=== PATIENT | male | born 1945 | race Hispanic/Latino ===

== ENCOUNTER 2020-10-07 01:14 | Inpatient (IN) | payer MEDICARE, OTHER ==
[2020-10-07] MEDS ORDERED: ONDANSETRON 4 MG/2 ML INJ IV ONE (02:13)
[2020-10-07] MEDS ORDERED: SODIUM CHLORIDE 0.9% 1000 ML 1,000 ML IV ONE (02:34)
[2020-10-07] MEDS ORDERED: MORPHINE 4 MG/1 ML INJ IV ONE (03:05)
--- NOTE | 2020-10-07 03:07 | Emergency Department Report ---
ED Abdominal Pain HPI - General Chief Complaint: Abdominal Pain Stated Complaint: ABD PAIN Time Seen by Provider: 10/07/20 02:13 Source: patient, old records reviewed Mode of arrival: Ambulatory Limitations: No Limitations - History of Present Illness Initial Comments: 74-year-old male with a past medical history of CAD, hypertension, elevated cholesterol, diverticulitis, previous cholecystectomy, appendectomy, multiple hernia repairs surgeries, partial colon resection, splenectomy, and previous small bowel obstructions presents to the hospital complaining of sudden onset abdominal pain with nausea vomiting since 9 PM. Patient has chronic ventral wall hernias from his 7 previous abdominal surgeries. He reports that his abdomen is more distended with moderate epigastric pain. Last surgery was abdominal mesh removal with replacement in 2006. No reports of fever, hematochezia, or hematemesis. Last bowel movement was 4 PM. Patient has active feculent vomiting during initial evaluation. Is not currently on anticoagulants and reports use of enteric-coated aspirin 81 mg daily. In the past patient has been seen by general surgeon DR Adriane Duncan affiliated with [facility] but has not been evaluated by them since 2006 - Related Data Previous Rx's Medication Instructions Recorded Last Taken Type Aspirin 325 mg PO ONCE #30 tablet 08/01/13 09/10/13 10:24 Rx 325 mg Clopidogrel [Plavix] 75 mg PO QDAY #30 tablet 08/01/13 09/10/13 10:23 Rx 75 mg Rosuvastatin (Nf) [Crestor] 20 mg PO QHS #30 tablet 08/01/13 09/09/13 22:00 Rx 20 mg Warfarin [Coumadin] 5 mg PO QDAY #30 tablet 08/01/13 09/09/13 22:00 Rx 5 mg Hydrocodone Bit/Acetaminophen 1 each PO Q8H PRN #14 tablet 09/10/13 Unknown Rx [Lortab 7.5-500 mg] Allergies Allergy/AdvReac Type Severity Reaction Status Date / Time No Known Allergies Allergy Verified 07/25/13 22:46 ED Review of Systems ROS: Stated complaint: ABD PAIN Other details as noted in HPI Comment: All other systems reviewed and negative ED Past Medical Hx - Past Medical History Previous Medical History?: Yes Hx Hypertension: Yes Hx CVA: No Hx Heart Attack/AMI: Yes Hx Congestive Heart Failure: No Hx Deep Vein Thrombosis: No Hx Pulmonary Embolism: No Hx GERD: No Hx Headaches / Migraines: No Hx Seizures: No Hx Asthma: No Hx COPD: No Hx Tuberculosis: No Hx Dementia: No Hx HIV: No Additional medical history: High cholesterol. diverticulitis - Surgical History Past Surgical History?: Yes Hx Coronary Stent: No Hx Pacemaker: No Hx Internal Defibrillator: No Hx Cholecystectomy: Yes Hx Appendectomy: Yes Additional Surgical History: Mult hernia repairs and colon resection. spleenectomy - Social History Smoking Status: Never Smoker Substance Use Type: None - Medications Home Medications: Home Medications Medication Instructions Recorded Confirmed Last Taken Type Aspirin 325 mg PO ONCE #30 tablet 08/01/13 09/10/13 09/10/13 10:24 Rx 325 mg Clopidogrel [Plavix] 75 mg PO QDAY #30 tablet 08/01/13 09/10/13 09/10/13 10:23 Rx 75 mg Rosuvastatin (Nf) [Crestor] 20 mg PO QHS #30 tablet 08/01/13 09/10/13 09/09/13 22:00 Rx 20 mg Warfarin [Coumadin] 5 mg PO QDAY #30 tablet 08/01/13 09/10/13 09/09/13 22:00 Rx 5 mg Hydrocodone Bit/Acetaminophen 1 each PO Q8H PRN #14 tablet 09/10/13 Unknown Rx [Lortab 7.5-500 mg] ED Physical Exam - General Limitations: No Limitations - Other Other exam information: General: Moderate distress secondary to rub Head: Atraumatic Eyes: normal appearance ENT: Moist mucous membranes Neck: Normal appearance, no midline tenderness Chest: Clear to auscultation bilaterally CV: Regular rate and rhythm Abdomen: Soft, normal bowel sounds, multiple abdominal scars multiple ventral wall hernias epigastric ventral wall hernia the largest and appears to be reducible. Mild generalized tenderness without rebound or guarding. Active feculent vomiting Back: Normal inspection Extremity: Normal inspection, full range of motion Neuro: Alert O x 3, no facial asymmetry, speech clear, no gross motor sensory deficit Psych: Appropriate behavior Skin: No rash ED Course Vital Signs 10/07/20 10/07/20 10/07/20 01:28 03:19 07:43 Temperature 98.9 F 98.1 F Pulse Rate 90 93 H Respiratory 18 18 18 Rate Blood Pressure 103/71 131/91 O2 Sat by Pulse 94 100 90 Oximetry 10/07/20 10/07/2010/07/21 07:48 08:00 08:11 Temperature Pulse Rate 95 H 100 H Respiratory 16 19 Rate Blood Pressure 113/79 113/79 O2 Sat by Pulse 93 94 95 Oximetry 10/07/20 10/07/20 10/07/20 08:13 08:15 08:30 Temperature 98.0 F Pulse Rate 95 H 95 H Respiratory 21 20 Rate Blood Pressure 113/79 120/77 O2 Sat by Pulse 95 94 Oximetry 10/07/20 08:40 Temperature Pulse Rate 98 H Respiratory 20 Rate Blood Pressure 120/77 O2 Sat by Pulse 92 Oximetry - Reevaluation(s) Reevaluation #1: 10/07/20 03:21 Abdominal series x-ray reviewed and appears to be a small bowel obstruction with clinical signs of feculent vomiting. Nurse instructed to place NG tube in place to intermittent suction. Labs and CT pending. Patient treated with Zofran, normal saline, and morphine - Consultations Consultation #1: 10/07/20 05:54 case d/w DR Lechuga Gen surgeon who recommends advancement of ngt and admission ED Medical Decision Making - Lab Data Result diagrams: 10/09/20 05:36 10/09/20 05:36 Lab Results 10/07/20 10/07/20 Range/Units 02:36 02:36 WBC 10.9 (4.5-11.0) K/mm3 RBC 5.27 H (3.65-5.03) M/mm3 Hgb 16.9 H (11.8-15.2) gm/dl Hct 49.9 H (35.5-45.6) % MCV 95 H (84-94) fl MCH 32 (28-32) pg MCHC 34 (32-34) % RDW 14.9 (13.2-15.2) % Plt Count 269 (140-440) K/mm3 Lymph % (Auto) 7.0 L (13.4-35.0) % Mccormick % (Auto) 6.4 (0.0-7.3) % Eos % (Auto) 0.0 (0.0-4.3) % Baso % (Auto) 0.2 (0.0-1.8) % Lymph # (Auto) 0.8 L (1.2-5.4) K/mm3 Mccormick # (Auto) 0.7 (0.0-0.8) K/mm3 Eos # (Auto) 0.0 (0.0-0.4) K/mm3 Baso # (Auto) 0.0 (0.0-0.1) K/mm3 Seg Neutrophils % 86.4 H (40.0-70.0) % Seg Neutrophils # 9.5 H (1.8-7.7) K/mm3 Sodium 138 (137-145) mmol/L Potassium 3.9 (3.6-5.0) mmol/L Chloride 98.6 (98-107) mmol/L Carbon Dioxide 18 L (22-30) mmol/L Anion Gap 25 mmol/L BUN 22 H (9-20) mg/dL Creatinine 1.2 (0.8-1.3) mg/dL Estimated GFR 59 ml/min BUN/Creatinine Ratio 18 % Glucose 217 H (75-100) mg/dL Calcium 9.6 (8.4-10.2) mg/dL Total Bilirubin 0.70 (0.1-1.2) mg/dL AST 20 (5-40) units/L ALT 17 (7-56) units/L Alkaline Phosphatase 71 (35-129) units/L Total Protein 7.2 (6.3-8.2) g/dL Albumin 4.5 (3.9-5) g/dL Albumin/Globulin Ratio 1.7 % Lipase 20 (13-60) units/L - Radiology Data Radiology results: report reviewed Chest x-ray abdominal series x-ray: Left basilar atelectasis with possible pneumonitis with more density in this area than on previous examination. No pneumoperitoneum is noted. Bowel gas pattern shows prominent small bowel dilatation with multiple air-fluid levels consistent with small bowel obstruction. Surgical changes seen in the pelvis and right lateral abdomen Post NG tube abdominal X ray: NG tube extends to the lower chest level near the gastroesophageal junction. There is a huge hiatal hernia and nasogastric tube does not extend beyond the gastroesophageal junction into the stomach. Advancement by roughly 10 cm with be needed to fully place the tip in the stomach though this may be difficult due to the hiatal hernia CT ABDOMEN AND PELVIS WITH CONTRAST INDICATION: Pt complains of abdominal pain with nausea and vomiting. CONTRAST: 100 cc Omnipaque 300 IV COMPARISON: None available. All CT scans at this location are performed using CT dose reduction for ALARA by means of automated exposure control. FINDINGS: Lung bases show atelectatic changes. A huge hiatal hernia is seen. Nasogastric tube extends to the gastroesophageal junction above the level of the diaphragm but does not appear to enter the stomach. Gallbladder has been removed. No biliary dilatation of significance is seen. Small cyst is noted in the liver. Small bilateral renal cysts are noted. 2 of the probable cysts on the left in the midportion laterally are mildly hyperdense with density of 245 Hounsfield units. The larger of the 2 adjacent hyperdense lesions measure 16 mm. Moderate left nephrolithiasis is seen without obstructive change in minimal right nephrolithiasis is noted. Prostate is moderately enlarged. Seminal vesicles are not enlarged. Mild ectasia of the lower abdominal aorta is seen. Moderate atherosclerotic changes are noted. No lymphadenopathy is seen. No free fluid is noted. No inflammatory changes are seen. Spleen has been removed. History of pancreatectomy but pancreas appears intact. A large midline upper abdominal wall hernia is seen with a broad base. The neck of this hernia measures 18 cm. This contains portions of colon. Just inferior to that broad- based hernia is a large midline supraumbilical hernia containing small bowel. Prominent small bowel dilatation is noted in the upper to mid small bowel with distal loops not dilated consistent with a small bowel obstruction. There is surgical change in mid small bowel with part of that dilated loop extending into the lower hernia sac. Nondilated loops of small bowel are also seen within the hernia sac. The neck of this hernia is relatively broad measuring 6 cm. There is a transition within the sac from nondilated to mildly dilated small bowel. An area of possible narrowing is also seen in the central mid abdomen at the area of surgical change. IMPRESSION: Evidence of high-grade small bowel obstruction in the mid to distal small bowel level. Two large ventral hernias are seen, one of which contains small bowel including a transition between nondilated and mildly dilated bowel though this transition is not at the neck of hernia. There is also a question of stenosis in a bowel loop with surgical change. No inflammatory changes seen at either hernia. - Medical Decision Making 74-year-old male with history of multiple previous abdominal surgeries and small bowel obstruction presents to the hospital with abdominal pain, distention, and feculent vomiting. CT confirms small bowel obstruction. NG tube placed however, needs advancement. At time of disposition nurse informed to advance NG tube 10 cm and repeat x-ray for proper placement. Case discussed with on-call surgeon Dr. Lechuga since patient's previous surgeon Dr. Duncan is not affiliated here and has not evaluated patient in over 10 years. Case discussed with hospitalist for admission Critical Care Time: No Critical care attestation.: If time is entered above; I have spent that time in minutes in the direct care of this critically ill patient, excluding procedure time. ED Disposition Clinical Impression: SBO (small bowel obstruction), Hiatal hernia, Ventral hernia Disposition: 09 OP ADMIT IP TO THIS HOSP Is pt being admited?: Yes Condition: Stable Time of Disposition: 05:57 (Dr Davis/hospitalist)
[2020-10-07 03:13] LABS: Basophils % (Auto) 0.2 % (0.0-1.8); Hematocrit 49.9 % (35.5-45.6); Hemoglobin 16.9 gm/dl (11.8-15.2); Lymphocytes # (Auto) 0.8 K/mm3 (1.2-5.4); Mean Corpuscular HGB Conc 34 % (32-34); Mean Corpuscular Volume 95 fl (84-94); Monocytes # (Auto) 0.7 K/mm3 (0.0-0.8); Monocytes % (Auto) 6.4 % (0.0-7.3); Platelet Count 269 K/mm3 (140-440); Red Blood Count 5.27 M/mm3 (3.65-5.03); Red Cell Distribution Width 14.9 % (13.2-15.2)
[2020-10-07] MEDS ORDERED: LIDOCAINE VISCOUS 2% 15 ML ORAL LIQD PO ONE (03:20)
[2020-10-07 03:35] LABS: Albumin 4.5 g/dL (3.9-5); Calcium 9.6 mg/dL (8.4-10.2)
--- NOTE | 2020-10-07 03:42 | XRay Report ---
ACUTE ABDOMEN SERIES 3 VIEWS 0248 INDICATION: feculant vomiting, abd distention COMPARISON: Chest x-ray 07/27/2013, abdominal radiograph 07/29/2013 FINDINGS: Left basilar atelectasis and possible pneumonitis are seen with more density in this area t monroy on previous examination. No pneumoperitoneum is noted. Bowel gas pattern shows prominent small randy wel dilatation with multiple air-fluid levels consistent with small bowel obstruction. Surgical kaur es are seen in the pelvis and right lateral abdomen. Signer Name: Brandon Barkley MD Signed: 10/07/2020 3:37 AM Workstation Name: [id number]
--- NOTE | 2020-10-07 05:33 | Cat Scan Report ---
CT ABDOMEN AND PELVIS WITH CONTRAST INDICATION: Pt complains of abdominal pain with nausea and vomiting. CONTRAST: 100 cc Omnipaque 300 IV COMPARISON: None available. All CT scans at this location are performed using CT dose reduction for ALARA by means of automated e xposure control. FINDINGS: Lung bases show atelectatic changes. A huge hiatal hernia is seen. Nasogastric tube extends to the gastroesophageal junction above the level of the diaphragm but does not appear to enter the s tomach. Gallbladder has been removed. No biliary dilatation of significance is seen. Small cyst is noted in t he liver. Small bilateral renal cysts are noted. 2 of the probable cysts on the left in the midportio n laterally are mildly hyperdense with density of 245 Hounsfield units. The larger of the 2 adjacent hyperdense lesions measure 16 mm. Moderate left nephrolithiasis is seen without obstructive change in minimal right nephrolithiasis is noted. Prostate is moderately enlarged. Seminal vesicles are not en larged. Mild ectasia of the lower abdominal aorta is seen. Moderate atherosclerotic changes are noted. No lym phadenopathy is seen. No free fluid is noted. No inflammatory changes are seen. Spleen has been remov ed. History of pancreatectomy but pancreas appears intact. A large midline upper abdominal wall hernia is seen with a broad base. The neck of this hernia measur es 18 cm. This contains portions of colon. Just inferior to that broad-based hernia is a large midlin e supraumbilical hernia containing small bowel. Prominent small bowel dilatation is noted in the uppe r to mid small bowel with distal loops not dilated consistent with a small bowel obstruction. There i s surgical change in mid small bowel with part of that dilated loop extending into the lower hernia s ac. Nondilated loops of small bowel are also seen within the hernia sac. The neck of this hernia is relatively broad measuring 6 cm. There is a transition within the sac from nondilated to mildly dilat ed small bowel. An area of possible narrowing is also seen in the central mid abdomen at the area of surgical change. IMPRESSION: Evidence of high-grade small bowel obstruction in the mid to distal small bowel level. Tw o large ventral hernias are seen, one of which contains small bowel including a transition between no ndilated and mildly dilated bowel though this transition is not at the neck of hernia. There is also a question of stenosis in a bowel loop with surgical change. No inflammatory changes seen at either h ernia. Signer Name: Brandon Barkley MD Signed: 10/07/2020 5:29 AM Workstation Name: [id number]
--- NOTE | 2020-10-07 05:35 | XRay Report ---
ABDOMEN AP PORTABLE SUPINE 0446 INDICATION: NG TUBE PLACEMENT FOR SBO COMPARISON: CT abdomen and pelvis tonight FINDINGS: Nasogastric tube extends to the lower chest level near the gastroesophageal junction. As se en on CT, there is a huge hiatal hernia and the nasogastric tube does not extend beyond the gastroeso phageal junction into the stomach. Advancement by roughly 10 cm would be needed to fully place the ti p in the stomach though this may be difficult due to the hiatal hernia. Signer Name: Brandon Barkley MD Signed: 10/07/2020 5:31 AM Workstation Name: [id number]
[2020-10-07] MEDS ORDERED: MAGNESIUM HYDROXIDE (MOM) ORAL LIQD UDC PO PRN (06:18)
[2020-10-07] MEDS ORDERED: METOCLOPRAMIDE 10 MG/2 ML INJ IV PRN (06:18)
[2020-10-07] MEDS ORDERED: ACETAMINOPHEN 325 MG TAB PO PRN (06:18)
[2020-10-07] MEDS ORDERED: IPRATROPIUM/ALBUTEROL SULFATE 3 ML AMPUL.NEB IH PRN (06:18)
[2020-10-07] MEDS ORDERED: traZODone 50 MG TAB PO PRN (06:22)
[2020-10-07] MEDS ORDERED: ALUM-MAG HYDROXIDE-SIMETHICONE 200-200-20MG/5ML ORAL LIQD 30 ML PO PRN (06:22)
[2020-10-07] MEDS ORDERED: LACTULOSE 20 GM/30 ML ORAL LIQD PO PRN (06:22)
--- NOTE | 2020-10-07 06:31 | History and Physical Report ---
History of Present Illness Date of examination: 10/07/20 Date of admission: 10/07/20 Chief complaint: Ventral hernia Abdominal pain History of present illness: 74-year-old male with a past medical history of CAD, hypertension, elevated cholesterol, diverticulitis, previous cholecystectomy, appendectomy, multiple hernia repairs surgeries, partial colon resection, splenectomy, and previous small bowel obstructions presents to the hospital complaining of sudden onset abdominal pain with nausea vomiting since 9 PM. Patient has chronic ventral wall hernias from his 7 previous abdominal surgeries. He reports that his abdomen is more distended with moderate epigastric pain. Last surgery was abdominal mesh removal with replacement in 2006. No reports of fever, hematochezia, or hematemesis. Last bowel movement was 4 PM. Patient has active feculent vomiting during initial evaluation. Is not currently on anticoagulants and reports use of enteric-coated aspirin 81 mg daily. Patient seen at the bedside in ED. Patient is alert and oriented x3. Patient reports abdominal pain, denies chest pain and shortness of breath. He has distended abdomen due to abdominal hernia. He reports history of multiple surgeries. He said his abdominal pain has worsened and is not relieved by any [id number] remedies. He denies tobacco use, alcohol, and illicit drug use. ED work-up shows WBC 10.9, H&H 16.9, potassium 3.9, glucose 217, sodium 138, creatinine 1.2, and platelets 269. CT of the abdomen done-it showed Evidence of high-grade small bowel obstruction in the mid to distal small bowel level. Two large ventral hernias are seen, one of which contains small bowel including a transition between nondilated and mildly dilated bowel though this transition is not at the neck of hernia. There is also a question of stenosis in a bowel loop with surgical change. No inflammatory changes seen at either hernia. NG tube placed in the ED to intermittent suction. General surgeon consulted. Past History Past Medical History: CAD, hypertension, hyperlipidemia Past Surgical History: cholecystectomy, hernia repair, bowel surgery Social history: , lives with family Family history: hypertension Medications and Allergies Allergies Allergy/AdvReac Type Severity Reaction Status Date / Time No Known Allergies Allergy Verified 07/25/13 22:46 Home Medications Medication Instructions Recorded Confirmed Last Taken Type Aspirin 325 mg PO ONCE #30 tablet 08/01/13 09/10/13 09/10/13 10:24 Rx 325 mg Clopidogrel [Plavix] 75 mg PO QDAY #30 tablet 08/01/13 09/10/13 09/10/13 10:23 Rx 75 mg Rosuvastatin (Nf) [Crestor] 20 mg PO QHS #30 tablet 08/01/13 09/10/13 09/09/13 22:00 Rx 20 mg Warfarin [Coumadin] 5 mg PO QDAY #30 tablet 08/01/13 09/10/13 09/09/13 22:00 Rx 5 mg Hydrocodone Bit/Acetaminophen 1 each PO Q8H PRN #14 tablet 09/10/13 Unknown Rx [Lortab 7.5-500 mg] Active Meds: Active Medications Acetaminophen (Acetaminophen 325 Mg Tab) 650 mg PO Q4H PRN PRN Reason: Pain MILD(1-3)/Fever >100.5/BOSS Al Hydrox/Mg Hydrox/Simethicone (Alum-Mag Hydroxide-Simethicone [phone]/5ml Oral Liqd 30 Ml) 30 ml PO Q8HR PRN PRN Reason: Indigestion Albuterol/Ipratropium (Ipratropium/Albuterol Sulfate 3 Ml Ampul.Neb) 1 ampul IH Q6HRT PRN PRN Reason: Shortness Of Breath Famotidine (Famotidine 20 Mg/2 Ml Inj) 20 mg IV BID JOSH Dextrose/Sodium Chloride (D5ns) 1,000 mls @ 75 mls/hr IV DIRECT JOSH Lactulose (Lactulose 20 Gm/30 Ml Oral Liqd) 20 gm PO DAILY PRN PRN Reason: Constipation Magnesium Hydroxide (Magnesium Hydroxide (Mom) Oral Liqd Udc) 30 ml PO Q4H PRN PRN Reason: Constipation Metoclopramide HCl (Metoclopramide 10 Mg/2 Ml Inj) 10 mg IV Q6H PRN PRN Reason: Nausea And Vomiting Morphine Sulfate (Morphine 2 Mg/1 Ml Inj) 2 mg IV Q6H PRN PRN Reason: Pain, Moderate (4-6) Ondansetron HCl (Ondansetron 4 Mg/2 Ml Inj) 4 mg IV Q8H PRN PRN Reason: Nausea And Vomiting Sodium Chloride (Sodium Chloride 0.9% 10 Ml Flush Syringe) 10 ml IV BID JOSH Sodium Chloride (Sodium Chloride 0.9% 10 Ml Flush Syringe) 10 ml IV PRN PRN PRN Reason: LINE FLUSH Trazodone HCl (Trazodone 50 Mg Tab) 50 mg PO QHS PRN PRN Reason: Insomnia Review of Systems Ears, nose, mouth and throat: no epistaxis Cardiovascular: high blood pressure Respiratory: no congestion Gastrointestinal: abdominal pain, nausea, vomiting Genitourinary Male: no hematuria Rectal: no pain Musculoskeletal: no neck stiffness Integumentary: no rash, no pruritis Neurological: no head injury Exam - Constitutional Vitals: Temp Pulse Resp BP Pulse Ox 98.9 F 90 18 103/71 100 10/07/20 01:28 10/07/20 01:28 10/07/20 03:19 10/07/20 01:10/07/20 03:19 General appearance: Present: severe distress, well-nourished, other (abdominal pain due to sbo) - EENT Eyes: Present: PERRL ENT: hearing intact, clear oral mucosa - Neck Neck: Present: supple, normal ROM - Respiratory Respiratory effort: normal Respiratory: bilateral: CTA - Cardiovascular Heart rate: 90 Heart Sounds: Present: S1 & S2. Absent: rub, click - Extremities Extremities: pulses symmetrical, No edema Peripheral Pulses: within normal limits - Abdominal General gastrointestinal: Present: soft, non-tender, tender, distended, hypoactive bowel sounds Localized gastrointestinal: tender: RUQ, LUQ, RLQ, LLQ, epigastric periumbilical, guarding: RUQ, LUQ, RLQ, LLQ Male genitourinary: Present: normal - Integumentary Integumentary: Present: clear, warm, dry - Musculoskeletal Musculoskeletal: gait normal, strength equal bilaterally - Psychiatric Psychiatric: appropriate mood/affect, intact judgment & insight, cooperative - Neurologic Neurologic: CNII-XII intact, moves all extremities - Allied Health Allied health notes reviewed: nursing Results - Labs CBC & Chem 7: 10/07/20 02:36 10/07/20 02:36 Labs: Abnormal lab results 10/07/20 10/07/20 Range/Units 02:36 02:36 RBC 5.27 H (3.65-5.03) M/mm3 Hgb 16.9 H (11.8-15.2) gm/dl Hct 49.9 H (35.5-45.6) % MCV 95 H (84-94) fl Lymph % (Auto) 7.0 L (13.4-35.0) % Lymph # (Auto) 0.8 L (1.2-5.4) K/mm3 Seg Neutrophils % 86.4 H (40.0-70.0) % Seg Neutrophils # 9.5 H (1.8-7.7) K/mm3 Carbon Dioxide 18 L (22-30) mmol/L BUN 22 H (9-20) mg/dL Glucose 217 H (75-100) mg/dL Assessment and Plan - Patient Problems (1) SBO (small bowel obstruction) Current Visit: Yes Status: Acute Plan to address problem: Small bowel obstruction seen on CT of the abdomen Started on IV hydration. Patient is n.p.o. General surgeon consulted (2) Ventral hernia Current Visit: Yes Status: Acute Plan to address problem: Patient has history of multiple abdominal surgeries Pain management as needed (3) Abdominal pain Current Visit: Yes Status: Acute Plan to address problem: with Nausea and vomiting -secondary to small bowel obstruction CT of the abdomen showed a small bowel obstruction Continue pain management Continue IV hydration and keep patient n.p.o. General surgeon consulted (4) Essential (primary) hypertension Current Visit: Yes Status: Acute Plan to address problem: Monitor blood pressure Resume home antihypertensive Adjust blood pressure medicine if needed As needed hydralazine (5) High cholesterol Current Visit: Yes Status: Acute Plan to address problem: Resume home statin (6) DVT prophylaxis Current Visit: Yes Status: Acute Plan to address problem: SCD for now patient may possibly have surgery
[2020-10-07] MEDS ORDERED: ALBUTEROL 2.5 MG/3 ML NEBU IH PRN (06:33)
[2020-10-07] MEDS ORDERED: D5W/0.9% NACL 1,000 ML IV SCH (07:00)
--- NOTE | 2020-10-07 07:03 | XRay Report ---
ABDOMEN AP PORTABLE 0630 INDICATION: NGT advanced COMPARISON: 0446 FINDINGS: Position of the nasogastric tube is unchanged with tip in the area of the gastroesophageal junction adjacent to the large hiatal hernia. Signer Name: Brandon Barkley MD Signed: 10/07/2020 6:59 AM Workstation Name: [id number]
[2020-10-07] MEDS: MORPHINE 2 MG/1 ML INJ IV PRN (08:17)
--- NOTE | 2020-10-07 10:05 | Consultation ---
History of Present Illness Consult date: 10/07/20 Reason for consult: abdominal pain - History of present illness History of present illness: 74 year old male presented to ED with a one day hx of worsening abdominal pain, distension, with nausea and vomiting. He has a hx of 7 previous open abdominal surgeries for a variety of reasons, with the last consisting of removal of a mes h, and replacement of another one. He says his pain is moderate. Last bowel movement and flatus was yesterday. The ED passed an NGT, but was unsuccessful at passing past the GE jx due to a large non-obstructing hiatal hernia seen on imaging. He had a CT scan that showed a high grade small bowel obstruction in the mid abdomen. Upon exam pt says that he is tired of being in the hospital and needing procedures. He was hospitalized in march and july of last year for diverticular bleed that was treated conservatively. Past History Past Medical History: CAD, hypertension, hyperlipidemia Past Surgical History: cholecystectomy, hernia repair, bowel surgery, Other (partial colectomy, mesh removal and replacement with biologic, splenectomy) Social history: , lives with family Family history: hypertension Medications and Allergies Allergies Allergy/AdvReac Type Severity Reaction Status Date / Time No Known Allergies Allergy Verified 07/25/13 22:46 Home Medications Medication Instructions Recorded Confirmed Last Taken Type Aspirin 325 mg PO ONCE #30 tablet 08/01/13 09/10/13 09/10/13 10:24 Rx 325 mg Clopidogrel [Plavix] 75 mg PO QDAY #30 tablet 08/01/13 09/10/13 09/10/13 10:23 Rx 75 mg Rosuvastatin (Nf) [Crestor] 20 mg PO QHS #30 tablet 08/01/13 09/10/13 09/09/13 22:00 Rx 20 mg Warfarin [Coumadin] 5 mg PO QDAY #30 tablet 08/01/13 09/10/13 09/09/13 22:00 Rx 5 mg Hydrocodone Bit/Acetaminophen 1 each PO Q8H PRN #14 tablet 09/10/13 Unknown Rx [Lortab 7.5-500 mg] Active Meds: Active Medications Acetaminophen (Acetaminophen 325 Mg Tab) 650 mg PO Q4H PRN PRN Reason: Pain MILD(1-3)/Fever >100.5/BOSS Al Hydrox/Mg Hydrox/Simethicone (Alum-Mag Hydroxide-Simethicone [id number]/5ml Oral Liqd 30 Ml) 30 ml PO Q8HR PRN PRN Reason: Indigestion Albuterol (Albuterol 2.5 Mg/3 Ml Nebu) 2.5 mg IH Q4HRT PRN PRN Reason: Shortness Of Breath Atenolol (Atenolol 25 Mg Tab) 25 mg PO QDAY JOSH Atorvastatin Calcium (Atorvastatin 20 Mg Tab) 20 mg PO QHS JOSH Famotidine (Famotidine 20 Mg/2 Ml Inj) 20 mg IV BID JOSH Hydralazine HCl (Hydralazine 20 Mg/1 Ml Inj) 5 mg IV Q30MIN PRN PRN Reason: Hypertension Hydrochlorothiazide (Hydrochlorothiazide 12.5 Mg Cap) 12.5 mg PO QDAY JOSH Dextrose/Sodium Chloride (D5ns) 1,000 mls @ 75 mls/hr IV DIRECT JOSH Last Admin: 10/07/20 08:17 Dose: 75 mls/hr Documented by: Lactulose (Lactulose 20 Gm/30 Ml Oral Liqd) 20 gm PO DAILY PRN PRN Reason: Constipation Magnesium Hydroxide (Magnesium Hydroxide (Mom) Oral Liqd Udc) 30 ml PO Q4H PRN PRN Reason: Constipation Metoclopramide HCl (Metoclopramide 10 Mg/2 Ml Inj) 10 mg IV Q6H PRN PRN Reason: Nausea And Vomiting Last Admin: 10/07/20 07:54 Dose: 10 mg Documented by: Morphine Sulfate (Morphine 2 Mg/1 Ml Inj) 2 mg IV Q6H PRN PRN Reason: Pain, Moderate (4-6) Last Admin: 10/07/20 08:17 Dose: 2 mg Documented by: Ondansetron HCl (Ondansetron 4 Mg/2 Ml Inj) 4 mg IV Q8H PRN PRN Reason: Nausea And Vomiting Sodium Chloride (Sodium Chloride 0.9% 10 Ml Flush Syringe) 10 ml IV BID JOSH Sodium Chloride (Sodium Chloride 0.9% 10 Ml Flush Syringe) 10 ml IV PRN PRN PRN Reason: LINE FLUSH Trazodone HCl (Trazodone 50 Mg Tab) 50 mg PO QHS PRN PRN Reason: Insomnia Review of Systems - Constitutional anorexia - Cardiovascular no chest pain - Respiratory no cough, no shortness of breath - Gastrointestinal abdominal pain, nausea, vomiting - Genitourinary no dysuria Exam Vital Signs Temp Pulse Resp BP Pulse Ox 98.9 F 90 18 103/71 94 10/07/20 01:28 10/07/20 01:10/07/20 01:10/07/20 01:10/07/20 01:28 - General physical appearance Positive: well developed, no distress, no pain - Respiratory Positive: normal expansion, normal respiratory effort - Cardiovascular Heart Sounds: Present: S1 & S2 - Extremities Extremities: no ischemia - Abdomen Abdomen: Present: soft, tender, distended, surgical scars, other (loss of domain midline hernia. ). Absent: rebound, guarding - Neurologic Neurologic: alert and oriented to time, place and person Results - Labs 10/07/20 02:36 10/07/20 02:36 Abnormal lab results 10/07/20 10/07/20 Range/Units 02:36 02:36 RBC 5.27 H (3.65-5.03) M/mm3 Hgb 16.9 H (11.8-15.2) gm/dl Hct 49.9 H (35.5-45.6) % MCV 95 H (84-94) fl Lymph % (Auto) 7.0 L (13.4-35.0) % Lymph # (Auto) 0.8 L (1.2-5.4) K/mm3 Seg Neutrophils % 86.4 H (40.0-70.0) % Seg Neutrophils # 9.5 H (1.8-7.7) K/mm3 Carbon Dioxide 18 L (22-30) mmol/L BUN 22 H (9-20) mg/dL Glucose 217 H (75-100) mg/dL Diabetes panel 10/07/20 Range/Units 02:36 Sodium 138 (137-145) mmol/L Potassium 3.9 (3.6-5.0) mmol/L Chloride 98.6 (98-107) mmol/L Carbon Dioxide 18 L (22-30) mmol/L BUN 22 H (9-20) mg/dL Creatinine 1.2 (0.8-1.3) mg/dL Glucose 217 H (75-100) mg/dL Calcium 9.6 (8.4-10.2) mg/dL AST 20 (5-40) units/L ALT 17 (7-56) units/L Alkaline Phosphatase 71 (35-129) units/L Total Protein 7.2 (6.3-8.2) g/dL Albumin 4.5 (3.9-5) g/dL Calcium panel 10/07/20 Range/Units 02:36 Calcium 9.6 (8.4-10.2) mg/dL Albumin 4.5 (3.9-5) g/dL Pituitary panel 10/07/20 Range/Units 02:36 Sodium 138 (137-145) mmol/L Potassium 3.9 (3.6-5.0) mmol/L Chloride 98.6 (98-107) mmol/L Carbon Dioxide 18 L (22-30) mmol/L BUN 22 H (9-20) mg/dL Creatinine 1.2 (0.8-1.3) mg/dL Glucose 217 H (75-100) mg/dL Calcium 9.6 (8.4-10.2) mg/dL Adrenal panel 10/07/20 Range/Units 02:36 Sodium 138 (137-145) mmol/L Potassium 3.9 (3.6-5.0) mmol/L Chloride 98.6 (98-107) mmol/L Carbon Dioxide 18 L (22-30) mmol/L BUN 22 H (9-20) mg/dL Creatinine 1.2 (0.8-1.3) mg/dL Glucose 217 H (75-100) mg/dL Calcium 9.6 (8.4-10.2) mg/dL Total Bilirubin 0.70 (0.1-1.2) mg/dL AST 20 (5-40) units/L ALT 17 (7-56) units/L Alkaline Phosphatase 71 (35-129) units/L Total Protein 7.2 (6.3-8.2) g/dL Albumin 4.5 (3.9-5) g/dL - Imaging CT scan - abdomen: report reviewed, image reviewed CT scan - pelvis: report reviewed, image reviewed Assessment and Plan 74 year old male with small bowel obstruction likely due to adhesive disease. Afebrile and stable. Pt is high risk for complication after surgery as he has an extensive and complicated previous abdominal surgical hx. Also to be considered is he has loss of domain recurrent ventral hernia that may be problematic to close. Since NGT will not pass hiatal hernia, asked IR to try to manipulate tube beyond GE jx under fluoroscopy. I discussed at length with the patient that if we can advance the tube to allow for adequate decompression of his stomach and proximal small bowel it may give us the option to manage the SBO conservatively without surgery. Pt expressed hesitation to have any intervention done because he said 'he is tired of being sick and having to endure procedures, and maybe the best thing for him is to pass away if that is God's will". Will follow up with patient later. If IR cannot pass tube, will discuss surgery again with patient and plan for surgical intervention with his consent.
[2020-10-07] MEDS: ONDANSETRON 4 MG/2 ML INJ IV PRN (10:48)
[2020-10-07] MEDS ORDERED: SODIUM CHLORIDE IRRI 500 ML 500 ML IR ONE (12:01)
[2020-10-07] MEDS ORDERED: SODIUM CHLORIDE 0.9% 500 ML 500 ML ONE (12:16)
--- NOTE | 2020-10-07 12:46 | Operative Report ---
Operative Report Operative Report: Exam: Fluoroscopic guided placement of nasojejunostomy tube Clinical indication: Patient with a history of multiple abdominal surgeries and large hiatal hernia, unable to pass NG tube Date: 10/07/2020 Procedure: Following an explanation of the risks, benefits and alternatives; written informed consent was obtained. The patient was brought to the fluoroscopy suite and placed in supine position on the examination table. Initial evaluation of the patient's indwelling nasogastric tube demonstrated some coiling of the proximal tube in the patient's back of his throat. The distal end of the tube is in the likely proximal aspect of the hiatal hernia. Contrast would not pass secondary to tortuosity of the NG tube. The nasogastric tube was withdrawn proximally to reduce the coiling. A 0.035 guidewire was then advanced through the nasogastric tube and the indwelling nasogastric tube removed intact. A vertebral catheter was then advanced over the guidewire. Together the catheter and guidewire were manipulated into the proximal jejunum. The vertebral catheter was removed and a Dobbhoff tube was placed over the guidewire under fluoroscopy and advanced into the proximal jejunum. Overall length of 75 cm. Contrast was injected to document appropriate positioning. The Dobbhoff tube was securely fastened to the nose using adhesive tape. The patient tolerated the procedure well. There were no immediate postprocedure complications. Sedation was not utilized. Continuous cardiopulmonary monitoring was utilized. Impression: Fluoroscopic guided placement of Dobbhoff tube at 75 cm into proximal jejunum.
[2020-10-07 13:44] LABS: Bilirubin,Urine NEG (Negative); Blood,Urine NEG (Negative); Color,Urine Amber (Yellow); Mucus,Urine FEW /HPF; Urobilinogen,Urine < 2.0 mg/dL (<2.0)
[2020-10-07] MEDS: FAMOTIDINE 20 MG/2 ML INJ IV SCH ×2 (13:48→22:31)
[2020-10-07] MEDS: atenoloL 25 MG TAB PO SCH (14:44)
[2020-10-07] MEDS: hydroCHLOROthiazide 12.5 MG CAP PO SCH (14:44)
--- NOTE | 2020-10-07 18:47 | Event Note ---
Date: 10/07/20 She was admitted this morning with abdominal pain , small bowel obstruction , ventral hernia history of multiple abdominal surgeries and large hiatal hernia, surgery and IR evaluated, Unable to pass NG tube , patient underwent fluoroscopic guided placement of nasojejunostomy tube per IR Continue current management, will closely monitor the patient and adjust the management as needed Surgery and IR evaluation recommendations noted and appreciated Plan of care reviewed with the patient's nurse
[2020-10-07] MEDS ORDERED: PHENOL 1.4% 177 ML BOTTLE MM PRN (22:01)
[2020-10-08] MEDS: MORPHINE 2 MG/1 ML INJ IV PRN ×3 (02:51→18:42)
[2020-10-08 06:25] LABS: Basophils % (Auto) 0.1 % (0.0-1.8); Hematocrit 48.6 % (35.5-45.6); Hemoglobin 16.2 gm/dl (11.8-15.2); Lymphocytes # (Auto) 0.7 K/mm3 (1.2-5.4); Lymphocytes % (Auto) 7.8 % (13.4-35.0); Mean Corpuscular HGB Conc 33 % (32-34); Mean Corpuscular Volume 97 fl (84-94); Monocytes % (Auto) 10.3 % (0.0-7.3); Platelet Count 242 K/mm3 (140-440); Red Blood Count 5.01 M/mm3 (3.65-5.03); Red Cell Distribution Width 15.3 % (13.2-15.2)
[2020-10-08 07:03] LABS: Albumin 3.9 g/dL (3.9-5); Calcium 8.6 mg/dL (8.4-10.2)
[2020-10-08] MEDS ORDERED: SODIUM CHLORIDE 0.9% 500 ML 500 ML IV ONE (09:30)
--- NOTE | 2020-10-08 10:09 | Progress Note ---
Assessment and Plan Assessment and plan: Patient was admitted with abdominal pain , small bowel obstruction , ventral hernia history of multiple abdominal surgeries and large hiatal hernia, surgery and IR evaluated, Unable to pass NG tube , patient underwent fluoroscopic guided placement of nasojejunostomy tube per IR --Small bowel obstruction; Management per surgery Continue n.p.o. status, IV fluids Patient had Dobbhoff. Nasal jejunostomy tube On low intermittent suction Management per surgery --Acute kidney injury; secondary to dehydration Vasomotor nephropathy, gentle IV hydration Monitor renal function, avoid nephrotoxins Consider nephrology evaluation if no improvement --History of coronary artery disease; Continue home medications once patient is able to take oral Consider cardiology evaluation if needed --Dyslipidemia; Patient is on statin, currently n.p.o. Resume when patient is stable and able to take p.o. --DVT prophylaxis; SCDs We will closely monitor patient and adjust management as needed Follow surgery recommendations Plan of care reviewed with the patient and and his nurse 10/08/2020; patient has Dobbhoff/nasal jejunostomy tube placement, with intermittent suction Patient feels slightly better, n.p.o. status, management per surgery History Interval history: I have seen and examined the patient at the bedside Patient's chart and medications reviewed Patient feels slightly better Planes of mild abdominal discomfort Vital signs reviewed Hospitalist Physical - Constitutional Vitals: Temp Pulse Resp BP Pulse Ox 97.7 F 71 20 119/83 93 10/08/20 07:16 10/08/20 07:16 10/08/20 08:55 10/08/20 07:16 10/08/20 08:35 General appearance: Present: severe distress, well-nourished, other (abdominal pain due to sbo) - EENT Eyes: Present: PERRL, EOM intact - Neck Neck: Present: supple, normal ROM - Respiratory Respiratory effort: normal Respiratory: bilateral: diminished, negative: rales, rhonchi, wheezing - Cardiovascular Rhythm: regular Heart Sounds: Present: S1 & S2 - Extremities Extremities: no ischemia, No edema - Abdominal General gastrointestinal: soft, non-tender, non-distended - Integumentary Integumentary: Present: clear, warm - Psychiatric Psychiatric: appropriate mood/affect, cooperative - Neurologic Neurologic: CNII-XII intact, moves all extremities Results - Labs CBC & Chem 7: 10/08/20 05:38 10/08/20 05:38 Labs: Laboratory Last Values WBC 9.5 K/mm3 (4.5-11.0) 10/08/20 05:38 RBC 5.01 M/mm3 (3.65-5.03) 10/08/20 05:38 Hgb 16.2 gm/dl (11.8-15.2) H 10/08/20 05:38 Hct 48.6 % (35.5-45.6) H 10/08/20 05:38 MCV 97 fl (84-94) H 10/08/20 05:38 MCH 32 pg (28-32) 10/08/20 05:38 MCHC 33 % (32-34) 10/08/20 05:38 RDW 15.3 % (13.2-15.2) H 10/08/20 05:38 Plt Count 242 K/mm3 (140-440) 10/08/20 05:38 Lymph % (Auto) 7.8 % (13.4-35.0) L 10/08/20 05:38 Petroleum % (Auto) 10.3 % (0.0-7.3) H 10/08/20 05:38 Eos % (Auto) 0.0 % (0.0-4.3) 10/08/20 05:38 Baso % (Auto) 0.1 % (0.0-1.8) 10/08/20 05:38 Lymph # (Auto) 0.7 K/mm3 (1.2-5.4) L 10/08/20 05:38 Petroleum # (Auto) 1.0 K/mm3 (0.0-0.8) H 10/08/20 05:38 Eos # (Auto) 0.0 K/mm3 (0.0-0.4) 10/08/20 05:38 Baso # (Auto) 0.0 K/mm3 (0.0-0.1) 10/08/20 05:38 Seg Neutrophils % 81.8 % (40.0-70.0) H 10/08/20 05:38 Seg Neutrophils # 7.8 K/mm3 (1.8-7.7) H 10/08/20 05:38 Sodium 138 mmol/L (137-145) 10/08/20 05:38 Potassium 3.6 mmol/L (3.6-5.0) 10/08/20 05:38 Chloride 99.2 mmol/L (98-107) 10/08/20 05:38 Carbon Dioxide 21 mmol/L (22-30) L 10/08/20 05:38 Anion Gap 21 mmol/L 10/08/20 05:38 BUN 52 mg/dL (9-20) H 10/08/20 05:38 Creatinine 2.0 mg/dL (0.8-1.3) H D 10/08/20 05:38 Estimated GFR 33 ml/min 10/08/20 05:38 BUN/Creatinine Ratio 26 % 10/08/20 05:38 Glucose 209 mg/dL (75-100) H 10/08/20 05:38 Calcium 8.6 mg/dL (8.4-10.2) 10/08/20 05:38 Total Bilirubin 0.80 mg/dL (0.1-1.2) 10/08/20 05:38 AST 16 units/L (5-40) 10/08/20 05:38 ALT 14 units/L (7-56) 10/08/20 05:38 Alkaline Phosphatase 58 units/L (35-129) 10/08/20 05:38 Total Protein 7.3 g/dL (6.3-8.2) 10/08/20 05:38 Albumin 3.9 g/dL (3.9-5) 10/08/20 05:38 Albumin/Globulin Ratio 1.1 % 10/08/20 05:38 Lipase 20 units/L (13-60) 10/07/20 02:36 Urine Color Celine (Yellow) 10/07/20 Unknown Urine Turbidity Clear (Clear) 10/07/20 Unknown Urine pH 5.0 (5.0-7.0) 10/07/20 Unknown Ur Specific [place] 1.041 (1.003-1.030) H 10/07/20 Unknown Urine Protein 30 mg/dl mg/dL (Negative) 10/07/20 Unknown Urine Glucose (UA) Neg mg/dL (Negative) 10/07/20 Unknown Urine Ketones Neg mg/dL (Negative) 10/07/20 Unknown Urine Blood Neg (Negative) 10/07/20 Unknown Urine Nitrite Neg (Negative) 10/07/20 Unknown Urine Bilirubin Neg (Negative) 10/07/20 Unknown Urine Urobilinogen < 2.0 mg/dL (<2.0) 10/07/20 Unknown Ur Leukocyte Esterase Neg (Negative) 10/07/20 Unknown Urine WBC (Auto) 2.0 /HPF (0.0-6.0) 10/07/20 Unknown Urine RBC (Auto) 4.0 /HPF (0.0-6.0) 10/07/20 Unknown U Epithel Cells (Auto) < 1.0 /HPF (0-13.0) 10/07/20 Unknown Urine Mucus Few /HPF 10/07/20 Unknown Junior/IV: Voiding Method Urinal IV Catheter Type [Right] Peripheral IV Active Medications - Current Medications Current Medications: Generic Name Dose Route Start Last Admin Trade Name Freq PRN Reason Stop Dose Admin Acetaminophen 650 mg 10/07/20 06:18 Acetaminophen 325 Mg Tab PO Q4H PRN Pain MILD(1-3)/Fever >100.5/BOSS Al Hydrox/Mg Hydrox/Simethicone 30 ml 10/07/20 06:22 Alum-Mag Hydroxide-Simethicone [id number]/5ml Oral Liqd 30 Ml PO Q8HR PRN Indigestion Albuterol 2.5 mg 10/07/20 06:33 Albuterol 2.5 Mg/3 Ml Nebu IH Q4HRT PRN Shortness Of Breath Atenolol 25 mg 10/07/20 10:00 10/07/20 14:44 Atenolol 25 Mg Tab PO Not Given QDAY JOSH Atorvastatin Calcium 20 mg 10/07/20 22:00 10/07/20 22:31 Atorvastatin 20 Mg Tab PO 20 mg QHS JOSH Administration Famotidine 20 mg 10/07/20 10:00 10/07/20 22:31 Famotidine 20 Mg/2 Ml Inj IV 20 mg BID JOSH Administration Hydralazine HCl 5 mg 10/07/20 06:52 Hydralazine 20 Mg/1 Ml Inj IV Q30MIN PRN Hypertension Hydrochlorothiazide 12.5 mg 10/07/20 10:00 10/07/20 14:44 Hydrochlorothiazide 12.5 Mg Cap PO Not Given QDAY JOSH Dextrose/Sodium Chloride 1,000 mls @ 75 mls/hr 10/07/20 07:00 10/08/20 02:43 D5ns IV Infused DIRECT JOSH Infusion Lactulose 20 gm 10/07/20 06:22 Lactulose 20 Gm/30 Ml Oral Liqd PO DAILY PRN Constipation Magnesium Hydroxide 30 ml 10/07/20 06:18 Magnesium Hydroxide (Mom) Oral Liqd Udc PO Q4H PRN Constipation Morphine Sulfate 2 mg 10/07/20 06:18 10/08/20 08:55 Morphine 2 Mg/1 Ml Inj IV 2 mg Q6H PRN Administration Pain, Moderate (4-6) Ondansetron HCl 4 mg 10/07/20 06:18 10/07/20 10:48 Ondansetron 4 Mg/2 Ml Inj IV 4 mg Q8H PRN Administration Nausea And Vomiting Phenol 1 spray 10/07/20 22:01 10/07/20 22:44 Phenol 1.4% 177 Ml Bottle MM 1 spray PRN PRN Administration Sore Throat Sodium Chloride 10 ml 10/07/20 10:00 10/07/20 22:36 Sodium Chloride 0.9% 10 Ml Flush Syringe IV 10 ml BID JOSH Administration Sodium Chloride 10 ml 10/07/20 06:18 Sodium Chloride 0.9% 10 Ml Flush Syringe IV PRN PRN LINE FLUSH Trazodone HCl 50 mg 10/07/20 06:22 Trazodone 50 Mg Tab PO QHS PRN Insomnia
--- NOTE | 2020-10-08 13:19 | XRay Report ---
CHEST 1 VIEW INDICATION: picc line. COMPARISON: 07/27/2013 FINDINGS: Support devices: A right arm PICC terminates at the cavoatrial junction. A feeding tube has been inse rted which is coiled within a hiatal hernia posterior to the heart. Heart: Mild cardiomegaly. Lungs/Pleura: There is hazy opacity at the left lung base consistent with partial atelectasis in the left lower lobe. Otherwise the lungs are clear. Additional findings: None. IMPRESSION: Adequate positioning of the right arm PICC. A feeding tube appears to be coiled within a hiatal hernia posterior to the heart, correlate with the image. Mild cardiomegaly. Partial atelectasis in the left lower lobe. Signer Name: Eliazar Rosario Jr, MD Signed: 10/08/2020 1:15 PM Workstation Name: [id number]
[2020-10-08] MEDS: atenoloL 25 MG TAB PO SCH (13:48)
[2020-10-08] MEDS: hydroCHLOROthiazide 12.5 MG CAP PO SCH (13:48)
[2020-10-08] MEDS: FAMOTIDINE 20 MG/2 ML INJ IV SCH ×2 (13:49→21:27)
--- NOTE | 2020-10-08 14:22 | Progress Note ---
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 Afebrile and stable. No clinical signs of ischemia or perforation. Pt is high risk for complication after surgery as he has an extensive and complicated previous abdominal surgical hx. Also to be considered is he has loss of domain recurrent ventral hernia that may be problematic to close. IR was able to successfully place Dubbhoff past the hiatus yesterday, with immediate drainage of over 1200cc fluid. PICC line placed today. On cxr it appears that dubbhoff tube has retracted back in the hiatus. 200cc fluid drained since change of shift. IR was contacted again and agreed to try to placed tube back into stomach below the hiatus. This is the best chance to decompress his GI tract and attempt conservative management of his SBO to avoid a high risk surgical procedure. Subjective Date of service: 10/08/20 Patient Reports: Positive: feels better, pain is less (no acute events overnight . Pt says his abdomen feels less distended. denies flatus) Objective Vital Signs - 12hr 10/08/20 10/08/20 10/08/20 04:48 07:16 08:35 Temperature 97.4 F L 97.7 F Pulse Rate 85 71 Respiratory 18 22 Rate Blood Pressure 110/75 119/83 O2 Sat by Pulse 90 91 93 Oximetry 10/08/20 10/08/20 10/08/20 08:55 11:25 12:43 Temperature 98.1 F Pulse Rate 71 Respiratory 20 20 Rate Blood Pressure 139/90 O2 Sat by Pulse 98 91 Oximetry - General physical appearance well developed, no distress, no pain - Respiratory normal expansion, normal respiratory effort - Abdomen soft, not rebound, not guarding, not rigid, other (less distended. non tender, NGT with over 2L bilious drainage since yesterday. ) - Labs 10/08/20 05:38 10/08/20 05:38 Diabetes panel 10/08/20 Range/Units 05:38 Sodium 138 (137-145) mmol/L Potassium 3.6 (3.6-5.0) mmol/L Chloride 99.2 (98-107) mmol/L Carbon Dioxide 21 L (22-30) mmol/L BUN 52 H (9-20) mg/dL Creatinine 2.0 H D (0.8-1.3) mg/dL Glucose 209 H (75-100) mg/dL Calcium 8.6 (8.4-10.2) mg/dL AST 16 (5-40) units/L ALT 14 (7-56) units/L Alkaline Phosphatase 58 (35-129) units/L Total Protein 7.3 (6.3-8.2) g/dL Albumin 3.9 (3.9-5) g/dL Calcium panel 10/08/20 Range/Units 05:38 Calcium 8.6 (8.4-10.2) mg/dL Albumin 3.9 (3.9-5) g/dL Pituitary panel 10/08/20 Range/Units 05:38 Sodium 138 (137-145) mmol/L Potassium 3.6 (3.6-5.0) mmol/L Chloride 99.2 (98-107) mmol/L Carbon Dioxide 21 L (22-30) mmol/L BUN 52 H (9-20) mg/dL Creatinine 2.0 H D (0.8-1.3) mg/dL Glucose 209 H (75-100) mg/dL Calcium 8.6 (8.4-10.2) mg/dL Adrenal panel 10/08/20 Range/Units 05:38 Sodium 138 (137-145) mmol/L Potassium 3.6 (3.6-5.0) mmol/L Chloride 99.2 (98-107) mmol/L Carbon Dioxide 21 L (22-30) mmol/L BUN 52 H (9-20) mg/dL Creatinine 2.0 H D (0.8-1.3) mg/dL Glucose 209 H (75-100) mg/dL Calcium 8.6 (8.4-10.2) mg/dL Total Bilirubin 0.80 (0.1-1.2) mg/dL AST 16 (5-40) units/L ALT 14 (7-56) units/L Alkaline Phosphatase 58 (35-129) units/L Total Protein 7.3 (6.3-8.2) g/dL Albumin 3.9 (3.9-5) g/dL
[2020-10-08] MEDS ORDERED: D5W/0.9% NACL 1,000 ML IV SCH (15:00)
[2020-10-08] MEDS ORDERED: SODIUM CHLORIDE IRRI 500 ML 500 ML IR ONE (15:12)
[2020-10-08] MEDS ORDERED: SODIUM CHLORIDE 0.9% 250ML 250 ML ONE (15:13)
[2020-10-08] MEDS: MIDAZOLAM 2 MG/2 ML INJ ONE ×2 (15:57→16:24)
[2020-10-08] MEDS ORDERED: BENZOCAINE 20% TOP SPRAY 0.5 ML UNIT DOSE MM ONE ×2 (16:00→16:03)
[2020-10-08] MEDS: fentaNYL 100 MCG/2 ML INJ ONE ×2 (16:26→16:34)
--- NOTE | 2020-10-08 17:22 | Operative Report ---
Operative Report Operative Report: Exam: Fluoroscopic guided evaluation of stomach, insertion of nasogastric tube Clinical indication: Patient with a history of multiple abdominal surgeries and hiatal hernia. Patient previously had Dobbhoff tube placed yesterday which had become retracted. Date: 10/08/2020 Procedure: Following an explanation of the risks, benefits and alternatives; written informed consent was obtained. The patient was brought to the angiographic suite and placed in supine position on the examination table. Initial evaluation of his previously placed Dobbhoff tube demonstrated retraction into the hiatal hernia. The patient was prepped and draped in the usual sterile fashion. Lidocaine gel was used for anesthesia in the nose. Under fluoroscopic guidance, a 0.035 guidewire was advanced into the previously placed Dobbhoff tube in the Dobbhoff tube removed intact. A vertebral catheter was then advanced over the guidewire. Together the guidewire and catheter were manipulated into the stomach. There is volvulus of the stomach and a large loop. The guidewire and catheter were then advanced to the pylorus. The catheter was advanced over the guidewire into the proximal small bowel. Contrast was injected to document appropriate positioning. The guidewire was removed. A Dobbhoff tube was advanced over the guidewire into the proximal small bowel. Guidewire length was approximately 100 cm from nose to small bowel. A large loop is present in the abdomen consistent the patient's gastric volvulus. The patient tolerated the procedure well. There were no immediate postprocedure complications. Anxiolysis was performed using Versed and a small amount of fentanyl. The patient was awake during the entire procedure. Continuous cardiopulmonary monitoring was utilized under the guidance of radiologic nursing. Impression: Fluoroscopic guided placement of Dobbhoff tube and fluoroscopic guided evaluation of stomach and proximal small bowel demonstrating gastric volvulus and the tip of the tube being placed in the proximal small bowel. Discussed these findings with Dr. Lechuga at time of examination.
[2020-10-08] MEDS ORDERED: ALTEPLASE 2 MG INJ IV ONE (18:34)
[2020-10-08] MEDS ORDERED: WATER FOR INJ Sterile (PF) 10 ML IV ONE (20:45)
[2020-10-09] MEDS: MORPHINE 2 MG/1 ML INJ IV PRN ×3 (01:02→20:22)
[2020-10-09 05:59] LABS: Basophils % (Auto) 0.2 % (0.0-1.8); Eosinophils # (Auto) 0.1 K/mm3 (0.0-0.4); Eosinophils % (Auto) 0.8 % (0.0-4.3); Hematocrit 45.7 % (35.5-45.6); Hemoglobin 15.5 gm/dl (11.8-15.2); Lymphocytes # (Auto) 0.7 K/mm3 (1.2-5.4); Lymphocytes % (Auto) 8.3 % (13.4-35.0); Mean Corpuscular HGB Conc 34 % (32-34); Mean Corpuscular Volume 96 fl (84-94); Monocytes # (Auto) 1.1 K/mm3 (0.0-0.8); Monocytes % (Auto) 12.5 % (0.0-7.3); Platelet Count 226 K/mm3 (140-440); Red Blood Count 4.76 M/mm3 (3.65-5.03); Red Cell Distribution Width 15.1 % (13.2-15.2)
[2020-10-09 06:16] LABS: Alanine Aminotransferase 12 units/L (7-56); Albumin 3.7 g/dL (3.9-5); BUN/Creatinine Ratio 38; Blood Urea Nitrogen 42 mg/dL (9-20); Calcium 8.4 mg/dL (8.4-10.2); Hemolysis Index 4
[2020-10-09] MEDS: hydroCHLOROthiazide 12.5 MG CAP PO SCH (09:52)
[2020-10-09] MEDS: atenoloL 25 MG TAB PO SCH (09:52)
[2020-10-09] MEDS: FAMOTIDINE 20 MG/2 ML INJ IV SCH ×2 (09:53→21:01)
--- NOTE | 2020-10-09 11:53 | Progress Note ---
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 Afebrile and stable. No clinical signs of ischemia or perforation. Pt is high risk for complication after surgery as he has an extensive and complicated previous abdominal surgical hx. Also to be considered is he has loss of domain recurrent ventral hernia that may be problematic to close. IR was able to successfully replace Dubbhoff past the hiatus yesterday. Will start TPN today. Gastric tube is the best chance to decompress his GI tract and attempt conservative management of his SBO to avoid a high risk surgical procedure. Elevated BUN/creatinine likely due do dehydration, they are improved compared to yesterday. Stopped PO medications including HCTZ. Will give small bolus of fluid. Subjective Date of service: 10/09/20 Narrative: Pt had Dubbhoff tube replace last night without incident. Pt denies abdominal pain but says that the tube in his throat is very irritating. He denies flatus. Objective Vital Signs - 12hr 10/09/20 10/09/20 10/09/20 00:00 00:32 01:02 Temperature 98.6 F Pulse Rate 94 H Respiratory 17 18 17 Rate Blood Pressure 137/77 O2 Sat by Pulse 91 Oximetry 10/09/20 10/09/20 10/09/20 01:32 04:49 08:00 Temperature 98.0 F 98.1 F Pulse Rate 77 88 Respiratory 17 18 18 Rate Blood Pressure 112/82 118/75 O2 Sat by Pulse 92 92 Oximetry 10/09/20 10/09/20 10/09/20 09:52 11:17 11:34 Temperature 98.4 F Pulse Rate 88 83 Respiratory 18 Rate Blood Pressure 118/75 124/83 O2 Sat by Pulse 91 93 Oximetry - General physical appearance well developed, no distress, no pain - Respiratory normal expansion, normal respiratory effort - Abdomen soft, not tender, distended, surgical scars - Labs 10/09/20 05:36 10/09/20 05:36 Diabetes panel 10/09/20 Range/Units 05:36 Sodium 142 (137-145) mmol/L Potassium 3.6 (3.6-5.0) mmol/L Chloride 107.8 H (98-107) mmol/L Carbon Dioxide 21 L (22-30) mmol/L BUN 42 H (9-20) mg/dL Creatinine 1.1 (0.8-1.3) mg/dL Glucose 160 H (75-100) mg/dL Calcium 8.4 (8.4-10.2) mg/dL AST 13 (5-40) units/L ALT 12 (7-56) units/L Alkaline Phosphatase 57 (35-129) units/L Total Protein 6.3 (6.3-8.2) g/dL Albumin 3.7 L (3.9-5) g/dL Calcium panel 10/09/20 10/09/20 Range/Units 05:36 05:36 Calcium 8.4 (8.4-10.2) mg/dL Phosphorus 2.60 (2.5-4.5) mg/dL Albumin 3.7 L (3.9-5) g/dL Pituitary panel 10/09/20 Range/Units 05:36 Sodium 142 (137-145) mmol/L Potassium 3.6 (3.6-5.0) mmol/L Chloride 107.8 H (98-107) mmol/L Carbon Dioxide 21 L (22-30) mmol/L BUN 42 H (9-20) mg/dL Creatinine 1.1 (0.8-1.3) mg/dL Glucose 160 H (75-100) mg/dL Calcium 8.4 (8.4-10.2) mg/dL Adrenal panel 10/09/20 Range/Units 05:36 Sodium 142 (137-145) mmol/L Potassium 3.6 (3.6-5.0) mmol/L Chloride 107.8 H (98-107) mmol/L Carbon Dioxide 21 L (22-30) mmol/L BUN 42 H (9-20) mg/dL Creatinine 1.1 (0.8-1.3) mg/dL Glucose 160 H (75-100) mg/dL Calcium 8.4 (8.4-10.2) mg/dL Total Bilirubin 0.50 (0.1-1.2) mg/dL AST 13 (5-40) units/L ALT 12 (7-56) units/L Alkaline Phosphatase 57 (35-129) units/L Total Protein 6.3 (6.3-8.2) g/dL Albumin 3.7 L (3.9-5) g/dL
[2020-10-09] MEDS ORDERED: SODIUM CHLORIDE 0.9% 500 ML 500 ML IV ONE (13:00)
--- NOTE | 2020-10-09 15:52 | Progress Note ---
Assessment and Plan Assessment and Plan: Patient was admitted with abdominal pain , small bowel obstruction , ventral hernia history of multiple abdominal surgeries and large hiatal hernia, surgery and IR evaluated, Unable to pass NG tube , patient underwent fluoroscopic guided placement of nasojejunostomy tube per IR --Small bowel obstruction; Management per surgery Conservative No surgery at this point Dobbhoff tube feeding --Acute kidney injury; secondary to dehydration Vasomotor nephropathy, gentle IV hydration Monitor renal function, avoid nephrotoxins Consider nephrology evaluation if no improvement --History of coronary artery disease; Continue home medications once patient is able to take oral Consider cardiology evaluation if needed --Dyslipidemia; Patient is on statin, currently n.p.o. Resume when patient is stable and able to take p.o. --DVT prophylaxis; SCDs We will closely monitor patient and adjust management as needed Follow surgery recommendations Plan of care reviewed with the patient and and his nurse 10/08/2020; patient has Dobbhoff/nasal jejunostomy tube placement, with intermittent suction Patient feels slightly better, n.p.o. status, management per surgery Subjective Date of service: 10/09/20 Principal diagnosis: Small bowel obstruction Interval history: History Interval history: I have seen and examined the patient at the bedside Patient's chart and medications reviewed Patient feels slightly better Planes of mild abdominal discomfort Vital signs reviewed Objective - Constitutional Vitals: Vital Signs - 12hr 10/09/20 10/09/20 10/09/20 04:49 08:00 09:52 Temperature 98.0 F 98.1 F Pulse Rate 77 88 88 Respiratory 18 18 Rate Blood Pressure 112/82 118/75 118/75 O2 Sat by Pulse 92 92 Oximetry 10/09/20 10/09/20 11:17 11:34 Temperature 98.4 F Pulse Rate 83 Respiratory 18 Rate Blood Pressure 124/83 O2 Sat by Pulse 91 93 Oximetry General appearance: Present: no acute distress, well-nourished - EENT Eyes: PERRL, EOM intact ENT: hearing intact, clear oral mucosa Ears: bilateral: normal - Neck Neck: supple, normal ROM - Respiratory Respiratory effort: normal Respiratory: bilateral: CTA - Breasts Breasts: normal - Cardiovascular Heart rate: 78 Rhythm: regular Heart Sounds: Present: S1 & S2. Absent: gallop, rub Extremities: pulses intact, No edema, normal color, Full ROM - Gastrointestinal General gastrointestinal: Present: soft, non-tender, non-distended, normal bowel sounds, hypoactive bowel sounds - Genitourinary Male genitourinary: normal - Integumentary Integumentary: clear, warm, dry - Musculoskeletal Musculoskeletal: 1, strength equal bilaterally - Neurologic Neurologic: moves all extremities - Psychiatric Psychiatric: memory intact, appropriate mood/affect, intact judgment & insight - Labs CBC & Chem 7: 10/09/20 05:36 10/09/20 05:36 Labs: Abnormal lab results 10/09/20 10/09/20 10/09/20 Range/Units 00:31 05:36 05:36 Hgb 15.5 H (11.8-15.2) gm/dl Hct 45.7 H (35.5-45.6) % MCV 96 H (84-94) fl MCH 33 H (28-32) pg Lymph % (Auto) 8.3 L (13.4-35.0) % [place] % (Auto) 12.5 H (0.0-7.3) % Lymph # (Auto) 0.7 L (1.2-5.4) K/mm3 [place] # (Auto) 1.1 H (0.0-0.8) K/mm3 Seg Neutrophils % 78.2 H (40.0-70.0) % Chloride 107.8 H (98-107) mmol/L Carbon Dioxide 21 L (22-30) mmol/L BUN 42 H (9-20) mg/dL Glucose 160 H (75-100) mg/dL POC Glucose 142 H (70-105) mg/dL Magnesium (1.7-2.3) mg/dL Albumin 3.7 L (3.9-5) g/dL 10/09/20 10/09/20 Range/Units 05:36 11:17 Hgb (11.8-15.2) gm/dl Hct (35.5-45.6) % MCV (84-94) fl MCH (28-32) pg Lymph % (Auto) (13.4-35.0) % [place] % (Auto) (0.0-7.3) % Lymph # (Auto) (1.2-5.4) K/mm3 [place] # (Auto) (0.0-0.8) K/mm3 Seg Neutrophils % (40.0-70.0) % Chloride (98-107) mmol/L Carbon Dioxide (22-30) mmol/L BUN (9-20) mg/dL Glucose (75-100) mg/dL POC Glucose 137 H (70-105) mg/dL Magnesium 2.60 H (1.7-2.3) mg/dL Albumin (3.9-5) g/dL
[2020-10-09] MEDS ORDERED: TOTAL PARENTERAL NUTRITION 2,400 ML IV SCH (20:00)
[2020-10-10 05:31] LABS: Basophils % (Auto) 0.2 % (0.0-1.8); Eosinophils % (Auto) 0.4 % (0.0-4.3); Hematocrit 47.5 % (35.5-45.6); Hemoglobin 15.2 gm/dl (11.8-15.2); Lymphocytes # (Auto) 0.9 K/mm3 (1.2-5.4); Lymphocytes % (Auto) 7.9 % (13.4-35.0); Mean Corpuscular HGB Conc 32 % (32-34); Mean Corpuscular Volume 97 fl (84-94); Monocytes # (Auto) 1.2 K/mm3 (0.0-0.8); Monocytes % (Auto) 10.9 % (0.0-7.3); Platelet Count 247 K/mm3 (140-440); Red Blood Count 4.89 M/mm3 (3.65-5.03)
[2020-10-10 05:39] LABS: BUN/Creatinine Ratio 34; Blood Urea Nitrogen 27 mg/dL (9-20); Hemolysis Index 10
--- NOTE | 2020-10-10 08:29 | XRay Report ---
XR abdomen 1V ap INDICATION / CLINICAL INFORMATION: eval sbo. COMPARISON: 10/07/2020 FINDINGS/IMPRESSION: Nasogastric tube is not visualized. There is persistent diffuse gaseous distention of the small bowel , most pronounced within the left abdomen. No evidence of pneumatosis or free air. Signer Name: Rory Hamilton MD Signed: 10/10/2020 8:25 AM Workstation Name: [id number]
[2020-10-10] MEDS: FAMOTIDINE 20 MG/2 ML INJ IV SCH ×2 (10:08→22:00)
[2020-10-10] MEDS: atenoloL 25 MG TAB PO SCH (11:05)
--- NOTE | 2020-10-10 13:10 | Progress Note ---
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 Afebrile and stable. No clinical signs of ischemia or perforation. Pt is high risk for complication after surgery as he has an extensive and complicated previous abdominal surgical hx. Also to be considered is he has loss of domain recurrent ventral hernia that may be problematic to close. Pt has no gastric tube for decompression and he is refusing to have another one placed at this time. We have discussed at great length the benefit of having the tube as it allows a way to decompress his GI tract and possibly aid the SBO resolve in order to avoid surgery. He has had to arduous ngt tube placements by IR since blind placement was suboptimal due to a large hiatal hernia not allowing the tube to go past the GE junction. Discussed with patient about getting a CT with oral contrast as it may help open up a loose obstruction. He agreed, but mentioned that if it does not undo the blockage, as of right now he is not agreeable to surgery. He was instructed to stop drinking the contrast if he gets nauseous or vomits. He expressed understanding. Elevated BUN/creatinine likely due do dehydration, they are improved compared to yesterday. Will continue to follow closely. Overall prognosis is guarded. Subjective Date of service: 10/10/20 Narrative: Overnight pt pulled his Dubbhoff tube out by accident. I had spoke to him and the nurse about it, he said he did not want an NGT placed in the mean time. I told the nurse not to try since he is refusing. He denies any pain or nausea. He says he passes flatus rarely. He has not vomited since the tube came out. He says that he feels better and wants to go home. We had a lengthy discussion with his Manju on the phone about if he were to leave it would have to be against medical advice as I don't believe his small bowel obstruction is resolved. He repeated what he has said on admission that he is tired of suffering and being tortured', and that he does not want anything invasive done at this time. They had asked about if he was a candidate for hospice care. He had said that other surgeons in the past have warned him that additional abdominal surgeries may be disastrous due to his previous open procedures and the risk of having a complication post op are high. Objective Vital Signs - 12hr 10/10/20 10/10/20 10/10/20 03:00 05:06 08:19 Temperature 98.2 F 98.8 F Pulse Rate 81 75 Respiratory 20 20 18 Rate Blood Pressure 142/98 139/96 O2 Sat by Pulse 92 91 Oximetry - General physical appearance well developed, no distress, no pain - Respiratory normal expansion, normal respiratory effort - Abdomen soft, not tender, distended, surgical scars Hernia: incisional, reducible - Labs 10/10/20 04:25 10/10/20 04:25 Diabetes panel 10/10/20 Range/Units 04:25 Sodium 145 (137-145) mmol/L Potassium 3.5 L (3.6-5.0) mmol/L Chloride 108.4 H (98-107) mmol/L Carbon Dioxide 21 L (22-30) mmol/L BUN 27 H (9-20) mg/dL Creatinine 0.8 (0.8-1.3) mg/dL Glucose 148 H (75-100) mg/dL Calcium 9.0 (8.4-10.2) mg/dL Calcium panel 10/10/20 Range/Units 04:25 Calcium 9.0 (8.4-10.2) mg/dL Phosphorus 3.00 (2.5-4.5) mg/dL Pituitary panel 10/10/20 Range/Units 04:25 Sodium 145 (137-145) mmol/L Potassium 3.5 L (3.6-5.0) mmol/L Chloride 108.4 H (98-107) mmol/L Carbon Dioxide 21 L (22-30) mmol/L BUN 27 H (9-20) mg/dL Creatinine 0.8 (0.8-1.3) mg/dL Glucose 148 H (75-100) mg/dL Calcium 9.0 (8.4-10.2) mg/dL Adrenal panel 10/10/20 Range/Units 04:25 Sodium 145 (137-145) mmol/L Potassium 3.5 L (3.6-5.0) mmol/L Chloride 108.4 H (98-107) mmol/L Carbon Dioxide 21 L (22-30) mmol/L BUN 27 H (9-20) mg/dL Creatinine 0.8 (0.8-1.3) mg/dL Glucose 148 H (75-100) mg/dL Calcium 9.0 (8.4-10.2) mg/dL
--- NOTE | 2020-10-10 14:26 | Progress Note ---
Assessment and Plan Assessment and Plan: Patient was admitted with abdominal pain , small bowel obstruction , ventral hernia history of multiple abdominal surgeries and large hiatal hernia, surgery and IR evaluated, Unable to pass NG tube , patient underwent fluoroscopic guided placement of nasojejunostomy tube per IR --Small bowel obstruction; Management per surgery Conservative No surgery at this point Dobbhoff tube feeding --Acute kidney injury; secondary to dehydration Vasomotor nephropathy, gentle IV hydration Monitor renal function, avoid nephrotoxins Consider nephrology evaluation if no improvement --History of coronary artery disease; Continue home medications once patient is able to take oral Consider cardiology evaluation if needed --Dyslipidemia; Patient is on statin, currently n.p.o. Resume when patient is stable and able to take p.o. --DVT prophylaxis; SCDs We will closely monitor patient and adjust management as needed Follow surgery recommendations Plan of care reviewed with the patient and and his nurse 10/08/2020; patient has Dobbhoff/nasal jejunostomy tube placement, with intermittent suction Patient feels slightly better, n.p.o. status, management per surgery Subjective Date of service: 10/10/20 Principal diagnosis: Small bowel obstruction Interval history: Patient admitted for small bowel obstruction secondary to adhesions. Patient also has large ventral hernia. Patient refuses NG tube because of his past bad experience with insertion of NG tube. I have seen and examined the patient at the bedside Patient's chart and medications reviewed Patient feels slightly better Planes of mild abdominal discomfort Vital signs reviewed Objective - Constitutional Vitals: Vital Signs - 12hr 10/10/20 10/10/20 10/10/20 03:00 05:06 08:19 Temperature 98.2 F 98.8 F Pulse Rate 81 75 Respiratory 20 20 18 Rate Blood Pressure 142/98 139/96 Blood Pressure [Left] O2 Sat by Pulse 92 91 Oximetry 10/10/20 10/10/20 11:00 13:32 Temperature 98.5 F Pulse Rate 91 H Respiratory 18 20 Rate Blood Pressure Blood Pressure 141/86 [Left] O2 Sat by Pulse 93 Oximetry General appearance: Present: no acute distress, well-nourished - EENT Eyes: PERRL, EOM intact ENT: hearing intact, clear oral mucosa Ears: bilateral: normal - Neck Neck: supple, normal ROM - Respiratory Respiratory effort: normal Respiratory: bilateral: CTA - Breasts Breasts: normal - Cardiovascular Heart rate: 78 Rhythm: regular Heart Sounds: Present: S1 & S2. Absent: gallop, rub Extremities: pulses intact, No edema, normal color, Full ROM - Gastrointestinal General gastrointestinal: Present: soft, non-tender, non-distended, normal bowel sounds - Genitourinary Male genitourinary: normal - Integumentary Integumentary: clear, warm, dry - Musculoskeletal Musculoskeletal: 1, strength equal bilaterally - Neurologic Neurologic: moves all extremities - Psychiatric Psychiatric: memory intact, appropriate mood/affect, intact judgment & insight - Labs CBC & Chem 7: 10/10/20 04:25 10/11/20 05:38 Labs: Abnormal lab results 10/09/20 10/09/20 10/10/20 Range/Units 15:48 21:51 04:25 WBC (4.5-11.0) K/mm3 Hct (35.5-45.6) % MCV (84-94) fl Lymph % (Auto) (13.4-35.0) % [place] % (Auto) (0.0-7.3) % Lymph # (Auto) (1.2-5.4) K/mm3 [place] # (Auto) (0.0-0.8) K/mm3 Seg Neutrophils % (40.0-70.0) % Seg Neutrophils # (1.8-7.7) K/mm3 Potassium 3.5 L (3.6-5.0) mmol/L Chloride 108.4 H (98-107) mmol/L Carbon Dioxide 21 L (22-30) mmol/L BUN 27 H (9-20) mg/dL Glucose 148 H (75-100) mg/dL POC Glucose 122 H 145 H (70-105) mg/dL Magnesium 2.40 H (1.7-2.3) mg/dL 10/10/20 10/10/20 10/10/20 Range/Units 04:25 05:43 11:52 WBC 11.1 H (4.5-11.0) K/mm3 Hct 47.5 H (35.5-45.6) % MCV 97 H (84-94) fl Lymph % (Auto) 7.9 L (13.4-35.0) % [place] % (Auto) 10.9 H (0.0-7.3) % Lymph # (Auto) 0.9 L (1.2-5.4) K/mm3 [place] # (Auto) 1.2 H (0.0-0.8) K/mm3 Seg Neutrophils % 80.6 H (40.0-70.0) % Seg Neutrophils # 8.9 H (1.8-7.7) K/mm3 Potassium (3.6-5.0) mmol/L Chloride (98-107) mmol/L Carbon Dioxide (22-30) mmol/L BUN (9-20) mg/dL Glucose (75-100) mg/dL POC Glucose 153 H 149 H (70-105) mg/dL Magnesium (1.7-2.3) mg/dL
--- NOTE | 2020-10-10 16:25 | Cat Scan Report ---
CT abdomen pelvis wo con INDICATION: MAIN. TECHNIQUE: All CT scans at this location are performed using CT dose reduction for ALARA by means of automated e xposure control. COMPARISON: 10/07/2020 FINDINGS: Considerable basal atelectasis, especially on the left. Large hiatal hernia. Cholecystectomy. Spleen has apparently been resected. Pancreas is atrophic but otherwise negative. Kidneys contain small nono bstructing calculi. Abdominal aorta is normal in size. No significant adenopathy. There is again abnormal distention of the proximal and mid small bowel, with normal caliber distal sm all bowel. 2 ventral hernias are demonstrated, but neither appears to cause high-grade obstruction. E xact level of obstruction is difficult to determine. Pelvis Urinary bladder is negative. There appears to be a 7 mm calculus in the distal left ureter, although this ureter is not dilated. No free fluid or inflammation. Moderate prostate enlargement. No acute skeletal abnormalities. IMPRESSION: 1. Mid to distal small bowel obstruction, not significantly changed from the exam 3 days ago. 2 ventr al hernias contain bowel, but I cannot determine with certainty the level of obstruction. 2. There certainly appears to be a 7 mm calculus in the distal left ureter, although this ureter is n ot dilated, and the left kidney is not hydronephrotic. Signer Name: Tuan Connelly MD Signed: 10/10/2020 4:20 PM Workstation Name: [id number]
[2020-10-10] MEDS ORDERED: TOTAL PARENTERAL NUTRITION 3,000 ML IV SCH (20:00)
[2020-10-10] MEDS: ONDANSETRON 4 MG/2 ML INJ IV PRN (22:01)
[2020-10-11] MEDS: hydrALAZINE 20 MG/1 ML INJ IV PRN ×2 (00:16→05:17)
[2020-10-11] MEDS: MORPHINE 2 MG/1 ML INJ IV PRN ×3 (00:28→21:16)
[2020-10-11] MEDS: ONDANSETRON 4 MG/2 ML INJ IV PRN ×2 (05:18→13:50)
[2020-10-11 06:23] LABS: Blood Urea Nitrogen 23 mg/dL (9-20); Calcium 9.4 mg/dL (8.4-10.2); Hemolysis Index 30
[2020-10-11 06:32] LABS: BUN/Creatinine Ratio 33
[2020-10-11] MEDS: atenoloL 25 MG TAB PO SCH (11:11)
[2020-10-11] MEDS: FAMOTIDINE 20 MG/2 ML INJ IV SCH ×2 (11:50→21:18)
--- NOTE | 2020-10-11 12:27 | Anesthesia Day of Surgery ---
Anesthesia Day of Surgery - Day of Surgery Patient Examined: Yes Patient H&P Reviewed: Yes Patient is NPO: Yes Beta Blockers: No (10/10/20 1100)
--- NOTE | 2020-10-11 12:27 | Anesthesia Consultation ---
Anesthesia Consult and Med Hx Date of service: 10/11/20 - Airway Anesthetic Teeth Evaluation: Good ROM Head & Neck: Adequate Mental/Hyoid Distance: Adequate Mallampati Class: Class II Intubation Access Assessment: Probably Good - Pulmonary Exam CTA: Yes - Cardiac Exam Cardiac Exam: RRR - Pre-Operative Health Status ASA Pre-Surgery Classification: ASA3 Proposed Anesthetic Plan: General - Pulmonary Hx Smoking: No Hx Asthma: No SOB: No COPD: No Hx Pneumonia: No Hx Sleep Apnea: No - Cardiovascular System Hx Hypertension: Yes Hx Coronary Artery Disease: Yes Hx Heart Attack/AMI: No Hx Angina: No Hx Percutaneous Transluminal Coronary Angioplasty (PTCA): No Hx Pacemaker: No Hx Internal Defibrillator: No Hx Valvular Heart Disease: No Hx Heart Murmur: No Hx Peripheral Vascular Disease: No - Central Nervous System Hx Seizures: No CVA: No Hx Psychiatric Problems: No - Gastrointestinal Hx Ulcer: No - Endocrine Hx Cirrhosis: No - Other Systems Hx Alcohol Use: No Hx Substance Use: No Hx Obesity: No - Additional Comments Anesthesia Medical History Comments: Pt to surgery for SBO, H/O multiple Abd sx
--- NOTE | 2020-10-11 12:33 | Progress Note ---
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 Afebrile and stable. No clinical signs of ischemia or perforation. Pt is high risk for complication after surgery as he has an extensive and complicated previous abdominal surgical hx. Also to be considered is he has loss of domain recurrent ventral hernia that may be problematic to close. Pt has no gastric tube for decompression and he is refusing to have another one placed at this time. We have discussed at great length the benefit of having the tube as it allows a way to decompress his GI tract and possibly aid the SBO resolve in order to avoid surgery. He has had to arduous ngt tube placements by IR since blind placement was suboptimal due to a large hiatal hernia not allowing the tube to go past the GE junction. Discussed with patient, his and daughter the prognosis of having surgery, and doing nothing. He is unlikely to resolve on his own with out intervention. They are aware of the high risk situation and elevated chance of complication. They expressed understanding. Mr. Valenzuela signed informed consent for surgery today. Will continue to follow closely. Overall prognosis is guarded. Subjective Date of service: 10/11/20 Narrative: No acute events overnight. Pt began to have increase nausea and vomiting since yesterday. He says that he wants to proceed with surgery since he his not getting better, although he has his concerns. Objective Vital Signs - 12hr 10/11/20 10/11/20 10/11/20 04:11 05:17 07:38 Temperature 98.4 F Pulse Rate 83 83 Respiratory 18 Rate Blood Pressure 156/97 156/97 O2 Sat by Pulse 93 92 Oximetry 10/11/20 07:57 Temperature 98.1 F Pulse Rate 76 Respiratory 18 Rate Blood Pressure 146/98 O2 Sat by Pulse 92 Oximetry - General physical appearance well developed, no distress, moderate pain - Respiratory normal expansion, normal respiratory effort - Abdomen soft, not tender, not distended, rebound, surgical scars Hernia: incisional, reducible - Labs 10/10/20 04:25 10/11/20 05:38 Diabetes panel 10/11/20 Range/Units 05:38 Sodium 144 (137-145) mmol/L Potassium 3.7 (3.6-5.0) mmol/L Chloride 105.3 (98-107) mmol/L Carbon Dioxide 27 (22-30) mmol/L BUN 23 H (9-20) mg/dL Creatinine 0.7 L (0.8-1.3) mg/dL Glucose 158 H (75-100) mg/dL Calcium 9.4 (8.4-10.2) mg/dL Calcium panel 10/11/20 Range/Units 05:38 Calcium 9.4 (8.4-10.2) mg/dL Phosphorus 4.40 D (2.5-4.5) mg/dL Pituitary panel 10/11/20 Range/Units 05:38 Sodium 144 (137-145) mmol/L Potassium 3.7 (3.6-5.0) mmol/L Chloride 105.3 (98-107) mmol/L Carbon Dioxide 27 (22-30) mmol/L BUN 23 H (9-20) mg/dL Creatinine 0.7 L (0.8-1.3) mg/dL Glucose 158 H (75-100) mg/dL Calcium 9.4 (8.4-10.2) mg/dL Adrenal panel 10/11/20 Range/Units 05:38 Sodium 144 (137-145) mmol/L Potassium 3.7 (3.6-5.0) mmol/L Chloride 105.3 (98-107) mmol/L Carbon Dioxide 27 (22-30) mmol/L BUN 23 H (9-20) mg/dL Creatinine 0.7 L (0.8-1.3) mg/dL Glucose 158 H (75-100) mg/dL Calcium 9.4 (8.4-10.2) mg/dL - Imaging CT scan - abdomen: report reviewed, image reviewed CT scan - pelvis: report reviewed, image reviewed
[2020-10-11] MEDS ORDERED: LIDOCAINE MPF (2%) 20 MG/1 ML VIAL 5 ML ONE (13:11)
[2020-10-11] MEDS ORDERED: HYDROmorphone 1 MG/1 ML INJ ONE ×2 (13:11→19:14)
[2020-10-11] MEDS ORDERED: dexAMETHasone 20 MG/5 ML VIAL ONE (13:11)
[2020-10-11] MEDS ORDERED: ONDANSETRON 4 MG/2 ML INJ ONE (13:11)
[2020-10-11] MEDS ORDERED: ROCURONIUM 50 MG/5 ML INJ IV ONE ×2 (13:11→16:25)
[2020-10-11] MEDS ORDERED: propofoL 200 MG/20 ML VIAL IV ONE (13:11)
[2020-10-11] MEDS ORDERED: ceFAZolin 1 GM VIAL ONE ×2 (14:32)
[2020-10-11] MEDS ORDERED: metroNIDAZOLE/NS 500 MG/100 ML 500 MG/100 ML BAG IV ONE (14:33)
[2020-10-11] MEDS ORDERED: SODIUM CHLORIDE 0.9% IRR 1,500 ML BOTTLE IR ONE ×2 (15:02)
[2020-10-11] MEDS ORDERED: ePHEDrine SULFATE 50 MG/1 ML INJ ONE (15:08)
[2020-10-11] MEDS ORDERED: PHENYLEPHRINE/NS 1,000 MCG/10 ML SYRINGE (OR USE) IV ONE ×3 (15:26→19:38)
[2020-10-11] MEDS ORDERED: SUCCINYLCHOLINE CHLORIDE 200 MG/10 ML INJ MDV ONE (15:42)
--- NOTE | 2020-10-11 15:44 | Progress Note ---
Assessment and Plan Assessment and Plan: Patient was admitted with abdominal pain , small bowel obstruction , ventral hernia history of multiple abdominal surgeries and large hiatal hernia, surgery and IR evaluated, Unable to pass NG tube , patient underwent fluoroscopic guided placement of nasojejunostomy tube per IR --Small bowel obstruction; Management per surgery Patient agreed for surgery --Acute kidney injury; secondary to dehydration Vasomotor nephropathy, gentle IV hydration Monitor renal function, avoid nephrotoxins Consider nephrology evaluation if no improvement --History of coronary artery disease; Continue home medications once patient is able to take oral Consider cardiology evaluation if needed --Dyslipidemia; Patient is on statin, currently n.p.o. Resume when patient is stable and able to take p.o. --DVT prophylaxis; SCDs We will closely monitor patient and adjust management as needed Follow surgery recommendations Plan of care reviewed with the patient and and his nurse 10/08/2020; patient has Dobbhoff/nasal jejunostomy tube placement, with intermittent suction Patient feels slightly better, n.p.o. status, management per surgery 10/09/2020 Patient on tube feedings Small bowel obstruction still present Patient reluctant about getting surgery 10/10/2020 Patient counseled about getting surgery Patient had to decide 10/11/2020 Patient has agreed for surgery after long discussion with Dr. Lechuga Subjective Date of service: 10/11/20 Principal diagnosis: Small bowel obstruction Interval history: Patient admitted for small bowel obstruction secondary to adhesions. Patient also has large ventral hernia. Patient refuses NG tube because of his past bad experience with insertion of NG tube. Patient agreed for surgery today after discussing with Dr. Lechuga I have seen and examined the patient at the bedside Patient's chart and medications reviewed Patient feels slightly better Complaints of mild abdominal discomfort Vital signs reviewed Objective - Constitutional Vitals: Vital Signs - 12hr 10/11/20 10/11/20 10/11/20 04:11 05:17 07:38 Temperature 98.4 F Pulse Rate 83 83 Respiratory 18 Rate Blood Pressure 156/97 156/97 O2 Sat by Pulse 93 92 Oximetry 10/11/20 07:57 Temperature 98.1 F Pulse Rate 76 Respiratory 18 Rate Blood Pressure 146/98 O2 Sat by Pulse 92 Oximetry General appearance: Present: no acute distress, well-nourished - EENT Eyes: PERRL, EOM intact ENT: hearing intact, clear oral mucosa Ears: bilateral: normal - Neck Neck: supple, normal ROM - Respiratory Respiratory effort: normal Respiratory: bilateral: CTA - Breasts Breasts: normal - Cardiovascular Heart rate: 78 Rhythm: regular Heart Sounds: Present: S1 & S2. Absent: gallop, rub Extremities: pulses intact, No edema, normal color, Full ROM - Gastrointestinal General gastrointestinal: Present: soft, non-tender, non-distended, normal bowel sounds - Genitourinary Male genitourinary: normal - Integumentary Integumentary: clear, warm, dry - Musculoskeletal Musculoskeletal: 1, strength equal bilaterally - Neurologic Neurologic: moves all extremities - Psychiatric Psychiatric: memory intact, appropriate mood/affect, intact judgment & insight - Allied health notes Allied health notes reviewed: nursing, case management - Labs CBC & Chem 7: 10/10/20 04:25 10/11/20 05:38 Labs: Abnormal lab results 10/10/20 10/11/20 10/11/20 Range/Units 23:26 05:38 06:20 BUN 23 H (9-20) mg/dL Creatinine 0.7 L (0.8-1.3) mg/dL Glucose 158 H (75-100) mg/dL POC Glucose 140 H 169 H (70-105) mg/dL 10/11/20 Range/Units 12:19 BUN (9-20) mg/dL Creatinine (0.8-1.3) mg/dL Glucose (75-100) mg/dL POC Glucose 174 H (70-105) mg/dL
[2020-10-11] MEDS ORDERED: ALBUMIN HUMAN 5% (12.5 GM/250 ML) INJ IV ONE (17:44)
[2020-10-11] MEDS ORDERED: ceFAZolin/Water 2 GM/20 ML 2 GM/20 ML SYRINGE IV ONE (18:31)
[2020-10-11] MEDS ORDERED: ONDANSETRON 4 MG/2 ML INJ IV PRN (19:18)
[2020-10-11] MEDS ORDERED: HYDROmorphone 1 MG/1 ML INJ IV PRN ×2 (19:18)
[2020-10-11] MEDS ORDERED: LIP THERAPY VASELINE TP PRN (19:38)
[2020-10-11] MEDS ORDERED: MINERAL OIL/PETROLATUM, WHITE OPHTH OINT 3.5 GM OU PRN ×2 (19:38→19:50)
--- NOTE | 2020-10-11 19:39 | Post Anesthesia Evaluation ---
- Post Anesthesia Evaluation Patient Participated: No (Sedated) Airway Patent: Yes Stable Respiratory Function: Yes Nausea/Vomiting: No Temp > 96.8F: Yes Pain Manageable: Yes Adequeate Hydration: Yes Anesthesia Complications: No Block Receding Appropriately: Not Applicable Patient on Ventilator: Yes
--- NOTE | 2020-10-11 19:45 | Operative Report ---
Operative Report Operative Report: DATE: 10/11/2020 SURGEON: KEVEN KWOK MD CO-SURGEON: LC THAPA DO PROCEDURE: 1. EXPLORATORY LAPAROTOMY, 2. EXTENSIVE LYSIS OF ADHESIONS, 3. ABTHERA ABDOMINAL VACUUM DRESSING Preop diagnosis: Small bowel obstruction, hiatal hernia, loss of domain ventral hernia Postop diagnosis: Same as preop Anesthesia: General with endotracheal tube intubation Indication: Patient is a 75-year-old male who presented to the emergency room 5 days ago with small bowel obstruction. He was unable to be successfully decompressed with an NG tube due to a large hiatal hernia. Interventional radiology had placed two gastric tubes, however they both became dislodged. Patient began to have increased nausea and vomiting, and repeat imaging showed no improvement in bowel obstruction. Patient signed informed consent for exploratory laparotomy. Details of procedure: Patient was brought into the OR suite and laid in supine position. Bilateral lower extremity SCDs were placed. General anesthesia was induced via successful endotracheal tube intubation. A Junior catheter was inserted under sterile conditions. Patient abdomen was prepped and draped in sterile fashion. After a timeout, an incision was made in the infraumbilical area where he still had intact fascia. Access was gained into the peritoneum. The incision was then meticulously enlarged vertically making sure not to injure any underlying bowel in his large hernia sac. There was noted to be distended small bowel. There was extensive lysis of adhesions that took over 2 hours to lyse. However, the point of obstruction appeared to be released as there was a definitive transition point identified. Patient had extensive adhesions of s mall bowel in the left upper quadrant. These were not taken down for fear of creating a bowel injury, and we were able to run the small bowel from the ligament of Treitz to the terminal ileum in continuity verifying release of bowel obstruction. The stomach was through the diaphragmatic hiatal hernia. There was no signs of obstruction. However, due to chronic scarring and anatomic changes, the stomach orientation was twisted consistent with a volvulus seen by interventional radiology. Adhesions at the short gastrics were taken down, and the posterior stomach that was above the hiatus was reduced. The anatomy was verified with the stomach in the appropriate orientation, although it was patulous and redundant. A good area was identified to place a gastric tube. An EGD was performed Intra-Op to verify positioning and adequate anatomy of the stomach. Due to previous loss of domain patient exhibited a lot of tension when trying to close his abdomen, as there was still extensive amount of distended small bowel. Since we have been operating for over 3 hours, we decided to put an ABThera VAC on the patient to allow time for the small bowel to decompress. We are hoping this will allow easier closure of the abdominal wall and we will place the gastric tube at that time as well. The ABThera VAC was placed without issue. The OG tube was verified to be in place when the ED was performed and it was secured. Patient was transferred to recovery room and then to ICU. All counts were correct. Findings: Extensive intra-abdominal adhesions from small bowel colon and stomach to the anterior wall, as well as interloop adhesions. Proximal stomach herniated above the hiatus without signs of obstruction or ischemia. Loss of domain ventral incisional hernia with more than 12cm defect between the fascial edges. Complication: None immediate
[2020-10-11] MEDS ORDERED: FAT EMULSIONS 20% 250 ML IV SCH (20:00)
[2020-10-11] MEDS ORDERED: TOTAL PARENTERAL NUTRITION 3,000 ML IV SCH (20:00)
[2020-10-11] MEDS ORDERED: LACTATED RINGERS 1,000 ML ONE (20:24)
--- NOTE | 2020-10-11 20:36 | XRay Report ---
CHEST 1 VIEW 8:13 PM INDICATION / CLINICAL INFORMATION: ETT placement. COMPARISON: 10/08/20. FINDINGS: SUPPORT DEVICES: There is a new endotracheal tube with the tip 5.4 cm above the kyle. The feeding t ube has been removed. There is a nasogastric tube coursing into the stomach with the tip not seen. Th e position of the right PICC has not changed. HEART / MEDIASTINUM: Unchanged. LUNGS / PLEURA: Left basilar pleuroparenchymal opacity appears slightly improved. No pneumothorax. ADDITIONAL FINDINGS: No significant additional findings. IMPRESSION: Endotracheal tube in good position. Signer Name: Kingsley Meraz MD Signed: 10/11/2020 8:31 PM Workstation Name: [id number]
[2020-10-12] MEDS: MORPHINE 2 MG/1 ML INJ IV PRN (03:14)
--- NOTE | 2020-10-12 03:34 | XRay Report ---
CHEST 1 VIEW 10/12/2020 2:12 AM INDICATION / CLINICAL INFORMATION: follow up respiratory failure. COMPARISON: 10/11/2020 FINDINGS: SUPPORT DEVICES: Unchanged. HEART / MEDIASTINUM: Unchanged LUNGS / PLEURA: Bilateral pulmonary opacities persist No pneumothorax. ADDITIONAL FINDINGS: No significant additional findings. IMPRESSION: 1. No significant change. Signer Name: Gordon Garcia MD Signed: 10/12/2020 3:29 AM Workstation Name: [id number]
[2020-10-12] MEDS ORDERED: fentaNYL 100 MCG/2 ML INJ IV ONE (04:59)
[2020-10-12 05:03] LABS: Basophils # (Auto) 0.1 K/mm3 (0.0-0.1); Basophils % (Auto) 0.5 % (0.0-1.8); Eosinophils # (Auto) 0.1 K/mm3 (0.0-0.4); Eosinophils % (Auto) 0.9 % (0.0-4.3); Hematocrit 42.1 % (35.5-45.6); Hemoglobin 13.9 gm/dl (11.8-15.2); Lymphocytes # (Auto) 0.8 K/mm3 (1.2-5.4); Lymphocytes % (Auto) 7.2 % (13.4-35.0); Mean Corpuscular HGB Conc 33 % (32-34); Mean Corpuscular Volume 97 fl (84-94); Monocytes # (Auto) 0.6 K/mm3 (0.0-0.8); Monocytes % (Auto) 5.8 % (0.0-7.3); Platelet Count 185 K/mm3 (140-440); Red Blood Count 4.32 M/mm3 (3.65-5.03); Red Cell Distribution Width 14.9 % (13.2-15.2)
[2020-10-12 05:13] LABS: BUN/Creatinine Ratio 32; Blood Urea Nitrogen 29 mg/dL (9-20); Calcium 7.6 mg/dL (8.4-10.2); Hemolysis Index 12
--- NOTE | 2020-10-12 09:09 | Progress Note ---
Assessment and Plan Assessment and plan: Patient was admitted with abdominal pain , small bowel obstruction , ventral hernia history of multiple abdominal surgeries and large hiatal hernia, surgery and IR evaluated, Unable to pass NG tube , patient underwent fluoroscopic guided placement of nasojejunostomy tube per IR Patient underwent exploratory laparotomy, lysis of edition, ABThera abdominal vacuum dressing on 10/11/2020, patient is intubated on vent --Small bowel obstruction/ventral hernia/hiatal hernia Surgery evaluated the patient and patient had Surgical intervention on 10/11/2020 --s/p EXPLORATORY LAPAROTOMY, -EXTENSIVE LYSIS OF ADHESIONS, -ABTHERA ABDOMINAL VACUUM DRESSING Postop care per surgery --Acute hypoxic respiratory failure; on vent Continue ventilatory support wean as tolerated and extubate, Pulmonary critical following --Acute kidney injury; secondary to dehydration Vasomotor nephropathy, gentle IV hydration Monitor renal function, avoid nephrotoxins Patient's renal function is within normal limits Closely monitor --History of coronary artery disease; Continue home medications once patient is able to take oral Consider cardiology evaluation if needed --Dyslipidemia; Patient is on statin, currently n.p.o. Resume when patient is stable and able to take p.o. --DVT prophylaxis; SCDs We will closely monitor patient and adjust management as needed Follow clinical education consultant recommendations, Continue postop care Plan of care reviewed with the patient's nurse The high probability of a clinically significant, sudden or life threatening deterioration of the [CVS, pulmonary, metabolic, renal and GI] system(s) required my full and direct attention, intervention and personal management. The aggregate critical care time was [40] minutes. This time is in addition to time spent performing reported procedures but includes the following: [X] Data Review and interpretation [X] Patient assessment and monitoring of vital signs [X] Documentation [X] Medication orders and management Brief history: Patient was admitted with abdominal pain , small bowel obstruction , ventral hernia history of multiple abdominal surgeries and large hiatal hernia, surgery and IR evaluated, Unable to pass NG tube , patient underwent fluoroscopic guided placement of nasojejunostomy tube per IR Patient underwent exploratory laparotomy, lysis of edition, ABThera abdominal vacuum dressing on 10/11/2020, patient is intubated on vent 10/08/2020; patient has Dobbhoff/nasal jejunostomy tube placement, with intermittent suction Patient feels slightly better, n.p.o. status, management per surgery 10/09/2020 Patient on tube feedings Small bowel obstruction still present Patient reluctant about getting surgery 10/10/2020 Patient counseled about getting surgery Patient had to decide 10/11/2020 Patient has agreed for surgery after long discussion with Dr. Lechuga 10/12/2020; patient had exploratory laparotomy extensive lysis of adhesion and ABThera abdominal vacuum dressing postoperative day 1, patient intubated on ventilatory support History Interval history: I have seen and examined the patient at the bedside Patient's chart and medications reviewed Patient is intubated on ventilatory support Vital signs noted Hospitalist Physical - Constitutional Vitals: Temp Pulse Resp BP Pulse Ox 98.6 F 87 23 110/75 96 10/12/20 03:37 10/12/20 08:10 10/12/20 08:10 10/12/20 08:10 10/12/20 08:10 General appearance: Present: no acute distress, well-nourished - EENT Eyes: Present: PERRL, EOM intact ENT: other (Intubated on vent) - Neck Neck: Present: supple, normal ROM - Respiratory Respiratory effort: normal Respiratory: bilateral: diminished, negative: rales, rhonchi, wheezing - Cardiovascular Rhythm: regular Heart Sounds: Present: S1 & S2 - Extremities Extremities: no ischemia, No edema - Abdominal General gastrointestinal: soft, non-tender, non-distended, other (Wound VAC in place) - Integumentary Integumentary: Present: clear, warm - Psychiatric Psychiatric: other (Intubated on vent and sedated) - Neurologic Neurologic: other (Intubated and sedated) Results - Labs CBC & Chem 7: 10/12/20 04:00 10/12/20 04:00 Labs: Laboratory Last Values WBC 10.6 K/mm3 (4.5-11.0) 10/12/20 04:00 RBC 4.32 M/mm3 (3.65-5.03) 10/12/20 04:00 Hgb 13.9 gm/dl (11.8-15.2) 10/12/20 04:00 Hct 42.1 % (35.5-45.6) 10/12/20 04:00 MCV 97 fl (84-94) H 10/12/20 04:00 MCH 32 pg (28-32) 10/12/20 04:00 MCHC 33 % (32-34) 10/12/20 04:00 RDW 14.9 % (13.2-15.2) 10/12/20 04:00 Plt Count 185 K/mm3 (140-440) 10/12/20 04:00 Lymph % (Auto) 7.2 % (13.4-35.0) L 10/12/20 04:00 [place] % (Auto) 5.8 % (0.0-7.3) 10/12/20 04:00 Eos % (Auto) 0.9 % (0.0-4.3) 10/12/20 04:00 Baso % (Auto) 0.5 % (0.0-1.8) 10/12/20 04:00 Lymph # (Auto) 0.8 K/mm3 (1.2-5.4) L 10/12/20 04:00 [place] # (Auto) 0.6 K/mm3 (0.0-0.8) 10/12/20 04:00 Eos # (Auto) 0.1 K/mm3 (0.0-0.4) 10/12/20 04:00 Baso # (Auto) 0.1 K/mm3 (0.0-0.1) 10/12/20 04:00 Seg Neutrophils % 85.6 % (40.0-70.0) H 10/12/20 04:00 Seg Neutrophils # 9.1 K/mm3 (1.8-7.7) H 10/12/20 04:00 Sodium 142 mmol/L (137-145) 10/12/20 04:00 Potassium 3.6 mmol/L (3.6-5.0) 10/12/20 04:00 Chloride 106.4 mmol/L (98-107) 10/12/20 04:00 Carbon Dioxide 24 mmol/L (22-30) 10/12/20 04:00 Anion Gap 15 mmol/L 10/12/20 04:00 BUN 29 mg/dL (9-20) H 10/12/20 04:00 Creatinine 0.9 mg/dL (0.8-1.3) 10/12/20 04:00 Estimated GFR > 60 ml/min 10/12/20 04:00 BUN/Creatinine Ratio 32 % 10/12/20 04:00 Glucose 171 mg/dL (75-100) H 10/12/20 04:00 POC Glucose 154 mg/dL (70-105) H 10/12/20 05:55 Lactic Acid 1.70 mmol/L (0.7-2.0) 10/09/20 05:36 Calcium 7.6 mg/dL (8.4-10.2) L D 10/12/20 04:00 Phosphorus 3.90 mg/dL (2.5-4.5) 10/12/20 04:00 Magnesium 1.70 mg/dL (1.7-2.3) 10/12/20 04:00 Total Bilirubin 0.50 mg/dL (0.1-1.2) 10/09/20 05:36 AST 13 units/L (5-40) 10/09/20 05:36 ALT 12 units/L (7-56) 10/09/20 05:36 Alkaline Phosphatase 57 units/L (35-129) 10/09/20 05:36 Total Protein 6.3 g/dL (6.3-8.2) 10/09/20 05:36 Albumin 3.7 g/dL (3.9-5) L 10/09/20 05:36 Albumin/Globulin Ratio 1.4 % 10/09/20 05:36 Lipase 20 units/L (13-60) 10/07/20 02:36 Urine Color [place] (Yellow) 10/07/20 Unknown Urine Turbidity Clear (Clear) 10/07/20 Unknown Urine pH 5.0 (5.0-7.0) 10/07/20 Unknown Ur Specific [place] 1.041 (1.003-1.030) H 10/07/20 Unknown Urine Protein 30 mg/dl mg/dL (Negative) 10/07/20 Unknown Urine Glucose (UA) Neg mg/dL (Negative) 10/07/20 Unknown Urine Ketones Neg mg/dL (Negative) 10/07/20 Unknown Urine Blood Neg (Negative) 10/07/20 Unknown Urine Nitrite Neg (Negative) 10/07/20 Unknown Urine Bilirubin Neg (Negative) 10/07/20 Unknown Urine Urobilinogen < 2.0 mg/dL (<2.0) 10/07/20 Unknown Ur Leukocyte Esterase Neg (Negative) 10/07/20 Unknown Urine WBC (Auto) 2.0 /HPF (0.0-6.0) 10/07/20 Unknown Urine RBC (Auto) 4.0 /HPF (0.0-6.0) 10/07/20 Unknown U Epithel Cells (Auto) < 1.0 /HPF (0-13.0) 10/07/20 Unknown Urine Mucus Few /HPF 10/07/20 Unknown Blood Type A POSITIVE 10/11/20 21:30 Antibody Screen Negative 10/11/20 21:30 Junior/IV: Voiding Method Indwelling Catheter IV Catheter Type [Right Upper PICC Line arm] IV Catheter Type [Right] Peripheral IV Active Medications - Current Medications Current Medications: Generic Name Dose Route Start Last Admin Trade Name Freq PRN Reason Stop Dose Admin Bisacodyl 10 mg 10/12/20 10:00 Bisacodyl 10 Mg Rect Supp NV QDAY JOSH Famotidine 20 mg 10/09/20 10:00 10/11/20 21:18 Famotidine 20 Mg/2 Ml Inj IV 20 mg BID JOSH Administration Hydralazine HCl 5 mg 10/07/20 06:52 10/11/20 05:17 Hydralazine 20 Mg/1 Ml Inj IV 5 mg Q30MIN PRN Administration Hypertension Hydromorphone HCl 0.5 mg 10/11/20 19:18 10/11/20 20:15 Hydromorphone 1 Mg/1 Ml Inj IV 10/12/20 19:17 0.5 mg Q10MIN PRN Administration Pain , Severe (7-10) Hydrophilic Ointment 1 applic 10/11/20 19:50 Lip Therapy Vaseline TP Q2HR PRN Dry Lips Propofol 1,000 mg in 100 mls @ 2.858 mls/hr 10/11/20 20:00 Diprivan 10 Mg/Ml IV TITR JOSH Protocol 5 MCG/KG/MIN Propofol 1,000 mg in 100 mls @ 2.858 mls/hr 10/11/20 20:00 10/12/20 07:05 Diprivan 10 Mg/Ml IV 50 mcg/kg/min TITR JOSH 28.576 mls/hr Titration Protocol 5 MCG/KG/MIN Morphine Sulfate 2 mg 10/07/20 06:18 10/12/20 03:14 Morphine 2 Mg/1 Ml Inj IV 2 mg Q6H PRN Administration Pain, Moderate (4-6) Multi-Ingred Cream/Lotion/Oil/Oint 1 applic 10/11/20 19:50 Mineral Oil/Petrolatum, White Ophth Oint 3.5 Gm OU Q4HR PRN Dry Eye(s) Ondansetron HCl 4 mg 10/07/20 06:18 10/11/20 13:50 Ondansetron 4 Mg/2 Ml Inj IV 4 mg Q8H PRN Administration Nausea And Vomiting Ondansetron HCl 4 mg 10/11/20 19:18 Ondansetron 4 Mg/2 Ml Inj IV ONCE PRN Nausea And Vomiting Sodium Chloride 10 ml 10/07/20 10:00 10/11/20 21:40 Sodium Chloride 0.9% 10 Ml Flush Syringe IV 10 ml BID JOSH Administration Sodium Chloride 10 ml 10/07/20 06:18 10/08/20 18:42 Sodium Chloride 0.9% 10 Ml Flush Syringe IV 10 ml PRN PRN Administration LINE FLUSH Nutrition/Malnutrition Assess - Dietary Evaluation Nutrition/Malnutrition Findings: Nutrition Notes Start: 10/08/20 13:34 Freq: Status: Active Protocol: Document 10/11/20 10:26 LP (Rec: 10/12/20 07:38 LP [email or web address]) Nutrition Notes Initial or Follow up Reassessment Current Diagnosis Coronary Artery Disease, Hypertension,Hyperlipidemia Other Pertinent Diagnosis SBO, hernia, hx. multiple bowel surgeries Current Diet PPN at 125ml/hr Labs/Tests Reviewed Pertinent Medications Reviewed Height 6 ft 2 in Weight 95.254 kg [place] Body Weight (kg) 86.36 BMI 26.9 Weight Status Overweight Subjective/Other Information Pt continues on PPN. Percent of energy/protein needs met: 34%/100% Burn Absent Trauma Absent GI Symptoms Other Food Allergy No Current % PO Negligible Minimum of two criteria No physical signs of malnutrition #1 Nutrition Diagnosis Inadequate oral intake Diagnosis Progress(for reassessment Continues documentation) Is patient on ventilator? No Is Patient Ambulatory and/or Out of Bed No R[facility] 0169.263 Calculation Used for Recommendations [facility] Additional Notes Protein needs are 95-114g (1-1 .2g/kg) Fluid needs are 1ml/kcal Nutrition Intervention Change Diet Order: TPN Nutrition Support: PPN at 125ml/hr: 5.7% dextrose , 3.2% AA, 5mmol Phos, Thiamine, MVI Osmolality 786 Kcal 1,458 Protein (gm) 95 Carbohydrates (gm) 170 Fat (gm) 50 Fluid (mL) 3,250 Fiber (gm) 0 Goal #1 Meet kcal and protein needs as best as possible via PPN Anticipated Discharge Needs: Unable to determine at this time Follow-Up By: 10/12/20 Additional Comments Labs in AM: BMP, Mg, Phos
[2020-10-12] MEDS: fentaNYL DRIP Premix 2,000 MCG/100 ML BAG IV SCH (09:47)
[2020-10-12] MEDS: FAMOTIDINE 20 MG/2 ML INJ IV SCH ×2 (09:55→21:15)
[2020-10-12] MEDS ORDERED: MAGNESIUM SULFATE 4 GM/100 ML BAG IV ONE (11:00)
--- NOTE | 2020-10-12 11:23 | Consultation ---
History of Present Illness Consult date: 10/12/20 Requesting physician: KEVEN KWOK Reason for consult: other History of present illness: 75 y/o male, prior history of multiple abdominal surgeries admitted on 10/07 with abdominal pain secondary to SBO. Attempted decompression with NG tube and bowel rest but unfortunately had to be taken to the OR. Given the complexity of his abdomen, prolonged procedure and unable to close. Surgery requested ICU admission and consultation for vent management and pain control. Currently sedated on Diprovan with PRN pain meds. Past History Past Medical History: CAD, hypertension, hyperlipidemia Past Surgical History: cholecystectomy, hernia repair, bowel surgery, Other (partial colectomy, mesh removal and replacement with biologic, splenectomy) Social history: , lives with family Family history: hypertension Medications and Allergies Allergies Allergy/AdvReac Type Severity Reaction Status Date / Time No Known Allergies Allergy Verified 07/25/13 22:46 Home Medications Medication Instructions Recorded Confirmed Last Taken Type Aspirin 325 mg PO ONCE #30 tablet 08/01/13 09/10/13 09/10/13 10:24 Rx 325 mg Clopidogrel [Plavix] 75 mg PO QDAY #30 tablet 08/01/13 09/10/13 09/10/13 10:23 Rx 75 mg Rosuvastatin (Nf) [Crestor] 20 mg PO QHS #30 tablet 08/01/13 09/10/13 09/09/13 22:00 Rx 20 mg Warfarin [Coumadin] 5 mg PO QDAY #30 tablet 08/01/13 09/10/13 09/09/13 22:00 Rx 5 mg Hydrocodone Bit/Acetaminophen 1 each PO Q8H PRN #14 tablet 09/10/13 Unknown Rx [Lortab 7.5-500 mg] Active Meds: Active Medications Bisacodyl (Bisacodyl 10 Mg Rect Supp) 10 mg PA QDAY [facility] Last Admin: 10/12/20 09:56 Dose: 10 mg Documented by: Famotidine (Famotidine 20 Mg/2 Ml Inj) 20 mg IV BID [facility] Last Admin: 10/12/20 09:55 Dose: 20 mg Documented by: Fentanyl (Fentanyl 100 Mcg/2 Ml Inj) 50 mcg IV Q10MIN PRN PRN Reason: ANALGESIA Hydralazine HCl (Hydralazine 20 Mg/1 Ml Inj) 5 mg IV Q30MIN PRN PRN Reason: Hypertension Last Admin: 10/11/20 05:17 Dose: 5 mg Documented by: Hydrophilic Ointment (Lip Therapy Vaseline) 1 applic TP Q2HR PRN PRN Reason: Dry Lips Propofol (Diprivan 10 Mg/Ml) 1,000 mg in 100 mls @ 2.858 mls/hr IV TITR JOSH; Protocol Last Titration: 10/12/20 10:40 Dose: 40 mcg/kg/min, 22.861 mls/hr Documented by: Fentanyl Citrate (Fentanyl Drip Premix) 2,000 mcg in 100 mls @ 4.763 mls/hr IV TITR JOSH; Protocol Last Titration: 10/12/20 10:45 Dose: 3 mcg/kg/hr, 14.288 mls/hr Documented by: Magnesium Sulfate (Magnesium Sulfate 4gm/100ml) 4 gm in 100 mls @ 25 mls/hr IV ONCE ONE Stop: 10/12/20 14:59 Last Admin: 10/12/20 11:16 Dose: 25 mls/hr Documented by: Multi-Ingred Cream/Lotion/Oil/Oint (Mineral Oil/Petrolatum, White Ophth Oint 3.5 Gm) 1 applic OU Q4HR PRN PRN Reason: Dry Eye(s) Ondansetron HCl (Ondansetron 4 Mg/2 Ml Inj) 4 mg IV Q8H PRN PRN Reason: Nausea And Vomiting Last Admin: 10/11/20 13:50 Dose: 4 mg Documented by: Ondansetron HCl (Ondansetron 4 Mg/2 Ml Inj) 4 mg IV ONCE PRN PRN Reason: Nausea And Vomiting Sodium Chloride (Sodium Chloride 0.9% 10 Ml Flush Syringe) 10 ml IV BID JOSH Last Admin: 10/12/20 09:55 Dose: 10 ml Documented by: Sodium Chloride (Sodium Chloride 0.9% 10 Ml Flush Syringe) 10 ml IV PRN PRN PRN Reason: LINE FLUSH Last Admin: 10/08/20 18:42 Dose: 10 ml Documented by: Review of Systems ROS unobtainable: due to endotracheal tube, due to mental status Physical Examination Vital signs: Vital Signs Temp Pulse Resp BP Pulse Ox 98.9 F 90 18 103/71 94 10/07/20 01:28 10/07/20 01:28 10/07/20 01:28 10/07/20 01:28 10/07/20 01:28 General appearance: comatose Eyes: non-icteric ENT: other (orally intubated and sedated) Neck: supple Effort: normal Ascultation: Bilateral: clear Percussion: Bilateral: not dull Cardiovascular: regular rate and rhythm Gastrointestinal: other (open abdomen) Results - Laboratory Findings CBC and BMP: 10/12/20 04:00 10/12/20 04:00 Abnormal lab findings: Abnormal Labs 10/07/20 10/07/20 10/07/20 02:36 02:36 Unknown WBC RBC 5.27 H Hgb 16.9 H Hct 49.9 H MCV 95 H MCH RDW Lymph % (Auto) 7.[address] [place] % (Auto) Lymph # (Auto) 0.[address] [place] # (Auto) Seg Neutrophils % 86.4 H Seg Neutrophils # 9.5 H Potassium Chloride Carbon Dioxide 18 L BUN 22 H Creatinine Glucose 217 H POC Glucose Calcium Magnesium Albumin Ur Specific [place] 1.041 H 10/08/20 10/08/20 10/09/20 05:38 05:38 00:31 WBC RBC Hgb 16.2 H Hct 48.6 H MCV 97 H MCH RDW 15.3 H Lymph % (Auto) 7.[address] [place] % (Auto) 10.3 H Lymph # (Auto) 0.[address] [place] # (Auto) 1.0 H Seg Neutrophils % 81.8 H Seg Neutrophils # 7.8 H Potassium Chloride Carbon Dioxide 21 L BUN 52 H Creatinine 2.0 H D Glucose 209 H POC Glucose 142 H Calcium Magnesium Albumin Ur Specific [place] 10/09/20 10/09/20 10/09/20 05:36 05:36 05:36 WBC RBC Hgb 15.5 H Hct 45.7 H MCV 96 H MCH 33 H RDW Lymph % (Auto) 8.[address] [place] % (Auto) 12.5 H Lymph # (Auto) 0.[address] [place] # (Auto) 1.1 H Seg Neutrophils % 78.2 H Seg Neutrophils # Potassium Chloride 107.8 H Carbon Dioxide 21 L BUN 42 H Creatinine Glucose 160 H POC Glucose Calcium Magnesium 2.60 H Albumin 3.7 L Ur Specific [place] 10/09/20 10/09/20 10/09/20 11:17 15:48 21:51 WBC RBC Hgb Hct MCV MCH RDW Lymph % (Auto) [place] % (Auto) Lymph # (Auto) [place] # (Auto) Seg Neutrophils % Seg Neutrophils # Potassium Chloride Carbon Dioxide BUN Creatinine Glucose POC Glucose 137 H 122 H 145 H Calcium Magnesium Albumin Ur Specific [place] 10/10/20 10/10/20 10/10/20 04:25 04:25 05:43 WBC 11.1 H RBC Hgb Hct 47.5 H MCV 97 H MCH RDW Lymph % (Auto) 7.[address] % (Auto) 10.9 H Lymph # (Auto) 0.[address] [place] # (Auto) 1.2 H Seg Neutrophils % 80.6 H Seg Neutrophils # 8.9 H Potassium 3.5 L Chloride 108.4 H Carbon Dioxide 21 L BUN 27 H Creatinine Glucose 148 H POC Glucose 153 H Calcium Magnesium 2.40 H Albumin Ur Specific [place] 10/10/20 10/10/20 10/11/20 11:52 23:26 05:38 WBC RBC Hgb Hct MCV MCH RDW Lymph % (Auto) [place] % (Auto) Lymph # (Auto) [place] # (Auto) Seg Neutrophils % Seg Neutrophils # Potassium Chloride Carbon Dioxide BUN 23 H Creatinine 0.7 L Glucose 158 H POC Glucose 149 H 140 H Calcium Magnesium Albumin Ur Specific [place] 10/11/20 10/11/20 10/11/20 06:20 12:19 21:05 WBC RBC Hgb Hct MCV MCH RDW Lymph % (Auto) [place] % (Auto) Lymph # (Auto) [place] # (Auto) Seg Neutrophils % Seg Neutrophils # Potassium Chloride Carbon Dioxide BUN Creatinine Glucose POC Glucose 169 H 174 H 140 H Calcium Magnesium Albumin Ur Specific [place] 10/11/20 10/12/20 10/12/20 23:58 04:00 04:00 WBC RBC Hgb Hct MCV 97 H MCH RDW Lymph % (Auto) 7.[address] % (Auto) Lymph # (Auto) 0.[address] [place] # (Auto) Seg Neutrophils % 85.6 H Seg Neutrophils # 9.1 H Potassium Chloride Carbon Dioxide BUN 29 H Creatinine Glucose 171 H POC Glucose 139 H Calcium 7.6 L D Magnesium Albumin Ur Specific [place] 10/12/20 05:55 WBC RBC Hgb Hct MCV MCH RDW Lymph % (Auto) [place] % (Auto) Lymph # (Auto) [place] # (Auto) Seg Neutrophils % Seg Neutrophils # Potassium Chloride Carbon Dioxide BUN Creatinine Glucose POC Glucose 154 H Calcium Magnesium Albumin Ur Specific [place] - Diagnostic Findings Chest x-ray: image reviewed (cardiomegaly with what could pulmonary edema) Assessment and Plan 75 y/o male with complex abdomen from multiple prior abdominal surgeries, now admitted to ICU for vent management until abdomen can be closed. 1. Adequate sedation and pain control with continuos drips 2. Already on TPN 3. Gi prophylaxis 4. Junior catheter 5. Vent support. CCT 31 minutes.
--- NOTE | 2020-10-12 13:15 | Progress Note ---
Assessment and Plan POD#1 s/p exploratory laparotomy, and extensive lysis of adhesions for SBO. Abdominal wound vac placement for open abdomen. Afebrile and stable. Will take to OR tomorrow for gastric tube placement and closure of abdomen. Obtained telephone consent form his [facility]. Continue supportive care and TPN. Subjective Date of service: 10/12/20 Narrative: no acute events overnight. Pt has been sedated on the vent since surgery since his abdomen was not closed. Objective Vital Signs - 12hr 10/12/20 10/12/20 10/12/20 01:10 01:20 01:30 Temperature Pulse Rate 82 82 82 Pulse Rate [ From Monitor] Respiratory 26 H 16 18 Rate Respiratory Rate [Abdomen] Blood Pressure 108/69 115/73 111/71 O2 Sat by Pulse 98 98 Oximetry 10/12/20 10/12/20 10/12/20 01:40 01:50 02:00 Temperature Pulse Rate 83 85 82 Pulse Rate [ From Monitor] Respiratory 17 21 15 Rate Respiratory Rate [Abdomen] Blood Pressure 111/71 99/65 105/64 O2 Sat by Pulse 98 98 98 Oximetry 10/12/20 10/12/20 10/12/20 02:10 02:20 02:30 Temperature Pulse Rate 81 83 83 Pulse Rate [ From Monitor] Respiratory 14 20 15 Rate Respiratory Rate [Abdomen] Blood Pressure 105/64 102/69 102/68 O2 Sat by Pulse 98 97 96 Oximetry 10/12/20 10/12/20 10/12/20 02:40 02:50 03:00 Temperature Pulse Rate 84 83 84 Pulse Rate [ From Monitor] Respiratory 17 19 16 Rate Respiratory Rate [Abdomen] Blood Pressure 102/68 102/68 107/71 O2 Sat by Pulse 97 99 98 Oximetry 10/12/20 10/12/20 10/12/20 03:10 03:14 03:20 Temperature Pulse Rate 84 85 Pulse Rate [ From Monitor] Respiratory 16 18 17 Rate Respiratory Rate [Abdomen] Blood Pressure 107/71 109/71 O2 Sat by Pulse 98 98 Oximetry 10/12/20 10/12/20 10/12/20 03:30 03:37 03:40 Temperature 98.6 F Pulse Rate 85 85 Pulse Rate [ From Monitor] Respiratory 15 17 Rate Respiratory Rate [Abdomen] Blood Pressure 104/69 104/69 O2 Sat by Pulse 97 Oximetry 10/12/20 10/12/2021 03:50 04:00 04:10 Temperature Pulse Rate 86 86 91 H Pulse Rate [ 88 From Monitor] Respiratory 16 20 17 Rate Respiratory Rate [Abdomen] Blood Pressure 100/65 123/79 123/79 O2 Sat by Pulse 97 94 96 Oximetry 10/12/20 10/12/20 10/12/20 04:20 04:30 04:40 Temperature Pulse Rate 89 95 H 93 H Pulse Rate [ From Monitor] Respiratory 18 20 17 Rate Respiratory Rate [Abdomen] Blood Pressure 116/76 131/84 131/84 O2 Sat by Pulse 98 97 Oximetry 10/12/20 10/12/20 10/12/20 04:50 05:00 05:07 Temperature Pulse Rate 90 95 H 90 Pulse Rate [ From Monitor] Respiratory 16 23 Rate Respiratory Rate [Abdomen] Blood Pressure 100/67 120/83 120/83 O2 Sat by Pulse 95 Oximetry 10/12/20 10/12/20 10/12/20 05:10 05:20 05:30 Temperature Pulse Rate 90 90 89 Pulse Rate [ From Monitor] Respiratory 23 21 22 Rate Respiratory Rate [Abdomen] Blood Pressure 120/83 87/59 94/61 O2 Sat by Pulse 95 95 Oximetry 10/12/20 10/12/20 10/12/20 05:40 05:50 06:00 Temperature Pulse Rate 86 88 87 Pulse Rate [ From Monitor] Respiratory 14 14 21 Rate Respiratory Rate [Abdomen] Blood Pressure 94/61 102/65 108/70 O2 Sat by Pulse 94 97 96 Oximetry 10/12/20 10/12/20 10/12/20 06:10 06:20 06:30 Temperature Pulse Rate 88 88 88 Pulse Rate [ From Monitor] Respiratory 27 H 18 15 Rate Respiratory Rate [Abdomen] Blood Pressure 108/70 106/69 104/64 O2 Sat by Pulse 97 97 96 Oximetry 10/12/20 10/12/20 10/12/20 06:40 06:50 07:00 Temperature Pulse Rate 87 89 87 Pulse Rate [ From Monitor] Respiratory 29 H 21 18 Rate Respiratory 38 H Rate [Abdomen] Blood Pressure 104/64 112/74 120/76 O2 Sat by Pulse 97 97 97 Oximetry 10/12/20 10/12/20 10/12/20 07:10 07:20 07:30 Temperature Pulse Rate 86 88 87 Pulse Rate [ From Monitor] Respiratory 30 H 21 20 Rate Respiratory Rate [Abdomen] Blood Pressure 120/76 126/81 99/65 O2 Sat by Pulse 98 97 95 Oximetry 10/12/20 10/12/20 10/12/20 07:40 07:47 07:50 Temperature Pulse Rate 86 88 87 Pulse Rate [ From Monitor] Respiratory 18 17 Rate Respiratory Rate [Abdomen] Blood Pressure 99/65 108/70 106/71 O2 Sat by Pulse 96 97 97 Oximetry 10/12/20 10/12/20 10/12/20 08:00 08:10 11:30 Temperature Pulse Rate 88 87 87 Pulse Rate [ 86 From Monitor] Respiratory 23 23 Rate Respiratory Rate [Abdomen] Blood Pressure 106/71 110/75 110/75 O2 Sat by Pulse 96 96 96 Oximetry - General physical appearance well developed, no distress - Respiratory normal expansion, normal respiratory effort, other (on ventilator) - Abdomen soft, not distended, other (abdominal vac in place with sero-sang drainage, NGT with minimal out put) - Labs 10/12/20 04:00 10/12/20 04:00 Diabetes panel 10/12/20 Range/Units 04:00 Sodium 142 (137-145) mmol/L Potassium 3.6 (3.6-5.0) mmol/L Chloride 106.4 (98-107) mmol/L Carbon Dioxide 24 (22-30) mmol/L BUN 29 H (9-20) mg/dL Creatinine 0.9 (0.8-1.3) mg/dL Glucose 171 H (75-100) mg/dL Calcium 7.6 L D (8.4-10.2) mg/dL Calcium panel 10/12/20 Range/Units 04:00 Calcium 7.6 L D (8.4-10.2) mg/dL Phosphorus 3.90 (2.5-4.5) mg/dL Pituitary panel 10/12/20 Range/Units 04:00 Sodium 142 (137-145) mmol/L Potassium 3.6 (3.6-5.0) mmol/L Chloride 106.4 (98-107) mmol/L Carbon Dioxide 24 (22-30) mmol/L BUN 29 H (9-20) mg/dL Creatinine 0.9 (0.8-1.3) mg/dL Glucose 171 H (75-100) mg/dL Calcium 7.6 L D (8.4-10.2) mg/dL Adrenal panel 10/12/20 Range/Units 04:00 Sodium 142 (137-145) mmol/L Potassium 3.6 (3.6-5.0) mmol/L Chloride 106.4 (98-107) mmol/L Carbon Dioxide 24 (22-30) mmol/L BUN 29 H (9-20) mg/dL Creatinine 0.9 (0.8-1.3) mg/dL Glucose 171 H (75-100) mg/dL Calcium 7.6 L D (8.4-10.2) mg/dL
[2020-10-12] MEDS ORDERED: TOTAL PARENTERAL NUTRITION 3,000 ML IV SCH (20:00)
--- NOTE | 2020-10-13 02:53 | XRay Report ---
CHEST 1 VIEW 10/13/2020 2:12 AM INDICATION / CLINICAL INFORMATION: follow up respiratory failure. COMPARISON: 10/12/2020 FINDINGS: SUPPORT DEVICES: Unchanged. HEART / MEDIASTINUM: Unchanged LUNGS / PLEURA: Pulmonary opacities persist. No pneumothorax. ADDITIONAL FINDINGS: No significant additional findings. IMPRESSION: 1. No significant change. Signer Name: Gordon Garcia MD Signed: 10/13/2020 2:48 AM Workstation Name: [id number]
[2020-10-13] MEDS: fentaNYL DRIP Premix 2,000 MCG/100 ML BAG IV SCH ×2 (03:32→14:39)
[2020-10-13 06:54] LABS: BUN/Creatinine Ratio 31; Blood Urea Nitrogen 28 mg/dL (9-20); Calcium 8.3 mg/dL (8.4-10.2); Hemolysis Index 6
[2020-10-13] MEDS ORDERED: ACETAMINOPHEN 650 MG RECT SUPP PR PRN (08:40)
[2020-10-13] MEDS: FAMOTIDINE 20 MG/2 ML INJ IV SCH ×2 (09:02→21:06)
--- NOTE | 2020-10-13 12:32 | Progress Note ---
Assessment and Plan POD#2 s/p exploratory laparotomy, and extensive lysis of adhesions for SBO. Abdominal wound vac placement for open abdomen. Afebrile and stable. Will take to OR today for gastric tube placement and closure of abdomen. Updated his Man[facility]. Continue supportive care and TPN. Subjective Date of service: 10/13/20 Narrative: no acute events overnight Objective Vital Signs - 12hr 10/13/20 10/13/20 10/13/20 00:40 00:50 00:53 Temperature Pulse Rate 95 H 92 H 90 Respiratory 17 15 Rate Blood Pressure 109/67 121/76 121/76 O2 Sat by Pulse 93 94 92 Oximetry 10/13/20 10/13/20 10/13/20 01:00 01:15 01:30 Temperature Pulse Rate 95 H 96 H 93 H Respiratory 20 15 14 Rate Blood Pressure 150/83 168/104 O2 Sat by Pulse 90 94 91 Oximetry 10/13/20 10/13/20 10/13/20 01:45 02:00 02:15 Temperature Pulse Rate 92 H 90 94 H Respiratory 12 15 15 Rate Blood Pressure 123/76 111/69 126/81 O2 Sat by Pulse 93 91 92 Oximetry 10/13/20 10/13/20 10/13/20 02:30 02:45 03:00 Temperature Pulse Rate 93 H 92 H 90 Respiratory 18 20 13 Rate Blood Pressure 115/67 118/84 104/70 O2 Sat by Pulse 90 92 91 Oximetry 10/13/20 10/13/20 10/13/20 03:15 03:30 03:35 Temperature 99.7 F H Pulse Rate 92 H 94 H Respiratory 16 15 Rate Blood Pressure 107/73 116/74 O2 Sat by Pulse 93 94 Oximetry 10/13/20 10/13/20 10/13/20 03:45 04:00 04:15 Temperature Pulse Rate 94 H 95 H 93 H Respiratory 20 17 20 Rate Blood Pressure 116/73 126/71 112/73 O2 Sat by Pulse 92 92 91 Oximetry 10/13/20 10/13/20 10/13/20 04:30 04:45 05:00 Temperature Pulse Rate 93 H 96 H 91 H Respiratory 13 17 19 Rate Blood Pressure 98/71 104/69 111/73 O2 Sat by Pulse 91 93 Oximetry 10/13/20 10/13/20 10/13/20 05:15 05:30 05:45 Temperature Pulse Rate 98 H 95 H 96 H Respiratory 19 18 17 Rate Blood Pressure 116/73 116/75 111/75 O2 Sat by Pulse 92 91 92 Oximetry 10/13/20 10/13/20 10/13/20 06:00 06:15 06:30 Temperature Pulse Rate 93 H 93 H 92 H Respiratory 17 18 13 Rate Blood Pressure 118/73 103/71 113/77 O2 Sat by Pulse 90 89 Oximetry 10/13/20 10/13/20 10/13/20 06:45 07:00 07:15 Temperature Pulse Rate 93 H 90 90 Respiratory 17 14 16 Rate Blood Pressure 93/63 97/61 98/63 O2 Sat by Pulse 90 91 91 Oximetry 10/13/20 10/13/20 10/13/20 07:30 07:45 08:00 Temperature 101.0 F H Pulse Rate 89 90 90 Respiratory 15 17 18 Rate Blood Pressure 105/69 112/69 107/68 O2 Sat by Pulse 91 92 Oximetry 10/13/20 10/13/20 10/13/20 08:15 08:29 08:30 Temperature Pulse Rate 89 89 91 H Respiratory 19 19 Rate Blood Pressure 112/72 113/74 113/74 O2 Sat by Pulse 93 93 91 Oximetry 10/13/20 10/13/20 10/13/20 08:45 09:00 09:15 Temperature Pulse Rate 92 H 91 H 91 H Respiratory 17 18 18 Rate Blood Pressure 119/77 109/69 106/73 O2 Sat by Pulse 93 92 Oximetry 10/13/20 10/13/20 10/13/20 09:30 09:45 10:00 Temperature Pulse Rate 91 H 92 H 89 Respiratory 18 18 16 Rate Blood Pressure 113/71 112/73 106/67 O2 Sat by Pulse 93 93 93 Oximetry 10/13/20 10/13/20 10/13/20 10:15 10:30 10:45 Temperature Pulse Rate 87 92 H 89 Respiratory 14 18 18 Rate Blood Pressure 108/71 117/75 117/71 O2 Sat by Pulse 93 93 92 Oximetry 10/13/20 10/13/20 10/13/20 11:00 11:15 11:30 Temperature Pulse Rate 90 87 87 Respiratory 21 18 18 Rate Blood Pressure 101/67 110/72 100/67 O2 Sat by Pulse 92 92 Oximetry 10/13/20 10/13/20 10/13/20 11:45 12:00 12:15 Temperature 99.3 F Pulse Rate 86 89 Respiratory 16 Rate Blood Pressure 105/66 105/65 O2 Sat by Pulse 92 94 Oximetry - General physical appearance no distress - Respiratory normal expansion, normal respiratory effort, other (on vent) - Abdomen soft, other (abdominal vac with sero-sanguinous drainage) - Labs 10/12/20 04:00 10/13/20 04:00 Diabetes panel 10/13/20 Range/Units 04:00 Sodium 140 (137-145) mmol/L Potassium 4.2 (3.6-5.0) mmol/L Chloride 102.1 (98-107) mmol/L Carbon Dioxide 31 H D (22-30) mmol/L BUN 28 H (9-20) mg/dL Creatinine 0.9 (0.8-1.3) mg/dL Glucose 151 H (75-100) mg/dL Calcium 8.3 L (8.4-10.2) mg/dL Triglycerides 147 (2-149) mg/dL Calcium panel 10/13/20 Range/Units 04:00 Calcium 8.3 L (8.4-10.2) mg/dL Phosphorus 3.20 (2.5-4.5) mg/dL Pituitary panel 10/13/20 Range/Units 04:00 Sodium 140 (137-145) mmol/L Potassium 4.2 (3.6-5.0) mmol/L Chloride 102.1 (98-107) mmol/L Carbon Dioxide 31 H D (22-30) mmol/L BUN 28 H (9-20) mg/dL Creatinine 0.9 (0.8-1.3) mg/dL Glucose 151 H (75-100) mg/dL Calcium 8.3 L (8.4-10.2) mg/dL Adrenal panel 10/13/20 Range/Units 04:00 Sodium 140 (137-145) mmol/L Potassium 4.2 (3.6-5.0) mmol/L Chloride 102.1 (98-107) mmol/L Carbon Dioxide 31 H D (22-30) mmol/L BUN 28 H (9-20) mg/dL Creatinine 0.9 (0.8-1.3) mg/dL Glucose 151 H (75-100) mg/dL Calcium 8.3 L (8.4-10.2) mg/dL
--- NOTE | 2020-10-13 12:43 | Progress Note ---
Assessment and Plan 75 y/o male with complex abdomen from multiple prior abdominal surgeries, now admitted to ICU for vent management until abdomen can be closed. 10/13/20: To OR today. Will assess pulm status post surgery. Will discuss with surgery future plans prior to making plans on extubation. Supportive care. 1. Adequate sedation and pain control with continuos drips 2. Already on TPN 3. Gi prophylaxis 4. Junior catheter 5. Vent support. CCT 31 minutes. Subjective Date of service: 10/13/20 Principal diagnosis: Small bowel obstruction Interval history: No acute events overnight. Stable pulm status. Reviewed Surgery note this am. Objective Vital Signs - 12hr 10/13/20 10/13/20 10/13/20 00:50 00:53 01:00 Temperature Pulse Rate 92 H 90 95 H Respiratory 15 20 Rate Blood Pressure 121/76 121/76 150/83 O2 Sat by Pulse 94 92 90 Oximetry 10/13/20 10/13/20 10/13/20 01:15 01:30 01:45 Temperature Pulse Rate 96 H 93 H 92 H Respiratory 15 14 12 Rate Blood Pressure 168/104 123/76 O2 Sat by Pulse 94 91 93 Oximetry 10/13/20 10/13/20 10/13/20 02:00 02:15 02:30 Temperature Pulse Rate 90 94 H 93 H Respiratory 15 15 18 Rate Blood Pressure 111/69 126/81 115/67 O2 Sat by Pulse 91 92 90 Oximetry 10/13/20 10/13/20 10/13/20 02:45 03:00 03:15 Temperature Pulse Rate 92 H 90 92 H Respiratory 20 13 16 Rate Blood Pressure 118/84 104/70 107/73 O2 Sat by Pulse 92 91 93 Oximetry 10/13/20 10/13/20 10/13/20 03:30 03:35 03:45 Temperature 99.7 F H Pulse Rate 94 H 94 H Respiratory 15 20 Rate Blood Pressure 116/74 116/73 O2 Sat by Pulse 94 92 Oximetry 10/13/20 10/13/20 10/13/20 04:00 04:15 04:30 Temperature Pulse Rate 95 H 93 H 93 H Respiratory 17 20 13 Rate Blood Pressure 126/71 112/73 98/71 O2 Sat by Pulse 92 91 91 Oximetry 10/13/20 10/13/20 10/13/20 04:45 05:00 05:15 Temperature Pulse Rate 96 H 91 H 98 H Respiratory 17 19 19 Rate Blood Pressure 104/69 111/73 116/73 O2 Sat by Pulse 93 92 Oximetry 10/13/20 10/13/20 10/13/20 05:30 05:45 06:00 Temperature Pulse Rate 95 H 96 H 93 H Respiratory 18 17 17 Rate Blood Pressure 116/75 111/75 118/73 O2 Sat by Pulse 91 92 Oximetry 10/13/20 10/13/20 10/13/20 06:15 06:30 06:45 Temperature Pulse Rate 93 H 92 H 93 H Respiratory 18 13 17 Rate Blood Pressure 103/71 113/77 93/63 O2 Sat by Pulse 90 89 90 Oximetry 10/13/20 10/13/20 10/13/20 07:00 07:15 07:30 Temperature Pulse Rate 90 90 89 Respiratory 14 16 15 Rate Blood Pressure 97/61 98/63 105/69 O2 Sat by Pulse 91 91 Oximetry 10/13/20 10/13/20 10/13/20 07:45 08:00 08:15 Temperature 101.0 F H Pulse Rate 90 90 89 Respiratory 17 18 19 Rate Blood Pressure 112/69 107/68 112/72 O2 Sat by Pulse 91 92 93 Oximetry 10/13/20 10/13/20 10/13/20 08:29 08:30 08:45 Temperature Pulse Rate 89 91 H 92 H Respiratory 19 17 Rate Blood Pressure 113/74 113/74 119/77 O2 Sat by Pulse 93 91 Oximetry 10/13/20 10/13/20 10/13/20 09:00 09:15 09:30 Temperature Pulse Rate 91 H 91 H 91 H Respiratory 18 18 18 Rate Blood Pressure 109/69 106/73 113/71 O2 Sat by Pulse 93 92 93 Oximetry 10/13/20 10/13/20 10/13/20 09:45 10:00 10:15 Temperature Pulse Rate 92 H 89 87 Respiratory 18 16 14 Rate Blood Pressure 112/73 106/67 108/71 O2 Sat by Pulse 93 93 93 Oximetry 10/13/20 10/13/20 10/13/20 10:30 10:45 11:00 Temperature Pulse Rate 92 H 89 90 Respiratory 18 18 21 Rate Blood Pressure 117/75 117/71 101/67 O2 Sat by Pulse 93 92 92 Oximetry 10/13/20 10/13/20 10/13/20 11:15 11:30 11:45 Temperature Pulse Rate 87 87 86 Respiratory 18 18 16 Rate Blood Pressure 110/72 100/67 105/66 O2 Sat by Pulse 92 92 Oximetry 10/13/20 10/13/20 12:00 12:15 Temperature 99.3 F Pulse Rate 89 Respiratory Rate Blood Pressure 105/65 O2 Sat by Pulse 94 Oximetry Constitutional: comatose Eyes: non-icteric ENT: other (orally intubated and sedated) Neck: supple Effort: normal Ascultation: Bilateral: clear Percussion: Bilateral: not dull Cardiovascular: regular rate and rhythm Gastrointestinal: other (open abdomen) CBC and BMP: 10/12/20 04:00 10/13/20 04:00 ABG, PT/INR, D-dimer: ABG ABG pH 7.422 (7.320-7.450) 10/13/20 05:44 POC ABG pCO2 42.8 mmHg (32.0-48.0) 10/13/20 05:44 POC ABG pO2 64.3 mmHg (83-108) L 10/13/20 05:44 POC ABG HCO3 27.3 10/13/20 05:44 Abnormal lab findings: Abnormal Labs 10/07/20 10/07/20 10/07/20 02:36 02:36 Unknown WBC RBC 5.27 H Hgb 16.9 H Hct 49.9 H MCV 95 H MCH RDW Lymph % (Auto) 7.0 L [place] % (Auto) Lymph # (Auto) 0.8 L [place] # (Auto) Seg Neutrophils % 86.4 H Seg Neutrophils # 9.5 H POC ABG pO2 ABG Oxyhemoglobin ABG Sodium ABG Glucose Potassium Chloride Carbon Dioxide 18 L BUN 22 H Creatinine Glucose 217 H POC Glucose Calcium Magnesium Albumin Arterial Blood Glucose Arterial Blood Ionized Calcium Ur Specific [place] 1.041 H 10/08/20 10/08/20 10/09/20 05:38 05:38 00:31 WBC RBC Hgb 16.2 H Hct 48.6 H MCV 97 H MCH RDW 15.3 H Lymph % (Auto) 7.8 L [place] % (Auto) 10.3 H Lymph # (Auto) 0.7 L [place] # (Auto) 1.0 H Seg Neutrophils % 81.8 H Seg Neutrophils # 7.8 H POC ABG pO2 ABG Oxyhemoglobin ABG Sodium ABG Glucose Potassium Chloride Carbon Dioxide 21 L BUN 52 H Creatinine 2.0 H D Glucose 209 H POC Glucose 142 H Calcium Magnesium Albumin Arterial Blood Glucose Arterial Blood Ionized Calcium Ur Specific [place] 10/09/20 10/09/20 10/09/20 05:36 05:36 05:36 WBC RBC Hgb 15.5 H Hct 45.7 H MCV 96 H MCH 33 H RDW Lymph % (Auto) 8.3 L [place] % (Auto) 12.5 H Lymph # (Auto) 0.7 L [place] # (Auto) 1.1 H Seg Neutrophils % 78.2 H Seg Neutrophils # POC ABG pO2 ABG Oxyhemoglobin ABG Sodium ABG Glucose Potassium Chloride 107.8 H Carbon Dioxide 21 L BUN 42 H Creatinine Glucose 160 H POC Glucose Calcium Magnesium 2.60 H Albumin 3.7 L Arterial Blood Glucose Arterial Blood Ionized Calcium Ur Specific [place] 10/09/20 10/09/20 10/09/20 11:17 15:48 21:51 WBC RBC Hgb Hct MCV MCH RDW Lymph % (Auto) [place] % (Auto) Lymph # (Auto) [place] # (Auto) Seg Neutrophils % Seg Neutrophils # POC ABG pO2 ABG Oxyhemoglobin ABG Sodium ABG Glucose Potassium Chloride Carbon Dioxide BUN Creatinine Glucose POC Glucose 137 H 122 H 145 H Calcium Magnesium Albumin Arterial Blood Glucose Arterial Blood Ionized Calcium Ur Specific [place] 10/10/20 10/10/20 10/10/20 04:25 04:25 05:43 WBC 11.1 H RBC Hgb Hct 47.5 H MCV 97 H MCH RDW Lymph % (Auto) 7.9 L [place] % (Auto) 10.9 H Lymph # (Auto) 0.9 L [place] # (Auto) 1.2 H Seg Neutrophils % 80.6 H Seg Neutrophils # 8.9 H POC ABG pO2 ABG Oxyhemoglobin ABG Sodium ABG Glucose Potassium 3.5 L Chloride 108.4 H Carbon Dioxide 21 L BUN 27 H Creatinine Glucose 148 H POC Glucose 153 H Calcium Magnesium 2.40 H Albumin Arterial Blood Glucose Arterial Blood Ionized Calcium Ur Specific [place] 10/10/20 10/10/20 10/11/20 11:52 23:26 05:38 WBC RBC Hgb Hct MCV MCH RDW Lymph % (Auto) [place] % (Auto) Lymph # (Auto) [place] # (Auto) Seg Neutrophils % Seg Neutrophils # POC ABG pO2 ABG Oxyhemoglobin ABG Sodium ABG Glucose Potassium Chloride Carbon Dioxide BUN 23 H Creatinine 0.7 L Glucose 158 H POC Glucose 149 H 140 H Calcium Magnesium Albumin Arterial Blood Glucose Arterial Blood Ionized Calcium Ur Specific [place] 10/11/20 10/11/20 10/11/20 06:20 12:19 21:05 WBC RBC Hgb Hct MCV MCH RDW Lymph % (Auto) [place] % (Auto) Lymph # (Auto) [place] # (Auto) Seg Neutrophils % Seg Neutrophils # POC ABG pO2 ABG Oxyhemoglobin ABG Sodium ABG Glucose Potassium Chloride Carbon Dioxide BUN Creatinine Glucose POC Glucose 169 H 174 H 140 H Calcium Magnesium Albumin Arterial Blood Glucose Arterial Blood Ionized Calcium Ur Specific [place] 10/11/20 10/12/20 10/12/20 23:58 04:00 04:00 WBC RBC Hgb Hct MCV 97 H MCH RDW Lymph % (Auto) 7.2 L [place] % (Auto) Lymph # (Auto) 0.8 L [place] # (Auto) Seg Neutrophils % 85.6 H Seg Neutrophils # 9.1 H POC ABG pO2 ABG Oxyhemoglobin ABG Sodium ABG Glucose Potassium Chloride Carbon Dioxide BUN 29 H Creatinine Glucose 171 H POC Glucose 139 H Calcium 7.6 L D Magnesium Albumin Arterial Blood Glucose Arterial Blood Ionized Calcium Ur Specific [place] 10/12/20 10/12/20 10/12/20 05:55 12:27 18:04 WBC RBC Hgb Hct MCV MCH RDW Lymph % (Auto) [place] % (Auto) Lymph # (Auto) [place] # (Auto) Seg Neutrophils % Seg Neutrophils # POC ABG pO2 ABG Oxyhemoglobin ABG Sodium ABG Glucose Potassium Chloride Carbon Dioxide BUN Creatinine Glucose POC Glucose 154 H 151 H 141 H Calcium Magnesium Albumin Arterial Blood Glucose Arterial Blood Ionized Calcium Ur Specific [place] 10/12/20 10/13/20 10/13/20 23:25 04:00 05:17 WBC RBC Hgb Hct MCV MCH RDW Lymph % (Auto) [place] % (Auto) Lymph # (Auto) [place] # (Auto) Seg Neutrophils % Seg Neutrophils # POC ABG pO2 ABG Oxyhemoglobin ABG Sodium ABG Glucose Potassium Chloride Carbon Dioxide 31 H D BUN 28 H Creatinine Glucose 151 H POC Glucose 134 H 167 H Calcium 8.3 L Magnesium 2.40 H Albumin Arterial Blood Glucose Arterial Blood Ionized Calcium Ur Specific [place] 10/13/20 05:44 WBC RBC Hgb Hct MCV MCH RDW Lymph % (Auto) [place] % (Auto) Lymph # (Auto) [place] # (Auto) Seg Neutrophils % Seg Neutrophils # POC ABG pO2 64.3 L ABG Oxyhemoglobin 91.6 L ABG Sodium 129.4 L ABG Glucose 165 H Potassium Chloride Carbon Dioxide BUN Creatinine Glucose POC Glucose Calcium Magnesium Albumin Arterial Blood Glucose 165 H Arterial Blood Ionized Calcium 4.5 L Ur Specific [place]
[2020-10-13 13:35] LABS: Basophils % (Auto) 0.2 % (0.0-1.8); Eosinophils # (Auto) 0.2 K/mm3 (0.0-0.4); Eosinophils % (Auto) 1.5 % (0.0-4.3); Hematocrit 37.7 % (35.5-45.6); Hemoglobin 11.7 gm/dl (11.8-15.2); Lymphocytes # (Auto) 0.6 K/mm3 (1.2-5.4); Lymphocytes % (Auto) 5.2 % (13.4-35.0); Mean Corpuscular HGB Conc 31 % (32-34); Mean Corpuscular Volume 104 fl (84-94); Monocytes # (Auto) 0.7 K/mm3 (0.0-0.8); Monocytes % (Auto) 5.6 % (0.0-7.3); Platelet Count 174 K/mm3 (140-440); Red Blood Count 3.64 M/mm3 (3.65-5.03); Red Cell Distribution Width 16.9 % (13.2-15.2)
[2020-10-13 13:58] LABS: Alanine Aminotransferase 18 units/L (7-56); Albumin 2.5 g/dL (3.9-5); Blood Urea Nitrogen 25 mg/dL (9-20); Calcium 8.1 mg/dL (8.4-10.2); Hemolysis Index 2
[2020-10-13 14:07] LABS: BUN/Creatinine Ratio 36
--- NOTE | 2020-10-13 14:34 | Progress Note ---
Assessment and Plan Assessment and plan: Patient was admitted with abdominal pain , small bowel obstruction , ventral hernia history of multiple abdominal surgeries and large hiatal hernia, surgery and IR evaluated, Unable to pass NG tube , patient underwent fluoroscopic guided placement of nasojejunostomy tube per IR Patient underwent exploratory laparotomy, lysis of edition, ABThera abdominal vacuum dressing on 10/11/2020, patient is intubated on vent --Small bowel obstruction/ventral hernia/hiatal hernia Surgery evaluated the patient and patient had Surgical intervention on 10/11/2020 --s/p EXPLORATORY LAPAROTOMY, -EXTENSIVE LYSIS OF ADHESIONS, -ABTHERA ABDOMINAL VACUUM DRESSING Postop care per surgery --Acute hypoxic respiratory failure; on vent Continue ventilatory support wean as tolerated and extubate, Pulmonary critical following --Acute kidney injury; secondary to dehydration Vasomotor nephropathy, gentle IV hydration Monitor renal function, avoid nephrotoxins Patient's renal function is within normal limits Closely monitor --History of coronary artery disease; Continue home medications once patient is able to take oral Consider cardiology evaluation if needed --Dyslipidemia; Patient is on statin, currently n.p.o. Resume when patient is stable and able to take p.o. --Moderate malnutrition; Nutrition supplements, nutrition consult Patient is already on TPN --DVT prophylaxis; SCDs We will closely monitor patient and adjust management as needed Follow industrial methods consultant recommendations, Continue postop care Plan of care reviewed with the patient's nurse The high probability of a clinically significant, sudden or life threatening deterioration of the [CVS, pulmonary, metabolic, renal and GI] system(s) required my full and direct attention, intervention and personal management. The aggregate critical care time was [35] minutes. This time is in addition to time spent performing reported procedures but incl udes the following: [X] Data Review and interpretation [X] Patient assessment and monitoring of vital signs [X] Documentation [X] Medication orders and management Brief history: Patient was admitted with abdominal pain , small bowel obstruction , ventral hernia history of multiple abdominal surgeries and large hiatal hernia, surgery and IR evaluated, Unable to pass NG tube , patient underwent fluoroscopic guided placement of nasojejunostomy tube per IR Patient underwent exploratory laparotomy, lysis of edition, ABThera abdominal vacuum dressing on 10/11/2020, patient is intubated on vent 10/08/2020; patient has Dobbhoff/nasal jejunostomy tube placement, with intermittent suction Patient feels slightly better, n.p.o. status, management per surgery 10/09/2020 Patient on tube feedings Small bowel obstruction still present Patient reluctant about getting surgery 10/10/2020 Patient counseled about getting surgery Patient had to decide 10/11/2020 Patient has agreed for surgery after long discussion with Dr. Lechuga 10/12/2020; patient had exploratory laparotomy extensive lysis of adhesion and ABThera abdominal vacuum dressing postoperative day 1, patient intubated on ventilatory support 10/13/2020. Patient intubated on ventilatory support, continue current director strategic account management recommendations noted and appreciated History Interval history: I have seen and examined the patient at the bedside this morning Patient's chart and medications reviewed Patient remains intubated on ventilatory support Febrile T-max 101 F Patient is sedated noncommunicative Vital signs noted Hospitalist Physical - Constitutional Vitals: Temp Pulse Resp BP Pulse Ox 99.3 F 83 18 102/72 93 10/13/20 12:00 10/13/20 14:00 10/13/20 14:00 10/13/20 14:00 10/13/20 14:00 General appearance: Present: no acute distress, well-nourished - EENT Eyes: Present: PERRL, EOM intact - Neck Neck: Present: supple, normal ROM - Respiratory Respiratory effort: normal Respiratory: bilateral: diminished, rhonchi, negative: rales, wheezing - Cardiovascular Rhythm: regular Heart Sounds: Present: S1 & S2 - Extremities Extremities: no ischemia, No edema - Abdominal General gastrointestinal: soft, non-tender, non-distended - Integumentary Integumentary: Present: clear, warm - Psychiatric Psychiatric: other (Intubated on vent) - Neurologic Neurologic: other (Intubated on vent) Results - Labs CBC & Chem 7: 10/13/20 13:00 10/13/20 14:14 Labs: Laboratory Last Values WBC 11.8 K/mm3 (4.5-11.0) H 10/13/20 13:00 RBC 3.64 M/mm3 (3.65-5.03) L 10/13/20 13:00 Hgb 11.7 gm/dl (11.8-15.2) L 10/13/20 13:00 Hct 37.7 % (35.5-45.6) 10/13/20 13:00 MCV 104 fl (84-94) H 10/13/20 13:00 MCH 32 pg (28-32) 10/13/20 13:00 MCHC 31 % (32-34) L 10/13/20 13:00 RDW 16.9 % (13.2-15.2) H 10/13/20 13:00 Plt Count 174 K/mm3 (140-440) 10/13/20 13:00 Lymph % (Auto) 5.2 % (13.4-35.0) L 10/13/20 13:00 [place] % (Auto) 5.6 % (0.0-7.3) 10/13/20 13:00 Eos % (Auto) 1.5 % (0.0-4.3) 10/13/20 13:00 Baso % (Auto) 0.2 % (0.0-1.8) 10/13/20 13:00 Lymph # (Auto) 0.6 K/mm3 (1.2-5.4) L 10/13/20 13:00 [place] # (Auto) 0.7 K/mm3 (0.0-0.8) 10/13/20 13:00 Eos # (Auto) 0.2 K/mm3 (0.0-0.4) 10/13/20 13:00 Baso # (Auto) 0.0 K/mm3 (0.0-0.1) 10/13/20 13:00 Seg Neutrophils % 87.5 % (40.0-70.0) H 10/13/20 13:00 Seg Neutrophils # 10.4 K/mm3 (1.8-7.7) H 10/13/20 13:00 ABG pH 7.422 (7.320-7.450) 10/13/20 05:44 POC ABG pCO2 42.8 mmHg (32.0-48.0) 10/13/20 05:44 POC ABG pO2 64.3 mmHg (83-108) L 10/13/20 05:44 POC ABG HCO3 27.3 10/13/20 05:44 POC ABG Base Excess 2.5 10/13/20 05:44 ABG Hemoglobin 14 (12.0-17.5) 10/13/20 05:44 ABG Oxyhemoglobin 91.6 (94-98) L 10/13/20 05:44 ABG Methemoglobin 0.3 (0.0-1.5) 10/13/20 05:44 ABG Sodium 129.4 mmol/L (136.0-145.0) L 10/13/20 05:44 ABG Potassium 4.0 mmol/L (3.40-4.50) 10/13/20 05:44 ABG Chloride 104.0 mmol/L (98-107) 10/13/20 05:44 ABG Glucose 165 mg/dL (65-95) H 10/13/20 05:44 Carboxyhemoglobin 1.1 (0.5-1.5) 10/13/20 05:44 FiO2 30 10/13/20 05:44 Sodium TNR 10/13/20 13:00 Potassium TNR 10/13/20 13:00 Chloride 86.5 mmol/L (98-107) L 10/13/20 13:00 Carbon Dioxide 27 mmol/L (22-30) 10/13/20 13:00 Anion Gap TNR 10/13/20 13:00 BUN 25 mg/dL (9-20) H 10/13/20 13:00 Creatinine 0.7 mg/dL (0.8-1.3) L 10/13/20 13:00 Estimated GFR > 60 ml/min 10/13/20 13:00 BUN/Creatinine Ratio 36 % 10/13/20 13:00 Glucose 823 mg/dL (75-100) H* 10/13/20 13:00 POC Glucose 167 mg/dL (70-105) H 10/13/20 05:17 Lactic Acid 1.70 mmol/L (0.7-2.0) 10/09/20 05:36 Calcium 8.1 mg/dL (8.4-10.2) L 10/13/20 13:00 Phosphorus 3.20 mg/dL (2.5-4.5) 10/13/20 04:00 Magnesium 2.40 mg/dL (1.7-2.3) H 10/13/20 04:00 Total Bilirubin 0.40 mg/dL (0.1-1.2) 10/13/20 13:00 AST 10 units/L (5-40) 10/13/20 13:00 ALT 18 units/L (7-56) 10/13/20 13:00 Alkaline Phosphatase 51 units/L (35-129) 10/13/20 13:00 Total Protein 4.2 g/dL (6.3-8.2) L D 10/13/20 13:00 Albumin 2.5 g/dL (3.9-5) L 10/13/20 13:00 Albumin/Globulin Ratio 1.5 % 10/13/20 13:00 Triglycerides 147 mg/dL (2-149) 10/13/20 04:00 Lipase 20 units/L (13-60) 10/07/20 02:36 Arterial Blood Glucose 165 mg/dL (65-95) H 10/13/20 05:44 Arterial Blood Ionized Calcium 4.5 mg/dL (4.6-5.3) L 10/13/20 05:44 Urine Color [place] (Yellow) 10/07/20 Unknown Urine Turbidity Clear (Clear) 10/07/20 Unknown Urine pH 5.0 (5.0-7.0) 10/07/20 Unknown Ur Specific [place] 1.041 (1.003-1.030) H 10/07/20 Unknown Urine Protein 30 mg/dl mg/dL (Negative) 10/07/20 Unknown Urine Glucose (UA) Neg mg/dL (Negative) 10/07/20 Unknown Urine Ketones Neg mg/dL (Negative) 10/07/20 Unknown Urine Blood Neg (Negative) 10/07/20 Unknown Urine Nitrite Neg (Negative) 10/07/20 Unknown Urine Bilirubin Neg (Negative) 10/07/20 Unknown Urine Urobilinogen < 2.0 mg/dL (<2.0) 10/07/20 Unknown Ur Leukocyte Esterase Neg (Negative) 10/07/20 Unknown Urine WBC (Auto) 2.0 /HPF (0.0-6.0) 10/07/20 Unknown Urine RBC (Auto) 4.0 /HPF (0.0-6.0) 10/07/20 Unknown U Epithel Cells (Auto) < 1.0 /HPF (0-13.0) 10/07/20 Unknown Urine Mucus Few /HPF 10/07/20 Unknown Blood Type A POSITIVE 10/11/20 21:30 Antibody Screen Negative 10/11/20 21:30 Junior/IV: Voiding Method Indwelling Catheter IV Catheter Type [Right Upper PICC Line arm] IV Catheter Type [Right] Peripheral IV Active Medications - Current Medications Current Medications: Generic Name Dose Route Start Last Admin Trade Name Freq PRN Reason Stop Dose Admin Acetaminophen 650 mg 10/13/20 08:40 10/13/20 09:02 Acetaminophen 650 Mg Rect Supp [place] 650 mg Q4H PRN Administration Non Cardiac Pain or Temp>100.5 Bisacodyl 10 mg 10/12/20 10:00 10/13/20 09:02 Bisacodyl 10 Mg Rect Supp [place] 10 mg QDAY JOSH Administration Famotidine 20 mg 10/09/20 10:00 10/13/20 09:02 Famotidine 20 Mg/2 Ml Inj IV 20 mg BID JOSH Administration Fentanyl 50 mcg 10/12/20 09:29 Fentanyl 100 Mcg/2 Ml Inj IV Q10MIN PRN ANALGESIA Hydralazine HCl 5 mg 10/07/20 06:52 10/11/20 05:17 Hydralazine 20 Mg/1 Ml Inj IV 5 mg Q30MIN PRN Administration Hypertension Hydrophilic Ointment 1 applic 10/11/20 19:50 Lip Therapy Vaseline TP Q2HR PRN Dry Lips Propofol 1,000 mg in 100 mls @ 2.858 mls/hr 10/11/20 20:00 10/13/20 07:59 Diprivan 10 Mg/Ml IV 10 mcg/kg/min TITR JOSH 5.715 mls/hr Administration Protocol 5 MCG/KG/MIN Fentanyl Citrate 2,000 mcg in 100 mls @ 4.763 mls/hr 10/12/20 10:00 10/13/20 03:32 Fentanyl Drip Premix IV 2 mcg/kg/hr TITR JOSH 9.525 mls/hr Administration Protocol 1 MCG/KG/HR Amino Acids/Electrolytes/Dextrose 3,000 mls @ 125 mls/hr 10/12/20 20:00 10/12/20 20:11 Tpn Adult IV 10/13/20 19:59 125 mls/hr DAILY@1999 [facility] Administration Protocol Amino Acids/Electrolytes/Dextrose 3,000 mls @ 125 mls/hr 10/13/20 20:00 Tpn Adult IV 10/14/20 19:59 DAILY@1999 [facility] Protocol Multi-Ingred Cream/Lotion/Oil/Oint 1 applic 10/11/20 19:50 Mineral Oil/Petrolatum, White Ophth Oint 3.5 Gm OU Q4HR PRN Dry Eye(s) Ondansetron HCl 4 mg 10/07/20 06:18 10/11/20 13:50 Ondansetron 4 Mg/2 Ml Inj IV 4 mg Q8H PRN Administration Nausea And Vomiting Ondansetron HCl 4 mg 10/11/20 19:18 Ondansetron 4 Mg/2 Ml Inj IV ONCE PRN Nausea And Vomiting Sodium Chloride 10 ml 10/07/20 10:00 10/13/20 09:03 Sodium Chloride 0.9% 10 Ml Flush Syringe IV 10 ml BID JOSH Administration Sodium Chloride 10 ml 10/07/20 06:18 10/08/20 18:42 Sodium Chloride 0.9% 10 Ml Flush Syringe IV 10 ml PRN PRN Administration LINE FLUSH Nutrition/Malnutrition Assess - Dietary Evaluation Nutrition/Malnutrition Findings: Nutrition Notes Start: 10/08/20 13:34 Freq: Status: Active Protocol: Document 10/13/20 11:59 AT (Rec: 10/13/20 12:24 AT [email or web address]) Co-Sign 10/13/20 11:59 LP Nutrition Notes Initial or Follow up Reassessment Current Diagnosis Coronary Artery Disease, Hypertension,Hyperlipidemia Other Pertinent Diagnosis s/p exp lap wounds, SBO, hernia, hx. multiple bowel surgeries Current Diet CPN at 125ml/hr Labs/Tests BUN 28 BG 151 Mg 2.40 Pertinent Medications Propofol at 5.715 mL/hr ( provides 151 kcal) Height 6 ft 2 in Weight 95.254 kg [place] Body Weight (kg) 86.36 BMI 26.9 Weight Status Overweight Subjective/Other Information Pt continues on CPN. Pt is s/p exploratory laparotomy with adhesions to SBO. Pt is awaiting surgery today to close abdomen and for gastric tube placement. Per MD, there are plans to extubate, if surgery goes as planned. Percent of energy/protein needs met: 64%/100% Burn Absent Trauma Absent GI Symptoms Other Food Allergy No Current % PO Negligible Minimum of two criteria No physical signs of malnutrition #2 Nutrition Diagnosis Increased nutrient needs ( specify in comment below) Diagnosis Progress(for reassessment Continues documentation) #1 Nutrition Diagnosis Inadequate energy intake Diagnosis Progress(for reassessment Continues documentation) Is patient on ventilator? Yes Is Patient Ambulatory and/or Out of Bed No REE-([place]-confined to bed) 9943.627 Calculation Used for Recommendations [facility] Additional Notes PRO needs: 119-190g (1.2-2g/kg ) Fluid needs: 1 mL/kcal Nutrition Intervention Change Diet Order: TPN Nutrition Support: CPN at 125 mL/hr: 8.5% dextrose, 4.2% AA, 150 mEq Na, 80 mEq K, 0 Mg, 25 mEq Phos. MVI. Osmolarity: 1004 Osm/L Kcal 1,367 Protein (gm) 125 Carbohydrates (gm) 255 Fat (gm) 0 Fluid (mL) 3,000 Fiber (gm) 0 Goal #1 Meet kcal and protein needs as best as possible via CPN Goal #2 Wound healing Anticipated Discharge Needs: Unable to determine at this time Follow-Up By: 10/14/20 Additional Comments F/U for vent status and labs
[2020-10-13 14:50] LABS: Alanine Aminotransferase 22 units/L (7-56); BUN/Creatinine Ratio 34; Blood Urea Nitrogen 27 mg/dL (9-20); Calcium 8.3 mg/dL (8.4-10.2); Hemolysis Index 5
[2020-10-13] MEDS ORDERED: ePHEDrine SULFATE 50 MG/1 ML INJ ONE (15:20)
[2020-10-13] MEDS ORDERED: ROCURONIUM 50 MG/5 ML INJ IV ONE (15:24)
[2020-10-13] MEDS ORDERED: PHENYLEPHRINE/NS 1,000 MCG/10 ML SYRINGE (OR USE) IV ONE (15:24)
[2020-10-13] MEDS ORDERED: ONDANSETRON 4 MG/2 ML INJ ONE (15:24)
[2020-10-13] MEDS ORDERED: propofoL 200 MG/20 ML VIAL IV ONE (15:24)
[2020-10-13] MEDS ORDERED: NEOSTIGMINE 10MG/10 ML INJ MDV ONE (15:24)
[2020-10-13] MEDS ORDERED: dexAMETHasone 20 MG/5 ML VIAL ONE (15:24)
[2020-10-13] MEDS ORDERED: LIDOCAINE MPF (2%) 20 MG/1 ML VIAL 5 ML ONE (15:24)
[2020-10-13] MEDS ORDERED: SUCCINYLCHOLINE CHLORIDE 200 MG/10 ML INJ MDV ONE (15:24)
[2020-10-13] MEDS ORDERED: fentaNYL 100 MCG/2 ML INJ ONE ×2 (15:24→19:48)
[2020-10-13] MEDS ORDERED: GLYCOPYRROLATE 0.4 MG/2 ML INJ ONE (15:24)
--- NOTE | 2020-10-13 16:21 | Anesthesia Day of Surgery ---
Anesthesia Day of Surgery - Day of Surgery Patient Examined: Yes Patient H&P Reviewed: Yes Patient is NPO: Yes
--- NOTE | 2020-10-13 16:21 | Anesthesia Consultation ---
Anesthesia Consult and Med Hx Date of service: 10/13/20 - Airway Anesthetic Teeth Evaluation: Good ROM Head & Neck: Adequate Mental/Hyoid Distance: Adequate Intubation Access Assessment: Probably Good - Pre-Operative Health Status ASA Pre-Surgery Classification: ASA4 Proposed Anesthetic Plan: General - Pulmonary Hx Smoking: No Hx Asthma: No SOB: No COPD: No Hx Pneumonia: No Hx Sleep Apnea: No - Cardiovascular System Hx Hypertension: Yes Hx Coronary Artery Disease: Yes Hx Heart Attack/AMI: No Hx Angina: No Hx Percutaneous Transluminal Coronary Angioplasty (PTCA): No Hx Pacemaker: No Hx Internal Defibrillator: No Hx Valvular Heart Disease: No Hx Heart Murmur: No Hx Peripheral Vascular Disease: No - Central Nervous System Hx Seizures: No CVA: No Hx Psychiatric Problems: No - Gastrointestinal Hx Ulcer: No - Endocrine Hx Cirrhosis: No - Other Systems Hx Alcohol Use: No Hx Substance Use: No Hx Obesity: No - Additional Comments Anesthesia Medical History Comments: Pt to surgery for SBO, H/O multiple Abd sx
[2020-10-13] MEDS ORDERED: metroNIDAZOLE/NS 500 MG/100 ML 500 MG/100 ML BAG IV ONE (16:27)
[2020-10-13] MEDS ORDERED: WATER FOR IRRIG STERILE 1,000 ML BOTTLE IR ONE (17:27)
[2020-10-13] MEDS ORDERED: SODIUM CHLORIDE 0.9% IRR 1,000 ML BOTTLE IR ONE (17:27)
[2020-10-13] MEDS ORDERED: TOTAL PARENTERAL NUTRITION 3,000 ML IV SCH (20:00)
--- NOTE | 2020-10-13 20:46 | Operative Report ---
Operative Report Operative Report: Date: October 13, 2020 Surgeon: Raquel Lechuga MD Co-surgeon: India Wadsworth DO Procedure performed:1. Abdominal exploration, 2. Gastric tube placement, 3. Abdominal wall closure with phasix mesh Pre-op diagnosis:1. Open abdomen, 2. Hiatal hernia, 3. Ventral hernia with loss of domain, 4. Ileus Postop diagnosis: Same as preop Anesthesia: General with endotracheal tube intubation Indication: Mr. Valenzuela is a 75-year-old male who returned to the OR today after 48 hours status post exploratory laparotomy, with extensive lysis of adhesions for small bowel obstruction. His abdomen was left open with an ABThera wound VAC, and we had planned to place gastrotomy tube and close his abdomen. His signed informed consent via telephone. Details of procedure: Patient brought into the OR suite and laid in supine position. Since patient was already intubated from previous procedure general anesthesia was successfully induced by anesthesia team. The ABThera VAC was removed and his abdomen was prepped and draped in sterile fashion. Once the ABThera VAC was removed there was noted to to be continued dilation of the proximal small bowel and stomach, mostly air no succus. The small bowel was run from the terminal ileum to the ligament of Treitz, and there were no points of obstruction. There was small bowel contents identifiable in the mid to small bowel. We will also look for any small bowel or stomach injury from the previous procedure which there were none. At this time it was decided to place the gastrotomy tube for 2 reasons. First,to pexy the stomach to the anterior abdominal wall to decrease the chance of an incarcerated hiatal hernia. At the original surgery patient was noted to have a volvulized stomach with the proximal third above the level of diaphragm. 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 No hiatal hernia repair was attempted at this time and focus was directed towards closing the abdomen. Second, to allow GI decompression as the patient previously was unable to tolerate NG tube due to discomfort and the large hiatal hernia. The stomach was observed to be reduced into the abdominal cavity without tension, and a portion of the lateral stomach was elevated to the anterior abdominal wall in the left side without tension. 2 pursestring sutures using 2-0 silk were placed. A gastrotomy was performed, and a 20 [place]ian gastric tube with the balloon was placed into the gastrotomy exited out of the left side. The balloon was insufflated and the stomach wall was pexied to the anterior abdominal wall and 4 quadrants. The stomach was situated against the anterior abdominal wall without tension. Once this was complete, attention was placed towards closing the abdominal wall. Patient has a previous history of excision of mesh, placement of biologic mesh, some sort of component separation which resulted in a loss of domain large ventral hernia. His fascia and rectus muscles were extremely lateralized. A 30cm x 35cm piece of phasic's observable mesh was obtained and placed into the abdominal cavity and sutured with 0 PDS 360 degrees with a 4 to 5 cm overlap with the fascia. The hernia defect measured approximately 9 cm horizontally and 15 cm vertically. After the mesh was s ecured after tying the parachuted PDS sutures great care was taken to make sure that the mesh was not rolling up on the edges. The overlying tissue was then approximated at the superior and inferior portions with minimal tension. There was an approximate 6 x 6 cm defect that could not be approximated due to tension or fear of causing the underlying mesh to buckle. The subcutaneous tissue was then closed with 0 Vicryl to cover the mesh so that it would not be exposed to the skin. The skin edges were then approximated with rex. This was followed by sterile dressing. Patient was stable during anesthesia however he was not extubated due to inability to be adequately alert and follow commands. The plan is to wean him to extubation tomorrow and he was returned to critical care unit in stable condition. All counts were correct. Specimen: None EBL: <20ml Complication: None immediate
[2020-10-13] MEDS ORDERED: SODIUM CHLORIDE 0.9% 500 ML 500 ML IV ONE (20:48)
[2020-10-13] MEDS: KETOROLAC 30 MG/1 ML INJ IV SCH (21:06)
[2020-10-14] MEDS: KETOROLAC 30 MG/1 ML INJ IV SCH ×3 (05:07→21:35)
[2020-10-14] MEDS: fentaNYL 100 MCG/2 ML INJ IV PRN ×3 (05:41→09:09)
[2020-10-14 05:49] LABS: Hemoglobin 13.7 gm/dl (11.8-15.2); Mean Corpuscular HGB Conc 33 % (32-34); Mean Corpuscular Volume 97 fl (84-94); Platelet Count 219 K/mm3 (140-440); Red Blood Count 4.33 M/mm3 (3.65-5.03); Red Cell Distribution Width 14.7 % (13.2-15.2)
[2020-10-14 06:02] LABS: Alanine Aminotransferase 19 units/L (7-56); Albumin 2.8 g/dL (3.9-5); BUN/Creatinine Ratio 40; Blood Urea Nitrogen 36 mg/dL (9-20); Calcium 8.1 mg/dL (8.4-10.2); Hemolysis Index 1
[2020-10-14 06:51] LABS: Total Cells Counted 100
[2020-10-14 06:52] LABS: Platelet Estimate Consistent w Auto
[2020-10-14] MEDS: HYDROmorphone 1 MG/1 ML INJ IV PRN ×3 (07:32→19:42)
--- NOTE | 2020-10-14 08:55 | Progress Note ---
Assessment and Plan Assessment and plan: Patient was admitted with abdominal pain , small bowel obstruction , ventral hernia history of multiple abdominal surgeries and large hiatal hernia, surgery and IR evaluated, Unable to pass NG tube , patient underwent fluoroscopic guided placement of nasojejunostomy tube per IR Patient underwent exploratory laparotomy, lysis of edition, ABThera abdominal vacuum dressing on 10/11/2020, patient is intubated on vent --Patient underwent second surgical procedure yesterday; 10/13/2020 -abdominal exploration, -Gastric tube placement and -abdominal wall closure with phasix mesh Patient tolerated the procedure well Postop care per surgery --Small bowel obstruction/ventral hernia/hiatal hernia Surgical intervention on 10/11/2020 --s/p EXPLORATORY LAPAROTOMY, -EXTENSIVE LYSIS OF ADHESIONS, -ABTHERA ABDOMINAL VACUUM DRESSING Postop care per surgery --Acute hypoxic respiratory failure; on vent Continue ventilatory support wean as tolerated and extubate, Pulmonary critical following --Acute kidney injury; secondary to dehydration Vasomotor nephropathy, gentle IV hydration Monitor renal function, avoid nephrotoxins Patient's renal function is within normal limits Closely monitor --History of coronary artery disease; Continue home medications once patient is able to take oral Consider cardiology evaluation if needed --Dyslipidemia; Patient is on statin, currently n.p.o. Resume when patient is stable and able to take p.o. --Severe malnutrition; Nutrition supplements, nutrition consult Patient is already on TPN --DVT prophylaxis; SCDs We will closely monitor patient and adjust management as needed Follow cisco consultant recommendations, Continue postop care Plan of care reviewed with the patient's nurse The high probability of a clinically significant, sudden or life threatening det erioration of the [CVS, pulmonary, metabolic, renal and GI] system(s) required my full and direct attention, intervention and personal management. The aggregate critical care time was [33] minutes. This time is in addition to time spent performing reported procedures but includes the following: [X] Data Review and interpretation [X] Patient assessment and monitoring of vital signs [X] Documentation [X] Medication orders and management Brief history: Patient was admitted with abdominal pain , small bowel obstruction , ventral hernia history of multiple abdominal surgeries and large hiatal hernia, surgery and IR evaluated, Unable to pass NG tube , patient underwent fluoroscopic guided placement of nasojejunostomy tube per IR Patient underwent exploratory laparotomy, lysis of edition, ABThera abdominal vacuum dressing on 10/11/2020, patient is intubated on vent 10/08/2020; patient has Dobbhoff/nasal jejunostomy tube placement, with intermittent suction Patient feels slightly better, n.p.o. status, management per surgery 10/09/2020 Patient on tube feedings Small bowel obstruction still present Patient reluctant about getting surgery 10/10/2020 Patient counseled about getting surgery Patient had to decide 10/11/2020 Patient has agreed for surgery after long discussion with Dr. Lechuga 10/12/2020; patient had exploratory laparotomy extensive lysis of adhesion and ABThera abdominal vacuum dressing postoperative day 1, patient intubated on ventilatory support 10/13/2020. Patient intubated on ventilatory support, continue current referral management liaison recommendations noted and appreciated 10/14/2020; patient underwent-abdominal exploration,Gastric tube placement and abdominal wall closure with phasix mesh on 10/13/2020 Patient tolerated the procedure well, continue postop care per surgery History Interval history: Patient remains intubated on ventilatory support Underwent surgical procedures yesterday, tolerated well Postop care per surgery Vital signs reviewed, low-grade fever 100 F Vital signs noted Hospitalist Physical - Constitutional Vitals: Temp Pulse Resp BP Pulse Ox 100.0 F H 108 H 33 H 149/92 93 10/14/20 07:51 10/14/20 08:30 10/14/20 08:30 10/14/20 08:30 10/14/20 08:30 General appearance: Present: no acute distress, well-nourished - EENT Eyes: Present: PERRL, EOM intact - Neck Neck: Present: supple, normal ROM - Respiratory Respiratory effort: normal Respiratory: bilateral: diminished, rhonchi, negative: rales, wheezing - Cardiovascular Rhythm: regular Heart Sounds: Present: S1 & S2 - Extremities Extremities: no ischemia, No edema - Abdominal General gastrointestinal: soft, tender, non-distended, other (Surgical dressing in place) - Integumentary Integumentary: Present: clear, warm - Psychiatric Psychiatric: appropriate mood/affect, cooperative - Neurologic Neurologic: CNII-XII intact, moves all extremities Results - Labs CBC & Chem 7: 10/14/20 04:00 10/14/20 04:00 Labs: Laboratory Last Values WBC 14.6 K/mm3 (4.5-11.0) H 10/14/20 04:00 RBC 4.33 M/mm3 (3.65-5.03) 10/14/20 04:00 Hgb 13.7 gm/dl (11.8-15.2) 10/14/20 04:00 Hct 42.0 % (35.5-45.6) 10/14/20 04:00 MCV 97 fl (84-94) H 10/14/20 04:00 MCH 32 pg (28-32) 10/14/20 04:00 MCHC 33 % (32-34) 10/14/20 04:00 RDW 14.7 % (13.2-15.2) 10/14/20 04:00 Plt Count 219 K/mm3 (140-440) 10/14/20 04:00 Lymph % (Auto) 5.2 % (13.4-35.0) L 10/13/20 13:00 [place] % (Auto) 5.6 % (0.0-7.3) 10/13/20 13:00 Eos % (Auto) 1.5 % (0.0-4.3) 10/13/20 13:00 Baso % (Auto) 0.2 % (0.0-1.8) 10/13/20 13:00 Lymph # (Auto) 0.6 K/mm3 (1.2-5.4) L 10/13/20 13:00 [place] # (Auto) 0.7 K/mm3 (0.0-0.8) 10/13/20 13:00 Eos # (Auto) 0.2 K/mm3 (0.0-0.4) 10/13/20 13:00 Baso # (Auto) 0.0 K/mm3 (0.0-0.1) 10/13/20 13:00 Add Manual Diff Complete 10/14/20 04:00 Total Counted 100 10/14/20 04:00 Seg Neutrophils % Fiberglass Laminator 10/14/20 04:00 Seg Neuts % (Manual) 95.0 % (40.0-70.0) H 10/14/20 04:00 Lymphocytes % (Manual) 3.0 % (13.4-35.0) L 10/14/20 04:00 Monocytes % (Manual) 2.0 % (0.0-7.3) 10/14/20 04:00 Nucleated RBC % Not Reportable 10/14/20 04:00 Seg Neutrophils # 10.4 K/mm3 (1.8-7.7) H 10/13/20 13:00 Seg Neutrophils # Man 13.9 K/mm3 (1.8-7.7) H 10/14/20 04:00 Band Neutrophils # 0.0 K/mm3 10/14/20 04:00 Lymphocytes # (Manual) 0.4 K/mm3 (1.2-5.4) L 10/14/20 04:00 Abs React Lymphs (Man) 0.0 K/mm3 10/14/20 04:00 Monocytes # (Manual) 0.3 K/mm3 (0.0-0.8) 10/14/20 04:00 Eosinophils # (Manual) 0.0 K/mm3 (0.0-0.4) 10/14/20 04:00 Basophils # (Manual) 0.0 K/mm3 (0.0-0.1) 10/14/20 04:00 Metamyelocytes # 0.0 K/mm3 10/14/20 04:00 Myelocytes # 0.0 K/mm3 10/14/20 04:00 Promyelocytes # 0.0 K/mm3 10/14/20 04:00 Blast Cells # 0.0 K/mm3 10/14/20 04:00 WBC Morphology Not Reportable 10/14/20 04:00 Hypersegmented Neuts Not Reportable 10/14/20 04:00 Hyposegmented Neuts Not Reportable 10/14/20 04:00 Hypogranular Neuts Not Reportable 10/14/20 04:00 Smudge Cells Not Reportable 10/14/20 04:00 Toxic Granulation Not Reportable 10/14/20 04:00 Toxic Vacuolation Not Reportable 10/14/20 04:00 Dohle Bodies Not Reportable 10/14/20 04:00 Pelger-Huet Anomaly Not Reportable 10/14/20 04:00 Blake Rods Not Reportable 10/14/20 04:00 Platelet Estimate Consistent w auto 10/14/20 04:00 Clumped Platelets Not Reportable 10/14/20 04:00 Plt Clumps, EDTA Not Reportable 10/14/20 04:00 Large Platelets Not Reportable 10/14/20 04:00 Giant Platelets Not Reportable 10/14/20 04:00 Platelet Satelliting Not Reportable 10/14/20 04:00 Plt Morphology Comment Not Reportable 10/14/20 04:00 RBC Morphology Not Reportable 10/14/20 04:00 Dimorphic RBCs Not Reportable 10/14/20 04:00 Polychromasia Not Reportable 10/14/20 04:00 Hypochromasia Not Reportable 10/14/20 04:00 Poikilocytosis Not Reportable 10/14/20 04:00 Anisocytosis Not Reportable 10/14/20 04:00 Microcytosis Not Reportable 10/14/20 04:00 Macrocytosis Not Reportable 10/14/20 04:00 Spherocytes Not Reportable 10/14/20 04:00 Pappenheimer Bodies Not Reportable 10/14/20 04:00 Sickle Cells Not Reportable 10/14/20 04:00 Target Cells Not Reportable 10/14/20 04:00 Tear Drop Cells Not Reportable 10/14/20 04:00 Ovalocytes Not Reportable 10/14/20 04:00 Helmet Cells Not Reportable 10/14/20 04:00 [place] Bodies Not Reportable 10/14/20 04:00 [place] Rings Not Reportable 10/14/20 04:00 [place]ne[place] Cells Not Reportable 10/14/20 04:00 Bite Cells Not Reportable 10/14/20 04:00 Crenated Cell Not Reportable 10/14/20 04:00 Elliptocytes Not Reportable 10/14/20 04:00 Acanthocytes (Spur) Not Reportable 10/14/20 04:00 Rouleaux Not Reportable 10/14/20 04:00 Hemoglobin C Crystals Not Reportable 10/14/20 04:00 Schistocytes Not Reportable 10/14/20 04:00 Malaria parasites Not Reportable 10/14/20 04:00 Chris Bodies Not Reportable 10/14/20 04:00 Hem Pathologist Commnt No 10/14/20 04:00 ABG pH 7.431 (7.320-7.450) 10/13/20 06:46 POC ABG pCO2 38.3 mmHg (32.0-48.0) 10/13/20 06:46 POC ABG pO2 110.7 mmHg (83-108) H 10/13/20 06:46 POC ABG HCO3 24.9 10/13/20 06:46 POC ABG Base Excess 0.8 10/13/20 06:46 ABG Hemoglobin 14.2 (12.0-17.5) 10/13/20 06:46 ABG Oxyhemoglobin 91.6 (94-98) L 10/13/20 05:44 ABG Methemoglobin 0.3 (0.0-1.5) 10/13/20 05:44 ABG Sodium 132.9 mmol/L (136.0-145.0) L 10/13/20 06:46 ABG Potassium 4.5 mmol/L (3.40-4.50) 10/13/20 06:46 ABG Chloride 101.0 mmol/L (98-107) 10/13/20 06:46 ABG Glucose 184 mg/dL (65-95) H 10/13/20 06:46 Carboxyhemoglobin 1.1 (0.5-1.5) 10/13/20 05:44 FiO2 100 10/13/20 06:46 Sodium 136 mmol/L (137-145) L 10/14/20 04:00 Potassium 4.6 mmol/L (3.6-5.0) 10/14/20 04:00 Chloride 98.0 mmol/L (98-107) 10/14/20 04:00 Carbon Dioxide 27 mmol/L (22-30) 10/14/20 04:00 Anion Gap 16 mmol/L 10/14/20 04:00 BUN 36 mg/dL (9-20) H 10/14/20 04:00 Creatinine 0.9 mg/dL (0.8-1.3) 10/14/20 04:00 Estimated GFR > 60 ml/min 10/14/20 04:00 BUN/Creatinine Ratio 40 % 10/14/20 04:00 Glucose 157 mg/dL (75-100) H 10/14/20 04:00 POC Glucose 245 mg/dL (70-105) H 10/13/20 23:26 Lactic Acid 1.70 mmol/L (0.7-2.0) 10/09/20 05:36 Calcium 8.1 mg/dL (8.4-10.2) L 10/14/20 04:00 Phosphorus 3.80 mg/dL (2.5-4.5) 10/14/20 04:00 Magnesium 2.30 mg/dL (1.7-2.3) 10/14/20 04:00 Total Bilirubin 0.60 mg/dL (0.1-1.2) 10/14/20 04:00 AST 16 units/L (5-40) 10/14/20 04:00 ALT 19 units/L (7-56) 10/14/20 04:00 Alkaline Phosphatase 74 units/L (35-129) 10/14/20 04:00 Total Protein 5.0 g/dL (6.3-8.2) L 10/14/20 04:00 Albumin 2.8 g/dL (3.9-5) L 10/14/20 04:00 Albumin/Globulin Ratio 1.3 % 10/14/20 04:00 Triglycerides 147 mg/dL (2-149) 10/13/20 04:00 Lipase 20 units/L (13-60) 10/07/20 02:36 Arterial Blood Glucose 184 mg/dL (65-95) H 10/13/20 06:46 Arterial Blood Ionized Calcium 4.6 mg/dL (4.6-5.3) 10/13/20 06:46 Urine Color [place] (Yellow) 10/07/20 Unknown Urine Turbidity Clear (Clear) 10/07/20 Unknown Urine pH 5.0 (5.0-7.0) 10/07/20 Unknown Ur Specific [place] 1.041 (1.003-1.030) H 10/07/20 Unknown Urine Protein 30 mg/dl mg/dL (Negative) 10/07/20 Unknown Urine Glucose (UA) Neg mg/dL (Negative) 10/07/20 Unknown Urine Ketones Neg mg/dL (Negative) 10/07/20 Unknown Urine Blood Neg (Negative) 10/07/20 Unknown Urine Nitrite Neg (Negative) 10/07/20 Unknown Urine Bilirubin Neg (Negative) 10/07/20 Unknown Urine Urobilinogen < 2.0 mg/dL (<2.0) 10/07/20 Unknown Ur Leukocyte Esterase Neg (Negative) 10/07/20 Unknown Urine WBC (Auto) 2.0 /HPF (0.0-6.0) 10/07/20 Unknown Urine RBC (Auto) 4.0 /HPF (0.0-6.0) 10/07/20 Unknown U Epithel Cells (Auto) < 1.0 /HPF (0-13.0) 10/07/20 Unknown Urine Mucus Few /HPF 10/07/20 Unknown Blood Type A POSITIVE 10/11/20 21:30 Antibody Screen Negative 10/11/20 21:30 Microbiology: Microbiology 10/13/20 08:38 Urine,[place] Urine Culture - Preliminary NO GROWTH AFTER 24 HOURS 10/13/20 13:35 Peripheral/Venous Blood Culture - Preliminary Culture in Progress 10/13/20 13:35 Peripheral/Venous Blood Culture - Preliminary Culture in Progress Junior/IV: Voiding Method Indwelling Catheter IV Catheter Type [Right Upper PICC Line arm] IV Catheter Type [Right] Peripheral IV Active Medications - Current Medications Current Medications: Generic Name Dose Route Start Last Admin Trade Name Freq PRN Reason Stop Dose Admin Acetaminophen 650 mg 10/13/20 08:40 10/13/20 09:02 Acetaminophen 650 Mg Rect Supp SD 650 mg Q4H PRN Administration Non Cardiac Pain or Temp>100.5 Bisacodyl 10 mg 10/12/20 10:00 10/13/20 09:02 Bisacodyl 10 Mg Rect Supp SD 10 mg QDAY JOSH Administration Famotidine 20 mg 10/09/20 10:00 10/13/20 21:06 Famotidine 20 Mg/2 Ml Inj IV 20 mg BID JOSH Administration Fentanyl 50 mcg 10/12/20 09:29 10/14/20 06:23 Fentanyl 100 Mcg/2 Ml Inj IV 50 mcg Q10MIN PRN Administration ANALGESIA Hydralazine HCl 5 mg 10/07/20 06:52 10/11/20 05:17 Hydralazine 20 Mg/1 Ml Inj IV 5 mg Q30MIN PRN Administration Hypertension Hydromorphone HCl 1 mg 10/14/20 06:51 10/14/20 07:32 Hydromorphone 1 Mg/1 Ml Inj IV 1 mg Q3H PRN Administration Pain , Severe (7-10) Hydrophilic Ointment 1 applic 10/11/20 19:50 Lip Therapy Vaseline TP Q2HR PRN Dry Lips Propofol 1,000 mg in 100 mls @ 2.858 mls/hr 10/11/20 20:00 10/14/20 05:34 Diprivan 10 Mg/Ml IV 4 mcg/kg/min TITR JOSH 2.286 mls/hr Titration Protocol 5 MCG/KG/MIN Fentanyl Citrate 2,000 mcg in 100 mls @ 4.763 mls/hr 10/12/20 10:00 10/14/20 04:47 Fentanyl Drip Premix IV Infused TITR JOSH Titration Protocol 1 MCG/KG/HR Amino Acids/Electrolytes/Dextrose 3,000 mls @ 125 mls/hr 10/13/20 20:00 10/13/20 20:49 Tpn Adult IV 10/14/20 19:59 125 mls/hr DAILY@2000 JOSH Administration Protocol Ketorolac Tromethamine 15 mg 10/13/20 22:00 10/14/20 05:07 Ketorolac 30 Mg/1 Ml Inj IV 10/18/20 21:59 15 mg Q8HR JOSH Administration Multi-Ingred Cream/Lotion/Oil/Oint 1 applic 10/11/20 19:50 Mineral Oil/Petrolatum, White Ophth Oint 3.5 Gm OU Q4HR PRN Dry Eye(s) Ondansetron HCl 4 mg 10/07/20 06:18 10/11/20 13:50 Ondansetron 4 Mg/2 Ml Inj IV 4 mg Q8H PRN Administration Nausea And Vomiting Sodium Chloride 10 ml 10/07/20 10:00 10/13/20 21:07 Sodium Chloride 0.9% 10 Ml Flush Syringe IV 10 ml BID JOSH Administration Sodium Chloride 10 ml 10/07/20 06:18 10/08/20 18:42 Sodium Chloride 0.9% 10 Ml Flush Syringe IV 10 ml PRN PRN Administration LINE FLUSH Nutrition/Malnutrition Assess - Dietary Evaluation Nutrition/Malnutrition Findings: Nutrition Notes Start: 10/08/20 13:34 Freq: Status: Active Protocol: Document 10/13/20 11:59 AT (Rec: 10/13/20 12:24 AT [email or web address]) Co-Sign 10/13/20 11:59 LP Nutrition Notes Initial or Follow up Reassessment Current Diagnosis Coronary Artery Disease, Hypertension,Hyperlipidemia Other Pertinent Diagnosis s/p exp lap wounds, SBO, hernia, hx. multiple bowel surgeries Current Diet CPN at 125ml/hr Labs/Tests BUN 28 BG 151 Mg 2.40 Pertinent Medications Propofol at 5.715 mL/hr ( provides 151 kcal) Height 6 ft 2 in Weight 95.254 kg [place] Body Weight (kg) 86.36 BMI 26.9 Weight Status Overweight Subjective/Other Information Pt continues on CPN. Pt is s/p exploratory laparotomy with adhesions to SBO. Pt is awaiting surgery today to close abdomen and for gastric tube placement. Per MD, there are plans to extubate, if surgery goes as planned. Percent of energy/protein needs met: 64%/100% Burn Absent Trauma Absent GI Symptoms Other Food Allergy No Current % PO Negligible Minimum of two criteria No physical signs of malnutrition #2 Nutrition Diagnosis Increased nutrient needs ( specify in comment below) Diagnosis Progress(for reassessment Continues documentation) #1 Nutrition Diagnosis Inadequate energy intake Diagnosis Progress(for reassessment Continues documentation) Is patient on ventilator? Yes Is Patient Ambulatory and/or Out of Bed No REE-([facility]-confined to bed) [phone] Calculation Used for Recommendations [facility] Additional Notes PRO needs: 119-190g (1.2-2g/kg ) Fluid needs: 1 mL/kcal Nutrition Intervention Change Diet Order: TPN Nutrition Support: CPN at 125 mL/hr: 8.5% dextrose, 4.2% AA, 150 mEq Na, 80 mEq K, 0 Mg, 25 mEq Phos. MVI. Osmolarity: 1004 Osm/L Kcal 1,367 Protein (gm) 125 Carbohydrates (gm) 255 Fat (gm) 0 Fluid (mL) 3,000 Fiber (gm) 0 Goal #1 Meet kcal and protein needs as best as possible via CPN Goal #2 Wound healing Anticipated Discharge Needs: Unable to determine at this time Follow-Up By: 10/14/20 Additional Comments F/U for vent status and labs
[2020-10-14] MEDS ORDERED: SODIUM CHLORIDE 0.9% 500 ML 500 ML IV ONE (09:09)
[2020-10-14] MEDS: FAMOTIDINE 20 MG/2 ML INJ IV SCH ×2 (09:12→21:35)
--- NOTE | 2020-10-14 09:47 | Post Anesthesia Evaluation ---
- Post Anesthesia Evaluation Patient Participated: Yes Airway Patent: Yes (still intubated) Stable Respiratory Function: Yes Nausea/Vomiting: No Temp > 96.8F: Yes Pain Manageable: Yes Adequeate Hydration: Yes Anesthesia Complications: No Patient on Ventilator: Yes (spontaneously breathing) Other Comments: considering extubation later in the day by ICU staff
[2020-10-14] MEDS ORDERED: PHENOL 1.4% 177 ML BOTTLE MM PRN (10:40)
--- NOTE | 2020-10-14 11:52 | Progress Note ---
Assessment and Plan 75 y/o male with complex abdomen from multiple prior abdominal surgeries, now admitted to ICU for vent management until abdomen can be closed. 10/14/20: Extubate today. Transfer to surgical floor as long as surgery ok with this. 10/13/20: To OR today. Will assess pulm status post surgery. Will discuss with surgery future plans prior to making plans on extubation. Supportive care. 1. Adequate sedation and pain control with continuos drips 2. Already on TPN 3. Gi prophylaxis 4. Junior catheter 5. Vent support. CCT 31 minutes. Subjective Date of service: 10/14/20 Principal diagnosis: Small bowel obstruction Interval history: Successful surgery with abdominal closure. No acute events overnight. Off sedation and is awake and alert. Wants tube out. Objective Vital Signs - 12hr 10/14/20 10/14/20 10/14/20 00:00 00:15 00:30 Temperature Pulse Rate 97 H 96 H 95 H Respiratory 14 21 17 Rate Blood Pressure 97/57 106/66 107/63 O2 Sat by Pulse 96 Oximetry 10/14/20 10/14/20 10/14/20 00:45 01:00 01:15 Temperature Pulse Rate 96 H 97 H 93 H Respiratory 19 14 15 Rate Blood Pressure 93/64 103/69 99/61 O2 Sat by Pulse 97 Oximetry 10/14/20 10/14/20 10/14/20 01:30 01:45 02:00 Temperature Pulse Rate 94 H 94 H 92 H Respiratory 14 18 15 Rate Blood Pressure 89/65 103/67 104/66 O2 Sat by Pulse Oximetry 10/14/20 10/14/20 10/14/20 02:15 02:30 02:45 Temperature Pulse Rate 94 H 92 H 91 H Respiratory 12 11 L 16 Rate Blood Pressure 106/67 113/65 106/64 O2 Sat by Pulse 97 Oximetry 10/14/20 10/14/20 10/14/20 03:00 03:15 03:30 Temperature Pulse Rate 92 H 91 H 92 H Respiratory 16 14 14 Rate Blood Pressure 98/71 95/64 94/64 O2 Sat by Pulse Oximetry 10/14/20 10/14/20 10/14/20 03:44 03:45 04:00 Temperature 98.7 F Pulse Rate 93 H 93 H Respiratory 13 14 Rate Blood Pressure 100/67 102/67 O2 Sat by Pulse Oximetry 10/14/20 10/14/20 10/14/20 04:15 04:30 04:45 Temperature Pulse Rate 93 H 93 H 95 H Respiratory 13 18 24 Rate Blood Pressure 110/68 111/70 119/70 O2 Sat by Pulse 98 98 91 Oximetry 10/14/20 10/14/20 10/14/20 05:00 05:03 05:15 Temperature Pulse Rate 97 H 97 H 100 H Respiratory 24 23 Rate Blood Pressure 116/72 116/72 127/73 O2 Sat by Pulse 92 94 92 Oximetry 10/14/20 10/14/20 10/14/20 05:30 05:45 06:00 Temperature Pulse Rate 102 H 104 H 101 H Respiratory 26 H 22 22 Rate Blood Pressure 130/77 118/75 121/71 O2 Sat by Pulse 93 92 92 Oximetry 10/14/20 10/14/20 10/14/20 06:15 06:31 06:45 Temperature Pulse Rate 107 H 105 H 102 H Respiratory 30 H 15 27 H Rate Blood Pressure 121/71 114/65 132/86 O2 Sat by Pulse 94 91 93 Oximetry 10/14/20 10/14/20 10/14/20 07:00 07:15 07:30 Temperature Pulse Rate 105 H 106 H 109 H Respiratory 29 H 33 H 31 H Rate Blood Pressure 146/85 142/90 147/93 O2 Sat by Pulse 95 94 94 Oximetry 10/14/20 10/14/20 10/14/20 07:45 07:51 08:00 Temperature 100.0 F H Pulse Rate 106 H 107 H Respiratory 31 H 29 H Rate Blood Pressure 144/91 145/87 O2 Sat by Pulse 92 93 Oximetry 10/14/20 10/14/20 10/14/20 08:12 08:15 08:30 Temperature Pulse Rate 105 H 104 H 108 H Respiratory 33 H 33 H Rate Blood Pressure 114/65 148/95 149/92 O2 Sat by Pulse 98 94 93 Oximetry 10/14/20 10/14/20 10/14/20 08:45 09:00 09:11 Temperature Pulse Rate 108 H 107 H 108 H Respiratory 30 H 34 H 33 H Rate Blood Pressure 152/88 160/94 149/92 O2 Sat by Pulse 93 93 93 Oximetry 10/14/20 10/14/20 10/14/20 09:15 09:30 09:45 Temperature Pulse Rate 114 H 110 H 112 H Respiratory 30 H 27 H 30 H Rate Blood Pressure 151/90 137/94 153/99 O2 Sat by Pulse 91 92 92 Oximetry 10/14/20 10/14/20 10/14/20 10:00 10:15 10:31 Temperature Pulse Rate 109 H 121 H 116 H Respiratory 32 H 28 H 20 Rate Blood Pressure 149/94 146/86 126/72 O2 Sat by Pulse 92 90 89 Oximetry 10/14/20 10/14/20 10/14/20 10:45 11:00 11:15 Temperature Pulse Rate 115 H 113 H 111 H Respiratory 22 28 H 17 Rate Blood Pressure 121/77 125/80 119/76 O2 Sat by Pulse 90 89 90 Oximetry 10/14/20 11:29 Temperature Pulse Rate Respiratory Rate Blood Pressure O2 Sat by Pulse 94 Oximetry Constitutional: comatose Eyes: non-icteric ENT: other (orally intubated and sedated) Neck: supple Effort: normal Ascultation: Bilateral: clear Percussion: Bilateral: not dull Cardiovascular: regular rate and rhythm Gastrointestinal: other (open abdomen) CBC and BMP: 10/14/20 04:00 10/14/20 04:00 ABG, PT/INR, D-dimer: ABG ABG pH 7.431 (7.320-7.450) 10/13/20 06:46 POC ABG pCO2 38.3 mmHg (32.0-48.0) 10/13/20 06:46 POC ABG pO2 110.7 mmHg (83-108) H 10/13/20 06:46 POC ABG HCO3 24.9 10/13/20 06:46 Abnormal lab findings: Abnormal Labs 10/07/20 10/07/20 10/07/20 02:36 02:36 Unknown WBC RBC 5.27 H Hgb 16.9 H Hct 49.9 H MCV 95 H MCH MCHC RDW Lymph % (Auto) 7.0 L [place] % (Auto) Lymph # (Auto) 0.8 L [place] # (Auto) Seg Neutrophils % 86.4 H Seg Neuts % (Manual) Lymphocytes % (Manual) Seg Neutrophils # 9.5 H Seg Neutrophils # Man Lymphocytes # (Manual) POC ABG pO2 ABG Oxyhemoglobin ABG Sodium ABG Glucose Sodium Potassium Chloride Carbon Dioxide 18 L BUN 22 H Creatinine Glucose 217 H POC Glucose Calcium Magnesium Total Protein Albumin Arterial Blood Glucose Arterial Blood Ionized Calcium Ur Specific [place] 1.041 H 10/08/20 10/08/20 10/09/20 05:38 05:38 00:31 WBC RBC Hgb 16.2 H Hct 48.6 H MCV 97 H MCH MCHC RDW 15.3 H Lymph % (Auto) 7.8 L [place] % (Auto) 10.3 H Lymph # (Auto) 0.7 L [place] # (Auto) 1.0 H Seg Neutrophils % 81.8 H Seg Neuts % (Manual) Lymphocytes % (Manual) Seg Neutrophils # 7.8 H Seg Neutrophils # Man Lymphocytes # (Manual) POC ABG pO2 ABG Oxyhemoglobin ABG Sodium ABG Glucose Sodium Potassium Chloride Carbon Dioxide 21 L BUN 52 H Creatinine 2.0 H D Glucose 209 H POC Glucose 142 H Calcium Magnesium Total Protein Albumin Arterial Blood Glucose Arterial Blood Ionized Calcium Ur Specific [place] 10/09/20 10/09/20 10/09/20 05:36 05:36 05:36 WBC RBC Hgb 15.5 H Hct 45.7 H MCV 96 H MCH 33 H MCHC RDW Lymph % (Auto) 8.3 L [place] % (Auto) 12.5 H Lymph # (Auto) 0.7 L [place] # (Auto) 1.1 H Seg Neutrophils % 78.2 H Seg Neuts % (Manual) Lymphocytes % (Manual) Seg Neutrophils # Seg Neutrophils # Man Lymphocytes # (Manual) POC ABG pO2 ABG Oxyhemoglobin ABG Sodium ABG Glucose Sodium Potassium Chloride 107.8 H Carbon Dioxide 21 L BUN 42 H Creatinine Glucose 160 H POC Glucose Calcium Magnesium 2.60 H Total Protein Albumin 3.7 L Arterial Blood Glucose Arterial Blood Ionized Calcium Ur Specific [place] 10/09/20 10/09/20 10/09/20 11:17 15:48 21:51 WBC RBC Hgb Hct MCV MCH MCHC RDW Lymph % (Auto) [place] % (Auto) Lymph # (Auto) [place] # (Auto) Seg Neutrophils % Seg Neuts % (Manual) Lymphocytes % (Manual) Seg Neutrophils # Seg Neutrophils # Man Lymphocytes # (Manual) POC ABG pO2 ABG Oxyhemoglobin ABG Sodium ABG Glucose Sodium Potassium Chloride Carbon Dioxide BUN Creatinine Glucose POC Glucose 137 H 122 H 145 H Calcium Magnesium Total Protein Albumin Arterial Blood Glucose Arterial Blood Ionized Calcium Ur Specific [place] 10/10/20 10/10/20 10/10/20 04:25 04:25 05:43 WBC 11.1 H RBC Hgb Hct 47.5 H MCV 97 H MCH MCHC RDW Lymph % (Auto) 7.9 L [place] % (Auto) 10.9 H Lymph # (Auto) 0.9 L [place] # (Auto) 1.2 H Seg Neutrophils % 80.6 H Seg Neuts % (Manual) Lymphocytes % (Manual) Seg Neutrophils # 8.9 H Seg Neutrophils # Man Lymphocytes # (Manual) POC ABG pO2 ABG Oxyhemoglobin ABG Sodium ABG Glucose Sodium Potassium 3.5 L Chloride 108.4 H Carbon Dioxide 21 L BUN 27 H Creatinine Glucose 148 H POC Glucose 153 H Calcium Magnesium 2.40 H Total Protein Albumin Arterial Blood Glucose Arterial Blood Ionized Calcium Ur Specific [place] 10/10/20 10/10/20 10/11/20 11:52 23:26 05:38 WBC RBC Hgb Hct MCV MCH MCHC RDW Lymph % (Auto) [place] % (Auto) Lymph # (Auto) [place] # (Auto) Seg Neutrophils % Seg Neuts % (Manual) Lymphocytes % (Manual) Seg Neutrophils # Seg Neutrophils # Man Lymphocytes # (Manual) POC ABG pO2 ABG Oxyhemoglobin ABG Sodium ABG Glucose Sodium Potassium Chloride Carbon Dioxide BUN 23 H Creatinine 0.7 L Glucose 158 H POC Glucose 149 H 140 H Calcium Magnesium Total Protein Albumin Arterial Blood Glucose Arterial Blood Ionized Calcium Ur Specific [place] 10/11/20 10/11/20 10/11/20 06:20 12:19 21:05 WBC RBC Hgb Hct MCV MCH MCHC RDW Lymph % (Auto) [place] % (Auto) Lymph # (Auto) [place] # (Auto) Seg Neutrophils % Seg Neuts % (Manual) Lymphocytes % (Manual) Seg Neutrophils # Seg Neutrophils # Man Lymphocytes # (Manual) POC ABG pO2 ABG Oxyhemoglobin ABG Sodium ABG Glucose Sodium Potassium Chloride Carbon Dioxide BUN Creatinine Glucose POC Glucose 169 H 174 H 140 H Calcium Magnesium Total Protein Albumin Arterial Blood Glucose Arterial Blood Ionized Calcium Ur Specific [place] 10/11/20 10/12/20 10/12/20 23:58 04:00 04:00 WBC RBC Hgb Hct MCV 97 H MCH MCHC RDW Lymph % (Auto) 7.2 L [place] % (Auto) Lymph # (Auto) 0.8 L [place] # (Auto) Seg Neutrophils % 85.6 H Seg Neuts % (Manual) Lymphocytes % (Manual) Seg Neutrophils # 9.1 H Seg Neutrophils # Man Lymphocytes # (Manual) POC ABG pO2 ABG Oxyhemoglobin ABG Sodium ABG Glucose Sodium Potassium Chloride Carbon Dioxide BUN 29 H Creatinine Glucose 171 H POC Glucose 139 H Calcium 7.6 L D Magnesium Total Protein Albumin Arterial Blood Glucose Arterial Blood Ionized Calcium Ur Specific [place] 10/12/20 10/12/20 10/12/20 05:55 12:27 18:04 WBC RBC Hgb Hct MCV MCH MCHC RDW Lymph % (Auto) [place] % (Auto) Lymph # (Auto) [place] # (Auto) Seg Neutrophils % Seg Neuts % (Manual) Lymphocytes % (Manual) Seg Neutrophils # Seg Neutrophils # Man Lymphocytes # (Manual) POC ABG pO2 ABG Oxyhemoglobin ABG Sodium ABG Glucose Sodium Potassium Chloride Carbon Dioxide BUN Creatinine Glucose POC Glucose 154 H 151 H 141 H Calcium Magnesium Total Protein Albumin Arterial Blood Glucose Arterial Blood Ionized Calcium Ur Specific [place] 10/12/20 10/13/20 10/13/20 23:25 04:00 05:17 WBC RBC Hgb Hct MCV MCH MCHC RDW Lymph % (Auto) [place] % (Auto) Lymph # (Auto) [place] # (Auto) Seg Neutrophils % Seg Neuts % (Manual) Lymphocytes % (Manual) Seg Neutrophils # Seg Neutrophils # Man Lymphocytes # (Manual) POC ABG pO2 ABG Oxyhemoglobin ABG Sodium ABG Glucose Sodium Potassium Chloride Carbon Dioxide 31 H D BUN 28 H Creatinine Glucose 151 H POC Glucose 134 H 167 H Calcium 8.3 L Magnesium 2.40 H Total Protein Albumin Arterial Blood Glucose Arterial Blood Ionized Calcium Ur Specific [place] 10/13/20 10/13/20 10/13/20 05:44 06:46 11:35 WBC RBC Hgb Hct MCV MCH MCHC RDW Lymph % (Auto) [place] % (Auto) Lymph # (Auto) [place] # (Auto) Seg Neutrophils % Seg Neuts % (Manual) Lymphocytes % (Manual) Seg Neutrophils # Seg Neutrophils # Man Lymphocytes # (Manual) POC ABG pO2 64.3 L 110.7 H ABG Oxyhemoglobin 91.6 L ABG Sodium 129.4 L 132.9 L ABG Glucose 165 H 184 H Sodium Potassium Chloride Carbon Dioxide BUN Creatinine Glucose POC Glucose 154 H Calcium Magnesium Total Protein Albumin Arterial Blood Glucose 165 H 184 H Arterial Blood Ionized Calcium 4.5 L Ur Specific [place] 10/13/20 10/13/20 10/13/20 13:00 13:00 14:14 WBC 11.8 H RBC 3.64 L Hgb 11.7 L Hct MCV 104 H MCH MCHC 31 L RDW 16.9 H Lymph % (Auto) 5.2 L [place] % (Auto) Lymph # (Auto) 0.6 L [place] # (Auto) Seg Neutrophils % 87.5 H Seg Neuts % (Manual) Lymphocytes % (Manual) Seg Neutrophils # 10.4 H Seg Neutrophils # Man Lymphocytes # (Manual) POC ABG pO2 ABG Oxyhemoglobin ABG Sodium ABG Glucose Sodium Potassium Chloride 86.5 L Carbon Dioxide 31 H BUN 25 H 27 H Creatinine 0.7 L Glucose 823 H* 155 H POC Glucose Calcium 8.1 L 8.3 L Magnesium Total Protein 4.2 L D 5.1 L D Albumin 2.5 L 3.0 L Arterial Blood Glucose Arterial Blood Ionized Calcium Ur Specific [place] 10/13/20 10/14/20 10/14/20 23:26 04:00 04:00 WBC 14.6 H RBC Hgb Hct MCV 97 H MCH MCHC RDW Lymph % (Auto) [place] % (Auto) Lymph # (Auto) [place] # (Auto) Seg Neutrophils % Seg Neuts % (Manual) 95.0 H Lymphocytes % (Manual) 3.0 L Seg Neutrophils # Seg Neutrophils # Man 13.9 H Lymphocytes # (Manual) 0.4 L POC ABG pO2 ABG Oxyhemoglobin ABG Sodium ABG Glucose Sodium 136 L Potassium Chloride Carbon Dioxide BUN 36 H Creatinine Glucose 157 H POC Glucose 245 H Calcium 8.1 L Magnesium Total Protein 5.0 L Albumin 2.8 L Arterial Blood Glucose Arterial Blood Ionized Calcium Ur Specific [place] 10/14/20 10/14/20 05:21 11:28 WBC RBC Hgb Hct MCV MCH MCHC RDW Lymph % (Auto) [place] % (Auto) Lymph # (Auto) [place] # (Auto) Seg Neutrophils % Seg Neuts % (Manual) Lymphocytes % (Manual) Seg Neutrophils # Seg Neutrophils # Man Lymphocytes # (Manual) POC ABG pO2 ABG Oxyhemoglobin ABG Sodium ABG Glucose Sodium Potassium Chloride Carbon Dioxide BUN Creatinine Glucose POC Glucose 162 H 215 H Calcium Magnesium Total Protein Albumin Arterial Blood Glucose Arterial Blood Ionized Calcium Ur Specific [place]
[2020-10-14] MEDS ORDERED: SODIUM CHLORIDE 0.9% 1000 ML 2,000 ML IV ONE (12:22)
--- NOTE | 2020-10-14 13:11 | Progress Note ---
Assessment and Plan POD#1 s/p abdominal exploration, g-tube placement, and abdominal wall closure with mesh. Afebrile and stable. intermittent tachycardia with elevated BUN c/w dehydration. continue IV fluids and TPN Expected post op ileus, will await return of bowel function. pt had a depressed angry defect with is much different than prior to surgery. I spoke with his who said that he gets like that after surgery and it usually gets better. will consult pastoral care and encouraged to talk to him. do not think he is ready to be transferred to the floor today. Subjective Date of service: 10/14/20 Narrative: Pt was extubated this morning without incident. Pt says he 'is being tortured'. Objective Vital Signs - 12hr 10/14/20 10/14/20 10/14/20 01:00 01:15 01:30 Temperature Pulse Rate 97 H 93 H 94 H Respiratory 14 15 14 Rate Blood Pressure 103/69 99/61 89/65 O2 Sat by Pulse 97 Oximetry 10/14/20 10/14/20 10/14/20 01:45 02:00 02:15 Temperature Pulse Rate 94 H 92 H 94 H Respiratory 18 15 12 Rate Blood Pressure 103/67 104/66 106/67 O2 Sat by Pulse Oximetry 10/14/20 10/14/20 10/14/20 02:30 02:45 03:00 Temperature Pulse Rate 92 H 91 H 92 H Respiratory 11 L 16 16 Rate Blood Pressure 113/65 106/64 98/71 O2 Sat by Pulse 97 Oximetry 10/14/20 10/14/20 10/14/20 03:15 03:30 03:44 Temperature 98.7 F Pulse Rate 91 H 92 H Respiratory 14 14 Rate Blood Pressure 95/64 94/64 O2 Sat by Pulse Oximetry 10/14/20 10/14/20 10/14/20 03:45 04:00 04:15 Temperature Pulse Rate 93 H 93 H 93 H Respiratory 13 14 13 Rate Blood Pressure 100/67 102/67 110/68 O2 Sat by Pulse 98 Oximetry 10/14/20 10/14/20 10/14/20 04:30 04:45 05:00 Temperature Pulse Rate 93 H 95 H 97 H Respiratory 18 24 24 Rate Blood Pressure 111/70 119/70 116/72 O2 Sat by Pulse 98 91 92 Oximetry 01/10/14/20 10/14/20 05:03 05:15 05:30 Temperature Pulse Rate 97 H 100 H 102 H Respiratory 23 26 H Rate Blood Pressure 116/72 127/73 130/77 O2 Sat by Pulse 94 92 93 Oximetry 10/14/20 10/14/20 10/14/20 05:45 06:00 06:15 Temperature Pulse Rate 104 H 101 H 107 H Respiratory 22 22 30 H Rate Blood Pressure 118/75 121/71 121/71 O2 Sat by Pulse 92 92 94 Oximetry 10/14/20 10/14/20 10/14/20 06:31 06:45 07:00 Temperature Pulse Rate 105 H 102 H 105 H Respiratory 15 27 H 29 H Rate Blood Pressure 114/65 132/86 146/85 O2 Sat by Pulse 91 93 95 Oximetry 10/14/20 10/14/20 10/14/20 07:15 07:30 07:45 Temperature Pulse Rate 106 H 109 H 106 H Respiratory 33 H 31 H 31 H Rate Blood Pressure 142/90 147/93 144/91 O2 Sat by Pulse 94 94 92 Oximetry 10/14/20 10/14/20 10/14/20 07:51 08:00 08:12 Temperature 100.0 F H Pulse Rate 107 H 105 H Respiratory 29 H Rate Blood Pressure 145/87 114/65 O2 Sat by Pulse 93 98 Oximetry 10/14/20 10/14/20 10/14/20 08:15 08:30 08:45 Temperature Pulse Rate 104 H 108 H 108 H Respiratory 33 H 33 H 30 H Rate Blood Pressure 148/95 149/92 152/88 O2 Sat by Pulse 94 93 93 Oximetry 10/14/20 10/14/20 10/14/20 09:00 09:11 09:15 Temperature Pulse Rate 107 H 108 H 114 H Respiratory 34 H 33 H 30 H Rate Blood Pressure 160/94 149/92 151/90 O2 Sat by Pulse 93 93 91 Oximetry 10/14/20 10/14/20 10/14/20 09:30 09:45 10:00 Temperature Pulse Rate 110 H 112 H 109 H Respiratory 27 H 30 H 32 H Rate Blood Pressure 137/94 153/99 149/94 O2 Sat by Pulse 92 92 92 Oximetry 10/14/20 10/14/20 10/14/20 10:15 10:31 10:45 Temperature Pulse Rate 121 H 116 H 115 H Respiratory 28 H 20 22 Rate Blood Pressure 146/86 126/72 121/77 O2 Sat by Pulse 90 89 90 Oximetry 10/14/20 10/14/20 10/14/20 11:00 11:15 11:29 Temperature Pulse Rate 113 H 111 H Respiratory 28 H 17 Rate Blood Pressure 125/80 119/76 O2 Sat by Pulse 89 90 94 Oximetry 10/14/20 12:00 Temperature 99.2 F Pulse Rate Respiratory Rate Blood Pressure O2 Sat by Pulse Oximetry - General physical appearance well developed, no distress, moderate pain - Respiratory normal expansion, normal respiratory effort - Abdomen soft, other (abdominal binder in place, g-tube in place connected to IWS.) - Psychiatric other (depressed affect) - Labs 10/14/20 04:00 10/14/20 04:00 Diabetes panel 10/13/20 10/13/20 10/14/20 Range/Units 13:00 14:14 04:00 Sodium TNR 138 136 L Potassium TNR 4.5 4.6 Chloride 86.5 L 101.0 98.0 (98-107) mmol/L Carbon Dioxide 27 31 H 27 (22-30) mmol/L BUN 25 H 27 H 36 H (9-20) mg/dL Creatinine 0.7 L 0.8 0.9 (0.8-1.3) mg/dL Glucose 823 H* 155 H 157 H (75-100) mg/dL Calcium 8.1 L 8.3 L 8.1 L (8.4-10.2) mg/dL AST 10 13 16 (5-40) units/L ALT 18 22 19 (7-56) units/L Alkaline Phosphatase 51 65 74 (35-129) units/L Total Protein 4.2 L D 5.1 L D 5.0 L (6.3-8.2) g/dL Albumin 2.5 L 3.0 L 2.8 L (3.9-5) g/dL Calcium panel 10/13/20 10/13/20 10/14/20 Range/Units 13:00 14:14 04:00 Calcium 8.1 L 8.3 L 8.1 L (8.4-10.2) mg/dL Phosphorus 3.80 (2.5-4.5) mg/dL Albumin 2.5 L 3.0 L 2.8 L (3.9-5) g/dL Pituitary panel 10/13/20 10/13/20 10/14/20 Range/Units 13:00 14:14 04:00 Sodium TNR 138 136 L Potassium TNR 4.5 4.6 Chloride 86.5 L 101.0 98.0 (98-107) mmol/L Carbon Dioxide 27 31 H 27 (22-30) mmol/L BUN 25 H 27 H 36 H (9-20) mg/dL Creatinine 0.7 L 0.8 0.9 (0.8-1.3) mg/dL Glucose 823 H* 155 H 157 H (75-100) mg/dL Calcium 8.1 L 8.3 L 8.1 L (8.4-10.2) mg/dL Adrenal panel 10/13/20 10/13/20 10/14/20 Range/Units 13:00 14:14 04:00 Sodium TNR 138 136 L Potassium TNR 4.5 4.6 Chloride 86.5 L 101.0 98.0 (98-107) mmol/L Carbon Dioxide 27 31 H 27 (22-30) mmol/L BUN 25 H 27 H 36 H (9-20) mg/dL Creatinine 0.7 L 0.8 0.9 (0.8-1.3) mg/dL Glucose 823 H* 155 H 157 H (75-100) mg/dL Calcium 8.1 L 8.3 L 8.1 L (8.4-10.2) mg/dL Total Bilirubin 0.40 0.50 0.60 (0.1-1.2) mg/dL AST 10 13 16 (5-40) units/L ALT 18 22 19 (7-56) units/L Alkaline Phosphatase 51 65 74 (35-129) units/L Total Protein 4.2 L D 5.1 L D 5.0 L (6.3-8.2) g/dL Albumin 2.5 L 3.0 L 2.8 L (3.9-5) g/dL
[2020-10-14] MEDS ORDERED: TOTAL PARENTERAL NUTRITION 3,000 ML IV SCH (20:00)
[2020-10-14] MEDS ORDERED: LORazepam 2 MG/ML VIAL IV ONE (21:19)
[2020-10-14] MEDS: LIP THERAPY VASELINE TP PRN (21:38)
[2020-10-15] MEDS: HYDROmorphone 1 MG/1 ML INJ IV PRN ×3 (02:07→16:49)
[2020-10-15] MEDS: LIP THERAPY VASELINE TP PRN (02:10)
[2020-10-15] MEDS: KETOROLAC 30 MG/1 ML INJ IV SCH ×3 (07:18→22:23)
[2020-10-15] MEDS: FAMOTIDINE 20 MG/2 ML INJ IV SCH ×2 (09:17→22:23)
[2020-10-15 09:45] LABS: Hematocrit 35.9 % (35.5-45.6); Hemoglobin 11.2 gm/dl (11.8-15.2); Mean Corpuscular HGB Conc 31 % (32-34); Mean Corpuscular Volume 108 fl (84-94); Platelet Count 204 K/mm3 (140-440); Red Blood Count 3.33 M/mm3 (3.65-5.03); Red Cell Distribution Width 16.7 % (13.2-15.2)
[2020-10-15 10:06] LABS: BUN/Creatinine Ratio 39; Blood Urea Nitrogen 31 mg/dL (9-20); Calcium 8.3 mg/dL (8.4-10.2); Hemolysis Index 1
--- NOTE | 2020-10-15 10:23 | Consultation ---
History of Present Illness - Reason for Consult Consult date: 10/15/20 Reason for consult: delirium - History of Present Psychiatric Illness Per ER note "74-year-old male with a past medical history of CAD, hypertension, elevated cholesterol, diverticulitis, previous cholecystectomy, appendectomy, multiple hernia repairs surgeries, partial colon resection, splenectomy, and previous small bowel obstructions presents to the hospital complaining of sudden onset abdominal pain with nausea vomiting since 9 PM." During my interview with Mr. Valenzuela he is resting quietly with his eyes closed. Psych was consulted for delirium. He arouses easily. He is a/o x 2. He is calm and cooperative. He is polite. His voice is weak so he can hardly speak. He says he was admitted for problems with his stomach. The patient denies any past psychiatric history. He also denies being on psychiatric meds. The patient says he feels "okay" but in pain. He says he "doesn't sleep well." The patient denies SI/HI or any past attempt in the past. He denies hallucinations of any kind. The patient denies any illicit drug use, alcohol or nicotine. PAST PSYCHIATRIC HISTORY: Diagnoses: Denies Suicide attempts or Self-harm behavior: Denies Prior psychiatric hospitalizations: Denies Substance Abuse history: Denies Previous psychiatric medications tried: Denies Outpatient treatment: Denies PAST MEDICAL HISTORY: HTN, CAD, Elevated cholesterol, hernia repair Family Psychiatric History: None reported or documented SOCIAL HISTORY Marital Status: Living Arrangements: With spouse Employment Status: Retired Access to guns/weapons: Denies Education: High school History of Abuse: None reported Legal History: None reported REVIEW OF SYSTEMS Constitutional: Negative for weight loss ENT: Negative for stridor Respiratory: Negative for cough or hemoptysis All other systems reviewed and are negative MENTAL STATUS EXAMINATION General Appearance and Behavior: Age appropriate, good hygiene, not wearing appropriate clothes, good eye contact, calm and cooperative with questioning. Cooperation: Participating Mood: okay Affect and affective range: congruent with stated mood Thought Process: goal directed Speech: pressured, loud volume at times Intellectual Functioning: Average Thought content: Suicidal Ideation: Denies SI Homicidal Ideation: Denies HI Hallucinations: Denies Delusions: None elicited Impulse Control: Normal Insight and Judgment: Limited insight and judgment Memory: Normal Attention: Normal Orientation: Alert, oriented Assessment and Plan (1) Deliruim Current Visit: Yes Status: Acute Treatment Plan Start Remeron 7.5 qhs to help improve sleep disturbance Sitter: Defer to primary Medical: Per primary Disposition: Do not recommend acute inpatient psychiatric treatment. Will continue to follow for med management Will follow. Case staffed with Dr. Goff. Medications and Allergies Allergies Allergy/AdvReac Type Severity Reaction Status Date / Time No Known Allergies Allergy Verified 07/25/13 22:46 Home Medications Medication Instructions Recorded Confirmed Last Taken Type Aspirin 325 mg PO ONCE #30 tablet 08/01/13 09/10/13 09/10/13 10:24 Rx 325 mg Clopidogrel [Plavix] 75 mg PO QDAY #30 tablet 08/01/13 09/10/13 09/10/13 10:23 Rx 75 mg Rosuvastatin (Nf) [Crestor] 20 mg PO QHS #30 tablet 08/01/13 09/10/13 09/09/13 22:00 Rx 20 mg Warfarin [Coumadin] 5 mg PO QDAY #30 tablet 08/01/13 09/10/13 09/09/13 22:00 Rx 5 mg Hydrocodone Bit/Acetaminophen 1 each PO Q8H PRN #14 tablet 09/10/13 Unknown Rx [Lortab 7.5-500 mg] Active Meds: Active Medications Acetaminophen (Acetaminophen 650 Mg Rect Supp) 650 mg MD Q4H PRN PRN Reason: Non Cardiac Pain or Temp>100.5 Last Admin: 10/13/20 09:02 Dose: 650 mg Documented by: Bisacodyl (Bisacodyl 10 Mg Rect Supp) 10 mg MD QDAY [facility] Last Admin: 10/15/20 09:17 Dose: 10 mg Documented by: Famotidine (Famotidine 20 Mg/2 Ml Inj) 20 mg IV BID [facility] Last Admin: 10/15/20 09:17 Dose: 20 mg Documented by: Hydralazine HCl (Hydralazine 20 Mg/1 Ml Inj) 5 mg IV Q30MIN PRN PRN Reason: Hypertension Last Admin: 10/11/20 05:17 Dose: 5 mg Documented by: Hydromorphone HCl (Hydromorphone 1 Mg/1 Ml Inj) 1 mg IV Q3H PRN PRN Reason: Pain , Severe (7-10) Last Admin: 10/15/20 02:07 Dose: 1 mg Documented by: Hydrophilic Ointment (Lip Therapy Vaseline) 1 applic TP Q2HR PRN PRN Reason: Dry Lips Last Admin: 10/15/20 02:10 Dose: 1 applic Documented by: Amino Acids/Electrolytes/Dextrose (Tpn Adult) 3,000 mls @ 125 mls/hr IV DAILY@2000 [facility]; Protocol Stop: 10/15/20 19:59 Last Admin: 10/14/20 20:23 Dose: 125 mls/hr Documented by: Levofloxacin/Dextrose (Levaquin 750mg/150ml) 750 mg in 150 mls @ 100 mls/hr IV Q24H [facility]; Protocol Last Admin: 10/14/20 14:16 Dose: 100 mls/hr Documented by: Ketorolac Tromethamine (Ketorolac 30 Mg/1 Ml Inj) 15 mg IV Q8HR [facility] Stop: 10/18/20 21:59 Last Admin: 10/15/20 07:18 Dose: 15 mg Documented by: Multi-Ingred Cream/Lotion/Oil/Oint (Mineral Oil/Petrolatum, White Ophth Oint 3.5 Gm) 1 applic OU Q4HR PRN PRN Reason: Dry Eye(s) Ondansetron HCl (Ondansetron 4 Mg/2 Ml Inj) 4 mg IV Q8H PRN PRN Reason: Nausea And Vomiting Last Admin: 10/11/20 13:50 Dose: 4 mg Documented by: Phenol (Phenol 1.4% 177 Ml Bottle) 1 spray MM PRN PRN PRN Reason: Sore Throat Last Admin: 10/14/20 14:31 Dose: 1 spray Documented by: Sodium Chloride (Sodium Chloride 0.9% 10 Ml Flush Syringe) 10 ml IV BID [facility] Last Admin: 10/15/20 09:18 Dose: 10 ml Documented by: Sodium Chloride (Sodium Chloride 0.9% 10 Ml Flush Syringe) 10 ml IV PRN PRN PRN Reason: LINE FLUSH Last Admin: 10/08/20 18:42 Dose: 10 ml Documented by: Mental Status Exam - Vital signs Last Vital Signs Temp 99.2 F 10/15/20 08:00 Pulse 91 H 10/15/20 09:00 Resp 20 10/15/20 09:00 BP 121/81 10/15/20 09:00 Pulse Ox 95 10/15/20 08:36 Results Result Diagrams: 10/15/20 09:15 10/15/20 09:15 Abnormal lab results 10/14/20 10/14/20 10/14/20 Range/Units 05:21 11:28 17:25 WBC (4.5-11.0) K/mm3 RBC (3.65-5.03) M/mm3 Hgb (11.8-15.2) gm/dl MCV (84-94) fl MCH (28-32) pg MCHC (32-34) % RDW (13.2-15.2) % Sodium (137-145) mmol/L Potassium (3.6-5.0) mmol/L Chloride (98-107) mmol/L BUN (9-20) mg/dL POC Glucose 162 H 215 H 157 H (70-105) mg/dL Calcium (8.4-10.2) mg/dL Phosphorus (2.5-4.5) mg/dL 10/14/20 10/15/20 10/15/20 Range/Units 23:43 09:15 09:15 WBC 14.1 H (4.5-11.0) K/mm3 RBC 3.33 L (3.65-5.03) M/mm3 Hgb 11.2 L (11.8-15.2) gm/dl MCV 108 H (84-94) fl MCH 34 H (28-32) pg MCHC 31 L (32-34) % RDW 16.7 H (13.2-15.2) % Sodium 119 L* D (137-145) mmol/L Potassium 7.5 H* D (3.6-5.0) mmol/L Chloride 86.7 L (98-107) mmol/L BUN 31 H (9-20) mg/dL POC Glucose 139 H (70-105) mg/dL Calcium 8.3 L (8.4-10.2) mg/dL Phosphorus 7.70 H D (2.5-4.5) mg/dL All other labs normal.
--- NOTE | 2020-10-15 10:27 | Progress Note ---
Assessment and Plan Assessment and plan: Patient was admitted with abdominal pain , small bowel obstruction , ventral hernia history of multiple abdominal surgeries and large hiatal hernia, surgery and IR evaluated, Unable to pass NG tube , patient underwent fluoroscopic guided placement of nasojejunostomy tube per IR Patient underwent exploratory laparotomy, lysis of edition, ABThera abdominal vacuum dressing on 10/11/2020, patient is intubated on vent Extubated yesterday 10/14/2020, on 4 L nasal cannula oxygen and TPN, patient is in depressed mood this morning, minimally communicative , psych was consulted ,evaluated the patient this morning --Acute hypoxic respiratory failure; on vent Continue ventilatory support weaned and extubated 10/14/2020 Patient is on 4 L nasal cannula oxygen saturating well Pulmonary critical following --Patient underwent second surgical procedure yesterday; 10/13/2020 -abdominal exploration, -Gastric tube placement and -abdominal wall closure with phasix mesh Patient tolerated the procedure well Postop care per surgery --Small bowel obstruction/ventral hernia/hiatal hernia Surgical intervention on 10/11/2020 --s/p EXPLORATORY LAPAROTOMY, -EXTENSIVE LYSIS OF ADHESIONS, -ABTHERA ABDOMINAL VACUUM DRESSING Postop care per surgery --Acute kidney injury; secondary to dehydration Vasomotor nephropathy, gentle IV hydration Monitor renal function, avoid nephrotoxins Patient's renal function is within normal limits Closely monitor --History of coronary artery disease; Continue home medications once patient is able to take oral Consider cardiology evaluation if needed --Dyslipidemia; Patient is on statin, currently n.p.o. Resume when patient is stable and able to take p.o. --Severe malnutrition; Nutrition supplements, nutrition consult Patient is already on TPN --DVT prophylaxis; SCDs We will closely monitor patient and adjust management as needed Follow lending consultant recommendations, Continue postop care Plan of care reviewed with the patient's nurse The high probability of a clinically significant, sudden or life threatening deterioration of the [CVS, pulmonary, metabolic, renal and GI] system(s) required my full and direct attention, intervention and personal management. The aggregate critical care time was [33] minutes. This time is in addition to time spent performing reported procedures but includes the following: [X] Data Review and interpretation [X] Patient assessment and monitoring of vital signs [X] Documentation [X] Medication orders and management Brief history: Patient was admitted with abdominal pain , small bowel obstruction , ventral hernia history of multiple abdominal surgeries and large hiatal hernia, surgery and IR evaluated, Unable to pass NG tube , patient underwent fluoroscopic guided placement of nasojejunostomy tube per IR Patient underwent exploratory laparotomy, lysis of edition, ABThera abdominal vacuum dressing on 10/11/2020, patient is intubated on vent 10/08/2020; patient has Dobbhoff/nasal jejunostomy tube placement, with intermittent suction Patient feels slightly better, n.p.o. status, management per surgery 10/09/2020 Patient on tube feedings Small bowel obstruction still present Patient reluctant about getting surgery 10/10/2020 Patient counseled about getting surgery Patient had to decide 10/11/2020 Patient has agreed for surgery after long discussion with Dr. Lechuga 10/12/2020; patient had exploratory laparotomy extensive lysis of adhesion and ABThera abdominal vacuum dressing postoperative day 1, patient intubated on ventilatory support 10/13/2020. Patient intubated on ventilatory support, continue current care management associate recommendations noted and appreciated 10/14/2020; patient underwent-abdominal exploration,Gastric tube placement and abdominal wall closure with phasix mesh on 10/13/2020 Patient tolerated the procedure well, continue postop care per surgery 10/15/2020; patient is alert and awake, was extubated 10/14/2020, looks depressed, psych evaluated the patient History Interval history: I have seen and examined the patient at the bedside in ICU morning Patient was extubated yesterday on nasal cannula oxygen Alert and awake, depressed, psych has evaluated the patient No new complaints Vital signs reviewed Hospitalist Physical - Constitutional Vitals: Temp Pulse Resp BP Pulse Ox 99.2 F 91 H 20 121/81 95 10/15/20 08:00 10/15/20 09:00 10/15/20 09:00 10/15/20 09:00 10/15/20 08:36 General appearance: Present: no acute distress, well-nourished, other (Looks depressed) - EENT Eyes: Present: PERRL, EOM intact - Neck Neck: Present: supple, normal ROM - Respiratory Respiratory effort: normal Respiratory: bilateral: diminished, negative: rales, rhonchi, wheezing - Cardiovascular Rhythm: regular Heart Sounds: Present: S1 & S2 - Extremities Extremities: no ischemia, No edema - Abdominal General gastrointestinal: soft, tender (Vague tenderness no guarding no rigidity), non-distended, other (Surgical dressing in place) - Integumentary Integumentary: Present: clear, warm - Psychiatric Psychiatric: depressed, other (Minimally communicative) - Neurologic Neurologic: moves all extremities Results - Labs CBC & Chem 7: 10/15/20 09:15 10/15/20 10:14 Labs: Laboratory Last Values WBC 14.1 K/mm3 (4.5-11.0) H 10/15/20 09:15 RBC 3.33 M/mm3 (3.65-5.03) L 10/15/20 09:15 Hgb 11.2 gm/dl (11.8-15.2) L 10/15/20 09:15 Hct 35.9 % (35.5-45.6) D 10/15/20 09:15 MCV 108 fl (84-94) H 10/15/20 09:15 MCH 34 pg (28-32) H 10/15/20 09:15 MCHC 31 % (32-34) L 10/15/20 09:15 RDW 16.7 % (13.2-15.2) H 10/15/20 09:15 Plt Count 204 K/mm3 (140-440) 10/15/20 09:15 Lymph % (Auto) 5.2 % (13.4-35.0) L 10/13/20 13:00 [place] % (Auto) 5.6 % (0.0-7.3) 10/13/20 13:00 Eos % (Auto) 1.5 % (0.0-4.3) 10/13/20 13:00 Baso % (Auto) 0.2 % (0.0-1.8) 10/13/20 13:00 Lymph # (Auto) 0.6 K/mm3 (1.2-5.4) L 10/13/20 13:00 [place] # (Auto) 0.7 K/mm3 (0.0-0.8) 10/13/20 13:00 Eos # (Auto) 0.2 K/mm3 (0.0-0.4) 10/13/20 13:00 Baso # (Auto) 0.0 K/mm3 (0.0-0.1) 10/13/20 13:00 Add Manual Diff Complete 10/14/20 04:00 Total Counted 100 10/14/20 04:00 Seg Neutrophils % [place] 10/15/20 09:15 Seg Neuts % (Manual) 95.0 % (40.0-70.0) H 10/14/20 04:00 Lymphocytes % (Manual) 3.0 % (13.4-35.0) L 10/14/20 04:00 Monocytes % (Manual) 2.0 % (0.0-7.3) 10/14/20 04:00 Nucleated RBC % Not Reportable 10/14/20 04:00 Seg Neutrophils # 10.4 K/mm3 (1.8-7.7) H 10/13/20 13:00 Seg Neutrophils # Man 13.9 K/mm3 (1.8-7.7) H 10/14/20 04:00 Band Neutrophils # 0.0 K/mm3 10/14/20 04:00 Lymphocytes # (Manual) 0.4 K/mm3 (1.2-5.4) L 10/14/20 04:00 Abs React Lymphs (Man) 0.0 K/mm3 10/14/20 04:00 Monocytes # (Manual) 0.3 K/mm3 (0.0-0.8) 10/14/20 04:00 Eosinophils # (Manual) 0.0 K/mm3 (0.0-0.4) 10/14/20 04:00 Basophils # (Manual) 0.0 K/mm3 (0.0-0.1) 10/14/20 04:00 Metamyelocytes # 0.0 K/mm3 10/14/20 04:00 Myelocytes # 0.0 K/mm3 10/14/20 04:00 Promyelocytes # 0.0 K/mm3 10/14/20 04:00 Blast Cells # 0.0 K/mm3 10/14/20 04:00 WBC Morphology Not Reportable 10/14/20 04:00 Hypersegmented Neuts Not Reportable 10/14/20 04:00 Hyposegmented Neuts Not Reportable 10/14/20 04:00 Hypogranular Neuts Not Reportable 10/14/20 04:00 Smudge Cells Not Reportable 10/14/20 04:00 Toxic Granulation Not Reportable 10/14/20 04:00 Toxic Vacuolation Not Reportable 10/14/20 04:00 Dohle Bodies Not Reportable 10/14/20 04:00 Pelger-Huet Anomaly Not Reportable 10/14/20 04:00 Blake Rods Not Reportable 10/14/20 04:00 Platelet Estimate Consistent w auto 10/14/20 04:00 Clumped Platelets Not Reportable 10/14/20 04:00 Plt Clumps, EDTA Not Reportable 10/14/20 04:00 Large Platelets Not Reportable 10/14/20 04:00 Giant Platelets Not Reportable 10/14/20 04:00 Platelet Satelliting Not Reportable 10/14/20 04:00 Plt Morphology Comment Not Reportable 10/14/20 04:00 RBC Morphology Not Reportable 10/14/20 04:00 Dimorphic RBCs Not Reportable 10/14/20 04:00 Polychromasia Not Reportable 10/14/20 04:00 Hypochromasia Not Reportable 10/14/20 04:00 Poikilocytosis Not Reportable 10/14/20 04:00 Anisocytosis Not Reportable 10/14/20 04:00 Microcytosis Not Reportable 10/14/20 04:00 Macrocytosis Not Reportable 10/14/20 04:00 Spherocytes Not Reportable 10/14/20 04:00 Pappenheimer Bodies Not Reportable 10/14/20 04:00 Sickle Cells Not Reportable 10/14/20 04:00 Target Cells Not Reportable 10/14/20 04:00 Tear Drop Cells Not Reportable 10/14/20 04:00 Ovalocytes Not Reportable 10/14/20 04:00 Helmet Cells Not Reportable 10/14/20 04:00 [place] Bodies Not Reportable 10/14/20 04:00 [place] Rings Not Reportable 10/14/20 04:00 [place] Cells Not Reportable 10/14/20 04:00 Bite Cells Not Reportable 10/14/20 04:00 Crenated Cell Not Reportable 10/14/20 04:00 Elliptocytes Not Reportable 10/14/20 04:00 Acanthocytes (Spur) Not Reportable 10/14/20 04:00 Rouleaux Not Reportable 10/14/20 04:00 Hemoglobin C Crystals Not Reportable 10/14/20 04:00 Schistocytes Not Reportable 10/14/20 04:00 Malaria parasites Not Reportable 10/14/20 04:00 Chris Bodies Not Reportable 10/14/20 04:00 Hem Pathologist Commnt No 10/14/20 04:00 ABG pH 7.431 (7.320-7.450) 10/13/20 06:46 POC ABG pCO2 38.3 mmHg (32.0-48.0) 10/13/20 06:46 POC ABG pO2 110.7 mmHg (83-108) H 10/13/20 06:46 POC ABG HCO3 24.9 10/13/20 06:46 POC ABG Base Excess 0.8 10/13/20 06:46 ABG Hemoglobin 14.2 (12.0-17.5) 10/13/20 06:46 ABG Oxyhemoglobin 91.6 (94-98) L 10/13/20 05:44 ABG Methemoglobin 0.3 (0.0-1.5) 10/13/20 05:44 ABG Sodium 132.9 mmol/L (136.0-145.0) L 10/13/20 06:46 ABG Potassium 4.5 mmol/L (3.40-4.50) 10/13/20 06:46 ABG Chloride 101.0 mmol/L (98-107) 10/13/20 06:46 ABG Glucose 184 mg/dL (65-95) H 10/13/20 06:46 Carboxyhemoglobin 1.1 (0.5-1.5) 10/13/20 05:44 FiO2 100 10/13/20 06:46 Sodium 119 mmol/L (137-145) L* D 10/15/20 09:15 Potassium 7.5 mmol/L (3.6-5.0) H* D 10/15/20 09:15 Chloride 86.7 mmol/L (98-107) L 10/15/20 09:15 Carbon Dioxide 24 mmol/L (22-30) 10/15/20 09:15 Anion Gap 16 mmol/L 10/15/20 09:15 BUN 31 mg/dL (9-20) H 10/15/20 09:15 Creatinine 0.8 mg/dL (0.8-1.3) 10/15/20 09:15 Estimated GFR > 60 ml/min 10/15/20 09:15 BUN/Creatinine Ratio 39 % 10/15/20 09:15 Glucose 157 mg/dL (75-100) H 10/14/20 04:00 POC Glucose 139 mg/dL (70-105) H 10/14/20 23:43 Lactic Acid 1.70 mmol/L (0.7-2.0) 10/09/20 05:36 Calcium 8.3 mg/dL (8.4-10.2) L 10/15/20 09:15 Phosphorus 7.70 mg/dL (2.5-4.5) H D 10/15/20 09:15 Magnesium 1.70 mg/dL (1.7-2.3) 10/15/20 09:15 Total Bilirubin 0.60 mg/dL (0.1-1.2) 10/14/20 04:00 AST 16 units/L (5-40) 10/14/20 04:00 ALT 19 units/L (7-56) 10/14/20 04:00 Alkaline Phosphatase 74 units/L (35-129) 10/14/20 04:00 Total Protein 5.0 g/dL (6.3-8.2) L 10/14/20 04:00 Albumin 2.8 g/dL (3.9-5) L 10/14/20 04:00 Albumin/Globulin Ratio 1.3 % 10/14/20 04:00 Triglycerides 147 mg/dL (2-149) 10/13/20 04:00 Lipase 20 units/L (13-60) 10/07/20 02:36 Arterial Blood Glucose 184 mg/dL (65-95) H 10/13/20 06:46 Arterial Blood Ionized Calcium 4.6 mg/dL (4.6-5.3) 10/13/20 06:46 Urine Color Celine (Yellow) 10/07/20 Unknown Urine Turbidity Clear (Clear) 10/07/20 Unknown Urine pH 5.0 (5.0-7.0) 10/07/20 Unknown Ur Specific [place] 1.041 (1.003-1.030) H 10/07/20 Unknown Urine Protein 30 mg/dl mg/dL (Negative) 10/07/20 Unknown Urine Glucose (UA) Neg mg/dL (Negative) 10/07/20 Unknown Urine Ketones Neg mg/dL (Negative) 10/07/20 Unknown Urine Blood Neg (Negative) 10/07/20 Unknown Urine Nitrite Neg (Negative) 10/07/20 Unknown Urine Bilirubin Neg (Negative) 10/07/20 Unknown Urine Urobilinogen < 2.0 mg/dL (<2.0) 10/07/20 Unknown Ur Leukocyte Esterase Neg (Negative) 10/07/20 Unknown Urine WBC (Auto) 2.0 /HPF (0.0-6.0) 10/07/20 Unknown Urine RBC (Auto) 4.0 /HPF (0.0-6.0) 10/07/20 Unknown U Epithel Cells (Auto) < 1.0 /HPF (0-13.0) 10/07/20 Unknown Urine Mucus Few /HPF 10/07/20 Unknown Blood Type A POSITIVE 10/11/20 21:30 Antibody Screen Negative 10/11/20 21:30 Microbiology: Microbiology 10/13/20 08:38 Urine,[place] Urine Culture - Final NO GROWTH AFTER 48 HOURS 10/13/20 13:35 Peripheral/Venous Blood Culture - Preliminary NO GROWTH AFTER 24 HOURS 10/13/20 13:35 Peripheral/Venous Blood Culture - Preliminary NO GROWTH AFTER 24 HOURS Junior/IV: Voiding Method Indwelling Catheter IV Catheter Type [Right Upper PICC Line arm] IV Catheter Type [Right] Peripheral IV Active Medications - Current Medications Current Medications: Generic Name Dose Route Start Last Admin Trade Name Freq PRN Reason Stop Dose Admin Acetaminophen 650 mg 10/13/20 08:40 10/13/20 09:02 Acetaminophen 650 Mg Rect Supp MS 650 mg Q4H PRN Administration Non Cardiac Pain or Temp>100.5 Bisacodyl 10 mg 10/12/20 10:00 10/15/20 09:17 Bisacodyl 10 Mg Rect Supp MS 10 mg QDAY JOSH Administration Famotidine 20 mg 10/09/20 10:00 10/15/20 09:17 Famotidine 20 Mg/2 Ml Inj IV 20 mg BID JOSH Administration Hydralazine HCl 5 mg 10/07/20 06:52 10/11/20 05:17 Hydralazine 20 Mg/1 Ml Inj IV 5 mg Q30MIN PRN Administration Hypertension Hydromorphone HCl 1 mg 10/14/20 06:51 10/15/20 02:07 Hydromorphone 1 Mg/1 Ml Inj IV 1 mg Q3H PRN Administration Pain , Severe (7-10) Hydrophilic Ointment 1 applic 10/11/20 19:50 10/15/20 02:10 Lip Therapy Vaseline TP 1 applic Q2HR PRN Administration Dry Lips Amino Acids/Electrolytes/Dextrose 3,000 mls @ 125 mls/hr 10/14/20 20:00 10/14/20 20:23 Tpn Adult IV 10/15/20 19:59 125 mls/hr DAILY@2000 JOSH Administration Protocol Levofloxacin/Dextrose 750 mg in 150 mls @ 100 mls/hr 10/14/20 13:00 10/14/20 14:16 Levaquin 750mg/150ml IV 100 mls/hr Q24H JOSH Administration Protocol Ketorolac Tromethamine 15 mg 10/13/20 22:00 10/15/20 07:18 Ketorolac 30 Mg/1 Ml Inj IV 10/18/20 21:59 15 mg Q8HR JOSH Administration Multi-Ingred Cream/Lotion/Oil/Oint 1 applic 10/11/20 19:50 Mineral Oil/Petrolatum, White Ophth Oint 3.5 Gm OU Q4HR PRN Dry Eye(s) Ondansetron HCl 4 mg 10/07/20 06:18 10/11/20 13:50 Ondansetron 4 Mg/2 Ml Inj IV 4 mg Q8H PRN Administration Nausea And Vomiting Phenol 1 spray 10/14/20 10:40 10/14/20 14:31 Phenol 1.4% 177 Ml Bottle MM 1 spray PRN PRN Administration Sore Throat Sodium Chloride 10 ml 10/07/20 10:00 10/15/20 09:18 Sodium Chloride 0.9% 10 Ml Flush Syringe IV 10 ml BID JOSH Administration Sodium Chloride 10 ml 10/07/20 06:18 10/08/20 18:42 Sodium Chloride 0.9% 10 Ml Flush Syringe IV 10 ml PRN PRN Administration LINE FLUSH Nutrition/Malnutrition Assess - Dietary Evaluation Nutrition/Malnutrition Findings: Nutrition Notes Start: 10/08/20 13:34 Freq: Status: Active Protocol: Document 10/14/20 11:37 CW (Rec: 10/14/20 12:40 CW [id number]) Co-Sign 10/14/20 11:37 NHALL Nutrition Notes Initial or Follow up Reassessment Current Diagnosis Coronary Artery Disease, Hypertension,Hyperlipidemia Other Pertinent Diagnosis s/p exp lap wounds, SBO, hernia, hx. multiple bowel surgeries Current Diet CPN at 125ml/hr Labs/Tests Na 136 BUN 36 BG 157 Adj Ca 9.06 Pertinent Medications Propofol at 2.286 ml/hr ( provides 60.35kcal) Height 6 ft 2 in Weight 95.254 kg [place] Body Weight (kg) 86.36 BMI 26.9 Weight Status Appropriate Subjective/Other Information FU for TPN, labs. Pt extubated post op SBO surgery in CCU with TPN infusing. Per MD pt to be transfered to the floor soon. Percent of energy/protein needs met: 67%/100% Burn Absent Trauma Absent GI Symptoms Other Food Allergy No Current % PO Negligible Minimum of two criteria No physical signs of malnutrition #2 Nutrition Diagnosis Increased nutrient needs ( specify in comment below) Diagnosis Progress(for reassessment Continues documentation) #1 Nutrition Diagnosis Inadequate energy intake Diagnosis Progress(for reassessment Continues documentation) Is patient on ventilator? No Is Patient Ambulatory and/or Out of Bed No REE-([facility]-confined to bed) [phone] Calculation Used for Recommendations [facility] Additional Notes Protein needs are 119-190g (1. 2-2g/kg) Fluid needs: 1 mL/kcal Nutrition Intervention Change Diet Order: TPN Nutrition Support: CPN at 125 mL/hr: 8.5% dextrose, 4.2% AA, 150 mEq Na, 80 mEq K, 0 Mg, 20 mEq Phos. MTE. Osmolarity: 1004 Osm/L Kcal 1,367 Protein (gm) 125 Carbohydrates (gm) 255 Fat (gm) 0 Fluid (mL) 3,000 Fiber (gm) 0 Goal #1 Meet kcal and protein needs as best as possible via CPN Goal #2 Wound healing Anticipated Discharge Needs: Unable to determine at this time Follow-Up By: 10/15/20 Additional Comments FU for labs in AM: BMP/Mg/Phos
[2020-10-15 11:01] LABS: Total Cells Counted 100
[2020-10-15 11:03] LABS: Platelet Estimate Consistent w Auto; RBC Morphology Normal
--- NOTE | 2020-10-15 11:03 | Progress Note ---
Assessment and Plan 75 y/o male with complex abdomen from multiple prior abdominal surgeries, now admitted to ICU for vent management until abdomen can be closed. 10/15/20: Await repeat labs. If normal, will speak with surgery about transfer. 10/14/20: Extubate today. Transfer to surgical floor as long as surgery ok with this. 10/13/20: To OR today. Will assess pulm status post surgery. Will discuss with surgery future plans prior to making plans on extubation. Supportive care. 1. Adequate sedation and pain control with continuos drips 2. Already on TPN 3. Gi prophylaxis 4. Junior catheter 5. Vent support. CCT 31 minutes. Subjective Date of service: 10/15/20 Principal diagnosis: Small bowel obstruction Interval history: No acute events. Labs are very abnormal this am. Likely not correct. Objective Vital Signs - 12hr 10/14/20 10/15/20 10/15/20 23:00 00:00 01:00 Temperature 98.4 F Pulse Rate 89 83 92 H Respiratory 20 20 24 Rate Blood Pressure 105/70 109/61 106/71 O2 Sat by Pulse 95 94 94 Oximetry 10/15/20 10/15/20 10/15/20 02:00 02:07 03:00 Temperature Pulse Rate 91 H 85 Respiratory 24 17 19 Rate Blood Pressure 112/78 112/78 O2 Sat by Pulse 93 93 Oximetry 10/15/20 10/15/20 10/15/20 04:00 05:00 06:01 Temperature 98.2 F Pulse Rate 88 88 83 Respiratory 24 22 26 H Rate Blood Pressure 125/83 116/77 125/78 O2 Sat by Pulse 94 92 Oximetry 10/15/20 10/15/20 10/15/20 07:00 08:00 08:36 Temperature 99.2 F Pulse Rate 93 H 91 H Respiratory 23 26 H Rate Blood Pressure 130/84 114/78 O2 Sat by Pulse 96 93 95 Oximetry 10/15/20 09:00 Temperature Pulse Rate 91 H Respiratory 20 Rate Blood Pressure 121/81 O2 Sat by Pulse Oximetry Constitutional: comatose Eyes: non-icteric ENT: other (orally intubated and sedated) Neck: supple Effort: normal Ascultation: Bilateral: clear Percussion: Bilateral: not dull Cardiovascular: regular rate and rhythm Gastrointestinal: other (open abdomen) CBC and BMP: 10/15/20 09:15 10/15/20 09:15 ABG, PT/INR, D-dimer: ABG ABG pH 7.431 (7.320-7.450) 10/13/20 06:46 POC ABG pCO2 38.3 mmHg (32.0-48.0) 10/13/20 06:46 POC ABG pO2 110.7 mmHg (83-108) H 10/13/20 06:46 POC ABG HCO3 24.9 10/13/20 06:46 Abnormal lab findings: Abnormal Labs 10/07/20 10/07/20 10/07/20 02:36 02:36 Unknown WBC RBC 5.27 H Hgb 16.9 H Hct 49.9 H MCV 95 H MCH MCHC RDW Lymph % (Auto) 7.[address] % (Auto) Lymph # (Auto) 0.[address] # (Auto) Seg Neutrophils % 86.4 H Seg Neuts % (Manual) Lymphocytes % (Manual) Seg Neutrophils # 9.5 H Seg Neutrophils # Man Lymphocytes # (Manual) POC ABG pO2 ABG Oxyhemoglobin ABG Sodium ABG Glucose Sodium Potassium Chloride Carbon Dioxide 18 L BUN 22 H Creatinine Glucose 217 H POC Glucose Calcium Phosphorus Magnesium Total Protein Albumin Arterial Blood Glucose Arterial Blood Ionized Calcium Ur Specific [place] 1.041 H 10/08/20 10/08/20 10/09/20 05:38 05:38 00:31 WBC RBC Hgb 16.2 H Hct 48.6 H MCV 97 H MCH MCHC RDW 15.3 H Lymph % (Auto) 7.[address] % (Auto) 10.3 H Lymph # (Auto) 0.[address] # (Auto) 1.0 H Seg Neutrophils % 81.8 H Seg Neuts % (Manual) Lymphocytes % (Manual) Seg Neutrophils # 7.8 H Seg Neutrophils # Man Lymphocytes # (Manual) POC ABG pO2 ABG Oxyhemoglobin ABG Sodium ABG Glucose Sodium Potassium Chloride Carbon Dioxide 21 L BUN 52 H Creatinine 2.0 H D Glucose 209 H POC Glucose 142 H Calcium Phosphorus Magnesium Total Protein Albumin Arterial Blood Glucose Arterial Blood Ionized Calcium Ur Specific [place] 10/09/20 10/09/20 10/09/20 05:36 05:36 05:36 WBC RBC Hgb 15.5 H Hct 45.7 H MCV 96 H MCH 33 H MCHC RDW Lymph % (Auto) 8.[address] % (Auto) 12.5 H Lymph # (Auto) 0.[address] # (Auto) 1.1 H Seg Neutrophils % 78.2 H Seg Neuts % (Manual) Lymphocytes % (Manual) Seg Neutrophils # Seg Neutrophils # Man Lymphocytes # (Manual) POC ABG pO2 ABG Oxyhemoglobin ABG Sodium ABG Glucose Sodium Potassium Chloride 107.8 H Carbon Dioxide 21 L BUN 42 H Creatinine Glucose 160 H POC Glucose Calcium Phosphorus Magnesium 2.60 H Total Protein Albumin 3.7 L Arterial Blood Glucose Arterial Blood Ionized Calcium Ur Specific [place] 10/09/20 10/09/20 10/09/20 11:17 15:48 21:51 WBC RBC Hgb Hct MCV MCH MCHC RDW Lymph % (Auto) [place] % (Auto) Lymph # (Auto) [place] # (Auto) Seg Neutrophils % Seg Neuts % (Manual) Lymphocytes % (Manual) Seg Neutrophils # Seg Neutrophils # Man Lymphocytes # (Manual) POC ABG pO2 ABG Oxyhemoglobin ABG Sodium ABG Glucose Sodium Potassium Chloride Carbon Dioxide BUN Creatinine Glucose POC Glucose 137 H 122 H 145 H Calcium Phosphorus Magnesium Total Protein Albumin Arterial Blood Glucose Arterial Blood Ionized Calcium Ur Specific [place] 10/10/20 10/10/20 10/10/20 04:25 04:25 05:43 WBC 11.1 H RBC Hgb Hct 47.5 H MCV 97 H MCH MCHC RDW Lymph % (Auto) 7.[address] % (Auto) 10.9 H Lymph # (Auto) 0.[address] # (Auto) 1.2 H Seg Neutrophils % 80.6 H Seg Neuts % (Manual) Lymphocytes % (Manual) Seg Neutrophils # 8.9 H Seg Neutrophils # Man Lymphocytes # (Manual) POC ABG pO2 ABG Oxyhemoglobin ABG Sodium ABG Glucose Sodium Potassium 3.5 L Chloride 108.4 H Carbon Dioxide 21 L BUN 27 H Creatinine Glucose 148 H POC Glucose 153 H Calcium Phosphorus Magnesium 2.40 H Total Protein Albumin Arterial Blood Glucose Arterial Blood Ionized Calcium Ur Specific [place] 10/10/20 10/10/20 10/11/20 11:52 23:26 05:38 WBC RBC Hgb Hct MCV MCH MCHC RDW Lymph % (Auto) [place] % (Auto) Lymph # (Auto) [place] # (Auto) Seg Neutrophils % Seg Neuts % (Manual) Lymphocytes % (Manual) Seg Neutrophils # Seg Neutrophils # Man Lymphocytes # (Manual) POC ABG pO2 ABG Oxyhemoglobin ABG Sodium ABG Glucose Sodium Potassium Chloride Carbon Dioxide BUN 23 H Creatinine 0.7 L Glucose 158 H POC Glucose 149 H 140 H Calcium Phosphorus Magnesium Total Protein Albumin Arterial Blood Glucose Arterial Blood Ionized Calcium Ur Specific [place] 10/11/20 10/11/20 10/11/20 06:20 12:19 21:05 WBC RBC Hgb Hct MCV MCH MCHC RDW Lymph % (Auto) [place] % (Auto) Lymph # (Auto) [place] # (Auto) Seg Neutrophils % Seg Neuts % (Manual) Lymphocytes % (Manual) Seg Neutrophils # Seg Neutrophils # Man Lymphocytes # (Manual) POC ABG pO2 ABG Oxyhemoglobin ABG Sodium ABG Glucose Sodium Potassium Chloride Carbon Dioxide BUN Creatinine Glucose POC Glucose 169 H 174 H 140 H Calcium Phosphorus Magnesium Total Protein Albumin Arterial Blood Glucose Arterial Blood Ionized Calcium Ur Specific [place] 10/11/20 10/12/20 10/12/20 23:58 04:00 04:00 WBC RBC Hgb Hct MCV 97 H MCH MCHC RDW Lymph % (Auto) 7.[address] % (Auto) Lymph # (Auto) 0.[address] # (Auto) Seg Neutrophils % 85.6 H Seg Neuts % (Manual) Lymphocytes % (Manual) Seg Neutrophils # 9.1 H Seg Neutrophils # Man Lymphocytes # (Manual) POC ABG pO2 ABG Oxyhemoglobin ABG Sodium ABG Glucose Sodium Potassium Chloride Carbon Dioxide BUN 29 H Creatinine Glucose 171 H POC Glucose 139 H Calcium 7.6 L D Phosphorus Magnesium Total Protein Albumin Arterial Blood Glucose Arterial Blood Ionized Calcium Ur Specific [place] 10/12/20 10/12/20 10/12/20 05:55 12:27 18:04 WBC RBC Hgb Hct MCV MCH MCHC RDW Lymph % (Auto) [place] % (Auto) Lymph # (Auto) [place] # (Auto) Seg Neutrophils % Seg Neuts % (Manual) Lymphocytes % (Manual) Seg Neutrophils # Seg Neutrophils # Man Lymphocytes # (Manual) POC ABG pO2 ABG Oxyhemoglobin ABG Sodium ABG Glucose Sodium Potassium Chloride Carbon Dioxide BUN Creatinine Glucose POC Glucose 154 H 151 H 141 H Calcium Phosphorus Magnesium Total Protein Albumin Arterial Blood Glucose Arterial Blood Ionized Calcium Ur Specific [place] 10/12/20 10/13/20 10/13/20 23:25 04:00 05:17 WBC RBC Hgb Hct MCV MCH MCHC RDW Lymph % (Auto) [place] % (Auto) Lymph # (Auto) [place] # (Auto) Seg Neutrophils % Seg Neuts % (Manual) Lymphocytes % (Manual) Seg Neutrophils # Seg Neutrophils # Man Lymphocytes # (Manual) POC ABG pO2 ABG Oxyhemoglobin ABG Sodium ABG Glucose Sodium Potassium Chloride Carbon Dioxide 31 H D BUN 28 H Creatinine Glucose 151 H POC Glucose 134 H 167 H Calcium 8.3 L Phosphorus Magnesium 2.40 H Total Protein Albumin Arterial Blood Glucose Arterial Blood Ionized Calcium Ur Specific [place] 10/13/20 10/13/20 10/13/20 05:44 06:46 11:35 WBC RBC Hgb Hct MCV MCH MCHC RDW Lymph % (Auto) [place] % (Auto) Lymph # (Auto) [place] # (Auto) Seg Neutrophils % Seg Neuts % (Manual) Lymphocytes % (Manual) Seg Neutrophils # Seg Neutrophils # Man Lymphocytes # (Manual) POC ABG pO2 64.3 L 110.7 H ABG Oxyhemoglobin 91.6 L ABG Sodium 129.4 L 132.9 L ABG Glucose 165 H 184 H Sodium Potassium Chloride Carbon Dioxide BUN Creatinine Glucose POC Glucose 154 H Calcium Phosphorus Magnesium Total Protein Albumin Arterial Blood Glucose 165 H 184 H Arterial Blood Ionized Calcium 4.5 L Ur Specific [place] 10/13/20 10/13/20 10/13/20 13:00 13:00 14:14 WBC 11.8 H RBC 3.64 L Hgb 11.7 L Hct MCV 104 H MCH MCHC 31 L RDW 16.9 H Lymph % (Auto) 5.[address] % (Auto) Lymph # (Auto) 0.[address] # (Auto) Seg Neutrophils % 87.5 H Seg Neuts % (Manual) Lymphocytes % (Manual) Seg Neutrophils # 10.4 H Seg Neutrophils # Man Lymphocytes # (Manual) POC ABG pO2 ABG Oxyhemoglobin ABG Sodium ABG Glucose Sodium Potassium Chloride 86.5 L Carbon Dioxide 31 H BUN 25 H 27 H Creatinine 0.7 L Glucose 823 H* 155 H POC Glucose Calcium 8.1 L 8.3 L Phosphorus Magnesium Total Protein 4.2 L D 5.1 L D Albumin 2.5 L 3.0 L Arterial Blood Glucose Arterial Blood Ionized Calcium Ur Specific [place] 10/13/20 10/14/20 10/14/20 23:26 04:00 04:00 WBC 14.6 H RBC Hgb Hct MCV 97 H MCH MCHC RDW Lymph % (Auto) [place] % (Auto) Lymph # (Auto) [place] # (Auto) Seg Neutrophils % Seg Neuts % (Manual) 95.0 H Lymphocytes % (Manual) 3.0 L Seg Neutrophils # Seg Neutrophils # Man 13.9 H Lymphocytes # (Manual) 0.4 L POC ABG pO2 ABG Oxyhemoglobin ABG Sodium ABG Glucose Sodium 136 L Potassium Chloride Carbon Dioxide BUN 36 H Creatinine Glucose 157 H POC Glucose 245 H Calcium 8.1 L Phosphorus Magnesium Total Protein 5.0 L Albumin 2.8 L Arterial Blood Glucose Arterial Blood Ionized Calcium Ur Specific [place] 10/14/20 10/14/20 10/14/20 05:21 11:28 17:25 WBC RBC Hgb Hct MCV MCH MCHC RDW Lymph % (Auto) [place] % (Auto) Lymph # (Auto) [place] # (Auto) Seg Neutrophils % Seg Neuts % (Manual) Lymphocytes % (Manual) Seg Neutrophils # Seg Neutrophils # Man Lymphocytes # (Manual) POC ABG pO2 ABG Oxyhemoglobin ABG Sodium ABG Glucose Sodium Potassium Chloride Carbon Dioxide BUN Creatinine Glucose POC Glucose 162 H 215 H 157 H Calcium Phosphorus Magnesium Total Protein Albumin Arterial Blood Glucose Arterial Blood Ionized Calcium Ur Specific [place] 10/14/20 10/15/20 10/15/20 23:43 09:15 09:15 WBC 14.1 H RBC 3.33 L Hgb 11.2 L Hct MCV 108 H MCH 34 H MCHC 31 L RDW 16.7 H Lymph % (Auto) [place] % (Auto) Lymph # (Auto) [place] # (Auto) Seg Neutrophils % Seg Neuts % (Manual) Lymphocytes % (Manual) Seg Neutrophils # Seg Neutrophils # Man Lymphocytes # (Manual) POC ABG pO2 ABG Oxyhemoglobin ABG Sodium ABG Glucose Sodium 119 L* D Potassium 7.5 H* D Chloride 86.7 L Carbon Dioxide BUN 31 H Creatinine Glucose 1165 H* POC Glucose 139 H Calcium 8.3 L Phosphorus 7.70 H D Magnesium Total Protein Albumin Arterial Blood Glucose Arterial Blood Ionized Calcium Ur Specific [place]
[2020-10-15 11:22] LABS: Blood Urea Nitrogen 36 mg/dL (9-20); Calcium 8.6 mg/dL (8.4-10.2); Hemolysis Index 2
[2020-10-15 11:24] LABS: BUN/Creatinine Ratio 51
--- NOTE | 2020-10-15 14:50 | Progress Note ---
Subjective Date of service: 10/15/20 Patient Reports: Positive: still having pain (no acute events overnight. Pt says that he is still in pain but is in a better mood today. He says he has passed very little gas but denies n/v.) Objective Vital Signs - 12hr 10/15/20 10/15/20 10/15/20 03:00 04:00 05:00 Temperature 98.2 F Pulse Rate 85 88 88 Respiratory 19 24 22 Rate Blood Pressure 112/78 125/83 116/77 O2 Sat by Pulse 93 94 Oximetry 10/15/20 10/15/20 10/15/20 06:01 07:00 08:00 Temperature 99.2 F Pulse Rate 83 93 H 91 H Respiratory 26 H 23 26 H Rate Blood Pressure 125/78 130/84 114/78 O2 Sat by Pulse 92 96 93 Oximetry 10/15/20 10/15/20 10/15/20 08:36 09:00 10:00 Temperature Pulse Rate 91 H 82 Respiratory 20 22 Rate Blood Pressure 121/81 119/79 O2 Sat by Pulse 95 92 Oximetry 10/15/20 10/15/20 10/15/20 11:01 12:00 13:00 Temperature 99.1 F Pulse Rate 85 75 87 Respiratory 25 H 22 22 Rate Blood Pressure 146/92 116/84 119/80 O2 Sat by Pulse 95 97 96 Oximetry - General physical appearance well developed, no distress, moderate pain - Labs 10/15/20 09:15 10/15/20 10:14 Diabetes panel 10/15/20 10/15/20 Range/Units 09:15 10:14 Sodium 119 L* D 139 D (137-145) mmol/L Potassium 7.5 H* D 4.1 D (3.6-5.0) mmol/L Chloride 86.7 L 102.9 (98-107) mmol/L Carbon Dioxide 24 25 (22-30) mmol/L BUN 31 H 36 H (9-20) mg/dL Creatinine 0.8 0.7 L (0.8-1.3) mg/dL Glucose 1165 H* 162 H (75-100) mg/dL Calcium 8.3 L 8.6 (8.4-10.2) mg/dL Calcium panel 10/15/20 10/15/20 Range/Units 09:15 10:14 Calcium 8.3 L 8.6 (8.4-10.2) mg/dL Phosphorus 7.70 H D 2.60 D (2.5-4.5) mg/dL Pituitary panel 10/15/20 10/15/20 Range/Units 09:15 10:14 Sodium 119 L* D 139 D (137-145) mmol/L Potassium 7.5 H* D 4.1 D (3.6-5.0) mmol/L Chloride 86.7 L 102.9 (98-107) mmol/L Carbon Dioxide 24 25 (22-30) mmol/L BUN 31 H 36 H (9-20) mg/dL Creatinine 0.8 0.7 L (0.8-1.3) mg/dL Glucose 1165 H* 162 H (75-100) mg/dL Calcium 8.3 L 8.6 (8.4-10.2) mg/dL Adrenal panel 10/15/20 10/15/20 Range/Units 09:15 10:14 Sodium 119 L* D 139 D (137-145) mmol/L Potassium 7.5 H* D 4.1 D (3.6-5.0) mmol/L Chloride 86.7 L 102.9 (98-107) mmol/L Carbon Dioxide 24 25 (22-30) mmol/L BUN 31 H 36 H (9-20) mg/dL Creatinine 0.8 0.7 L (0.8-1.3) mg/dL Glucose 1165 H* 162 H (75-100) mg/dL Calcium 8.3 L 8.6 (8.4-10.2) mg/dL
--- NOTE | 2020-10-15 15:39 | Progress Note ---
Assessment and Plan POD#2 s/p abdominal exploration, g-tube placement, and abdominal wall closure with mesh. Afebrile and stable. tachycardia improved. continue IV fluids and TPN Expected post op ileus, will await return of bowel function. OK to transfer to floor today on telemetry. d/c alessandra will get PT evaluation Subjective Date of service: 10/15/20 Narrative: see previous note from today Objective Vital Signs - 12hr 10/15/20 10/15/20 10/15/20 04:00 05:00 06:01 Temperature 98.2 F Pulse Rate 88 88 83 Respiratory 24 22 26 H Rate Blood Pressure 125/83 116/77 125/78 O2 Sat by Pulse 94 92 Oximetry 10/15/20 10/15/20 10/15/20 07:00 08:00 08:36 Temperature 99.2 F Pulse Rate 93 H 91 H Respiratory 23 26 H Rate Blood Pressure 130/84 114/78 O2 Sat by Pulse 96 93 95 Oximetry 10/15/20 10/15/20 10/15/20 09:00 10:00 11:01 Temperature Pulse Rate 91 H 82 85 Respiratory 20 22 25 H Rate Blood Pressure 121/81 119/79 146/92 O2 Sat by Pulse 92 95 Oximetry 10/15/20 10/15/20 12:00 13:00 Temperature 99.1 F Pulse Rate 75 87 Respiratory 22 22 Rate Blood Pressure 116/84 119/80 O2 Sat by Pulse 97 96 Oximetry - General physical appearance well developed, no distress, moderate pain - Respiratory normal expansion, normal respiratory effort - Abdomen soft, not distended, other (staple line c/d/i, sero-sanguinous drainage on bandage mild, G-tube in place with minimal out put) - Labs 10/15/20 09:15 10/15/20 10:14 Diabetes panel 10/15/20 10/15/20 Range/Units 09:15 10:14 Sodium 119 L* D 139 D (137-145) mmol/L Potassium 7.5 H* D 4.1 D (3.6-5.0) mmol/L Chloride 86.7 L 102.9 (98-107) mmol/L Carbon Dioxide 24 25 (22-30) mmol/L BUN 31 H 36 H (9-20) mg/dL Creatinine 0.8 0.7 L (0.8-1.3) mg/dL Glucose 1165 H* 162 H (75-100) mg/dL Calcium 8.3 L 8.6 (8.4-10.2) mg/dL Calcium panel 10/15/20 10/15/20 Range/Units 09:15 10:14 Calcium 8.3 L 8.6 (8.4-10.2) mg/dL Phosphorus 7.70 H D 2.60 D (2.5-4.5) mg/dL Pituitary panel 10/15/20 10/15/20 Range/Units 09:15 10:14 Sodium 119 L* D 139 D (137-145) mmol/L Potassium 7.5 H* D 4.1 D (3.6-5.0) mmol/L Chloride 86.7 L 102.9 (98-107) mmol/L Carbon Dioxide 24 25 (22-30) mmol/L BUN 31 H 36 H (9-20) mg/dL Creatinine 0.8 0.7 L (0.8-1.3) mg/dL Glucose 1165 H* 162 H (75-100) mg/dL Calcium 8.3 L 8.6 (8.4-10.2) mg/dL Adrenal panel 10/15/20 10/15/20 Range/Units 09:15 10:14 Sodium 119 L* D 139 D (137-145) mmol/L Potassium 7.5 H* D 4.1 D (3.6-5.0) mmol/L Chloride 86.7 L 102.9 (98-107) mmol/L Carbon Dioxide 24 25 (22-30) mmol/L BUN 31 H 36 H (9-20) mg/dL Creatinine 0.8 0.7 L (0.8-1.3) mg/dL Glucose 1165 H* 162 H (75-100) mg/dL Calcium 8.3 L 8.6 (8.4-10.2) mg/dL
[2020-10-15] MEDS ORDERED: TOTAL PARENTERAL NUTRITION 3,000 ML IV SCH (20:00)
[2020-10-16] MEDS: HYDROmorphone 1 MG/1 ML INJ IV PRN ×2 (00:51→21:09)
[2020-10-16] MEDS: MIRTAZAPINE 15 MG TAB PO SCH ×2 (04:51→22:33)
[2020-10-16] MEDS: KETOROLAC 30 MG/1 ML INJ IV SCH ×3 (05:23→22:34)
[2020-10-16 06:40] LABS: Basophils % (Auto) 0.3 % (0.0-1.8); Eosinophils # (Auto) 0.3 K/mm3 (0.0-0.4); Eosinophils % (Auto) 2.5 % (0.0-4.3); Hematocrit 38.4 % (35.5-45.6); Hemoglobin 12.8 gm/dl (11.8-15.2); Lymphocytes # (Auto) 0.7 K/mm3 (1.2-5.4); Lymphocytes % (Auto) 5.9 % (13.4-35.0); Mean Corpuscular HGB Conc 33 % (32-34); Mean Corpuscular Volume 97 fl (84-94); Monocytes # (Auto) 0.7 K/mm3 (0.0-0.8); Monocytes % (Auto) 6.2 % (0.0-7.3); Platelet Count 254 K/mm3 (140-440); Red Blood Count 3.95 M/mm3 (3.65-5.03); Red Cell Distribution Width 14.6 % (13.2-15.2)
[2020-10-16 07:03] LABS: Alanine Aminotransferase 86 units/L (7-56); Albumin 2.3 g/dL (3.9-5); BUN/Creatinine Ratio 47; Blood Urea Nitrogen 33 mg/dL (9-20); Calcium 8.6 mg/dL (8.4-10.2); Hemolysis Index 10
--- NOTE | 2020-10-16 07:57 | Progress Note ---
Subjective - Reason for Consult Consult date: 10/16/20 Reason for consult: delirium - Chief Complaint Chief complaint: Nurse caring for the patient today states he's been fine with no issues. Says the patient just likes someone to talk to him. During my interview with the patient today, he is lying down awake. He is a/o x 3. He says he "feels better than yesterday." He says he slept okay but would sleep better if he was at home. He denies SI/HI. He also denies hallucinations of any kind. The patient says he'd like to go home today. REVIEW OF SYSTEMS Constitutional: Negative for weight loss ENT: Negative for stridor Respiratory: Negative for cough or hemoptysis All other systems reviewed and are negative MENTAL STATUS EXAMINATION General Appearance and Behavior: Age appropriate, good hygiene, not wearing appropriate clothes, good eye contact, calm and cooperative with questioning. Cooperation: Participating Mood: better Affect and affective range: congruent with stated mood Thought Process: goal directed Speech: pressured, loud volume at times Intellectual Functioning: Average Thought content: Suicidal Ideation: Denies SI Homicidal Ideation: Denies HI Hallucinations: Denies Delusions: None elicited Impulse Control: Normal Insight and Judgment: Limited insight and judgment Memory: Normal Attention: Normal Orientation: Alert, oriented Assessment and Plan (1) Deliruim Current Visit: Yes Status: Acute Treatment Plan Continue Remeron 7.5 qhs to help improve sleep disturbance Start Melatonin 5mg po qhs prn insomnia Sitter: Defer to primary Medical: Per primary Disposition: Do not recommend acute inpatient psychiatric treatment. Will continue to follow for med management Will follow. Case staffed with Dr. Goff. Mental Status Exam - Vital signs Last Vital Signs Temp 98.3 F 10/16/20 05:21 Pulse 78 10/16/20 05:21 Resp 17 10/16/20 05:53 BP 138/81 10/16/20 05:21 Pulse Ox 94 10/16/20 05:21
[2020-10-16] MEDS: FAMOTIDINE 20 MG/2 ML INJ IV SCH ×2 (09:16→22:33)
--- NOTE | 2020-10-16 11:41 | Progress Note ---
Assessment and Plan Assessment and plan: Patient was admitted with abdominal pain , small bowel obstruction , ventral hernia history of multiple abdominal surgeries and large hiatal hernia, surgery and IR evaluated, Unable to pass NG tube , patient underwent fluoroscopic guided placement of nasojejunostomy tube per IR Patient underwent exploratory laparotomy, lysis of edition, ABThera abdominal vacuum dressing on 10/11/2020, patient is intubated on vent Extubated yesterday 10/14/2020, on 4 L nasal cannula oxygen and TPN, patient is in depressed mood this morning, minimally communicative , psych following Patient feels better today 10/16/2020 --Small bowel obstruction/ventral hernia/hiatal hernia 10/11/2020 ;surgical intervention --s/p EXPLORATORY LAPAROTOMY, -EXTENSIVE LYSIS OF ADHESIONS, -ABTHERA ABDOMINAL VACUUM DRESSING 10/13/2020;Patient underwent second surgical procedure yesterday; 10/13/2020 -abdominal exploration, -Gastric tube placement and -abdominal wall closure with phasix mesh Patient tolerated the procedure well Postop care per surgery --Acute hypoxic respiratory failure; Intubated, on vent 10/11/2020 Status post extubation 10/14/2020, saturating well room air --Acute transaminitis: Closely monitor, trend LFTs Consider GI evaluation if no improvement --Acute kidney injury; secondary to dehydration Vasomotor nephropathy, gentle IV hydration Monitor renal function, avoid nephrotoxins Patient's renal function is within normal limits Closely monitor --History of coronary artery disease; Continue home medications once patient is able to take oral Consider cardiology evaluation if needed --Dyslipidemia; Patient is on statin, currently n.p.o. Resume when patient is stable and able to take p.o. --Severe malnutrition; Nutrition supplements, nutrition consult Patient is already on TPN --DVT prophylaxis; SCDs We will closely monitor patient and adjust management as needed Follow tanning consultant recommendations, Continue postop care Plan of care reviewed with the patient's nurse The high probability of a clinically significant, sudden or life threatening deterioration of the [CVS, pulmonary, metabolic, renal and GI] system(s) required my full and direct attention, intervention and personal management. The aggregate critical care time was [33] minutes. This time is in addition to time spent performing reported procedures but includes the following: [X] Data Review and interpretation [X] Patient assessment and monitoring of vital signs [X] Documentation [X] Medication orders and management Brief history: Patient was admitted with abdominal pain , small bowel obstruction , ventral hernia history of multiple abdominal surgeries and large hiatal hernia, surgery and IR evaluated, Unable to pass NG tube , patient underwent fluoroscopic guided placement of nasojejunostomy tube per IR Patient underwent exploratory laparotomy, lysis of edition, ABThera abdominal vacuum dressing on 10/11/2020, patient is intubated on vent 10/08/2020; patient has Dobbhoff/nasal jejunostomy tube placement, with intermittent suction Patient feels slightly better, n.p.o. status, management per surgery 10/09/2020 Patient on tube feedings Small bowel obstruction still present Patient reluctant about getting surgery 10/10/2020 Patient counseled about getting surgery Patient had to decide 10/11/2020 Patient has agreed for surgery after long discussion with Dr. Lechuga 10/12/2020; patient had exploratory laparotomy extensive lysis of adhesion and ABThera abdominal vacuum dressing postoperative day 1, patient intubated on ventilatory support 10/13/2020. Patient intubated on ventilatory support, continue current change management administrator recommendations noted and appreciated 10/14/2020; patient underwent-abdominal exploration,Gastric tube placement and abdominal wall closure with phasix mesh on 10/13/2020 Patient tolerated the procedure well, continue postop care per surgery 10/15/2020; patient is alert and awake, was extubated 10/14/2020, looks depressed, psych evaluated the patient 10/16/2020; patient feels slightly better today, had flatus and small bowel movement, tolerating clear liquids More alert and awake responding appropriately, patient looks very tired History Interval history: I have seen and examined the patient at the bedside this morning Patient's chart and medications reviewed Patient feels slightly better today than yesterday Reports to me that he had flatus and a small bowel movement Patient is tolerating clear liquids Patient complains of mild abdominal pain Vital signs reviewed Hospitalist Physical - Constitutional Vitals: Temp Pulse Resp BP Pulse Ox 97.7 F 78 18 135/82 93 10/16/20 07:56 10/16/20 05:21 10/16/20 07:56 10/16/20 07:56 10/16/20 07:56 General appearance: Present: no acute distress, well-nourished, other (Looks tired) - EENT Eyes: Present: PERRL, EOM intact - Neck Neck: Present: supple, normal ROM - Respiratory Respiratory effort: normal Respiratory: bilateral: diminished, negative: rales, rhonchi, wheezing - Cardiovascular Rhythm: regular Heart Sounds: Present: S1 & S2 - Extremities Extremities: no ischemia, No edema - Abdominal General gastrointestinal: soft, non-tender, non-distended, other (Surgical dressing in place) - Integumentary Integumentary: Present: clear, warm - Psychiatric Psychiatric: appropriate mood/affect, cooperative - Neurologic Neurologic: moves all extremities Results - Labs CBC & Chem 7: 10/16/20 06:22 10/16/20 06:22 Labs: Laboratory Last Values WBC 11.5 K/mm3 (4.5-11.0) H 10/16/20 06:22 RBC 3.95 M/mm3 (3.65-5.03) 10/16/20 06:22 Hgb 12.8 gm/dl (11.8-15.2) 10/16/20 06:22 Hct 38.4 % (35.5-45.6) 10/16/20 06:22 MCV 97 fl (84-94) H 10/16/20 06:22 MCH 32 pg (28-32) 10/16/20 06:22 MCHC 33 % (32-34) 10/16/20 06:22 RDW 14.6 % (13.2-15.2) 10/16/20 06:22 Plt Count 254 K/mm3 (140-440) 10/16/20 06:22 Lymph % (Auto) 5.9 % (13.4-35.0) L 10/16/20 06:22 [place] % (Auto) 6.2 % (0.0-7.3) 10/16/20 06:22 Eos % (Auto) 2.5 % (0.0-4.3) 10/16/20 06:22 Baso % (Auto) 0.3 % (0.0-1.8) 10/16/20 06:22 Lymph # (Auto) 0.7 K/mm3 (1.2-5.4) L 10/16/20 06:22 [place] # (Auto) 0.7 K/mm3 (0.0-0.8) 10/16/20 06:22 Eos # (Auto) 0.3 K/mm3 (0.0-0.4) 10/16/20 06:22 Baso # (Auto) 0.0 K/mm3 (0.0-0.1) 10/16/20 06:22 Add Manual Diff Complete 10/15/20 09:15 Total Counted 100 10/15/20 09:15 Seg Neutrophils % 85.1 % (40.0-70.0) H 10/16/20 06:22 Seg Neuts % (Manual) 97.0 % (40.0-70.0) H 10/15/20 09:15 Lymphocytes % (Manual) 3.0 % (13.4-35.0) L 10/14/20 04:00 Reactive Lymphs % (Man) 1.0 % 10/15/20 09:15 Monocytes % (Manual) 2.0 % (0.0-7.3) 10/15/20 09:15 Nucleated RBC % Not Reportable 10/15/20 09:15 Seg Neutrophils # 9.8 K/mm3 (1.8-7.7) H 10/16/20 06:22 Seg Neutrophils # Man 13.7 K/mm3 (1.8-7.7) H 10/15/20 09:15 Band Neutrophils # 0.0 K/mm3 10/15/20 09:15 Lymphocytes # (Manual) 0.0 K/mm3 (1.2-5.4) L 10/15/20 09:15 Abs React Lymphs (Man) 0.1 K/mm3 10/15/20 09:15 Monocytes # (Manual) 0.3 K/mm3 (0.0-0.8) 10/15/20 09:15 Eosinophils # (Manual) 0.0 K/mm3 (0.0-0.4) 10/15/20 09:15 Basophils # (Manual) 0.0 K/mm3 (0.0-0.1) 10/15/20 09:15 Metamyelocytes # 0.0 K/mm3 10/15/20 09:15 Myelocytes # 0.0 K/mm3 10/15/20 09:15 Promyelocytes # 0.0 K/mm3 10/15/20 09:15 Blast Cells # 0.0 K/mm3 10/15/20 09:15 WBC Morphology Not Reportable 10/15/20 09:15 Hypersegmented Neuts Not Reportable 10/15/20 09:15 Hyposegmented Neuts Not Reportable 10/15/20 09:15 Hypogranular Neuts Not Reportable 10/15/20 09:15 Smudge Cells Not Reportable 10/15/20 09:15 Toxic Granulation Not Reportable 10/15/20 09:15 Toxic Vacuolation Not Reportable 10/15/20 09:15 Dohle Bodies Not Reportable 10/15/20 09:15 Pelger-Huet Anomaly Not Reportable 10/15/20 09:15 Blake Rods Not Reportable 10/15/20 09:15 Platelet Estimate Consistent w auto 10/15/20 09:15 Clumped Platelets Not Reportable 10/15/20 09:15 Plt Clumps, EDTA Not Reportable 10/15/20 09:15 Large Platelets Not Reportable 10/15/20 09:15 Giant Platelets Not Reportable 10/15/20 09:15 Platelet Satelliting Not Reportable 10/15/20 09:15 Plt Morphology Comment Not Reportable 10/15/20 09:15 RBC Morphology Normal 10/15/20 09:15 Dimorphic RBCs Not Reportable 10/15/20 09:15 Polychromasia Not Reportable 10/15/20 09:15 Hypochromasia Not Reportable 10/15/20 09:15 Poikilocytosis Not Reportable 10/15/20 09:15 Anisocytosis Not Reportable 10/15/20 09:15 Microcytosis Not Reportable 10/15/20 09:15 Macrocytosis Not Reportable 10/15/20 09:15 Spherocytes Not Reportable 10/15/20 09:15 Pappenheimer Bodies Not Reportable 10/15/20 09:15 Sickle Cells Not Reportable 10/15/20 09:15 Target Cells Not Reportable 10/15/20 09:15 Tear Drop Cells Not Reportable 10/15/20 09:15 Ovalocytes Not Reportable 10/15/20 09:15 Helmet Cells Not Reportable 10/15/20 09:15 [place] Bodies Not Reportable 10/15/20 09:15 [place] Rings Not Reportable 10/15/20 09:15 [place] Cells Not Reportable 10/15/20 09:15 Bite Cells Not Reportable 10/15/20 09:15 Crenated Cell Not Reportable 10/15/20 09:15 Elliptocytes Not Reportable 10/15/20 09:15 Acanthocytes (Spur) Not Reportable 10/15/20 09:15 Rouleaux Not Reportable 10/15/20 09:15 Hemoglobin C Crystals Not Reportable 10/15/20 09:15 Schistocytes Not Reportable 10/15/20 09:15 Malaria parasites Not Reportable 10/15/20 09:15 Chris Bodies Not Reportable 10/15/20 09:15 Hem Pathologist Commnt No 10/15/20 09:15 ABG pH 7.431 (7.320-7.450) 10/13/20 06:46 POC ABG pCO2 38.3 mmHg (32.0-48.0) 10/13/20 06:46 POC ABG pO2 110.7 mmHg (83-108) H 10/13/20 06:46 POC ABG HCO3 24.9 10/13/20 06:46 POC ABG Base Excess 0.8 10/13/20 06:46 ABG Hemoglobin 14.2 (12.0-17.5) 10/13/20 06:46 ABG Oxyhemoglobin 91.6 (94-98) L 10/13/20 05:44 ABG Methemoglobin 0.3 (0.0-1.5) 10/13/20 05:44 ABG Sodium 132.9 mmol/L (136.0-145.0) L 10/13/20 06:46 ABG Potassium 4.5 mmol/L (3.40-4.50) 10/13/20 06:46 ABG Chloride 101.0 mmol/L (98-107) 10/13/20 06:46 ABG Glucose 184 mg/dL (65-95) H 10/13/20 06:46 Carboxyhemoglobin 1.1 (0.5-1.5) 10/13/20 05:44 FiO2 100 10/13/20 06:46 Sodium 137 mmol/L (137-145) 10/16/20 06:22 Potassium 3.6 mmol/L (3.6-5.0) 10/16/20 06:22 Chloride 101.3 mmol/L (98-107) 10/16/20 06:22 Carbon Dioxide 29 mmol/L (22-30) 10/16/20 06:22 Anion Gap 10 mmol/L 10/16/20 06:22 BUN 33 mg/dL (9-20) H 10/16/20 06:22 Creatinine 0.7 mg/dL (0.8-1.3) L 10/16/20 06:22 Estimated GFR > 60 ml/min 10/16/20 06:22 BUN/Creatinine Ratio 47 % 10/16/20 06:22 Glucose 152 mg/dL (75-100) H 10/16/20 06:22 POC Glucose 134 mg/dL (70-105) H 10/16/20 06:12 Lactic Acid 1.70 mmol/L (0.7-2.0) 10/09/20 05:36 Calcium 8.6 mg/dL (8.4-10.2) 10/16/20 06:22 Phosphorus 2.90 mg/dL (2.5-4.5) 10/16/20 06:22 Magnesium 2.00 mg/dL (1.7-2.3) 10/16/20 06:22 Total Bilirubin 1.00 mg/dL (0.1-1.2) 10/16/20 06:22 AST 105 units/L (5-40) H 10/16/20 06:22 ALT 86 units/L (7-56) H 10/16/20 06:22 Alkaline Phosphatase 137 units/L (35-129) H 10/16/20 06:22 Total Protein 5.4 g/dL (6.3-8.2) L 10/16/20 06:22 Albumin 2.3 g/dL (3.9-5) L 10/16/20 06:22 Albumin/Globulin Ratio 0.7 % 10/16/20 06:22 Triglycerides 147 mg/dL (2-149) 10/13/20 04:00 Lipase 20 units/L (13-60) 10/07/20 02:36 Arterial Blood Glucose 184 mg/dL (65-95) H 10/13/20 06:46 Arterial Blood Ionized Calcium 4.6 mg/dL (4.6-5.3) 10/13/20 06:46 Urine Color Celine (Yellow) 10/07/20 Unknown Urine Turbidity Clear (Clear) 10/07/20 Unknown Urine pH 5.0 (5.0-7.0) 10/07/20 Unknown Ur Specific Nelson 1.041 (1.003-1.030) H 10/07/20 Unknown Urine Protein 30 mg/dl mg/dL (Negative) 10/07/20 Unknown Urine Glucose (UA) Neg mg/dL (Negative) 10/07/20 Unknown Urine Ketones Neg mg/dL (Negative) 10/07/20 Unknown Urine Blood Neg (Negative) 10/07/20 Unknown Urine Nitrite Neg (Negative) 10/07/20 Unknown Urine Bilirubin Neg (Negative) 10/07/20 Unknown Urine Urobilinogen < 2.0 mg/dL (<2.0) 10/07/20 Unknown Ur Leukocyte Esterase Neg (Negative) 10/07/20 Unknown Urine WBC (Auto) 2.0 /HPF (0.0-6.0) 10/07/20 Unknown Urine RBC (Auto) 4.0 /HPF (0.0-6.0) 10/07/20 Unknown U Epithel Cells (Auto) < 1.0 /HPF (0-13.0) 10/07/20 Unknown Urine Mucus Few /HPF 10/07/20 Unknown Blood Type A POSITIVE 10/11/20 21:30 Antibody Screen Negative 10/11/20 21:30 Microbiology: Microbiology 10/13/20 13:35 Peripheral/Venous Blood Culture - Preliminary NO GROWTH AFTER 48 HOURS 10/13/20 13:35 Peripheral/Venous Blood Culture - Preliminary NO GROWTH AFTER 48 HOURS 10/13/20 08:38 Urine,Junior Port Urine Culture - Final NO GROWTH AFTER 48 HOURS Junior/IV: Voiding Method Condom Catheter IV Catheter Type [Right Upper PICC Line arm] IV Catheter Type [Right] Peripheral IV Active Medications - Current Medications Current Medications: Generic Name Dose Route Start Last Admin Trade Name Freq PRN Reason Stop Dose Admin Acetaminophen 650 mg 10/13/20 08:40 10/13/20 09:02 Acetaminophen 650 Mg Rect Supp AL 650 mg Q4H PRN Administration Non Cardiac Pain or Temp>100.5 Bisacodyl 10 mg 10/12/20 10:00 10/16/20 09:20 Bisacodyl 10 Mg Rect Supp AL 10 mg QDAY JOSH Administration Famotidine 20 mg 10/09/20 10:00 10/16/20 09:16 Famotidine 20 Mg/2 Ml Inj IV 20 mg BID JOSH Administration Hydralazine HCl 5 mg 10/07/20 06:52 10/11/20 05:17 Hydralazine 20 Mg/1 Ml Inj IV 5 mg Q30MIN PRN Administration Hypertension Hydromorphone HCl 1 mg 10/14/20 06:51 10/16/20 00:51 Hydromorphone 1 Mg/1 Ml Inj IV 1 mg Q3H PRN Administration Pain , Severe (7-10) Hydrophilic Ointment 1 applic 10/11/20 19:50 10/15/20 02:10 Lip Therapy Vaseline TP 1 applic Q2HR PRN Administration Dry Lips Levofloxacin/Dextrose 750 mg in 150 mls @ 100 mls/hr 10/14/20 13:00 10/15/20 12:49 Levaquin 750mg/150ml IV 100 mls/hr Q24H FOR[facility]1983 Administration Protocol Amino Acids/Electrolytes/Dextrose 3,000 mls @ 125 mls/hr 10/15/20 20:00 10/15/20 22:24 Tpn Adult IV 10/16/20 19:59 125 mls/hr DAILY@2000 FOR[facility], [facility]1983 Administration Protocol Ketorolac Tromethamine 15 mg 10/13/20 22:00 10/16/20 05:23 Ketorolac 30 Mg/1 Ml Inj IV 10/18/20 21:59 15 mg Q8HR [facility]1983 Administration Melatonin 5 mg 10/16/20 22:00 Melatonin 5 Mg Tab PO QHS PRN Sleep Mirtazapine 7.5 mg 10/15/20 22:00 10/16/20 04:51 Mirtazapine 15 Mg Tab PO Not Given QHS FOR[facility]LY [facility], [facility]–1983 Multi-Ingred Cream/Lotion/Oil/Oint 1 applic 10/11/20 19:50 Mineral Oil/Petrolatum, White Ophth Oint 3.5 Gm OU Q4HR PRN Dry Eye(s) Ondansetron HCl 4 mg 10/07/20 06:18 10/11/20 13:50 Ondansetron 4 Mg/2 Ml Inj IV 4 mg Q8H PRN Administration Nausea And Vomiting Phenol 1 spray 10/14/20 10:40 10/14/20 14:31 Phenol 1.4% 177 Ml Bottle MM 1 spray PRN PRN Administration Sore Throat Sodium Chloride 10 ml 10/07/20 10:00 10/16/20 00:51 Sodium Chloride 0.9% 10 Ml Flush Syringe IV 10 ml BID JOSH Administration Sodium Chloride 10 ml 10/07/20 06:18 10/08/20 18:42 Sodium Chloride 0.9% 10 Ml Flush Syringe IV 10 ml PRN PRN Administration LINE FLUSH Nutrition/Malnutrition Assess - Dietary Evaluation Nutrition/Malnutrition Findings: Nutrition Notes Start: 10/08/20 13:34 Freq: Status: Active Protocol: Document 10/16/20 11:15 LM (Rec: 10/16/20 11:19 LM [id number]) Nutrition Notes Initial or Follow up Reassessment Current Diagnosis Coronary Artery Disease, Hypertension,Hyperlipidemia Other Pertinent Diagnosis s/p exp lap wounds, SBO, hernia, hx. multiple bowel surgeries Current Diet CPN at 125ml/hr Labs/Tests BUN 33 Cr 0.7 Pertinent Medications Reviewed Height 6 ft 2 in Weight 95.254 kg [place] Body Weight (kg) 86.36 BMI 26.9 Weight Status Appropriate Subjective/Other Information CPN day 8. CPN running at 125ml/hr. NGT to LIS. Percent of energy/protein needs met: 64%/100% Burn Absent Trauma Absent GI Symptoms Other Current % PO Negligible Minimum of two criteria No physical signs of malnutrition #2 Nutrition Diagnosis Increased nutrient needs ( specify in comment below) Diagnosis Progress(for reassessment Continues documentation) #1 Nutrition Diagnosis Inadequate energy intake Diagnosis Progress(for reassessment Continues documentation) Is patient on ventilator? No Is Patient Ambulatory and/or Out of Bed No REE-([facility]-confined to bed) [phone] Calculation Used for Recommendations [facility] Additional Notes Protein needs are 114-143g (1. 2-1.5g/kg) Fluid needs: 1 mL/kcal Nutrition Intervention Change Diet Order: TPN Nutrition Support: CPN at 125 mL/hr: 100 mEq K, MTV. Osmolarity: 1016 Osm/L Kcal 1,367 Protein (gm) 125 Carbohydrates (gm) 255 Fat (gm) 0 Fluid (mL) 3,000 Fiber (gm) 0 Goal #1 Meet kcal and protein needs as best as possible via CPN Goal #2 Wound healing Anticipated Discharge Needs: Unable to determine at this time Follow-Up By: 10/17/20 Additional Comments FU for labs in AM: Mg ZOE, Nancie
--- NOTE | 2020-10-16 11:46 | Progress Note ---
Assessment and Plan POD#3 s/p abdominal exploration, g-tube placement, and abdominal wall closure with mesh. Afebrile and stable. tachycardia resolved. continue IV fluids and TPN. showing signs of resolving post op ileus slowly. will start trial of sips of c lears. will get PT evaluation Subjective Date of service: 10/16/20 Patient Reports: Positive: still having pain, pain is less Narrative: no acute events overnight. Pt was transferred out of ICU and to the regular floor. Pt says he has passed a small amount of gas, and a smear of stool. denies n/v. He was sitting at the bed side commode upon arrival. Objective Vital Signs - 12hr 10/16/20 10/16/20 10/16/20 00:00 00:45 00:51 Temperature 98.6 F Pulse Rate 85 Respiratory 17 17 17 Rate Blood Pressure Blood Pressure 130/91 [Left] O2 Sat by Pulse 94 96 Oximetry 10/16/20 10/16/20 10/16/20 01:21 05:21 05:23 Temperature 98.3 F Pulse Rate 78 Respiratory 17 17 17 Rate Blood Pressure Blood Pressure 138/81 [Left] O2 Sat by Pulse 94 Oximetry 10/16/20 10/16/20 05:53 07:56 Temperature 97.7 F Pulse Rate Respiratory 17 18 Rate Blood Pressure 135/82 Blood Pressure [Left] O2 Sat by Pulse 93 Oximetry - General physical appearance well developed, no distress, moderate pain - Respiratory normal expansion, normal respiratory effort - Abdomen soft, not distended, other (appropriately tender, g-tube in place with minimal drainage) - Labs 10/16/20 06:22 10/16/20 06:22 Diabetes panel 10/16/20 Range/Units 06:22 Sodium 137 (137-145) mmol/L Potassium 3.6 (3.6-5.0) mmol/L Chloride 101.3 (98-107) mmol/L Carbon Dioxide 29 (22-30) mmol/L BUN 33 H (9-20) mg/dL Creatinine 0.7 L (0.8-1.3) mg/dL Glucose 152 H (75-100) mg/dL Calcium 8.6 (8.4-10.2) mg/dL AST 105 H (5-40) units/L ALT 86 H (7-56) units/L Alkaline Phosphatase 137 H (35-129) units/L Total Protein 5.4 L (6.3-8.2) g/dL Albumin 2.3 L (3.9-5) g/dL Calcium panel 10/16/20 Range/Units 06:22 Calcium 8.6 (8.4-10.2) mg/dL Phosphorus 2.90 (2.5-4.5) mg/dL Albumin 2.3 L (3.9-5) g/dL Pituitary panel 10/16/20 Range/Units 06:22 Sodium 137 (137-145) mmol/L Potassium 3.6 (3.6-5.0) mmol/L Chloride 101.3 (98-107) mmol/L Carbon Dioxide 29 (22-30) mmol/L BUN 33 H (9-20) mg/dL Creatinine 0.7 L (0.8-1.3) mg/dL Glucose 152 H (75-100) mg/dL Calcium 8.6 (8.4-10.2) mg/dL Adrenal panel 10/16/20 Range/Units 06:22 Sodium 137 (137-145) mmol/L Potassium 3.6 (3.6-5.0) mmol/L Chloride 101.3 (98-107) mmol/L Carbon Dioxide 29 (22-30) mmol/L BUN 33 H (9-20) mg/dL Creatinine 0.7 L (0.8-1.3) mg/dL Glucose 152 H (75-100) mg/dL Calcium 8.6 (8.4-10.2) mg/dL Total Bilirubin 1.00 (0.1-1.2) mg/dL AST 105 H (5-40) units/L ALT 86 H (7-56) units/L Alkaline Phosphatase 137 H (35-129) units/L Total Protein 5.4 L (6.3-8.2) g/dL Albumin 2.3 L (3.9-5) g/dL
[2020-10-16] MEDS ORDERED: SODIUM CHLORIDE 0.9% 500 ML 500 ML IV ONE (11:48)
--- NOTE | 2020-10-16 11:48 | Progress Note ---
Assessment and Plan 75 y/o male with complex abdomen from multiple prior abdominal surgeries, now admitted to ICU for vent management until abdomen can be closed. 10/16/20: Patient got a lot of fluid post op. consider maybe a one time dose of lasix if not able to wean FiO2. Continue IS. OOB to chair and ambulate when surgery is ready for this. Will continue to follow. 10/15/20: Await repeat labs. If normal, will speak with surgery about transfer. 10/14/20: Extubate today. Transfer to surgical floor as long as surgery ok with this. 10/13/20: To OR today. Will assess pulm status post surgery. Will discuss with surgery future plans prior to making plans on extubation. Supportive care. 1. Adequate sedation and pain control with continuos drips 2. Already on TPN 3. Gi prophylaxis 4. Junior catheter 5. Vent support. CCT 31 minutes. Subjective Date of service: 10/16/20 Principal diagnosis: Small bowel obstruction Interval history: Successful transfer to floor on yesterday. Documented as being 5 liters NC. Sats in the mid 90's. Objective Vital Signs - 12hr 10/16/20 10/16/20 10/16/20 00:00 00:45 00:51 Temperature 98.6 F Pulse Rate 85 Respiratory 17 17 17 Rate Blood Pressure Blood Pressure 130/91 [Left] O2 Sat by Pulse 94 96 Oximetry 10/16/20 10/16/20 10/16/20 01:21 05:21 05:23 Temperature 98.3 F Pulse Rate 78 Respiratory 17 17 17 Rate Blood Pressure Blood Pressure 138/81 [Left] O2 Sat by Pulse 94 Oximetry 10/16/20 10/16/20 05:53 07:56 Temperature 97.7 F Pulse Rate Respiratory 17 18 Rate Blood Pressure 135/82 Blood Pressure [Left] O2 Sat by Pulse 93 Oximetry Constitutional: comatose Eyes: non-icteric ENT: other (orally intubated and sedated) Neck: supple Effort: normal Ascultation: Bilateral: clear Percussion: Bilateral: not dull Cardiovascular: regular rate and rhythm Gastrointestinal: other (open abdomen) CBC and BMP: 10/16/20 06:22 10/16/20 06:22 ABG, PT/INR, D-dimer: ABG ABG pH 7.431 (7.320-7.450) 10/13/20 06:46 POC ABG pCO2 38.3 mmHg (32.0-48.0) 10/13/20 06:46 POC ABG pO2 110.7 mmHg (83-108) H 10/13/20 06:46 POC ABG HCO3 24.9 10/13/20 06:46 Abnormal lab findings: Abnormal Labs 10/07/20 10/07/20 10/07/20 02:36 02:36 Unknown WBC RBC 5.27 H Hgb 16.9 H Hct 49.9 H MCV 95 H MCH MCHC RDW Lymph % (Auto) 7.0 L [place] % (Auto) Lymph # (Auto) 0.8 L [place] # (Auto) Seg Neutrophils % 86.4 H Seg Neuts % (Manual) Lymphocytes % (Manual) Seg Neutrophils # 9.5 H Seg Neutrophils # Man Lymphocytes # (Manual) POC ABG pO2 ABG Oxyhemoglobin ABG Sodium ABG Glucose Sodium Potassium Chloride Carbon Dioxide 18 L BUN 22 H Creatinine Glucose 217 H POC Glucose Calcium Phosphorus Magnesium AST ALT Alkaline Phosphatase Total Protein Albumin Arterial Blood Glucose Arterial Blood Ionized Calcium Ur Specific [place] 1.041 H 10/08/20 10/08/20 10/09/20 05:38 05:38 00:31 WBC RBC Hgb 16.2 H Hct 48.6 H MCV 97 H MCH MCHC RDW 15.3 H Lymph % (Auto) 7.8 L [place] % (Auto) 10.3 H Lymph # (Auto) 0.7 L [place] # (Auto) 1.0 H Seg Neutrophils % 81.8 H Seg Neuts % (Manual) Lymphocytes % (Manual) Seg Neutrophils # 7.8 H Seg Neutrophils # Man Lymphocytes # (Manual) POC ABG pO2 ABG Oxyhemoglobin ABG Sodium ABG Glucose Sodium Potassium Chloride Carbon Dioxide 21 L BUN 52 H Creatinine 2.0 H D Glucose 209 H POC Glucose 142 H Calcium Phosphorus Magnesium AST ALT Alkaline Phosphatase Total Protein Albumin Arterial Blood Glucose Arterial Blood Ionized Calcium Ur Specific [place] 10/09/20 10/09/20 10/09/20 05:36 05:36 05:36 WBC RBC Hgb 15.5 H Hct 45.7 H MCV 96 H MCH 33 H MCHC RDW Lymph % (Auto) 8.3 L [place] % (Auto) 12.5 H Lymph # (Auto) 0.7 L [place] # (Auto) 1.1 H Seg Neutrophils % 78.2 H Seg Neuts % (Manual) Lymphocytes % (Manual) Seg Neutrophils # Seg Neutrophils # Man Lymphocytes # (Manual) POC ABG pO2 ABG Oxyhemoglobin ABG Sodium ABG Glucose Sodium Potassium Chloride 107.8 H Carbon Dioxide 21 L BUN 42 H Creatinine Glucose 160 H POC Glucose Calcium Phosphorus Magnesium 2.60 H AST ALT Alkaline Phosphatase Total Protein Albumin 3.7 L Arterial Blood Glucose Arterial Blood Ionized Calcium Ur Specific [place] 10/09/20 10/09/20 10/09/20 11:17 15:48 21:51 WBC RBC Hgb Hct MCV MCH MCHC RDW Lymph % (Auto) [place] % (Auto) Lymph # (Auto) [place] # (Auto) Seg Neutrophils % Seg Neuts % (Manual) Lymphocytes % (Manual) Seg Neutrophils # Seg Neutrophils # Man Lymphocytes # (Manual) POC ABG pO2 ABG Oxyhemoglobin ABG Sodium ABG Glucose Sodium Potassium Chloride Carbon Dioxide BUN Creatinine Glucose POC Glucose 137 H 122 H 145 H Calcium Phosphorus Magnesium AST ALT Alkaline Phosphatase Total Protein Albumin Arterial Blood Glucose Arterial Blood Ionized Calcium Ur Specific [place] 10/10/20 10/10/20 10/10/20 04:25 04:25 05:43 WBC 11.1 H RBC Hgb Hct 47.5 H MCV 97 H MCH MCHC RDW Lymph % (Auto) 7.9 L [place] % (Auto) 10.9 H Lymph # (Auto) 0.9 L [place] # (Auto) 1.2 H Seg Neutrophils % 80.6 H Seg Neuts % (Manual) Lymphocytes % (Manual) Seg Neutrophils # 8.9 H Seg Neutrophils # Man Lymphocytes # (Manual) POC ABG pO2 ABG Oxyhemoglobin ABG Sodium ABG Glucose Sodium Potassium 3.5 L Chloride 108.4 H Carbon Dioxide 21 L BUN 27 H Creatinine Glucose 148 H POC Glucose 153 H Calcium Phosphorus Magnesium 2.40 H AST ALT Alkaline Phosphatase Total Protein Albumin Arterial Blood Glucose Arterial Blood Ionized Calcium Ur Specific [place] 10/10/20 10/10/20 10/11/20 11:52 23:26 05:38 WBC RBC Hgb Hct MCV MCH MCHC RDW Lymph % (Auto) [place] % (Auto) Lymph # (Auto) [place] # (Auto) Seg Neutrophils % Seg Neuts % (Manual) Lymphocytes % (Manual) Seg Neutrophils # Seg Neutrophils # Man Lymphocytes # (Manual) POC ABG pO2 ABG Oxyhemoglobin ABG Sodium ABG Glucose Sodium Potassium Chloride Carbon Dioxide BUN 23 H Creatinine 0.7 L Glucose 158 H POC Glucose 149 H 140 H Calcium Phosphorus Magnesium AST ALT Alkaline Phosphatase Total Protein Albumin Arterial Blood Glucose Arterial Blood Ionized Calcium Ur Specific [place] 10/11/20 10/11/20 10/11/20 06:20 12:19 21:05 WBC RBC Hgb Hct MCV MCH MCHC RDW Lymph % (Auto) [place] % (Auto) Lymph # (Auto) [place] # (Auto) Seg Neutrophils % Seg Neuts % (Manual) Lymphocytes % (Manual) Seg Neutrophils # Seg Neutrophils # Man Lymphocytes # (Manual) POC ABG pO2 ABG Oxyhemoglobin ABG Sodium ABG Glucose Sodium Potassium Chloride Carbon Dioxide BUN Creatinine Glucose POC Glucose 169 H 174 H 140 H Calcium Phosphorus Magnesium AST ALT Alkaline Phosphatase Total Protein Albumin Arterial Blood Glucose Arterial Blood Ionized Calcium Ur Specific [place] 10/11/20 10/12/20 10/12/20 23:58 04:00 04:00 WBC RBC Hgb Hct MCV 97 H MCH MCHC RDW Lymph % (Auto) 7.2 L [place] % (Auto) Lymph # (Auto) 0.8 L [place] # (Auto) Seg Neutrophils % 85.6 H Seg Neuts % (Manual) Lymphocytes % (Manual) Seg Neutrophils # 9.1 H Seg Neutrophils # Man Lymphocytes # (Manual) POC ABG pO2 ABG Oxyhemoglobin ABG Sodium ABG Glucose Sodium Potassium Chloride Carbon Dioxide BUN 29 H Creatinine Glucose 171 H POC Glucose 139 H Calcium 7.6 L D Phosphorus Magnesium AST ALT Alkaline Phosphatase Total Protein Albumin Arterial Blood Glucose Arterial Blood Ionized Calcium Ur Specific [place] 10/12/20 10/12/20 10/12/20 05:55 12:27 18:04 WBC RBC Hgb Hct MCV MCH MCHC RDW Lymph % (Auto) [place] % (Auto) Lymph # (Auto) [place] # (Auto) Seg Neutrophils % Seg Neuts % (Manual) Lymphocytes % (Manual) Seg Neutrophils # Seg Neutrophils # Man Lymphocytes # (Manual) POC ABG pO2 ABG Oxyhemoglobin ABG Sodium ABG Glucose Sodium Potassium Chloride Carbon Dioxide BUN Creatinine Glucose POC Glucose 154 H 151 H 141 H Calcium Phosphorus Magnesium AST ALT Alkaline Phosphatase Total Protein Albumin Arterial Blood Glucose Arterial Blood Ionized Calcium Ur Specific [place] 10/12/20 10/13/20 10/13/20 23:25 04:00 05:17 WBC RBC Hgb Hct MCV MCH MCHC RDW Lymph % (Auto) [place] % (Auto) Lymph # (Auto) [place] # (Auto) Seg Neutrophils % Seg Neuts % (Manual) Lymphocytes % (Manual) Seg Neutrophils # Seg Neutrophils # Man Lymphocytes # (Manual) POC ABG pO2 ABG Oxyhemoglobin ABG Sodium ABG Glucose Sodium Potassium Chloride Carbon Dioxide 31 H D BUN 28 H Creatinine Glucose 151 H POC Glucose 134 H 167 H Calcium 8.3 L Phosphorus Magnesium 2.40 H AST ALT Alkaline Phosphatase Total Protein Albumin Arterial Blood Glucose Arterial Blood Ionized Calcium Ur Specific [place] 10/13/20 10/13/20 10/13/20 05:44 06:46 11:35 WBC RBC Hgb Hct MCV MCH MCHC RDW Lymph % (Auto) [place] % (Auto) Lymph # (Auto) [place] # (Auto) Seg Neutrophils % Seg Neuts % (Manual) Lymphocytes % (Manual) Seg Neutrophils # Seg Neutrophils # Man Lymphocytes # (Manual) POC ABG pO2 64.3 L 110.7 H ABG Oxyhemoglobin 91.6 L ABG Sodium 129.4 L 132.9 L ABG Glucose 165 H 184 H Sodium Potassium Chloride Carbon Dioxide BUN Creatinine Glucose POC Glucose 154 H Calcium Phosphorus Magnesium AST ALT Alkaline Phosphatase Total Protein Albumin Arterial Blood Glucose 165 H 184 H Arterial Blood Ionized Calcium 4.5 L Ur Specific [place] 10/13/20 10/13/20 10/13/20 13:00 13:00 14:14 WBC 11.8 H RBC 3.64 L Hgb 11.7 L Hct MCV 104 H MCH MCHC 31 L RDW 16.9 H Lymph % (Auto) 5.2 L [place] % (Auto) Lymph # (Auto) 0.6 L [place] # (Auto) Seg Neutrophils % 87.5 H Seg Neuts % (Manual) Lymphocytes % (Manual) Seg Neutrophils # 10.4 H Seg Neutrophils # Man Lymphocytes # (Manual) POC ABG pO2 ABG Oxyhemoglobin ABG Sodium ABG Glucose Sodium Potassium Chloride 86.5 L Carbon Dioxide 31 H BUN 25 H 27 H Creatinine 0.7 L Glucose 823 H* 155 H POC Glucose Calcium 8.1 L 8.3 L Phosphorus Magnesium AST ALT Alkaline Phosphatase Total Protein 4.2 L D 5.1 L D Albumin 2.5 L 3.0 L Arterial Blood Glucose Arterial Blood Ionized Calcium Ur Specific [place] 10/13/20 10/14/20 10/14/20 23:26 04:00 04:00 WBC 14.6 H RBC Hgb Hct MCV 97 H MCH MCHC RDW Lymph % (Auto) [place] % (Auto) Lymph # (Auto) [place] # (Auto) Seg Neutrophils % Seg Neuts % (Manual) 95.0 H Lymphocytes % (Manual) 3.0 L Seg Neutrophils # Seg Neutrophils # Man 13.9 H Lymphocytes # (Manual) 0.4 L POC ABG pO2 ABG Oxyhemoglobin ABG Sodium ABG Glucose Sodium 136 L Potassium Chloride Carbon Dioxide BUN 36 H Creatinine Glucose 157 H POC Glucose 245 H Calcium 8.1 L Phosphorus Magnesium AST ALT Alkaline Phosphatase Total Protein 5.0 L Albumin 2.8 L Arterial Blood Glucose Arterial Blood Ionized Calcium Ur Specific [place] 10/14/20 10/14/20 10/14/20 05:21 11:28 17:25 WBC RBC Hgb Hct MCV MCH MCHC RDW Lymph % (Auto) [place] % (Auto) Lymph # (Auto) [place] # (Auto) Seg Neutrophils % Seg Neuts % (Manual) Lymphocytes % (Manual) Seg Neutrophils # Seg Neutrophils # Man Lymphocytes # (Manual) POC ABG pO2 ABG Oxyhemoglobin ABG Sodium ABG Glucose Sodium Potassium Chloride Carbon Dioxide BUN Creatinine Glucose POC Glucose 162 H 215 H 157 H Calcium Phosphorus Magnesium AST ALT Alkaline Phosphatase Total Protein Albumin Arterial Blood Glucose Arterial Blood Ionized Calcium Ur Specific [place] 10/14/20 10/15/20 10/15/20 23:43 05:35 09:15 WBC 14.1 H RBC 3.33 L Hgb 11.2 L Hct MCV 108 H MCH 34 H MCHC 31 L RDW 16.7 H Lymph % (Auto) [place] % (Auto) Lymph # (Auto) [place] # (Auto) Seg Neutrophils % Seg Neuts % (Manual) 97.0 H Lymphocytes % (Manual) Seg Neutrophils # Seg Neutrophils # Man 13.7 H Lymphocytes # (Manual) 0.0 L POC ABG pO2 ABG Oxyhemoglobin ABG Sodium ABG Glucose Sodium Potassium Chloride Carbon Dioxide BUN Creatinine Glucose POC Glucose 139 H 135 H Calcium Phosphorus Magnesium AST ALT Alkaline Phosphatase Total Protein Albumin Arterial Blood Glucose Arterial Blood Ionized Calcium Ur Specific [place] 10/15/20 10/15/20 10/15/20 09:15 10:14 11:40 WBC RBC Hgb Hct MCV MCH MCHC RDW Lymph % (Auto) [place] % (Auto) Lymph # (Auto) [place] # (Auto) Seg Neutrophils % Seg Neuts % (Manual) Lymphocytes % (Manual) Seg Neutrophils # Seg Neutrophils # Man Lymphocytes # (Manual) POC ABG pO2 ABG Oxyhemoglobin ABG Sodium ABG Glucose Sodium 119 L* D Potassium 7.5 H* D Chloride 86.7 L Carbon Dioxide BUN 31 H 36 H Creatinine 0.7 L Glucose 1165 H* 162 H POC Glucose 146 H Calcium 8.3 L Phosphorus 7.70 H D Magnesium AST ALT Alkaline Phosphatase Total Protein Albumin Arterial Blood Glucose Arterial Blood Ionized Calcium Ur Specific [place] 10/15/20 10/16/20 10/16/20 17:27 06:12 06:22 WBC RBC Hgb Hct MCV MCH MCHC RDW Lymph % (Auto) [place] % (Auto) Lymph # (Auto) [place] # (Auto) Seg Neutrophils % Seg Neuts % (Manual) Lymphocytes % (Manual) Seg Neutrophils # Seg Neutrophils # Man Lymphocytes # (Manual) POC ABG pO2 ABG Oxyhemoglobin ABG Sodium ABG Glucose Sodium Potassium Chloride Carbon Dioxide BUN 33 H Creatinine 0.7 L Glucose 152 H POC Glucose 116 H 134 H Calcium Phosphorus Magnesium AST 105 H ALT 86 H Alkaline Phosphatase 137 H Total Protein 5.4 L Albumin 2.3 L Arterial Blood Glucose Arterial Blood Ionized Calcium Ur Specific [place] 10/16/20 06:22 WBC 11.5 H RBC Hgb Hct MCV 97 H MCH MCHC RDW Lymph % (Auto) 5.9 L [place] % (Auto) Lymph # (Auto) 0.7 L [place] # (Auto) Seg Neutrophils % 85.1 H Seg Neuts % (Manual) Lymphocytes % (Manual) Seg Neutrophils # 9.8 H Seg Neutrophils # Man Lymphocytes # (Manual) POC ABG pO2 ABG Oxyhemoglobin ABG Sodium ABG Glucose Sodium Potassium Chloride Carbon Dioxide BUN Creatinine Glucose POC Glucose Calcium Phosphorus Magnesium AST ALT Alkaline Phosphatase Total Protein Albumin Arterial Blood Glucose Arterial Blood Ionized Calcium Ur Specific [place]
[2020-10-16] MEDS: HEPARIN 5,000 UNIT/1 ML VIAL SUB-Q SCH ×2 (12:16→23:00)
[2020-10-16] MEDS ORDERED: TOTAL PARENTERAL NUTRITION 3,000 ML IV SCH (20:00)
[2020-10-16] MEDS ORDERED: MELATONIN 5 MG TAB PO PRN (22:00)
[2020-10-17] MEDS: HEPARIN 5,000 UNIT/1 ML VIAL SUB-Q SCH ×3 (03:42→21:56)
[2020-10-17] MEDS: KETOROLAC 30 MG/1 ML INJ IV SCH ×3 (05:29→21:55)
[2020-10-17 06:12] LABS: Basophils # (Auto) 0.1 K/mm3 (0.0-0.1); Eosinophils # (Auto) 0.4 K/mm3 (0.0-0.4); Eosinophils % (Auto) 3.7 % (0.0-4.3); Hematocrit 37.2 % (35.5-45.6); Hemoglobin 12.7 gm/dl (11.8-15.2); Lymphocytes % (Auto) 10.2 % (13.4-35.0); Mean Corpuscular HGB Conc 34 % (32-34); Mean Corpuscular Volume 95 fl (84-94); Monocytes # (Auto) 0.9 K/mm3 (0.0-0.8); Monocytes % (Auto) 8.9 % (0.0-7.3); Platelet Count 272 K/mm3 (140-440); Red Blood Count 3.93 M/mm3 (3.65-5.03)
[2020-10-17 06:31] LABS: Blood Urea Nitrogen 25 mg/dL (9-20); Calcium 8.7 mg/dL (8.4-10.2); Hemolysis Index 0
[2020-10-17 06:35] LABS: BUN/Creatinine Ratio 42
--- NOTE | 2020-10-17 08:02 | Progress Note ---
Assessment and Plan Assessment and plan: Patient was admitted with abdominal pain , small bowel obstruction , ventral hernia history of multiple abdominal surgeries and large hiatal hernia, surgery and IR evaluated, Unable to pass NG tube , patient underwent fluoroscopic guided placement of nasojejunostomy tube per IR Patient underwent exploratory laparotomy, lysis of edition, ABThera abdominal vacuum dressing on 10/11/2020, patient is intubated on vent Extubated yesterday 10/14/2020, on 4 L nasal cannula oxygen and TPN, patient is in depressed mood this morning, minimally communicative , psych following Patient feels better today tolerating clear liquids, delirious psych following --Delirium/depression; Patient reports that he is seeing some spiders on the wall Psych following --Hypokalemia; Potassium 3.4, replenished with 40 mEq KCl p.o. Closely monitor electrolytes --Small bowel obstruction/ventral hernia/hiatal hernia 10/11/2020 ;surgical intervention --s/p EXPLORATORY LAPAROTOMY, -EXTENSIVE LYSIS OF ADHESIONS, -ABTHERA ABDOMINAL VACUUM DRESSING Patient is tolerating clear liquids 10/13/2020;second surgical procedure; 10/13/2020 -abdominal exploration, -Gastric tube placement and -abdominal wall closure with phasix mesh Patient tolerated the procedure well Postop care per surgery Patient is tolerating clear liquids Out of bed to chair if okay with surgery --Acute hypoxic respiratory failure; Intubated, on vent 10/11/2020 Status post extubation 10/14/2020, saturating well room air --Acute transaminitis: Closely monitor, trend LFTs Consider GI evaluation if no improvement --Acute kidney injury; secondary to dehydration Vasomotor nephropathy, resolved Closely monitor renal function --History of coronary artery disease; Continue home medications once patient is able to take oral Consider cardiology evaluation if needed --Dyslipidemia; Patient is on statin, currently n.p.o. Resume when patient is stable and able to take p.o. --Severe malnutrition; Nutrition supplements, nutrition consult Patient is already on TPN --DVT prophylaxis; SCDs We will closely monitor patient and adjust management as needed Follow senior professional services consultant recommendations, Continue postop care Plan of care reviewed with the patient's nurse Brief history: Patient was admitted with abdominal pain , small bowel obstruction , ventral hernia history of multiple abdominal surgeries and large hiatal hernia, surgery and IR evaluated, Unable to pass NG tube , patient underwent fluoroscopic guided placement of nasojejunostomy tube per IR Patient underwent exploratory laparotomy, lysis of edition, ABThera abdominal vacuum dressing on 10/11/2020, patient is intubated on vent 10/08/2020; patient has Dobbhoff/nasal jejunostomy tube placement, with intermittent suction Patient feels slightly better, n.p.o. status, management per surgery 10/09/2020 Patient on tube feedings Small bowel obstruction still present Patient reluctant about getting surgery 10/10/2020 Patient counseled about getting surgery Patient had to decide 10/11/2020 Patient has agreed for surgery after long discussion with Dr. Lechuga 10/12/2020; patient had exploratory laparotomy extensive lysis of adhesion and ABThera abdominal vacuum dressing postoperative day 1, patient intubated on ventilatory support 10/13/2020. Patient intubated on ventilatory support, continue current management internship recommendations noted and appreciated 10/14/2020; patient underwent-abdominal exploration,Gastric tube placement and abdominal wall closure with phasix mesh on 10/13/2020 Patient tolerated the procedure well, continue postop care per surgery 10/15/2020; patient is alert and awake, was extubated 10/14/2020, looks depressed, psych evaluated the patient 10/16/2020; patient feels slightly better today, had flatus and small bowel movement, tolerating clear liquids More alert and awake responding appropriately, patient looks very tired 10/17/2020;patient is delirious and depressed intermittently , reports that he has seen some spiders on the wall mild hypokalemia, replenish with KCl, patient tolerating clear liquids Continue current postop care, follow LFTs, if no improvement consult GI, ambulate as tolerated if okay with surgery History Interval history: I have seen and examined the patient at the bedside this morning He is sitting in the chair, reports that he sees sometimes a big spider on the wall Patient has intermittent depression and delirium, psych following Patient had bowel movements Feels better, tolerating clear liquids No new events reported by the nursing staff Vital signs noted Hospitalist Physical - Constitutional Vitals: Temp Pulse Resp BP Pulse Ox 98.2 F 82 18 149/100 96 10/17/20 07:25 10/17/20 07:25 10/17/20 07:25 10/17/20 07:25 10/17/20 06:19 General appearance: Present: mild distress, well-nourished, other (Looks tired, delirious) - EENT Eyes: Present: PERRL, EOM intact - Neck Neck: Present: supple, normal ROM - Respiratory Respiratory effort: normal Respiratory: bilateral: diminished, rhonchi, negative: rales, wheezing - Cardiovascular Rhythm: regular Heart Sounds: Present: S1 & S2 - Extremities Extremities: no ischemia, No edema - Abdominal General gastrointestinal: soft, non-tender, non-distended, normal bowel sounds - Integumentary Integumentary: Present: clear, warm - Psychiatric Psychiatric: appropriate mood/affect, cooperative - Neurologic Neurologic: CNII-XII intact, moves all extremities Results - Labs CBC & Chem 7: 10/17/20 04:00 10/17/20 04:00 Labs: Laboratory Last Values WBC 9.7 K/mm3 (4.5-11.0) 10/17/20 04:00 RBC 3.93 M/mm3 (3.65-5.03) 10/17/20 04:00 Hgb 12.7 gm/dl (11.8-15.2) 10/17/20 04:00 Hct 37.2 % (35.5-45.6) 10/17/20 04:00 MCV 95 fl (84-94) H 10/17/20 04:00 MCH 32 pg (28-32) 10/17/20 04:00 MCHC 34 % (32-34) 10/17/20 04:00 RDW 14.0 % (13.2-15.2) 10/17/20 04:00 Plt Count 272 K/mm3 (140-440) 10/17/20 04:00 Lymph % (Auto) 10.2 % (13.4-35.0) L 10/17/20 04:00 [place] % (Auto) 8.9 % (0.0-7.3) H 10/17/20 04:00 Eos % (Auto) 3.7 % (0.0-4.3) 10/17/20 04:00 Baso % (Auto) 1.0 % (0.0-1.8) 10/17/20 04:00 Lymph # (Auto) 1.0 K/mm3 (1.2-5.4) L 10/17/20 04:00 [place] # (Auto) 0.9 K/mm3 (0.0-0.8) H 10/17/20 04:00 Eos # (Auto) 0.4 K/mm3 (0.0-0.4) 10/17/20 04:00 Baso # (Auto) 0.1 K/mm3 (0.0-0.1) 10/17/20 04:00 Add Manual Diff Complete 10/15/20 09:15 Total Counted 100 10/15/20 09:15 Seg Neutrophils % 76.2 % (40.0-70.0) H 10/17/20 04:00 Seg Neuts % (Manual) 97.0 % (40.0-70.0) H 10/15/20 09:15 Lymphocytes % (Manual) 3.0 % (13.4-35.0) L 10/14/20 04:00 Reactive Lymphs % (Man) 1.0 % 10/15/20 09:15 Monocytes % (Manual) 2.0 % (0.0-7.3) 10/15/20 09:15 Nucleated RBC % Not Reportable 10/15/20 09:15 Seg Neutrophils # 7.4 K/mm3 (1.8-7.7) 10/17/20 04:00 Seg Neutrophils # Man 13.7 K/mm3 (1.8-7.7) H 10/15/20 09:15 Band Neutrophils # 0.0 K/mm3 10/15/20 09:15 Lymphocytes # (Manual) 0.0 K/mm3 (1.2-5.4) L 10/15/20 09:15 Abs React Lymphs (Man) 0.1 K/mm3 10/15/20 09:15 Monocytes # (Manual) 0.3 K/mm3 (0.0-0.8) 10/15/20 09:15 Eosinophils # (Manual) 0.0 K/mm3 (0.0-0.4) 10/15/20 09:15 Basophils # (Manual) 0.0 K/mm3 (0.0-0.1) 10/15/20 09:15 Metamyelocytes # 0.0 K/mm3 10/15/20 09:15 Myelocytes # 0.0 K/mm3 10/15/20 09:15 Promyelocytes # 0.0 K/mm3 10/15/20 09:15 Blast Cells # 0.0 K/mm3 10/15/20 09:15 WBC Morphology Not Reportable 10/15/20 09:15 Hypersegmented Neuts Not Reportable 10/15/20 09:15 Hyposegmented Neuts Not Reportable 10/15/20 09:15 Hypogranular Neuts Not Reportable 10/15/20 09:15 Smudge Cells Not Reportable 10/15/20 09:15 Toxic Granulation Not Reportable 10/15/20 09:15 Toxic Vacuolation Not Reportable 10/15/20 09:15 Dohle Bodies Not Reportable 10/15/20 09:15 Pelger-Huet Anomaly Not Reportable 10/15/20 09:15 Blake Rods Not Reportable 10/15/20 09:15 Platelet Estimate Consistent w auto 10/15/20 09:15 Clumped Platelets Not Reportable 10/15/20 09:15 Plt Clumps, EDTA Not Reportable 10/15/20 09:15 Large Platelets Not Reportable 10/15/20 09:15 Giant Platelets Not Reportable 10/15/20 09:15 Platelet Satelliting Not Reportable 10/15/20 09:15 Plt Morphology Comment Not Reportable 10/15/20 09:15 RBC Morphology Normal 10/15/20 09:15 Dimorphic RBCs Not Reportable 10/15/20 09:15 Polychromasia Not Reportable 10/15/20 09:15 Hypochromasia Not Reportable 10/15/20 09:15 Poikilocytosis Not Reportable 10/15/20 09:15 Anisocytosis Not Reportable 10/15/20 09:15 Microcytosis Not Reportable 10/15/20 09:15 Macrocytosis Not Reportable 10/15/20 09:15 Spherocytes Not Reportable 10/15/20 09:15 Pappenheimer Bodies Not Reportable 10/15/20 09:15 Sickle Cells Not Reportable 10/15/20 09:15 Target Cells Not Reportable 10/15/20 09:15 Tear Drop Cells Not Reportable 10/15/20 09:15 Ovalocytes Not Reportable 10/15/20 09:15 Helmet Cells Not Reportable 10/15/20 09:15 [place] Bodies Not Reportable 10/15/20 09:15 [place] Rings Not Reportable 10/15/20 09:15 [place] Cells Not Reportable 10/15/20 09:15 Bite Cells Not Reportable 10/15/20 09:15 Crenated Cell Not Reportable 10/15/20 09:15 Elliptocytes Not Reportable 10/15/20 09:15 Acanthocytes (Spur) Not Reportable 10/15/20 09:15 Rouleaux Not Reportable 10/15/20 09:15 Hemoglobin C Crystals Not Reportable 10/15/20 09:15 Schistocytes Not Reportable 10/15/20 09:15 Malaria parasites Not Reportable 10/15/20 09:15 Chris Bodies Not Reportable 10/15/20 09:15 Hem Pathologist Commnt No 10/15/20 09:15 ABG pH 7.431 (7.320-7.450) 10/13/20 06:46 POC ABG pCO2 38.3 mmHg (32.0-48.0) 10/13/20 06:46 POC ABG pO2 110.7 mmHg (83-108) H 10/13/20 06:46 POC ABG HCO3 24.9 10/13/20 06:46 POC ABG Base Excess 0.8 10/13/20 06:46 ABG Hemoglobin 14.2 (12.0-17.5) 10/13/20 06:46 ABG Oxyhemoglobin 91.6 (94-98) L 10/13/20 05:44 ABG Methemoglobin 0.3 (0.0-1.5) 10/13/20 05:44 ABG Sodium 132.9 mmol/L (136.0-145.0) L 10/13/20 06:46 ABG Potassium 4.5 mmol/L (3.40-4.50) 10/13/20 06:46 ABG Chloride 101.0 mmol/L (98-107) 10/13/20 06:46 ABG Glucose 184 mg/dL (65-95) H 10/13/20 06:46 Carboxyhemoglobin 1.1 (0.5-1.5) 10/13/20 05:44 FiO2 100 10/13/20 06:46 Sodium 136 mmol/L (137-145) L 10/17/20 04:00 Potassium 3.4 mmol/L (3.6-5.0) L 10/17/20 04:00 Chloride 101.3 mmol/L (98-107) 10/17/20 04:00 Carbon Dioxide 24 mmol/L (22-30) 10/17/20 04:00 Anion Gap 14 mmol/L 10/17/20 04:00 BUN 25 mg/dL (9-20) H 10/17/20 04:00 Creatinine 0.6 mg/dL (0.8-1.3) L 10/17/20 04:00 Estimated GFR > 60 ml/min 10/17/20 04:00 BUN/Creatinine Ratio 42 % 10/17/20 04:00 Glucose 132 mg/dL (75-100) H 10/17/20 04:00 POC Glucose 133 mg/dL (70-105) H 10/17/20 05:54 Lactic Acid 1.70 mmol/L (0.7-2.0) 10/09/20 05:36 Calcium 8.7 mg/dL (8.4-10.2) 10/17/20 04:00 Phosphorus 3.40 mg/dL (2.5-4.5) 10/17/20 04:00 Magnesium 1.80 mg/dL (1.7-2.3) 10/17/20 04:00 Total Bilirubin 1.00 mg/dL (0.1-1.2) 10/16/20 06:22 AST 105 units/L (5-40) H 10/16/20 06:22 ALT 86 units/L (7-56) H 10/16/20 06:22 Alkaline Phosphatase 137 units/L (35-129) H 10/16/20 06:22 Total Protein 5.4 g/dL (6.3-8.2) L 10/16/20 06:22 Albumin 2.3 g/dL (3.9-5) L 10/16/20 06:22 Albumin/Globulin Ratio 0.7 % 10/16/20 06:22 Triglycerides 147 mg/dL (2-149) 10/13/20 04:00 Lipase 20 units/L (13-60) 10/07/20 02:36 Arterial Blood Glucose 184 mg/dL (65-95) H 10/13/20 06:46 Arterial Blood Ionized Calcium 4.6 mg/dL (4.6-5.3) 10/13/20 06:46 Urine Color [place] (Yellow) 10/07/20 Unknown Urine Turbidity Clear (Clear) 10/07/20 Unknown Urine pH 5.0 (5.0-7.0) 10/07/20 Unknown Ur Specific [place] 1.041 (1.003-1.030) H 10/07/20 Unknown Urine Protein 30 mg/dl mg/dL (Negative) 10/07/20 Unknown Urine Glucose (UA) Neg mg/dL (Negative) 10/07/20 Unknown Urine Ketones Neg mg/dL (Negative) 10/07/20 Unknown Urine Blood Neg (Negative) 10/07/20 Unknown Urine Nitrite Neg (Negative) 10/07/20 Unknown Urine Bilirubin Neg (Negative) 10/07/20 Unknown Urine Urobilinogen < 2.0 mg/dL (<2.0) 10/07/20 Unknown Ur Leukocyte Esterase Neg (Negative) 10/07/20 Unknown Urine WBC (Auto) 2.0 /HPF (0.0-6.0) 10/07/20 Unknown Urine RBC (Auto) 4.0 /HPF (0.0-6.0) 10/07/20 Unknown U Epithel Cells (Auto) < 1.0 /HPF (0-13.0) 10/07/20 Unknown Urine Mucus Few /HPF 10/07/20 Unknown Blood Type A POSITIVE 10/11/20 21:30 Antibody Screen Negative 10/11/20 21:30 Microbiology: Microbiology 10/13/20 13:35 Peripheral/Venous Blood Culture - Preliminary NO GROWTH AFTER 72 HOURS 10/13/20 13:35 Peripheral/Venous Blood Culture - Preliminary NO GROWTH AFTER 72 HOURS Junior/IV: Voiding Method Urinal IV Catheter Type [Right Upper PICC Line arm] IV Catheter Type [Right] Peripheral IV Active Medications - Current Medications Current Medications: Generic Name Dose Route Start Last Admin Trade Name Freq PRN Reason Stop Dose Admin Acetaminophen 650 mg 10/13/20 08:40 10/13/20 09:02 Acetaminophen 650 Mg Rect Supp [place] 650 mg Q4H PRN Administration Non Cardiac Pain or Temp>100.5 Bisacodyl 10 mg 10/12/20 10:00 10/16/20 09:20 Bisacodyl 10 Mg Rect Supp WI 10 mg QDAY JOSH Administration Famotidine 20 mg 10/09/20 10:00 10/16/20 22:33 Famotidine 20 Mg/2 Ml Inj IV 20 mg BID JOSH Administration Heparin Sodium (Porcine) 5,000 unit 10/16/20 12:00 10/17/20 03:42 Heparin 5,000 Unit/1 Ml Vial SUB-Q 5,000 unit Q12HR JOSH Administration Hydralazine HCl 5 mg 10/07/20 06:52 10/11/20 05:17 Hydralazine 20 Mg/1 Ml Inj IV 5 mg Q30MIN PRN Administration Hypertension Hydromorphone HCl 1 mg 10/14/20 06:51 10/16/20 21:09 Hydromorphone 1 Mg/1 Ml Inj IV 1 mg Q3H PRN Administration Pain , Severe (7-10) Hydrophilic Ointment 1 applic 10/11/20 19:50 10/15/20 02:10 Lip Therapy Vaseline TP 1 applic Q2HR PRN Administration Dry Lips Levofloxacin/Dextrose 750 mg in 150 mls @ 100 mls/hr 10/14/20 13:00 10/16/20 12:12 Levaquin 750mg/150ml IV 100 mls/hr Q24H JOSH Administration Protocol Amino Acids/Electrolytes/Dextrose 3,000 mls @ 125 mls/hr 10/16/20 20:00 10/16/20 20:00 Tpn Adult IV 10/17/20 19:59 125 mls/hr DAILY@2000 JOSH Administration Protocol Ketorolac Tromethamine 15 mg 10/13/20 22:00 10/17/20 05:29 Ketorolac 30 Mg/1 Ml Inj IV 10/18/20 21:59 15 mg Q8HR JOSH Administration Melatonin 5 mg 10/16/20 22:00 Melatonin 5 Mg Tab PO QHS PRN Sleep Mirtazapine 7.5 mg 10/15/20 22:00 10/16/20 22:33 Mirtazapine 15 Mg Tab PO 7.5 mg QHS JOSH Administration Multi-Ingred Cream/Lotion/Oil/Oint 1 applic 10/11/20 19:50 Mineral Oil/Petrolatum, White Ophth Oint 3.5 Gm OU Q4HR PRN Dry Eye(s) Ondansetron HCl 4 mg 10/07/20 06:18 10/11/20 13:50 Ondansetron 4 Mg/2 Ml Inj IV 4 mg Q8H PRN Administration Nausea And Vomiting Phenol 1 spray 10/14/20 10:40 10/14/20 14:31 Phenol 1.4% 177 Ml Bottle MM 1 spray PRN PRN Administration Sore Throat Potassium Chloride 40 meq 10/17/20 07:56 Potassium Chloride Er 20 Meq Tab PO 10/17/20 07:57 ONCE ONE Sodium Chloride 10 ml 10/07/20 10:00 10/16/20 00:51 Sodium Chloride 0.9% 10 Ml Flush Syringe IV 10 ml BID JOSH Administration Sodium Chloride 10 ml 10/07/20 06:18 10/08/20 18:42 Sodium Chloride 0.9% 10 Ml Flush Syringe IV 10 ml PRN PRN Administration LINE FLUSH Nutrition/Malnutrition Assess - Dietary Evaluation Nutrition/Malnutrition Findings: Nutrition Notes Start: 10/08/20 13:34 Freq: Status: Active Protocol: Document 10/16/20 11:15 LM (Rec: 10/16/20 11:19 LM [id number]) Nutrition Notes Initial or Follow up Reassessment Current Diagnosis Coronary Artery Disease, Hypertension,Hyperlipidemia Other Pertinent Diagnosis s/p exp lap wounds, SBO, hernia, hx. multiple bowel surgeries Current Diet CPN at 125ml/hr Labs/Tests BUN 33 Cr 0.7 Pertinent Medications Reviewed Height 6 ft 2 in Weight 95.254 kg [place] Body Weight (kg) 86.36 BMI 26.9 Weight Status Appropriate Subjective/Other Information CPN day 8. CPN running at 125ml/hr. NGT to LIS. Percent of energy/protein needs met: 64%/100% Burn Absent Trauma Absent GI Symptoms Other Current % PO Negligible Minimum of two criteria No physical signs of malnutrition #2 Nutrition Diagnosis Increased nutrient needs ( specify in comment below) Diagnosis Progress(for reassessment Continues documentation) #1 Nutrition Diagnosis Inadequate energy intake Diagnosis Progress(for reassessment Continues documentation) Is patient on ventilator? No Is Patient Ambulatory and/or Out of Bed No REE-([facility]-confined to bed) 6411.202 Calculation Used for Recommendations [facility] Additional Notes Protein needs are 114-143g (1. 2-1.5g/kg) Fluid needs: 1 mL/kcal Nutrition Intervention Change Diet Order: TPN Nutrition Support: CPN at 125 mL/hr: 100 mEq K, MTV. Osmolarity: 1016 Osm/L Kcal 1,367 Protein (gm) 125 Carbohydrates (gm) 255 Fat (gm) 0 Fluid (mL) 3,000 Fiber (gm) 0 Goal #1 Meet kcal and protein needs as best as possible via CPN Goal #2 Wound healing Anticipated Discharge Needs: Unable to determine at this time Follow-Up By: 10/17/20 Additional Comments FU for labs in AM: BMP, Mg, Phos
[2020-10-17] MEDS: FAMOTIDINE 20 MG/2 ML INJ IV SCH ×2 (08:18→10:00)
[2020-10-17] MEDS: hydrALAZINE 20 MG/1 ML INJ IV PRN (08:50)
[2020-10-17] MEDS ORDERED: POTASSIUM CHLORIDE ER 20 MEQ TAB PO ONE (09:00)
--- NOTE | 2020-10-17 09:34 | Progress Note ---
Subjective - Reason for Consult Consult date: 10/17/20 Reason for consult: delirium - Chief Complaint Chief complaint: Per nurse note: Patient awake most of the night, period of confusion and appeared anxious but remained pleasant. During my interview with the patient today, he is lying down awake but resting with his eyes closed. He is a/o x 1 to 2. He says he didn't realize he was in a hospital. The patient thought he was in a factory. He at first didn't remember who the president of the [place] was, when I informed him, he says "oh yea the daryl who has no business being president, the nonizler, ricci and his cargo service agent who's a prostitute." He appears tired. When telling he looked uncomfortable and tired, he replied "I am tired. I didn't sleep well." The patient says "but it's because of the pain." REVIEW OF SYSTEMS Constitutional: Negative for weight loss ENT: Negative for stridor Respiratory: Negative for cough or hemoptysis All other systems reviewed and are negative MENTAL STATUS EXAMINATION General Appearance and Behavior: Age appropriate, good hygiene, not wearing appropriate clothes, good eye contact, calm and cooperative with questioning. Cooperation: Participating Mood: okay, tired Affect and affective range: congruent with stated mood Thought Process: goal directed Speech: normal tone and pace Intellectual Functioning: Average Thought content: Suicidal Ideation: Denies SI Homicidal Ideation: Denies HI Hallucinations: Denies Delusions: None elicited Impulse Control: Normal Insight and Judgment: Limited insight and judgment Memory: Normal Attention: Normal Orientation: Alert, oriented, confused at times Assessment and Plan (1) Deliruim Current Visit: Yes Status: Acute Treatment Plan Continue Remeron 7.5 qhs to help improve sleep disturbance change to Scheduled Melatonin 5mg po qhs to improve rest Sitter: Defer to primary Medical: Per primary Disposition: Do not recommend acute inpatient psychiatric treatment. Will continue to follow for med management Will follow. Case staffed with Dr. Goff. Mental Status Exam - Vital signs Last Vital Signs Temp 98.2 F 10/17/20 07:25 Pulse 90 10/17/20 08:45 Resp 18 10/17/20 07:25 BP 156/107 10/17/20 08:45 Pulse Ox 96 10/17/20 06:19
[2020-10-17] MEDS ORDERED: oxyCODONE /ACETAMINOPHEN 5-325MG TAB PO PRN (10:27)
--- NOTE | 2020-10-17 10:32 | Progress Note ---
Assessment and Plan POD#4 s/p abdominal exploration, g-tube placement, and abdominal wall closure with mesh. Afebrile and stable. continues to show signs of resolving post op ileus, will advance to full liquids. spoke to dietitian about tapering TPN off. Hopefully PT will evaluate tomorrow. Delirium, off and on. Continue to follow psych recommendations. I spoke to his Manju who will call him later today. She expressed concerns about coming home if he needs a lot of care. Will talk to social work about discharge options. Subjective Date of service: 10/17/20 Patient Reports: Positive: still having pain, pain is less Narrative: No acute events overnight. Pt says he is still having pain but passed a lot of gas earlier this morning. No BM as yet. Tolerated clear liquids yesterday. Pt is confused, says he is seeing people in the painting in his room that are moving and come to visit him. He was seen by psychiatric nurse this morning for follow up. He refused heparin because he has a hx of dverticular bleed and says he does not want to having another bleed. Objective Vital Signs - 12hr 10/16/20 10/16/20 10/17/20 22:34 23:04 04:34 Temperature 98.3 F Pulse Rate 79 Respiratory 18 20 20 Rate Blood Pressure 146/97 Blood Pressure [Left] O2 Sat by Pulse 94 Oximetry 10/17/20 10/17/20 10/17/20 05:29 05:59 06:19 Temperature Pulse Rate 87 Respiratory 18 20 Rate Blood Pressure 146/107 Blood Pressure [Left] O2 Sat by Pulse 96 Oximetry 10/17/20 10/17/20 10/17/20 07:25 08:45 08:50 Temperature 98.2 F Pulse Rate 82 90 90 Respiratory 18 Rate Blood Pressure 156/107 Blood Pressure 149/100 156/107 [Left] O2 Sat by Pulse Oximetry - General physical appearance no distress, no pain - Respiratory normal expansion, normal respiratory effort - Abdomen soft, other (abdominal binder in place with g-tube intact, stable line c/d/i, appropriately tender to palpation) - Psychiatric other (confused, saying his and I are conspiring against him to move him around the hospital, and he thinks he is going to surgery again.) - Labs 10/17/20 04:00 10/17/20 04:00 Diabetes panel 10/17/20 Range/Units 04:00 Sodium 136 L (137-145) mmol/L Potassium 3.4 L (3.6-5.0) mmol/L Chloride 101.3 (98-107) mmol/L Carbon Dioxide 24 (22-30) mmol/L BUN 25 H (9-20) mg/dL Creatinine 0.6 L (0.8-1.3) mg/dL Glucose 132 H (75-100) mg/dL Calcium 8.7 (8.4-10.2) mg/dL Calcium panel 10/17/20 Range/Units 04:00 Calcium 8.7 (8.4-10.2) mg/dL Phosphorus 3.40 (2.5-4.5) mg/dL Pituitary panel 10/17/20 Range/Units 04:00 Sodium 136 L (137-145) mmol/L Potassium 3.4 L (3.6-5.0) mmol/L Chloride 101.3 (98-107) mmol/L Carbon Dioxide 24 (22-30) mmol/L BUN 25 H (9-20) mg/dL Creatinine 0.6 L (0.8-1.3) mg/dL Glucose 132 H (75-100) mg/dL Calcium 8.7 (8.4-10.2) mg/dL Adrenal panel 10/17/20 Range/Units 04:00 Sodium 136 L (137-145) mmol/L Potassium 3.4 L (3.6-5.0) mmol/L Chloride 101.3 (98-107) mmol/L Carbon Dioxide 24 (22-30) mmol/L BUN 25 H (9-20) mg/dL Creatinine 0.6 L (0.8-1.3) mg/dL Glucose 132 H (75-100) mg/dL Calcium 8.7 (8.4-10.2) mg/dL
[2020-10-17] MEDS ORDERED: POLYETHYLENE GLYCOL 3350 17 GM POWDER PO SCH (11:00)
[2020-10-17 11:08] LABS: Albumin 2.8 g/dL (3.9-5); Bilirubin,Direct 0.5 mg/dL (0-0.2)
--- NOTE | 2020-10-17 14:54 | Gastroenterology Consultation ---
History of Present Illness - Reason for Consult Consult date: 10/17/20 Abnormal LFTs Requesting physician: ASHLEY REYES - History of Present Illness The patient is a 75 yo male admitted with SBO, and who has had 2 surgeries (initial CIARAN, then closure of mesh; also repair of significant HH). We are consulted for abnl LFTs of the last few days. The patient is mildly delerious (sundowning) and can give some details of his medical history, but is vague about dates/places/procedures at other times. He has a long hx of multiple GI surgeries, and this admit duarte at least his seventh (LOAs, HH repair/fundoplication, sigmoid colectomy, CCY, CIARAN/SBO, splenectomy, etc). He has no hx of liver disease, and LFTs were normal on admit. He has no specific RUQ pain or anorexia, just generalized pain after the surgery. He has no hx of hepatitis, and denies EtOH at home. He has a sister with cryptogenic cirrhosis by his report. His imaging this admit, including CT scans, show no worrisome hepatic lesions. Past History Past Medical History: CAD, hypertension, hyperlipidemia, other (Obesity) Past Surgical History: cholecystectomy, hernia repair, bowel surgery, Other (partial colectomy, mesh removal and replacement with biologic, splenectomy) Social history: , lives with family Family history: hypertension Medications and Allergies Allergies Allergy/AdvReac Type Severity Reaction Status Date / Time No Known Allergies Allergy Verified 07/25/13 22:46 Home Medications Medication Instructions Recorded Confirmed Last Taken Type Aspirin 325 mg PO ONCE #30 tablet 08/01/13 09/10/13 09/10/13 10:24 Rx 325 mg Clopidogrel [Plavix] 75 mg PO QDAY #30 tablet 08/01/13 09/10/13 09/10/13 10:23 Rx 75 mg Rosuvastatin (Nf) [Crestor] 20 mg PO QHS #30 tablet 08/01/13 09/10/13 09/09/13 22:00 Rx 20 mg Warfarin [Coumadin] 5 mg PO QDAY #30 tablet 08/01/13 09/10/13 09/09/13 22:00 Rx 5 mg Hydrocodone Bit/Acetaminophen 1 each PO Q8H PRN #14 tablet 09/10/13 Unknown Rx [Lortab 7.5-500 mg] Active Meds: Active Medications Acetaminophen (Acetaminophen 650 Mg Rect Supp) 650 mg SC Q4H PRN PRN Reason: Non Cardiac Pain or Temp>100.5 Last Admin: 10/13/20 09:02 Dose: 650 mg Documented by: Bisacodyl (Bisacodyl 10 Mg Rect Supp) 10 mg SC QDAY [facility] Last Admin: 10/16/20 09:20 Dose: 10 mg Documented by: Heparin Sodium (Porcine) (Heparin 5,000 Unit/1 Ml Vial) 5,000 unit SUB-Q Q12HR [facility] Last Admin: 10/17/20 14:10 Dose: 5,000 unit Documented by: Hydralazine HCl (Hydralazine 20 Mg/1 Ml Inj) 5 mg IV Q30MIN PRN PRN Reason: Hypertension Last Admin: 10/17/20 08:50 Dose: 5 mg Documented by: Hydromorphone HCl (Hydromorphone 1 Mg/1 Ml Inj) 1 mg IV Q3H PRN PRN Reason: Pain , Severe (7-10) Last Admin: 10/16/20 21:09 Dose: 1 mg Documented by: Hydrophilic Ointment (Lip Therapy Vaseline) 1 applic TP Q2HR PRN PRN Reason: Dry Lips Last Admin: 10/15/20 02:10 Dose: 1 applic Documented by: Levofloxacin/Dextrose (Levaquin 750mg/150ml) 750 mg in 150 mls @ 100 mls/hr IV Q24H [facility]; Protocol Last Admin: 10/17/20 12:17 Dose: 100 mls/hr Documented by: Amino Acids/Electrolytes/Dextrose (Tpn Adult) 3,000 mls @ 125 mls/hr IV DAILY@1999 [facility]; Protocol Stop: 10/17/20 19:59 Last Admin: 10/16/20 20:00 Dose: 125 mls/hr Documented by: Amino Acids/Electrolytes/Dextrose (Tpn Adult) 3,000 mls @ 125 mls/hr IV DAILY@1999 [facility]; Protocol Stop: 10/18/20 19:59 Ketorolac Tromethamine (Ketorolac 30 Mg/1 Ml Inj) 15 mg IV Q8HR [facility] Stop: 10/18/20 21:59 Last Admin: 10/17/20 05:29 Dose: 15 mg Documented by: Melatonin (Melatonin 5 Mg Tab) 5 mg PO QHS [facility] Mirtazapine (Mirtazapine 15 Mg Tab) 7.5 mg PO QHS [facility] Last Admin: 10/16/20 22:33 Dose: 7.5 mg Documented by: Multi-Ingred Cream/Lotion/Oil/Oint (Mineral Oil/Petrolatum, White Ophth Oint 3.5 Gm) 1 applic OU Q4HR PRN PRN Reason: Dry Eye(s) Multivitamins (Multivitamins ,Therapeutic Tab) 1 each PO QDAY [facility] Ondansetron HCl (Ondansetron 4 Mg/2 Ml Inj) 4 mg IV Q8H PRN PRN Reason: Nausea And Vomiting Last Admin: 10/11/20 13:50 Dose: 4 mg Documented by: Oxycodone/Acetaminophen (Oxycodone /Acetaminophen 5-325mg Tab) 2 tab PO Q6H PRN PRN Reason: Pain, Moderate (4-6) Pantoprazole Sodium (Pantoprazole 40 Mg Tab) 40 mg PO QDAC [facility] Phenol (Phenol 1.4% 177 Ml Bottle) 1 spray MM PRN PRN PRN Reason: Sore Throat Last Admin: 10/14/20 14:31 Dose: 1 spray Documented by: Polyethylene Glycol (Polyethylene Glycol 3350 17 Gm Powder) 17 gm PO QDAY [facility] Last Admin: 10/17/20 12:18 Dose: 17 gm Documented by: Sodium Chloride (Sodium Chloride 0.9% 10 Ml Flush Syringe) 10 ml IV BID [facility] Last Admin: 10/16/20 00:51 Dose: 10 ml Documented by: Sodium Chloride (Sodium Chloride 0.9% 10 Ml Flush Syringe) 10 ml IV PRN PRN PRN Reason: LINE FLUSH Last Admin: 10/08/20 18:42 Dose: 10 ml Documented by: I HAVE REVIEWED AND RECONCILED MEDICATIONS. Review of Systems - Review of Systems All systems: negative (as noted in the HPI; of note, the patient is mildly delerious.) Exam - Constitutional Vital Signs: Temp Pulse Resp BP Pulse Ox 98.2 F 90 18 156/107 95 10/17/20 07:25 10/17/20 08:50 10/17/20 07:25 10/17/20 08:50 10/17/20 10:00 General appearance: no acute distress - EENT Eyes: PERRL, EOM intact ENT: hearing intact, clear oral mucosa - Neck Neck: supple, normal ROM - Respiratory Respiratory effort: normal Respiratory: bilateral: CTA - Cardiovascular Rhythm: regular Heart Sounds: Present: S1 & S2 Extremities: no ischemia, No edema - Gastrointestinal General gastrointestinal: Present: soft, tender (Mild without guard), non-distended, other (PEG in LUQ; abdominal wound dressed and C/D/I) - Integumentary Integumentary: Present: clear, warm, dry - Neurologic Neurological: oriented to person, oriented to place, other (No asterixis; does perseverate) - Labs CBC & Chem 7: 10/17/20 04:00 10/17/20 04:00 Lab Results: Laboratory Results - last 24 hr 10/16/20 10/16/20 10/16/20 12:11 18:36 23:50 WBC RBC Hgb Hct MCV MCH MCHC RDW Plt Count Lymph % (Auto) [place] % (Auto) Eos % (Auto) Baso % (Auto) Lymph # (Auto) [place] # (Auto) Eos # (Auto) Baso # (Auto) Seg Neutrophils % Seg Neutrophils # Sodium Potassium Chloride Carbon Dioxide Anion Gap BUN Creatinine Estimated GFR BUN/Creatinine Ratio Glucose POC Glucose 143 H 132 H 116 H Calcium Phosphorus Magnesium Total Bilirubin Direct Bilirubin Indirect Bilirubin AST ALT Alkaline Phosphatase Total Protein Albumin Albumin/Globulin Ratio 10/17/20 10/17/20 10/17/20 04:00 04:00 05:54 WBC 9.7 RBC 3.93 Hgb 12.7 Hct 37.2 MCV 95 H MCH 32 MCHC 34 RDW 14.0 Plt Count 272 Lymph % (Auto) 10.2 L [place] % (Auto) 8.9 H Eos % (Auto) 3.7 Baso % (Auto) 1.0 Lymph # (Auto) 1.0 L [place] # (Auto) 0.9 H Eos # (Auto) 0.4 Baso # (Auto) 0.1 Seg Neutrophils % 76.2 H Seg Neutrophils # 7.4 Sodium 136 L Potassium 3.4 L Chloride 101.3 Carbon Dioxide 24 Anion Gap 14 BUN 25 H Creatinine 0.6 L Estimated GFR > 60 BUN/Creatinine Ratio 42 Glucose 132 H POC Glucose 133 H Calcium 8.7 Phosphorus 3.40 Magnesium 1.80 Total Bilirubin Direct Bilirubin Indirect Bilirubin AST ALT Alkaline Phosphatase Total Protein Albumin Albumin/Globulin Ratio 10/17/20 10:24 WBC RBC Hgb Hct MCV MCH MCHC RDW Plt Count Lymph % (Auto) [place] % (Auto) Eos % (Auto) Baso % (Auto) Lymph # (Auto) [place] # (Auto) Eos # (Auto) Baso # (Auto) Seg Neutrophils % Seg Neutrophils # Sodium Potassium Chloride Carbon Dioxide Anion Gap BUN Creatinine Estimated GFR BUN/Creatinine Ratio Glucose POC Glucose Calcium Phosphorus Magnesium Total Bilirubin 1.00 Direct Bilirubin 0.5 H Indirect Bilirubin 0.5 AST 73 H ALT 99 H Alkaline Phosphatase 174 H Total Protein 5.3 L Albumin 2.8 L Albumin/Globulin Ratio 1.1 Assessment and Plan - Patient Problems (1) Abnormal liver enzymes Current Visit: Yes Status: Acute Plan to address problem: - Normal on admit, and normal liver imaging this admit as well; likely from mild ischemia at time of surgery. - Will check hepatitis panel, and start MVI. - Encouraged PO intake, and would get off TPN as soon as feasible. - Avoid excess tylenol and other hepatotoxic meds. - Further recs based on clinical course.
[2020-10-17] MEDS ORDERED: TOTAL PARENTERAL NUTRITION 3,000 ML IV SCH (20:00)
[2020-10-17] MEDS: MIRTAZAPINE 15 MG TAB PO SCH (21:55)
[2020-10-17] MEDS: MELATONIN 5 MG TAB PO SCH (21:55)
[2020-10-18] MEDS: KETOROLAC 30 MG/1 ML INJ IV SCH ×2 (05:36→14:37)
[2020-10-18 06:21] LABS: Alanine Aminotransferase 87 units/L (7-56); Albumin 2.7 g/dL (3.9-5); Bilirubin,Direct 0.4 mg/dL (0-0.2); Blood Urea Nitrogen 27 mg/dL (9-20); Calcium 8.9 mg/dL (8.4-10.2); Hemolysis Index 4
[2020-10-18 06:23] LABS: BUN/Creatinine Ratio 39
[2020-10-18 06:30] LABS: Hepatitis B Surface Antigen Non-Reactive (Negative); Hepatitis C Virus Antibody Non-Reactive (NonReactive)
--- NOTE | 2020-10-18 08:22 | Progress Note ---
Subjective Principal diagnosis: Small bowel obstruction Medications and Allergies Allergies Allergy/AdvReac Type Severity Reaction Status Date / Time No Known Allergies Allergy Verified 07/25/13 22:46 Home Medications Medication Instructions Recorded Confirmed Last Taken Type Aspirin 325 mg PO ONCE #30 tablet 08/01/13 10/17/20 09/10/13 10:24 Rx 325 mg Clopidogrel [Plavix] 75 mg PO QDAY #30 tablet 08/01/13 10/17/20 09/10/13 10:23 Rx 75 mg Rosuvastatin (Nf) [Crestor] 20 mg PO QHS #30 tablet 08/01/13 10/17/20 09/09/13 22:00 Rx 20 mg Warfarin [Coumadin] 5 mg PO QDAY #30 tablet 08/01/13 10/17/20 09/09/13 22:00 Rx 5 mg Hydrocodone Bit/Acetaminophen 1 each PO Q8H PRN #14 tablet 09/10/13 10/17/20 Unknown Rx [Lortab 7.5-500 mg] Active Meds: Active Medications Acetaminophen (Acetaminophen 650 Mg Rect Supp) 650 mg SD Q4H PRN PRN Reason: Non Cardiac Pain or Temp>100.5 Last Admin: 10/13/20 09:02 Dose: 650 mg Documented by: Bisacodyl (Bisacodyl 10 Mg Rect Supp) 10 mg SD QDAY [facility] Last Admin: 10/17/20 15:00 Dose: 10 mg Documented by: Heparin Sodium (Porcine) (Heparin 5,000 Unit/1 Ml Vial) 5,000 unit SUB-Q Q12HR [facility] Last Admin: 10/17/20 21:56 Dose: 5,000 unit Documented by: Hydralazine HCl (Hydralazine 20 Mg/1 Ml Inj) 5 mg IV Q30MIN PRN PRN Reason: Hypertension Last Admin: 10/17/20 08:50 Dose: 5 mg Documented by: Hydromorphone HCl (Hydromorphone 1 Mg/1 Ml Inj) 1 mg IV Q3H PRN PRN Reason: Pain , Severe (7-10) Last Admin: 10/16/20 21:09 Dose: 1 mg Documented by: Hydrophilic Ointment (Lip Therapy Vaseline) 1 applic TP Q2HR PRN PRN Reason: Dry Lips Last Admin: 10/15/20 02:10 Dose: 1 applic Documented by: Levofloxacin/Dextrose (Levaquin 750mg/150ml) 750 mg in 150 mls @ 100 mls/hr IV Q24H [facility]; Protocol Last Admin: 10/17/20 12:17 Dose: 100 mls/hr Documented by: Amino Acids/Electrolytes/Dextrose (Tpn Adult) 3,000 mls @ 125 mls/hr IV DAILY@2000 [facility]; Protocol Stop: 10/18/20 19:59 Last Admin: 10/17/20 20:11 Dose: 125 mls/hr Documented by: Ketorolac Tromethamine (Ketorolac 30 Mg/1 Ml Inj) 15 mg IV Q8HR [facility] Stop: 10/18/20 21:59 Last Admin: 10/18/20 05:36 Dose: 15 mg Documented by: Melatonin (Melatonin 5 Mg Tab) 5 mg PO QHS [facility] Last Admin: 10/17/20 21:55 Dose: 5 mg Documented by: Mirtazapine (Mirtazapine 15 Mg Tab) 7.5 mg PO QHS [facility] Last Admin: 10/17/20 21:55 Dose: 7.5 mg Documented by: Multi-Ingred Cream/Lotion/Oil/Oint (Mineral Oil/Petrolatum, White Ophth Oint 3.5 Gm) 1 applic OU Q4HR PRN PRN Reason: Dry Eye(s) Multivitamins (Multivitamins ,Therapeutic Tab) 1 each PO QDAY [facility] Ondansetron HCl (Ondansetron 4 Mg/2 Ml Inj) 4 mg IV Q8H PRN PRN Reason: Nausea And Vomiting Last Admin: 10/11/20 13:50 Dose: 4 mg Documented by: Oxycodone/Acetaminophen (Oxycodone /Acetaminophen 5-325mg Tab) 2 tab PO Q6H PRN PRN Reason: Pain, Moderate (4-6) Pantoprazole Sodium (Pantoprazole 40 Mg Tab) 40 mg PO QDAC [facility] Phenol (Phenol 1.4% 177 Ml Bottle) 1 spray MM PRN PRN PRN Reason: Sore Throat Last Admin: 10/14/20 14:31 Dose: 1 spray Documented by: Sodium Chloride (Sodium Chloride 0.9% 10 Ml Flush Syringe) 10 ml IV BID [facility] Last Admin: 10/17/20 21:55 Dose: 10 ml Documented by: Sodium Chloride (Sodium Chloride 0.9% 10 Ml Flush Syringe) 10 ml IV PRN PRN PRN Reason: LINE FLUSH Last Admin: 10/08/20 18:42 Dose: 10 ml Documented by: Results - Results Labs/Vitals: Laboratory Last Values WBC 9.7 K/mm3 (4.5-11.0) 10/17/20 04:00 RBC 3.93 M/mm3 (3.65-5.03) 10/17/20 04:00 Hgb 12.7 gm/dl (11.8-15.2) 10/17/20 04:00 Hct 37.2 % (35.5-45.6) 10/17/20 04:00 MCV 95 fl (84-94) H 10/17/20 04:00 MCH 32 pg (28-32) 10/17/20 04:00 MCHC 34 % (32-34) 10/17/20 04:00 RDW 14.0 % (13.2-15.2) 10/17/20 04:00 Plt Count 272 K/mm3 (140-440) 10/17/20 04:00 Lymph % (Auto) 10.2 % (13.4-35.0) L 10/17/20 04:00 Barren % (Auto) 8.9 % (0.0-7.3) H 10/17/20 04:00 Eos % (Auto) 3.7 % (0.0-4.3) 10/17/20 04:00 Baso % (Auto) 1.0 % (0.0-1.8) 10/17/20 04:00 Lymph # (Auto) 1.0 K/mm3 (1.2-5.4) L 10/17/20 04:00 Barren # (Auto) 0.9 K/mm3 (0.0-0.8) H 10/17/20 04:00 Eos # (Auto) 0.4 K/mm3 (0.0-0.4) 10/17/20 04:00 Baso # (Auto) 0.1 K/mm3 (0.0-0.1) 10/17/20 04:00 Add Manual Diff Complete 10/15/20 09:15 Total Counted 100 10/15/20 09:15 Seg Neutrophils % 76.2 % (40.0-70.0) H 10/17/20 04:00 Seg Neuts % (Manual) 97.0 % (40.0-70.0) H 10/15/20 09:15 Lymphocytes % (Manual) 3.0 % (13.4-35.0) L 10/14/20 04:00 Reactive Lymphs % (Man) 1.0 % 10/15/20 09:15 Monocytes % (Manual) 2.0 % (0.0-7.3) 10/15/20 09:15 Nucleated RBC % Not Reportable 10/15/20 09:15 Seg Neutrophils # 7.4 K/mm3 (1.8-7.7) 10/17/20 04:00 Seg Neutrophils # Man 13.7 K/mm3 (1.8-7.7) H 10/15/20 09:15 Band Neutrophils # 0.0 K/mm3 10/15/20 09:15 Lymphocytes # (Manual) 0.0 K/mm3 (1.2-5.4) L 10/15/20 09:15 Abs React Lymphs (Man) 0.1 K/mm3 10/15/20 09:15 Monocytes # (Manual) 0.3 K/mm3 (0.0-0.8) 10/15/20 09:15 Eosinophils # (Manual) 0.0 K/mm3 (0.0-0.4) 10/15/20 09:15 Basophils # (Manual) 0.0 K/mm3 (0.0-0.1) 10/15/20 09:15 Metamyelocytes # 0.0 K/mm3 10/15/20 09:15 Myelocytes # 0.0 K/mm3 10/15/20 09:15 Promyelocytes # 0.0 K/mm3 10/15/20 09:15 Blast Cells # 0.0 K/mm3 10/15/20 09:15 WBC Morphology Not Reportable 10/15/20 09:15 Hypersegmented Neuts Not Reportable 10/15/20 09:15 Hyposegmented Neuts Not Reportable 10/15/20 09:15 Hypogranular Neuts Not Reportable 10/15/20 09:15 Smudge Cells Not Reportable 10/15/20 09:15 Toxic Granulation Not Reportable 10/15/20 09:15 Toxic Vacuolation Not Reportable 10/15/20 09:15 Dohle Bodies Not Reportable 10/15/20 09:15 Pelger-Huet Anomaly Not Reportable 10/15/20 09:15 Blake Rods Not Reportable 10/15/20 09:15 Platelet Estimate Consistent w auto 10/15/20 09:15 Clumped Platelets Not Reportable 10/15/20 09:15 Plt Clumps, EDTA Not Reportable 10/15/20 09:15 Large Platelets Not Reportable 10/15/20 09:15 Giant Platelets Not Reportable 10/15/20 09:15 Platelet Satelliting Not Reportable 10/15/20 09:15 Plt Morphology Comment Not Reportable 10/15/20 09:15 RBC Morphology Normal 10/15/20 09:15 Dimorphic RBCs Not Reportable 10/15/20 09:15 Polychromasia Not Reportable 10/15/20 09:15 Hypochromasia Not Reportable 10/15/20 09:15 Poikilocytosis Not Reportable 10/15/20 09:15 Anisocytosis Not Reportable 10/15/20 09:15 Microcytosis Not Reportable 10/15/20 09:15 Macrocytosis Not Reportable 10/15/20 09:15 Spherocytes Not Reportable 10/15/20 09:15 Pappenheimer Bodies Not Reportable 10/15/20 09:15 Sickle Cells Not Reportable 10/15/20 09:15 Target Cells Not Reportable 10/15/20 09:15 Tear Drop Cells Not Reportable 10/15/20 09:15 Ovalocytes Not Reportable 10/15/20 09:15 Helmet Cells Not Reportable 10/15/20 09:15 [place] Bodies Not Reportable 10/15/20 09:15 [place] Rings Not Reportable 10/15/20 09:15 [place] Cells Not Reportable 10/15/20 09:15 Bite Cells Not Reportable 10/15/20 09:15 Crenated Cell Not Reportable 10/15/20 09:15 Elliptocytes Not Reportable 10/15/20 09:15 Acanthocytes (Spur) Not Reportable 10/15/20 09:15 Rouleaux Not Reportable 10/15/20 09:15 Hemoglobin C Crystals Not Reportable 10/15/20 09:15 Schistocytes Not Reportable 10/15/20 09:15 Malaria parasites Not Reportable 10/15/20 09:15 Chris Bodies Not Reportable 10/15/20 09:15 Hem Pathologist Commnt No 10/15/20 09:15 ABG pH 7.431 (7.320-7.450) 10/13/20 06:46 POC ABG pCO2 38.3 mmHg (32.0-48.0) 10/13/20 06:46 POC ABG pO2 110.7 mmHg (83-108) H 10/13/20 06:46 POC ABG HCO3 24.9 10/13/20 06:46 POC ABG Base Excess 0.8 10/13/20 06:46 ABG Hemoglobin 14.2 (12.0-17.5) 10/13/20 06:46 ABG Oxyhemoglobin 91.6 (94-98) L 10/13/20 05:44 ABG Methemoglobin 0.3 (0.0-1.5) 10/13/20 05:44 ABG Sodium 132.9 mmol/L (136.0-145.0) L 10/13/20 06:46 ABG Potassium 4.5 mmol/L (3.40-4.50) 10/13/20 06:46 ABG Chloride 101.0 mmol/L (98-107) 10/13/20 06:46 ABG Glucose 184 mg/dL (65-95) H 10/13/20 06:46 Carboxyhemoglobin 1.1 (0.5-1.5) 10/13/20 05:44 FiO2 100 10/13/20 06:46 Sodium 140 mmol/L (137-145) 10/18/20 05:00 Potassium 3.6 mmol/L (3.6-5.0) 10/18/20 05:00 Chloride 103.1 mmol/L (98-107) 10/18/20 05:00 Carbon Dioxide 24 mmol/L (22-30) 10/18/20 05:00 Anion Gap 17 mmol/L 10/18/20 05:00 BUN 27 mg/dL (9-20) H 10/18/20 05:00 Creatinine 0.7 mg/dL (0.8-1.3) L 10/18/20 05:00 Estimated GFR > 60 ml/min 10/18/20 05:00 BUN/Creatinine Ratio 39 % 10/18/20 05:00 Glucose 116 mg/dL (75-100) H 10/18/20 05:00 POC Glucose 130 mg/dL (70-105) H 10/18/20 00:32 Lactic Acid 1.70 mmol/L (0.7-2.0) 10/09/20 05:36 Calcium 8.9 mg/dL (8.4-10.2) 10/18/20 05:00 Phosphorus 3.90 mg/dL (2.5-4.5) 10/18/20 05:00 Magnesium 1.90 mg/dL (1.7-2.3) 10/18/20 05:00 Total Bilirubin 0.80 mg/dL (0.1-1.2) 10/18/20 05:00 Direct Bilirubin 0.4 mg/dL (0-0.2) H 10/18/20 05:00 Indirect Bilirubin 0.4 mg/dL 10/18/20 05:00 AST 72 units/L (5-40) H 10/18/20 05:00 ALT 87 units/L (7-56) H 10/18/20 05:00 Alkaline Phosphatase 155 units/L (35-129) H 10/18/20 05:00 Total Protein 5.6 g/dL (6.3-8.2) L 10/18/20 05:00 Albumin 2.7 g/dL (3.9-5) L 10/18/20 05:00 Albumin/Globulin Ratio 0.9 % 10/18/20 05:00 Triglycerides 147 mg/dL (2-149) 10/13/20 04:00 Lipase 20 units/L (13-60) 10/07/20 02:36 Arterial Blood Glucose 184 mg/dL (65-95) H 10/13/20 06:46 Arterial Blood Ionized Calcium 4.6 mg/dL (4.6-5.3) 10/13/20 06:46 Urine Color Celine (Yellow) 10/07/20 Unknown Urine Turbidity Clear (Clear) 10/07/20 Unknown Urine pH 5.0 (5.0-7.0) 10/07/20 Unknown Ur Specific Centre 1.041 (1.003-1.030) H 10/07/20 Unknown Urine Protein 30 mg/dl mg/dL (Negative) 10/07/20 Unknown Urine Glucose (UA) Neg mg/dL (Negative) 10/07/20 Unknown Urine Ketones Neg mg/dL (Negative) 10/07/20 Unknown Urine Blood Neg (Negative) 10/07/20 Unknown Urine Nitrite Neg (Negative) 10/07/20 Unknown Urine Bilirubin Neg (Negative) 10/07/20 Unknown Urine Urobilinogen < 2.0 mg/dL (<2.0) 10/07/20 Unknown Ur Leukocyte Esterase Neg (Negative) 10/07/20 Unknown Urine WBC (Auto) 2.0 /HPF (0.0-6.0) 10/07/20 Unknown Urine RBC (Auto) 4.0 /HPF (0.0-6.0) 10/07/20 Unknown U Epithel Cells (Auto) < 1.0 /HPF (0-13.0) 10/07/20 Unknown Urine Mucus Few /HPF 10/07/20 Unknown Hepatitis A IgM Ab Non-reactive (NonReactive) 10/18/20 05:00 Hep Bs Antigen Non-reactive (Negative) 10/18/20 05:00 Hep B Core IgM Ab Non-reactive (NonReactive) 10/18/20 05:00 Hepatitis C Antibody Non-reactive (NonReactive) 10/18/20 05:00 Blood Type A POSITIVE 10/11/20 21:30 Antibody Screen Negative 10/11/20 21:30 Last Vital Signs Temp 97.9 F 10/18/20 07:38 Pulse 92 H 10/18/20 07:38 Resp 18 10/18/20 07:38 BP 144/89 10/18/20 07:38 Pulse Ox 93 10/18/20 07:38
--- NOTE | 2020-10-18 08:22 | Progress Note ---
Subjective Date of service: 10/18/20 Principal diagnosis: Small bowel obstruction Medications and Allergies Allergies Allergy/AdvReac Type Severity Reaction Status Date / Time No Known Allergies Allergy Verified 07/25/13 22:46 Home Medications Medication Instructions Recorded Confirmed Last Taken Type Aspirin 325 mg PO ONCE #30 tablet 08/01/13 10/17/20 09/10/13 10:24 Rx 325 mg Clopidogrel [Plavix] 75 mg PO QDAY #30 tablet 08/01/13 10/17/20 09/10/13 10:23 Rx 75 mg Rosuvastatin (Nf) [Crestor] 20 mg PO QHS #30 tablet 08/01/13 10/17/20 09/09/13 22:00 Rx 20 mg Warfarin [Coumadin] 5 mg PO QDAY #30 tablet 08/01/13 10/17/20 09/09/13 22:00 Rx 5 mg Hydrocodone Bit/Acetaminophen 1 each PO Q8H PRN #14 tablet 09/10/13 10/17/20 Unknown Rx [Lortab 7.5-500 mg] Active Meds: Active Medications Acetaminophen (Acetaminophen 650 Mg Rect Supp) 650 mg GA Q4H PRN PRN Reason: Non Cardiac Pain or Temp>100.5 Last Admin: 10/13/20 09:02 Dose: 650 mg Documented by: Bisacodyl (Bisacodyl 10 Mg Rect Supp) 10 mg GA QDAY [facility] Last Admin: 10/17/20 15:00 Dose: 10 mg Documented by: Heparin Sodium (Porcine) (Heparin 5,000 Unit/1 Ml Vial) 5,000 unit SUB-Q Q12HR [facility] Last Admin: 10/17/20 21:56 Dose: 5,000 unit Documented by: Hydralazine HCl (Hydralazine 20 Mg/1 Ml Inj) 5 mg IV Q30MIN PRN PRN Reason: Hypertension Last Admin: 10/17/20 08:50 Dose: 5 mg Documented by: Hydromorphone HCl (Hydromorphone 1 Mg/1 Ml Inj) 1 mg IV Q3H PRN PRN Reason: Pain , Severe (7-10) Last Admin: 10/16/20 21:09 Dose: 1 mg Documented by: Hydrophilic Ointment (Lip Therapy Vaseline) 1 applic TP Q2HR PRN PRN Reason: Dry Lips Last Admin: 10/15/20 02:10 Dose: 1 applic Documented by: Levofloxacin/Dextrose (Levaquin 750mg/150ml) 750 mg in 150 mls @ 100 mls/hr IV Q24H [facility]; Protocol Last Admin: 10/17/20 12:17 Dose: 100 mls/hr Documented by: Amino Acids/Electrolytes/Dextrose (Tpn Adult) 3,000 mls @ 125 mls/hr IV DAILY@2000 [facility]; Protocol Stop: 10/18/20 19:59 Last Admin: 10/17/20 20:11 Dose: 125 mls/hr Documented by: Ketorolac Tromethamine (Ketorolac 30 Mg/1 Ml Inj) 15 mg IV Q8HR [facility] Stop: 10/18/20 21:59 Last Admin: 10/18/20 05:36 Dose: 15 mg Documented by: Melatonin (Melatonin 5 Mg Tab) 5 mg PO QHS [facility] Last Admin: 10/17/20 21:55 Dose: 5 mg Documented by: Mirtazapine (Mirtazapine 15 Mg Tab) 7.5 mg PO QHS [facility] Last Admin: 10/17/20 21:55 Dose: 7.5 mg Documented by: Multi-Ingred Cream/Lotion/Oil/Oint (Mineral Oil/Petrolatum, White Ophth Oint 3.5 Gm) 1 applic OU Q4HR PRN PRN Reason: Dry Eye(s) Multivitamins (Multivitamins ,Therapeutic Tab) 1 each PO QDAY [facility] Ondansetron HCl (Ondansetron 4 Mg/2 Ml Inj) 4 mg IV Q8H PRN PRN Reason: Nausea And Vomiting Last Admin: 10/11/20 13:50 Dose: 4 mg Documented by: Oxycodone/Acetaminophen (Oxycodone /Acetaminophen 5-325mg Tab) 2 tab PO Q6H PRN PRN Reason: Pain, Moderate (4-6) Pantoprazole Sodium (Pantoprazole 40 Mg Tab) 40 mg PO QDAC [facility] Phenol (Phenol 1.4% 177 Ml Bottle) 1 spray MM PRN PRN PRN Reason: Sore Throat Last Admin: 10/14/20 14:31 Dose: 1 spray Documented by: Sodium Chloride (Sodium Chloride 0.9% 10 Ml Flush Syringe) 10 ml IV BID [facility] Last Admin: 10/17/20 21:55 Dose: 10 ml Documented by: Sodium Chloride (Sodium Chloride 0.9% 10 Ml Flush Syringe) 10 ml IV PRN PRN PRN Reason: LINE FLUSH Last Admin: 10/08/20 18:42 Dose: 10 ml Documented by: Results - Results Labs/Vitals: Laboratory Last Values WBC 9.7 K/mm3 (4.5-11.0) 10/17/20 04:00 RBC 3.93 M/mm3 (3.65-5.03) 10/17/20 04:00 Hgb 12.7 gm/dl (11.8-15.2) 10/17/20 04:00 Hct 37.2 % (35.5-45.6) 10/17/20 04:00 MCV 95 fl (84-94) H 10/17/20 04:00 MCH 32 pg (28-32) 10/17/20 04:00 MCHC 34 % (32-34) 10/17/20 04:00 RDW 14.0 % (13.2-15.2) 10/17/20 04:00 Plt Count 272 K/mm3 (140-440) 10/17/20 04:00 Lymph % (Auto) 10.2 % (13.4-35.0) L 10/17/20 04:00 [place] % (Auto) 8.9 % (0.0-7.3) H 10/17/20 04:00 Eos % (Auto) 3.7 % (0.0-4.3) 10/17/20 04:00 Baso % (Auto) 1.0 % (0.0-1.8) 10/17/20 04:00 Lymph # (Auto) 1.0 K/mm3 (1.2-5.4) L 10/17/20 04:00 [place] # (Auto) 0.9 K/mm3 (0.0-0.8) H 10/17/20 04:00 Eos # (Auto) 0.4 K/mm3 (0.0-0.4) 10/17/20 04:00 Baso # (Auto) 0.1 K/mm3 (0.0-0.1) 10/17/20 04:00 Add Manual Diff Complete 10/15/20 09:15 Total Counted 100 10/15/20 09:15 Seg Neutrophils % 76.2 % (40.0-70.0) H 10/17/20 04:00 Seg Neuts % (Manual) 97.0 % (40.0-70.0) H 10/15/20 09:15 Lymphocytes % (Manual) 3.0 % (13.4-35.0) L 10/14/20 04:00 Reactive Lymphs % (Man) 1.0 % 10/15/20 09:15 Monocytes % (Manual) 2.0 % (0.0-7.3) 10/15/20 09:15 Nucleated RBC % Not Reportable 10/15/20 09:15 Seg Neutrophils # 7.4 K/mm3 (1.8-7.7) 10/17/20 04:00 Seg Neutrophils # Man 13.7 K/mm3 (1.8-7.7) H 10/15/20 09:15 Band Neutrophils # 0.0 K/mm3 10/15/20 09:15 Lymphocytes # (Manual) 0.0 K/mm3 (1.2-5.4) L 10/15/20 09:15 Abs React Lymphs (Man) 0.1 K/mm3 10/15/20 09:15 Monocytes # (Manual) 0.3 K/mm3 (0.0-0.8) 10/15/20 09:15 Eosinophils # (Manual) 0.0 K/mm3 (0.0-0.4) 10/15/20 09:15 Basophils # (Manual) 0.0 K/mm3 (0.0-0.1) 10/15/20 09:15 Metamyelocytes # 0.0 K/mm3 10/15/20 09:15 Myelocytes # 0.0 K/mm3 10/15/20 09:15 Promyelocytes # 0.0 K/mm3 10/15/20 09:15 Blast Cells # 0.0 K/mm3 10/15/20 09:15 WBC Morphology Not Reportable 10/15/20 09:15 Hypersegmented Neuts Not Reportable 10/15/20 09:15 Hyposegmented Neuts Not Reportable 10/15/20 09:15 Hypogranular Neuts Not Reportable 10/15/20 09:15 Smudge Cells Not Reportable 10/15/20 09:15 Toxic Granulation Not Reportable 10/15/20 09:15 Toxic Vacuolation Not Reportable 10/15/20 09:15 Dohle Bodies Not Reportable 10/15/20 09:15 Pelger-Huet Anomaly Not Reportable 10/15/20 09:15 Blake Rods Not Reportable 10/15/20 09:15 Platelet Estimate Consistent w auto 10/15/20 09:15 Clumped Platelets Not Reportable 10/15/20 09:15 Plt Clumps, EDTA Not Reportable 10/15/20 09:15 Large Platelets Not Reportable 10/15/20 09:15 Giant Platelets Not Reportable 10/15/20 09:15 Platelet Satelliting Not Reportable 10/15/20 09:15 Plt Morphology Comment Not Reportable 10/15/20 09:15 RBC Morphology Normal 10/15/20 09:15 Dimorphic RBCs Not Reportable 10/15/20 09:15 Polychromasia Not Reportable 10/15/20 09:15 Hypochromasia Not Reportable 10/15/20 09:15 Poikilocytosis Not Reportable 10/15/20 09:15 Anisocytosis Not Reportable 10/15/20 09:15 Microcytosis Not Reportable 10/15/20 09:15 Macrocytosis Not Reportable 10/15/20 09:15 Spherocytes Not Reportable 10/15/20 09:15 Pappenheimer Bodies Not Reportable 10/15/20 09:15 Sickle Cells Not Reportable 10/15/20 09:15 Target Cells Not Reportable 10/15/20 09:15 Tear Drop Cells Not Reportable 10/15/20 09:15 Ovalocytes Not Reportable 10/15/20 09:15 Helmet Cells Not Reportable 10/15/20 09:15 [place] Bodies Not Reportable 10/15/20 09:15 Wilmer Rings Not Reportable 10/15/20 09:15 Eneida Cells Not Reportable 10/15/20 09:15 Bite Cells Not Reportable 10/15/20 09:15 Crenated Cell Not Reportable 10/15/20 09:15 Elliptocytes Not Reportable 10/15/20 09:15 Acanthocytes (Spur) Not Reportable 10/15/20 09:15 Rouleaux Not Reportable 10/15/20 09:15 Hemoglobin C Crystals Not Reportable 10/15/20 09:15 Schistocytes Not Reportable 10/15/20 09:15 Malaria parasites Not Reportable 10/15/20 09:15 Chris Bodies Not Reportable 10/15/20 09:15 Hem Pathologist Commnt No 10/15/20 09:15 ABG pH 7.431 (7.320-7.450) 10/13/20 06:46 POC ABG pCO2 38.3 mmHg (32.0-48.0) 10/13/20 06:46 POC ABG pO2 110.7 mmHg (83-108) H 10/13/20 06:46 POC ABG HCO3 24.9 10/13/20 06:46 POC ABG Base Excess 0.8 10/13/20 06:46 ABG Hemoglobin 14.2 (12.0-17.5) 10/13/20 06:46 ABG Oxyhemoglobin 91.6 (94-98) L 10/13/20 05:44 ABG Methemoglobin 0.3 (0.0-1.5) 10/13/20 05:44 ABG Sodium 132.9 mmol/L (136.0-145.0) L 10/13/20 06:46 ABG Potassium 4.5 mmol/L (3.40-4.50) 10/13/20 06:46 ABG Chloride 101.0 mmol/L (98-107) 10/13/20 06:46 ABG Glucose 184 mg/dL (65-95) H 10/13/20 06:46 Carboxyhemoglobin 1.1 (0.5-1.5) 10/13/20 05:44 FiO2 100 10/13/20 06:46 Sodium 140 mmol/L (137-145) 10/18/20 05:00 Potassium 3.6 mmol/L (3.6-5.0) 10/18/20 05:00 Chloride 103.1 mmol/L (98-107) 10/18/20 05:00 Carbon Dioxide 24 mmol/L (22-30) 10/18/20 05:00 Anion Gap 17 mmol/L 10/18/20 05:00 BUN 27 mg/dL (9-20) H 10/18/20 05:00 Creatinine 0.7 mg/dL (0.8-1.3) L 10/18/20 05:00 Estimated GFR > 60 ml/min 10/18/20 05:00 BUN/Creatinine Ratio 39 % 10/18/20 05:00 Glucose 116 mg/dL (75-100) H 10/18/20 05:00 POC Glucose 130 mg/dL (70-105) H 10/18/20 00:32 Lactic Acid 1.70 mmol/L (0.7-2.0) 10/09/20 05:36 Calcium 8.9 mg/dL (8.4-10.2) 10/18/20 05:00 Phosphorus 3.90 mg/dL (2.5-4.5) 10/18/20 05:00 Magnesium 1.90 mg/dL (1.7-2.3) 10/18/20 05:00 Total Bilirubin 0.80 mg/dL (0.1-1.2) 10/18/20 05:00 Direct Bilirubin 0.4 mg/dL (0-0.2) H 10/18/20 05:00 Indirect Bilirubin 0.4 mg/dL 10/18/20 05:00 AST 72 units/L (5-40) H 10/18/20 05:00 ALT 87 units/L (7-56) H 10/18/20 05:00 Alkaline Phosphatase 155 units/L (35-129) H 10/18/20 05:00 Total Protein 5.6 g/dL (6.3-8.2) L 10/18/20 05:00 Albumin 2.7 g/dL (3.9-5) L 10/18/20 05:00 Albumin/Globulin Ratio 0.9 % 10/18/20 05:00 Triglycerides 147 mg/dL (2-149) 10/13/20 04:00 Lipase 20 units/L (13-60) 10/07/20 02:36 Arterial Blood Glucose 184 mg/dL (65-95) H 10/13/20 06:46 Arterial Blood Ionized Calcium 4.6 mg/dL (4.6-5.3) 10/13/20 06:46 Urine Color Celine (Yellow) 10/07/20 Unknown Urine Turbidity Clear (Clear) 10/07/20 Unknown Urine pH 5.0 (5.0-7.0) 10/07/20 Unknown Ur Specific [place] 1.041 (1.003-1.030) H 10/07/20 Unknown Urine Protein 30 mg/dl mg/dL (Negative) 10/07/20 Unknown Urine Glucose (UA) Neg mg/dL (Negative) 10/07/20 Unknown Urine Ketones Neg mg/dL (Negative) 10/07/20 Unknown Urine Blood Neg (Negative) 10/07/20 Unknown Urine Nitrite Neg (Negative) 10/07/20 Unknown Urine Bilirubin Neg (Negative) 10/07/20 Unknown Urine Urobilinogen < 2.0 mg/dL (<2.0) 10/07/20 Unknown Ur Leukocyte Esterase Neg (Negative) 10/07/20 Unknown Urine WBC (Auto) 2.0 /HPF (0.0-6.0) 10/07/20 Unknown Urine RBC (Auto) 4.0 /HPF (0.0-6.0) 10/07/20 Unknown U Epithel Cells (Auto) < 1.0 /HPF (0-13.0) 10/07/20 Unknown Urine Mucus Few /HPF 10/07/20 Unknown Hepatitis A IgM Ab Non-reactive (NonReactive) 10/18/20 05:00 Hep Bs Antigen Non-reactive (Negative) 10/18/20 05:00 Hep B Core IgM Ab Non-reactive (NonReactive) 10/18/20 05:00 Hepatitis C Antibody Non-reactive (NonReactive) 10/18/20 05:00 Blood Type A POSITIVE 10/11/20 21:30 Antibody Screen Negative 10/11/20 21:30 Last Vital Signs Temp 97.9 F 10/18/20 07:38 Pulse 92 H 10/18/20 07:38 Resp 18 10/18/20 07:38 BP 144/89 10/18/20 07:38 Pulse Ox 93 10/18/20 07:38
--- NOTE | 2020-10-18 08:24 | Progress Note ---
Subjective - Reason for Consult Consult date: 10/18/20 Reason for consult: Delirium - Chief Complaint Chief complaint: During my interview with the patient today, he is lying down awake. He is a/o x 2, with periods of confustion. He says he didn't sleep well and was awake all night. The patient states he only slept from "about 6:30 to 7:30." The patient is talkative and talking about politics. He says he's "upset with the [place] people." The patient also says he "sees bugs hanging from stuff." He says "it's being in this room." He denies SI/HI. REVIEW OF SYSTEMS Constitutional: Negative for weight loss ENT: Negative for stridor Respiratory: Negative for cough or hemoptysis All other systems reviewed and are negative MENTAL STATUS EXAMINATION General Appearance and Behavior: Age appropriate, good hygiene, not wearing appropriate clothes, good eye contact, calm and cooperative with questioning. Cooperation: Participating Mood: okay, tired Affect and affective range: congruent with stated mood Thought Process: goal directed Speech: normal tone and pace Intellectual Functioning: Average Thought content: Suicidal Ideation: Denies SI Homicidal Ideation: Denies HI Hallucinations: Denies Delusions: None elicited Impulse Control: Normal Insight and Judgment: Limited insight and judgment Memory: Normal Attention: Normal Orientation: Alert, oriented, confused at times Assessment and Plan (1) Deliruim Current Visit: Yes Status: Acute Treatment Plan Increase Remeron 15 qhs to help improve sleep disturbance Start Haldol 0.5mg po BID to help with delirium/hallucinations Continue Melatonin 5mg po qhs to improve rest Sitter: Defer to primary Medical: Per primary Disposition: Do not recommend acute inpatient psychiatric treatment. Will continue to follow for med management Will follow. Case staffed with Dr. Goff. Mental Status Exam - Vital signs Last Vital Signs Temp 97.9 F 10/18/20 07:38 Pulse 92 H 10/18/20 07:38 Resp 18 10/18/20 07:38 BP 144/89 10/18/20 07:38 Pulse Ox 93 10/18/20 07:38
[2020-10-18] MEDS: HALOPERIDOL 1 MG TAB PO SCH ×2 (09:44→21:33)
[2020-10-18] MEDS: HEPARIN 5,000 UNIT/1 ML VIAL SUB-Q SCH ×3 (09:44→21:31)
[2020-10-18] MEDS: MULTIVITAMINS ,THERAPEUTIC TAB PO SCH (09:44)
[2020-10-18] MEDS: PANTOPRAZOLE 40 MG TAB PO SCH (09:44)
--- NOTE | 2020-10-18 11:56 | Progress Note ---
Assessment and Plan Assessment and plan: Patient was admitted with abdominal pain , small bowel obstruction , ventral hernia history of multiple abdominal surgeries and large hiatal hernia, surgery and IR evaluated, Unable to pass NG tube , patient underwent fluoroscopic guided placement of nasojejunostomy tube per IR Patient underwent exploratory laparotomy, lysis of edition, ABThera abdominal vacuum dressing on 10/11/2020, patient is intubated on vent Extubated yesterday 10/14/2020, on 4 L nasal cannula oxygen and TPN, patient is in depressed mood this morning, minimally communicative , psych following Patient feels better today tolerating clear liquids, delirious psych following --Delirium/depression; improved today, no new episodes Psych following --Hypokalemia; resolved Potassium 3.4, replenished with 40 mEq KCl p.o. Closely monitor electrolytes --Small bowel obstruction/ventral hernia/hiatal hernia 10/11/2020 ;surgical intervention --s/p EXPLORATORY LAPAROTOMY, -EXTENSIVE LYSIS OF ADHESIONS, -ABTHERA ABDOMINAL VACUUM DRESSING Patient is diet advanced to full liquids per surgery 10/13/2020;second surgical procedure; 10/13/2020 -abdominal exploration, -Gastric tube placement and -abdominal wall closure with phasix mesh Patient tolerated the procedure well Postop care per surgery Patient is tolerating clear liquids Out of bed to chair if okay with surgery --Acute hypoxic respiratory failure; Intubated, on vent 10/11/2020 Status post extubation 10/14/2020, saturating well room air --Acute transaminitis: Closely monitor, trend LFTs Consider GI evaluation if no improvement --Acute kidney injury; secondary to dehydration Vasomotor nephropathy, resolved Closely monitor renal function --History of coronary artery disease; Continue home medications once patient is able to take oral Consider cardiology evaluation if needed --Dyslipidemia; Patient is on statin, currently n.p.o. Resume when patient is stable and able to take p.o. --Severe malnutrition; hypoalbuminemia Nutrition supplements, nutrition consult Patient is already on TPN --DVT prophylaxis; SCDs We will closely monitor patient and adjust management as needed Follow real estate listing consultant recommendations, Continue postop care Plan of care reviewed with the patient's nurse Brief history: Patient was admitted with abdominal pain , small bowel obstruction , ventral hernia history of multiple abdominal surgeries and large hiatal hernia, surgery and IR evaluated, Unable to pass NG tube , patient underwent fluoroscopic guided placement of nasojejunostomy tube per IR Patient underwent exploratory laparotomy, lysis of edition, ABThera abdominal vacuum dressing on 10/11/2020, patient is intubated on vent 10/08/2020; patient has Dobbhoff/nasal jejunostomy tube placement, with intermittent suction Patient feels slightly better, n.p.o. status, management per surgery 10/09/2020 Patient on tube feedings Small bowel obstruction still present Patient reluctant about getting surgery 10/10/2020 Patient counseled about getting surgery Patient had to decide 10/11/2020 Patient has agreed for surgery after long discussion with Dr. Lechuga 10/12/2020; patient had exploratory laparotomy extensive lysis of adhesion and ABThera abdominal vacuum dressing postoperative day 1, patient intubated on ventilatory support 10/13/2020. Patient intubated on ventilatory support, continue current behavior management specialist recommendations noted and appreciated 10/14/2020; patient underwent-abdominal exploration,Gastric tube placement and abdominal wall closure with phasix mesh on 10/13/2020 Patient tolerated the procedure well, continue postop care per surgery 10/15/2020; patient is alert and awake, was extubated 10/14/2020, looks depressed, psych evaluated the patient 10/16/2020; patient feels slightly better today, had flatus and small bowel movement, tolerating clear liquids More alert and awake responding appropriately, patient looks very tired 10/17/2020;patient is delirious and depressed intermittently , reports that he has seen some spiders on the wall mild hypokalemia, replenish with KCl, patient tolerating clear liquids Continue current postop care, follow LFTs, if no improvement consult GI, ambulate as tolerated if okay with surgery 10/18/2020; patient is more alert and awake and oriented x3 today, no episodes of delirium or hallucination Psych following, tolerating full liquid diet, had a large loose bowel movement this morning History Interval history: I have seen and examined the patient at the bedside this morning Patient's chart medications and consultants recommendations reviewed Patient is on full liquid diet, had a large bowel movement this morning Patient complains of generalized weakness Denies nausea vomiting Vital signs reviewed Patient is more alert and awake oriented x3, no episodes of delirium Hospitalist Physical - Constitutional Vitals: Temp Pulse Resp BP Pulse Ox 97.9 F 92 H 18 144/89 93 10/18/20 07:38 10/18/20 07:38 10/18/20 07:38 10/18/20 07:38 10/18/20 07:38 General appearance: Present: mild distress, well-nourished, other (Looks tired, ) - EENT Eyes: Present: PERRL, EOM intact - Neck Neck: Present: supple, normal ROM - Respiratory Respiratory effort: normal Respiratory: bilateral: diminished, negative: rales, rhonchi, wheezing - Cardiovascular Rhythm: regular Heart Sounds: Present: S1 & S2 - Extremities Extremities: no ischemia, No edema - Abdominal General gastrointestinal: soft, non-tender, other (Surgical dressing in place) - Integumentary Integumentary: Present: clear, warm - Psychiatric Psychiatric: appropriate mood/affect, cooperative - Neurologic Neurologic: moves all extremities Results - Labs CBC & Chem 7: 10/17/20 04:00 10/18/20 05:00 Labs: Laboratory Last Values WBC 9.7 K/mm3 (4.5-11.0) 10/17/20 04:00 RBC 3.93 M/mm3 (3.65-5.03) 10/17/20 04:00 Hgb 12.7 gm/dl (11.8-15.2) 10/17/20 04:00 Hct 37.2 % (35.5-45.6) 10/17/20 04:00 MCV 95 fl (84-94) H 10/17/20 04:00 MCH 32 pg (28-32) 10/17/20 04:00 MCHC 34 % (32-34) 10/17/20 04:00 RDW 14.0 % (13.2-15.2) 10/17/20 04:00 Plt Count 272 K/mm3 (140-440) 10/17/20 04:00 Lymph % (Auto) 10.2 % (13.4-35.0) L 10/17/20 04:00 [place] % (Auto) 8.9 % (0.0-7.3) H 10/17/20 04:00 Eos % (Auto) 3.7 % (0.0-4.3) 10/17/20 04:00 Baso % (Auto) 1.0 % (0.0-1.8) 10/17/20 04:00 Lymph # (Auto) 1.0 K/mm3 (1.2-5.4) L 10/17/20 04:00 [place] # (Auto) 0.9 K/mm3 (0.0-0.8) H 10/17/20 04:00 Eos # (Auto) 0.4 K/mm3 (0.0-0.4) 10/17/20 04:00 Baso # (Auto) 0.1 K/mm3 (0.0-0.1) 10/17/20 04:00 Add Manual Diff Complete 10/15/20 09:15 Total Counted 100 10/15/20 09:15 Seg Neutrophils % 76.2 % (40.0-70.0) H 10/17/20 04:00 Seg Neuts % (Manual) 97.0 % (40.0-70.0) H 10/15/20 09:15 Lymphocytes % (Manual) 3.0 % (13.4-35.0) L 10/14/20 04:00 Reactive Lymphs % (Man) 1.0 % 10/15/20 09:15 Monocytes % (Manual) 2.0 % (0.0-7.3) 10/15/20 09:15 Nucleated RBC % Not Reportable 10/15/20 09:15 Seg Neutrophils # 7.4 K/mm3 (1.8-7.7) 10/17/20 04:00 Seg Neutrophils # Man 13.7 K/mm3 (1.8-7.7) H 10/15/20 09:15 Band Neutrophils # 0.0 K/mm3 10/15/20 09:15 Lymphocytes # (Manual) 0.0 K/mm3 (1.2-5.4) L 10/15/20 09:15 Abs React Lymphs (Man) 0.1 K/mm3 10/15/20 09:15 Monocytes # (Manual) 0.3 K/mm3 (0.0-0.8) 10/15/20 09:15 Eosinophils # (Manual) 0.0 K/mm3 (0.0-0.4) 10/15/20 09:15 Basophils # (Manual) 0.0 K/mm3 (0.0-0.1) 10/15/20 09:15 Metamyelocytes # 0.0 K/mm3 10/15/20 09:15 Myelocytes # 0.0 K/mm3 10/15/20 09:15 Promyelocytes # 0.0 K/mm3 10/15/20 09:15 Blast Cells # 0.0 K/mm3 10/15/20 09:15 WBC Morphology Not Reportable 10/15/20 09:15 Hypersegmented Neuts Not Reportable 10/15/20 09:15 Hyposegmented Neuts Not Reportable 10/15/20 09:15 Hypogranular Neuts Not Reportable 10/15/20 09:15 Smudge Cells Not Reportable 10/15/20 09:15 Toxic Granulation Not Reportable 10/15/20 09:15 Toxic Vacuolation Not Reportable 10/15/20 09:15 Dohle Bodies Not Reportable 10/15/20 09:15 Pelger-Huet Anomaly Not Reportable 10/15/20 09:15 Blake Rods Not Reportable 10/15/20 09:15 Platelet Estimate Consistent w auto 10/15/20 09:15 Clumped Platelets Not Reportable 10/15/20 09:15 Plt Clumps, EDTA Not Reportable 10/15/20 09:15 Large Platelets Not Reportable 10/15/20 09:15 Giant Platelets Not Reportable 10/15/20 09:15 Platelet Satelliting Not Reportable 10/15/20 09:15 Plt Morphology Comment Not Reportable 10/15/20 09:15 RBC Morphology Normal 10/15/20 09:15 Dimorphic RBCs Not Reportable 10/15/20 09:15 Polychromasia Not Reportable 10/15/20 09:15 Hypochromasia Not Reportable 10/15/20 09:15 Poikilocytosis Not Reportable 10/15/20 09:15 Anisocytosis Not Reportable 10/15/20 09:15 Microcytosis Not Reportable 10/15/20 09:15 Macrocytosis Not Reportable 10/15/20 09:15 Spherocytes Not Reportable 10/15/20 09:15 Pappenheimer Bodies Not Reportable 10/15/20 09:15 Sickle Cells Not Reportable 10/15/20 09:15 Target Cells Not Reportable 10/15/20 09:15 Tear Drop Cells Not Reportable 10/15/20 09:15 Ovalocytes Not Reportable 10/15/20 09:15 Helmet Cells Not Reportable 10/15/20 09:15 Lora-Vaiden Bodies Not Reportable 10/15/20 09:15 Corona Rings Not Reportable 10/15/20 09:15 Portal Cells Not Reportable 10/15/20 09:15 Bite Cells Not Reportable 10/15/20 09:15 Crenated Cell Not Reportable 10/15/20 09:15 Elliptocytes Not Reportable 10/15/20 09:15 Acanthocytes (Spur) Not Reportable 10/15/20 09:15 Rouleaux Not Reportable 10/15/20 09:15 Hemoglobin C Crystals Not Reportable 10/15/20 09:15 Schistocytes Not Reportable 10/15/20 09:15 Malaria parasites Not Reportable 10/15/20 09:15 Chris Bodies Not Reportable 10/15/20 09:15 Hem Pathologist Commnt No 10/15/20 09:15 ABG pH 7.431 (7.320-7.450) 10/13/20 06:46 POC ABG pCO2 38.3 mmHg (32.0-48.0) 10/13/20 06:46 POC ABG pO2 110.7 mmHg (83-108) H 10/13/20 06:46 POC ABG HCO3 24.9 10/13/20 06:46 POC ABG Base Excess 0.8 10/13/20 06:46 ABG Hemoglobin 14.2 (12.0-17.5) 10/13/20 06:46 ABG Oxyhemoglobin 91.6 (94-98) L 10/13/20 05:44 ABG Methemoglobin 0.3 (0.0-1.5) 10/13/20 05:44 ABG Sodium 132.9 mmol/L (136.0-145.0) L 10/13/20 06:46 ABG Potassium 4.5 mmol/L (3.40-4.50) 10/13/20 06:46 ABG Chloride 101.0 mmol/L (98-107) 10/13/20 06:46 ABG Glucose 184 mg/dL (65-95) H 10/13/20 06:46 Carboxyhemoglobin 1.1 (0.5-1.5) 10/13/20 05:44 FiO2 100 10/13/20 06:46 Sodium 140 mmol/L (137-145) 10/18/20 05:00 Potassium 3.6 mmol/L (3.6-5.0) 10/18/20 05:00 Chloride 103.1 mmol/L (98-107) 10/18/20 05:00 Carbon Dioxide 24 mmol/L (22-30) 10/18/20 05:00 Anion Gap 17 mmol/L 10/18/20 05:00 BUN 27 mg/dL (9-20) H 10/18/20 05:00 Creatinine 0.7 mg/dL (0.8-1.3) L 10/18/20 05:00 Estimated GFR > 60 ml/min 10/18/20 05:00 BUN/Creatinine Ratio 39 % 10/18/20 05:00 Glucose 116 mg/dL (75-100) H 10/18/20 05:00 POC Glucose 111 mg/dL (70-105) H 10/18/20 05:00 Lactic Acid 1.70 mmol/L (0.7-2.0) 10/09/20 05:36 Calcium 8.9 mg/dL (8.4-10.2) 10/18/20 05:00 Phosphorus 3.90 mg/dL (2.5-4.5) 10/18/20 05:00 Magnesium 1.90 mg/dL (1.7-2.3) 10/18/20 05:00 Total Bilirubin 0.80 mg/dL (0.1-1.2) 10/18/20 05:00 Direct Bilirubin 0.4 mg/dL (0-0.2) H 10/18/20 05:00 Indirect Bilirubin 0.4 mg/dL 10/18/20 05:00 AST 72 units/L (5-40) H 10/18/20 05:00 ALT 87 units/L (7-56) H 10/18/20 05:00 Alkaline Phosphatase 155 units/L (35-129) H 10/18/20 05:00 Total Protein 5.6 g/dL (6.3-8.2) L 10/18/20 05:00 Albumin 2.7 g/dL (3.9-5) L 10/18/20 05:00 Albumin/Globulin Ratio 0.9 % 10/18/20 05:00 Triglycerides 147 mg/dL (2-149) 10/13/20 04:00 Lipase 20 units/L (13-60) 10/07/20 02:36 Arterial Blood Glucose 184 mg/dL (65-95) H 10/13/20 06:46 Arterial Blood Ionized Calcium 4.6 mg/dL (4.6-5.3) 10/13/20 06:46 Urine Color [place] (Yellow) 10/07/20 Unknown Urine Turbidity Clear (Clear) 10/07/20 Unknown Urine pH 5.0 (5.0-7.0) 10/07/20 Unknown Ur Specific [place] 1.041 (1.003-1.030) H 10/07/20 Unknown Urine Protein 30 mg/dl mg/dL (Negative) 10/07/20 Unknown Urine Glucose (UA) Neg mg/dL (Negative) 10/07/20 Unknown Urine Ketones Neg mg/dL (Negative) 10/07/20 Unknown Urine Blood Neg (Negative) 10/07/20 Unknown Urine Nitrite Neg (Negative) 10/07/20 Unknown Urine Bilirubin Neg (Negative) 10/07/20 Unknown Urine Urobilinogen < 2.0 mg/dL (<2.0) 10/07/20 Unknown Ur Leukocyte Esterase Neg (Negative) 10/07/20 Unknown Urine WBC (Auto) 2.0 /HPF (0.0-6.0) 10/07/20 Unknown Urine RBC (Auto) 4.0 /HPF (0.0-6.0) 10/07/20 Unknown U Epithel Cells (Auto) < 1.0 /HPF (0-13.0) 10/07/20 Unknown Urine Mucus Few /HPF 10/07/20 Unknown Hepatitis A IgM Ab Non-reactive (NonReactive) 10/18/20 05:00 Hep Bs Antigen Non-reactive (Negative) 10/18/20 05:00 Hep B Core IgM Ab Non-reactive (NonReactive) 10/18/20 05:00 Hepatitis C Antibody Non-reactive (NonReactive) 10/18/20 05:00 Blood Type A POSITIVE 10/11/20 21:30 Antibody Screen Negative 10/11/20 21:30 Microbiology: Microbiology 10/13/20 13:35 Peripheral/Venous Blood Culture - Preliminary NO GROWTH AFTER 4 DAYS 10/13/20 13:35 Peripheral/Venous Blood Culture - Preliminary NO GROWTH AFTER 4 DAYS Junior/IV: Voiding Method Condom Catheter IV Catheter Type [Right Upper PICC Line arm] IV Catheter Type [Right] Peripheral IV Active Medications - Current Medications Current Medications: Generic Name Dose Route Start Last Admin Trade Name Freq PRN Reason Stop Dose Admin Acetaminophen 650 mg 10/13/20 08:40 10/13/20 09:02 Acetaminophen 650 Mg Rect Supp [place] 650 mg Q4H PRN Administration Non Cardiac Pain or Temp>100.5 Bisacodyl 10 mg 10/12/20 10:00 10/17/20 15:00 Bisacodyl 10 Mg Rect Supp [place] 10 mg QDAY JOSH Administration Haloperidol 0.5 mg 10/18/20 10:00 10/18/20 09:44 Haloperidol 1 Mg Tab PO 0.5 mg BID JOSH Administration Heparin Sodium (Porcine) 5,000 unit 10/16/20 12:00 10/18/20 10:13 Heparin 5,000 Unit/1 Ml Vial SUB-Q Not Given Q12HR [facility] Hydralazine HCl 5 mg 10/07/20 06:52 10/17/20 08:50 Hydralazine 20 Mg/1 Ml Inj IV 5 mg Q30MIN PRN Administration Hypertension Hydromorphone HCl 1 mg 10/14/20 06:51 10/16/20 21:09 Hydromorphone 1 Mg/1 Ml Inj IV 1 mg Q3H PRN Administration Pain , Severe (7-10) Hydrophilic Ointment 1 applic 10/11/20 19:50 10/15/20 02:10 Lip Therapy Vaseline TP 1 applic Q2HR PRN Administration Dry Lips Levofloxacin/Dextrose 750 mg in 150 mls @ 100 mls/hr 10/14/20 13:00 10/17/20 12:17 Levaquin 750mg/150ml IV 100 mls/hr Q24H [facility] Administration Protocol Amino Acids/Electrolytes/Dextrose 3,000 mls @ 125 mls/hr 10/17/20 20:00 0 10/17/20 20:11 Tpn Adult IV 10/18/20 19:59 125 mls/hr DAILY@1999 [facility] Administration Protocol Fat Emulsion Intravenous 250 mls @ 21 mls/hr 10/18/20 20:00 Intralipid 20% IV 10/19/20 07:59 DAILY@1999 [facility] Amino Acids/Electrolytes/Dextrose 3,000 mls @ 125 mls/hr 10/18/20 20:00 Tpn Adult IV 10/19/20 19:59 DAILY@1999 [facility] Protocol Ketorolac Tromethamine 15 mg 10/13/20 22:00 10/18/20 05:36 Ketorolac 30 Mg/1 Ml Inj IV 10/18/20 21:59 15 mg Q8HR JOSH Administration Melatonin 5 mg 10/17/20 22:00 10/17/20 21:55 Melatonin 5 Mg Tab PO 5 mg QHS JOSH Administration Mirtazapine 15 mg 10/18/20 22:00 Mirtazapine 15 Mg Tab PO QHS [facility] Multi-Ingred Cream/Lotion/Oil/Oint 1 applic 10/11/20 19:50 Mineral Oil/Petrolatum, White Ophth Oint 3.5 Gm OU Q4HR PRN Dry Eye(s) Multivitamins 1 each 10/18/20 10:00 10/18/20 09:44 Multivitamins ,Therapeutic Tab PO 1 each QDAY [facility] Administration Ondansetron HCl 4 mg 10/07/20 06:18 10/11/20 13:50 Ondansetron 4 Mg/2 Ml Inj IV 4 mg Q8H PRN Administration Nausea And Vomiting Oxycodone/Acetaminophen 2 tab 10/17/20 10:27 Oxycodone /Acetaminophen 5-325mg Tab PO Q6H PRN Pain, Moderate (4-6) Pantoprazole Sodium 40 mg 10/18/20 07:30 10/18/20 09:44 Pantoprazole 40 Mg Tab PO 40 mg QDAC [facility] Administration Phenol 1 spray 10/14/20 10:40 10/14/20 14:31 Phenol 1.4% 177 Ml Bottle MM 1 spray PRN PRN Administration Sore Throat Sodium Chloride 10 ml 10/07/20 10:00 10/17/20 21:55 Sodium Chloride 0.9% 10 Ml Flush Syringe IV 10 ml BID JOSH Administration Sodium Chloride 10 ml 10/07/20 06:18 10/08/20 18:42 Sodium Chloride 0.9% 10 Ml Flush Syringe IV 10 ml PRN PRN Administration LINE FLUSH Nutrition/Malnutrition Assess - Dietary Evaluation Nutrition/Malnutrition Findings: Nutrition Notes Start: 10/08/20 13:34 Freq: Status: Active Protocol: Document 10/18/20 09:32 LP (Rec: 10/18/20 09:39 LP [id number]) Nutrition Notes Initial or Follow up Reassessment Current Diagnosis Coronary Artery Disease, Hypertension,Hyperlipidemia Other Pertinent Diagnosis s/p exp lap wounds, SBO, hernia, hx. multiple bowel surgeries Current Diet CPN at 125ml/hr and Full Liquid Labs/Tests Reviewed Pertinent Medications Reviewed Height 6 ft 2 in Weight 102.4 kg [place] Body Weight (kg) 86.36 BMI 29.0 Weight change and time frame Wt change noted Weight Status Appropriate Subjective/Other Information CPN day 10. Pt diet advanced to full liquid. Pt tolerating diet but not eating enough to stop TPN. Percent of energy/protein needs met: Meeting less than 25% of estimated needs with meals and ONS. Burn Absent Trauma Absent GI Symptoms Other Current % PO Negligible Minimum of two criteria No physical signs of malnutrition #2 Nutrition Diagnosis Increased nutrient needs ( specify in comment below) Diagnosis Progress(for reassessment Continues documentation) #1 Nutrition Diagnosis Inadequate energy intake As Evidenced by Signs and Symptoms Pt diet advanced to full liquids and tolerating. Diagnosis Progress(for reassessment Improved documentation) Is patient on ventilator? No Is Patient Ambulatory and/or Out of Bed No REE-([facility]-confined to bed) [phone] Calculation Used for Recommendations [facility] Additional Notes Protein needs are 114-143g (1. 2-1.5g/kg) Fluid needs: 1 mL/kcal Nutrition Intervention Change Diet Order: TPN and full liquid Nutrition Support: CPN at 125 mL/hr: MVI, lipids Osmolarity: 1033 Kcal 1,867 Protein (gm) 125 Carbohydrates (gm) 255 Fat (gm) 50 Fluid (mL) 3,250 Fiber (gm) 0 Add Supplement/Snack (indicate name/kcal Ensure Enlive Vanilla TID /protein ) Provides kCal: 1,050 Provides Protein (gm) 60 Goal #1 Meet kcal and protein needs as best as possible via CPN and full liquid diet Goal #2 Wound healing Anticipated Discharge Needs: Unable to determine at this time Follow-Up By: 10/19/20 Additional Comments Labs in AM: BMP, phos Follow for intakes and possible D/C of TPN
--- NOTE | 2020-10-18 12:06 | Gastroenterology Progress Note ---
Assessment and Plan - Patient Problems (1) Abnormal liver enzymes Current Visit: Yes Status: Acute Plan to address problem: - Normal on admit, and normal liver imaging this admit as well; likely from mild ischemia at time of surgery. - Negative hepatitis panel, and on MVI. - Encouraged PO intake, and would get off TPN as soon as feasible. - Avoid excess tylenol and other hepatotoxic meds. - Since improved today, would not pursue further in patient w/u. - Will sign off; the patient may f/u with us in the clinic for further management. Subjective Date of service: 10/18/20 Principal diagnosis: Abnormal Liver Enzymes Interval history: The patient is doing well this morning, and tolerating his liquid diet. He has not had a BM (he thinks) but continues to pass large amounts of gas. Objective - Constitutional Vitals: Temp Pulse Resp BP Pulse Ox 97.9 F 92 H 18 144/89 93 10/18/20 07:38 10/18/20 07:38 10/18/20 07:38 10/18/20 07:38 10/18/20 07:38 General appearance: no acute distress - Respiratory Respiratory effort: normal Respiratory: bilateral: CTA - Cardiovascular Rhythm: regular Heart Sounds: Present: S1 & S2 - Gastrointestinal General gastrointestinal: Present: soft, tender (Mild tenderness (appropriate post-op)), non-distended, other (PEG tube in appropriate location) - Labs CBC & Chem 7: 10/17/20 04:00 10/18/20 05:00 Labs: Laboratory Results - last 24 hr 10/17/20 10/17/20 10/18/20 13:56 19:25 00:32 Sodium Potassium Chloride Carbon Dioxide Anion Gap BUN Creatinine Estimated GFR BUN/Creatinine Ratio Glucose POC Glucose 122 H 113 H 130 H Calcium Phosphorus Magnesium Total Bilirubin Direct Bilirubin Indirect Bilirubin AST ALT Alkaline Phosphatase Total Protein Albumin Albumin/Globulin Ratio Hepatitis A IgM Ab Hep Bs Antigen Hep B Core IgM Ab Hepatitis C Antibody 10/18/20 10/18/20 10/18/20 05:00 05:00 05:00 Sodium 140 Potassium 3.6 Chloride 103.1 Carbon Dioxide 24 Anion Gap 17 BUN 27 H Creatinine 0.7 L Estimated GFR > 60 BUN/Creatinine Ratio 39 Glucose 116 H POC Glucose 111 H Calcium 8.9 Phosphorus 3.90 Magnesium 1.90 Total Bilirubin 0.80 Direct Bilirubin 0.4 H Indirect Bilirubin 0.4 AST 72 H ALT 87 H Alkaline Phosphatase 155 H Total Protein 5.6 L Albumin 2.7 L Albumin/Globulin Ratio 0.9 Hepatitis A IgM Ab Non-reactive Hep Bs Antigen Non-reactive Hep B Core IgM Ab Non-reactive Hepatitis C Antibody Non-reactive 10/18/20 11:54 Sodium Potassium Chloride Carbon Dioxide Anion Gap BUN Creatinine Estimated GFR BUN/Creatinine Ratio Glucose POC Glucose 127 H Calcium Phosphorus Magnesium Total Bilirubin Direct Bilirubin Indirect Bilirubin AST ALT Alkaline Phosphatase Total Protein Albumin Albumin/Globulin Ratio Hepatitis A IgM Ab Hep Bs Antigen Hep B Core IgM Ab Hepatitis C Antibody
--- NOTE | 2020-10-18 14:12 | Progress Note ---
Assessment and Plan POD#5 s/p abdominal exploration, g-tube placement, and abdominal wall closure with mesh. Afebrile and stable. post op ileus clinically resolved. will advance to soft diet, Taper TPN per dietary recs. Hopefully PT will evaluate today, will use recommendations for home health needs. Delirium, off and on. Continue to follow psych recommendations. I spoke to his Manju who will call him later today. She expressed concerns about coming home if he needs a lot of care. Will talk to social work about discharge options and home health. Subjective Date of service: 10/18/20 Patient Reports: Positive: no new complaints, pain is less, flatus (no acute events overnight. Pt had a bowel movement and says he wants to go home.), bowel movement. Negative: nausea, vomiting Objective Vital Signs - 12hr 10/18/20 10/18/20 10/18/20 04:52 07:38 11:56 Temperature 98.9 F 97.9 F 97.9 F Pulse Rate 99 H 92 H 97 H Respiratory 20 18 20 Rate Blood Pressure 140/80 144/89 131/84 O2 Sat by Pulse 94 93 93 Oximetry - General physical appearance well developed, no distress, no pain - Respiratory normal expansion, normal respiratory effort, other (on nasal canula) - Abdomen soft, not distended, other (staple line c/d/i, small serosanguinous drainage on dressing. G-tube in place) - Labs 10/17/20 04:00 10/18/20 05:00 Diabetes panel 10/18/20 Range/Units 05:00 Sodium 140 (137-145) mmol/L Potassium 3.6 (3.6-5.0) mmol/L Chloride 103.1 (98-107) mmol/L Carbon Dioxide 24 (22-30) mmol/L BUN 27 H (9-20) mg/dL Creatinine 0.7 L (0.8-1.3) mg/dL Glucose 116 H (75-100) mg/dL Calcium 8.9 (8.4-10.2) mg/dL AST 72 H (5-40) units/L ALT 87 H (7-56) units/L Alkaline Phosphatase 155 H (35-129) units/L Total Protein 5.6 L (6.3-8.2) g/dL Albumin 2.7 L (3.9-5) g/dL Calcium panel 10/18/20 Range/Units 05:00 Calcium 8.9 (8.4-10.2) mg/dL Phosphorus 3.90 (2.5-4.5) mg/dL Albumin 2.7 L (3.9-5) g/dL Pituitary panel 10/18/20 Range/Units 05:00 Sodium 140 (137-145) mmol/L Potassium 3.6 (3.6-5.0) mmol/L Chloride 103.1 (98-107) mmol/L Carbon Dioxide 24 (22-30) mmol/L BUN 27 H (9-20) mg/dL Creatinine 0.7 L (0.8-1.3) mg/dL Glucose 116 H (75-100) mg/dL Calcium 8.9 (8.4-10.2) mg/dL Adrenal panel 10/18/20 Range/Units 05:00 Sodium 140 (137-145) mmol/L Potassium 3.6 (3.6-5.0) mmol/L Chloride 103.1 (98-107) mmol/L Carbon Dioxide 24 (22-30) mmol/L BUN 27 H (9-20) mg/dL Creatinine 0.7 L (0.8-1.3) mg/dL Glucose 116 H (75-100) mg/dL Calcium 8.9 (8.4-10.2) mg/dL Total Bilirubin 0.80 (0.1-1.2) mg/dL AST 72 H (5-40) units/L ALT 87 H (7-56) units/L Alkaline Phosphatase 155 H (35-129) units/L Total Protein 5.6 L (6.3-8.2) g/dL Albumin 2.7 L (3.9-5) g/dL
[2020-10-18] MEDS: LOPERAMIDE 2 MG CAP PO PRN ×2 (17:15→21:33)
[2020-10-18] MEDS ORDERED: TOTAL PARENTERAL NUTRITION 3,000 ML IV SCH (20:00)
[2020-10-18] MEDS ORDERED: FAT EMULSIONS 20% 250 ML IV SCH (20:00)
[2020-10-18] MEDS: MELATONIN 5 MG TAB PO SCH (21:33)
[2020-10-18] MEDS: MIRTAZAPINE 15 MG TAB PO SCH (22:19)
[2020-10-19 05:02] LABS: BUN/Creatinine Ratio 39; Blood Urea Nitrogen 31 mg/dL (9-20); Calcium 8.3 mg/dL (8.4-10.2); Hemolysis Index 4
--- NOTE | 2020-10-19 08:13 | Progress Note ---
Subjective - Reason for Consult Consult date: 10/19/20 Reason for consult: delirium - Chief Complaint Chief complaint: Per nurse taking care of the patient: He slept well, and hasn't reported any more hallucinations. I got him out of the room and wheeled him around and opened blinds to help him get sunlight. He's been doing better. During my interview with the patient today, he is lying down resting. He appears comfortable. He opens his eyes when I call his name. he says he slept better last night. He denies having the hallucinations. The patient also denies SI/HI. REVIEW OF SYSTEMS Constitutional: Negative for weight loss ENT: Negative for stridor Respiratory: Negative for cough or hemoptysis All other systems reviewed and are negative MENTAL STATUS EXAMINATION General Appearance and Behavior: Age appropriate, good hygiene, not wearing appropriate clothes, good eye contact, calm and cooperative with questioning. Cooperation: Participating Mood: better Affect and affective range: congruent with stated mood Thought Process: goal directed Speech: normal tone and pace Intellectual Functioning: Average Thought content: Suicidal Ideation: Denies SI Homicidal Ideation: Denies HI Hallucinations: Denies Delusions: None elicited Impulse Control: Normal Insight and Judgment: Limited insight and judgment Memory: Normal Attention: Normal Orientation: Alert, oriented, confused at times Assessment and Plan (1) Deliruim Current Visit: Yes Status: Acute Treatment Plan Continue Remeron 15 qhs to help improve sleep disturbance Continue Haldol 0.5mg po BID to help with delirium/hallucinations Continue Melatonin 5mg po qhs to improve rest Sitter: Defer to primary Medical: Per primary Disposition: Do not recommend acute inpatient psychiatric treatment. Will continue to follow for med management Will follow. Case staffed with Dr. Goff. Mental Status Exam - Vital signs Last Vital Signs Temp 97.7 F 10/19/20 04:27 Pulse 84 10/19/20 04:27 Resp 18 10/19/20 04:27 BP 165/90 10/19/20 04:27 Pulse Ox 92 10/19/20 04:27
--- NOTE | 2020-10-19 09:19 | Progress Note ---
Assessment and Plan Assessment and plan: Patient was admitted with abdominal pain , small bowel obstruction , ventral hernia history of multiple abdominal surgeries and large hiatal hernia, surgery and IR evaluated, Unable to pass NG tube , patient underwent fluoroscopic guided placement of nasojejunostomy tube per IR Patient underwent exploratory laparotomy, lysis of edition, ABThera abdominal vacuum dressing on 10/11/2020, patient is intubated on vent Extubated yesterday 10/14/2020, on 4 L nasal cannula oxygen and TPN, patient is in depressed mood this morning, minimally communicative , psych following Patient feels better today tolerating clear liquids, delirious psych following --Delirium/depression; improved today, no new episodes Psych following --Hypokalemia; resolved Potassium 3.4, replenished with 40 mEq KCl p.o. Closely monitor electrolytes --Small bowel obstruction/ventral hernia/hiatal hernia 10/11/2020 ;surgical intervention --s/p EXPLORATORY LAPAROTOMY, -EXTENSIVE LYSIS OF ADHESIONS, -ABTHERA ABDOMINAL VACUUM DRESSING Patient is diet advanced to full liquids per surgery 10/13/2020;second surgical procedure; 10/13/2020 -abdominal exploration, -Gastric tube placement and -abdominal wall closure with phasix mesh Patient tolerated the procedure well Postop care per surgery Patient is tolerating clear liquids Out of bed to chair if okay with surgery --Acute hypoxic respiratory failure; Intubated, on vent 10/11/2020 Status post extubation 10/14/2020, saturating well room air --Acute transaminitis: Closely monitor, trend LFTs Consider GI evaluation if no improvement --Acute kidney injury; secondary to dehydration Vasomotor nephropathy, resolved Closely monitor renal function --History of coronary artery disease; Continue home medications once patient is able to take oral Consider cardiology evaluation if needed --Dyslipidemia; Patient is on statin, currently n.p.o. Resume when patient is stable and able to take p.o. --Severe malnutrition; hypoalbuminemia Nutrition supplements, nutrition consult Patient is already on TPN --DVT prophylaxis; SCDs PT evaluated the patient, recommend acute inpatient rehabilitation [IRU] Case management processing the request Closely monitor the patient and adjust management as needed Plan of care reviewed with the patient and his nurse IRU requires COVID-19 test prior to transfer, lee PCR test requested Brief history: Patient was admitted with abdominal pain , small bowel obstruction , ventral hernia history of multiple abdominal surgeries and large hiatal hernia, surgery and IR evaluated, Unable to pass NG tube , patient underwent fluoroscopic guided placement of nasojejunostomy tube per IR Patient underwent exploratory laparotomy, lysis of edition, ABThera abdominal vacuum dressing on 10/11/2020, patient is intubated on vent 10/08/2020; patient has Dobbhoff/nasal jejunostomy tube placement, with intermittent suction Patient feels slightly better, n.p.o. status, management per surgery 10/09/2020 Patient on tube feedings Small bowel obstruction still present Patient reluctant about getting surgery 10/10/2020 Patient counseled about getting surgery Patient had to decide 10/11/2020 Patient has agreed for surgery after long discussion with Dr. Lechuga 10/12/2020; patient had exploratory laparotomy extensive lysis of adhesion and ABThera abdominal vacuum dressing postoperative day 1, patient intubated on ventilatory support 10/13/2020. Patient intubated on ventilatory support, continue current geospatial program management officer recommendations noted and appreciated 10/14/2020; patient underwent-abdominal exploration,Gastric tube placement and abdominal wall closure with phasix mesh on 10/13/2020 Patient tolerated the procedure well, continue postop care per surgery 10/15/2020; patient is alert and awake, was extubated 10/14/2020, looks depressed, psych evaluated the patient 10/16/2020; patient feels slightly better today, had flatus and small bowel movement, tolerating clear liquids More alert and awake responding appropriately, patient looks very tired 10/17/2020;patient is delirious and depressed intermittently , reports that he has seen some spiders on the wall mild hypokalemia, replenish with KCl, patient tolerating clear liquids Continue current postop care, follow LFTs, if no improvement consult GI, ambulate as tolerated if okay with surgery 10/18/2020; patient is more alert and awake and oriented x3 today, no episodes of delirium or hallucination Psych following, tolerating full liquid diet, had a large loose bowel movement this morning 10/19/2020; patient feels slightly better diet advance to soft diet PT evaluation recommendation noted, recommend acute inpatient rehabilitation Rehab evaluated, requested pre transfer COVID-19 test, test ordered History Interval history: I have seen and examined the patient at the bedside Patient's chart and medications reviewed ,patient feels slightly better Tolerating full liquid diet advance to soft diet today No new complaints except for tiredness Vital signs noted Hospitalist Physical - Constitutional Vitals: Temp Pulse Resp BP Pulse Ox 98.3 F 62 17 142/84 94 10/19/20 08:36 10/19/20 08:36 10/19/20 08:36 10/19/20 08:36 10/19/20 09:04 General appearance: Present: no acute distress, well-nourished - EENT Eyes: Present: PERRL, EOM intact - Neck Neck: Present: supple, normal ROM - Respiratory Respiratory effort: normal Respiratory: bilateral: diminished, negative: rales, rhonchi, wheezing - Cardiovascular Rhythm: regular Heart Sounds: Present: S1 & S2 - Extremities Extremities: no ischemia, No edema - Abdominal General gastrointestinal: soft, non-tender, non-distended, normal bowel sounds - Integumentary Integumentary: Present: clear, warm - Psychiatric Psychiatric: appropriate mood/affect, cooperative Results - Labs CBC & Chem 7: 10/17/20 04:00 10/19/20 04:20 Labs: Laboratory Last Values WBC 9.7 K/mm3 (4.5-11.0) 10/17/20 04:00 RBC 3.93 M/mm3 (3.65-5.03) 10/17/20 04:00 Hgb 12.7 gm/dl (11.8-15.2) 10/17/20 04:00 Hct 37.2 % (35.5-45.6) 10/17/20 04:00 MCV 95 fl (84-94) H 10/17/20 04:00 MCH 32 pg (28-32) 10/17/20 04:00 MCHC 34 % (32-34) 10/17/20 04:00 RDW 14.0 % (13.2-15.2) 10/17/20 04:00 Plt Count 272 K/mm3 (140-440) 10/17/20 04:00 Lymph % (Auto) 10.2 % (13.4-35.0) L 10/17/20 04:00 [place] % (Auto) 8.9 % (0.0-7.3) H 10/17/20 04:00 Eos % (Auto) 3.7 % (0.0-4.3) 10/17/20 04:00 Baso % (Auto) 1.0 % (0.0-1.8) 10/17/20 04:00 Lymph # (Auto) 1.0 K/mm3 (1.2-5.4) L 10/17/20 04:00 [place] # (Auto) 0.9 K/mm3 (0.0-0.8) H 10/17/20 04:00 Eos # (Auto) 0.4 K/mm3 (0.0-0.4) 10/17/20 04:00 Baso # (Auto) 0.1 K/mm3 (0.0-0.1) 10/17/20 04:00 Add Manual Diff Complete 10/15/20 09:15 Total Counted 100 10/15/20 09:15 Seg Neutrophils % 76.2 % (40.0-70.0) H 10/17/20 04:00 Seg Neuts % (Manual) 97.0 % (40.0-70.0) H 10/15/20 09:15 Lymphocytes % (Manual) 3.0 % (13.4-35.0) L 10/14/20 04:00 Reactive Lymphs % (Man) 1.0 % 10/15/20 09:15 Monocytes % (Manual) 2.0 % (0.0-7.3) 10/15/20 09:15 Nucleated RBC % Not Reportable 10/15/20 09:15 Seg Neutrophils # 7.4 K/mm3 (1.8-7.7) 10/17/20 04:00 Seg Neutrophils # Man 13.7 K/mm3 (1.8-7.7) H 10/15/20 09:15 Band Neutrophils # 0.0 K/mm3 10/15/20 09:15 Lymphocytes # (Manual) 0.0 K/mm3 (1.2-5.4) L 10/15/20 09:15 Abs React Lymphs (Man) 0.1 K/mm3 10/15/20 09:15 Monocytes # (Manual) 0.3 K/mm3 (0.0-0.8) 10/15/20 09:15 Eosinophils # (Manual) 0.0 K/mm3 (0.0-0.4) 10/15/20 09:15 Basophils # (Manual) 0.0 K/mm3 (0.0-0.1) 10/15/20 09:15 Metamyelocytes # 0.0 K/mm3 10/15/20 09:15 Myelocytes # 0.0 K/mm3 10/15/20 09:15 Promyelocytes # 0.0 K/mm3 10/15/20 09:15 Blast Cells # 0.0 K/mm3 10/15/20 09:15 WBC Morphology Not Reportable 10/15/20 09:15 Hypersegmented Neuts Not Reportable 10/15/20 09:15 Hyposegmented Neuts Not Reportable 10/15/20 09:15 Hypogranular Neuts Not Reportable 10/15/20 09:15 Smudge Cells Not Reportable 10/15/20 09:15 Toxic Granulation Not Reportable 10/15/20 09:15 Toxic Vacuolation Not Reportable 10/15/20 09:15 Dohle Bodies Not Reportable 10/15/20 09:15 Pelger-Huet Anomaly Not Reportable 10/15/20 09:15 Blake Rods Not Reportable 10/15/20 09:15 Platelet Estimate Consistent w auto 10/15/20 09:15 Clumped Platelets Not Reportable 10/15/20 09:15 Plt Clumps, EDTA Not Reportable 10/15/20 09:15 Large Platelets Not Reportable 10/15/20 09:15 Giant Platelets Not Reportable 10/15/20 09:15 Platelet Satelliting Not Reportable 10/15/20 09:15 Plt Morphology Comment Not Reportable 10/15/20 09:15 RBC Morphology Normal 10/15/20 09:15 Dimorphic RBCs Not Reportable 10/15/20 09:15 Polychromasia Not Reportable 10/15/20 09:15 Hypochromasia Not Reportable 10/15/20 09:15 Poikilocytosis Not Reportable 10/15/20 09:15 Anisocytosis Not Reportable 10/15/20 09:15 Microcytosis Not Reportable 10/15/20 09:15 Macrocytosis Not Reportable 10/15/20 09:15 Spherocytes Not Reportable 10/15/20 09:15 Pappenheimer Bodies Not Reportable 10/15/20 09:15 Sickle Cells Not Reportable 10/15/20 09:15 Target Cells Not Reportable 10/15/20 09:15 Tear Drop Cells Not Reportable 10/15/20 09:15 Ovalocytes Not Reportable 10/15/20 09:15 Helmet Cells Not Reportable 10/15/20 09:15 [place] Bodies Not Reportable 10/15/20 09:15 [place] Rings Not Reportable 10/15/20 09:15 Negley Cells Not Reportable 10/15/20 09:15 Bite Cells Not Reportable 10/15/20 09:15 Crenated Cell Not Reportable 10/15/20 09:15 Elliptocytes Not Reportable 10/15/20 09:15 Acanthocytes (Spur) Not Reportable 10/15/20 09:15 Rouleaux Not Reportable 10/15/20 09:15 Hemoglobin C Crystals Not Reportable 10/15/20 09:15 Schistocytes Not Reportable 10/15/20 09:15 Malaria parasites Not Reportable 10/15/20 09:15 Chris Bodies Not Reportable 10/15/20 09:15 Hem Pathologist Commnt No 10/15/20 09:15 ABG pH 7.431 (7.320-7.450) 10/13/20 06:46 POC ABG pCO2 38.3 mmHg (32.0-48.0) 10/13/20 06:46 POC ABG pO2 110.7 mmHg (83-108) H 10/13/20 06:46 POC ABG HCO3 24.9 10/13/20 06:46 POC ABG Base Excess 0.8 10/13/20 06:46 ABG Hemoglobin 14.2 (12.0-17.5) 10/13/20 06:46 ABG Oxyhemoglobin 91.6 (94-98) L 10/13/20 05:44 ABG Methemoglobin 0.3 (0.0-1.5) 10/13/20 05:44 ABG Sodium 132.9 mmol/L (136.0-145.0) L 10/13/20 06:46 ABG Potassium 4.5 mmol/L (3.40-4.50) 10/13/20 06:46 ABG Chloride 101.0 mmol/L (98-107) 10/13/20 06:46 ABG Glucose 184 mg/dL (65-95) H 10/13/20 06:46 Carboxyhemoglobin 1.1 (0.5-1.5) 10/13/20 05:44 FiO2 100 10/13/20 06:46 Sodium 136 mmol/L (137-145) L 10/19/20 04:20 Potassium 3.9 mmol/L (3.6-5.0) 10/19/20 04:20 Chloride 101.9 mmol/L (98-107) 10/19/20 04:20 Carbon Dioxide 22 mmol/L (22-30) 10/19/20 04:20 Anion Gap 16 mmol/L 10/19/20 04:20 BUN 31 mg/dL (9-20) H 10/19/20 04:20 Creatinine 0.8 mg/dL (0.8-1.3) 10/19/20 04:20 Estimated GFR > 60 ml/min 10/19/20 04:20 BUN/Creatinine Ratio 39 % 10/19/20 04:20 Glucose 127 mg/dL (75-100) H 10/19/20 04:20 POC Glucose 94 mg/dL (70-105) 10/18/20 18:24 Lactic Acid 1.70 mmol/L (0.7-2.0) 10/09/20 05:36 Calcium 8.3 mg/dL (8.4-10.2) L 10/19/20 04:20 Phosphorus 3.60 mg/dL (2.5-4.5) 10/19/20 04:20 Magnesium 1.90 mg/dL (1.7-2.3) 10/19/20 04:20 Total Bilirubin 0.80 mg/dL (0.1-1.2) 10/18/20 05:00 Direct Bilirubin 0.4 mg/dL (0-0.2) H 10/18/20 05:00 Indirect Bilirubin 0.4 mg/dL 10/18/20 05:00 AST 72 units/L (5-40) H 10/18/20 05:00 ALT 87 units/L (7-56) H 10/18/20 05:00 Alkaline Phosphatase 155 units/L (35-129) H 10/18/20 05:00 Total Protein 5.6 g/dL (6.3-8.2) L 10/18/20 05:00 Albumin 2.7 g/dL (3.9-5) L 10/18/20 05:00 Albumin/Globulin Ratio 0.9 % 10/18/20 05:00 Triglycerides 147 mg/dL (2-149) 10/13/20 04:00 Lipase 20 units/L (13-60) 10/07/20 02:36 Arterial Blood Glucose 184 mg/dL (65-95) H 10/13/20 06:46 Arterial Blood Ionized Calcium 4.6 mg/dL (4.6-5.3) 10/13/20 06:46 Urine Color [place] (Yellow) 10/07/20 Unknown Urine Turbidity Clear (Clear) 10/07/20 Unknown Urine pH 5.0 (5.0-7.0) 10/07/20 Unknown Ur Specific [place] 1.041 (1.003-1.030) H 10/07/20 Unknown Urine Protein 30 mg/dl mg/dL (Negative) 10/07/20 Unknown Urine Glucose (UA) Neg mg/dL (Negative) 10/07/20 Unknown Urine Ketones Neg mg/dL (Negative) 10/07/20 Unknown Urine Blood Neg (Negative) 10/07/20 Unknown Urine Nitrite Neg (Negative) 10/07/20 Unknown Urine Bilirubin Neg (Negative) 10/07/20 Unknown Urine Urobilinogen < 2.0 mg/dL (<2.0) 10/07/20 Unknown Ur Leukocyte Esterase Neg (Negative) 10/07/20 Unknown Urine WBC (Auto) 2.0 /HPF (0.0-6.0) 10/07/20 Unknown Urine RBC (Auto) 4.0 /HPF (0.0-6.0) 10/07/20 Unknown U Epithel Cells (Auto) < 1.0 /HPF (0-13.0) 10/07/20 Unknown Urine Mucus Few /HPF 10/07/20 Unknown Hepatitis A IgM Ab Non-reactive (NonReactive) 10/18/20 05:00 Hep Bs Antigen Non-reactive (Negative) 10/18/20 05:00 Hep B Core IgM Ab Non-reactive (NonReactive) 10/18/20 05:00 Hepatitis C Antibody Non-reactive (NonReactive) 10/18/20 05:00 Blood Type A POSITIVE 10/11/20 21:30 Antibody Screen Negative 10/11/20 21:30 Microbiology: Microbiology 10/13/20 13:35 Peripheral/Venous Blood Culture - Final NO GROWTH AFTER 5 DAYS 10/13/20 13:35 Peripheral/Venous Blood Culture - Final NO GROWTH AFTER 5 DAYS Junior/IV: Voiding Method Diaper IV Catheter Type [Right Upper PICC Line arm] IV Catheter Type [Right] Peripheral IV Active Medications - Current Medications Current Medications: Generic Name Dose Route Start Last Admin Trade Name Freq PRN Reason Stop Dose Admin Acetaminophen 650 mg 10/13/20 08:40 10/13/20 09:02 Acetaminophen 650 Mg Rect Supp ID 650 mg Q4H PRN Administration Non Cardiac Pain or Temp>100.5 Bisacodyl 10 mg 10/12/20 10:00 10/18/20 13:02 Bisacodyl 10 Mg Rect Supp ID Not Given QDAY JOSH Haloperidol 0.5 mg 10/18/20 10:00 10/18/20 21:33 Haloperidol 1 Mg Tab PO 0.5 mg BID JOSH Administration Heparin Sodium (Porcine) 5,000 unit 10/16/20 12:00 10/18/20 21:31 Heparin 5,000 Unit/1 Ml Vial SUB-Q 5,000 unit Q12HR JOSH Administration Hydralazine HCl 5 mg 10/07/20 06:52 10/17/20 08:50 Hydralazine 20 Mg/1 Ml Inj IV 5 mg Q30MIN PRN Administration Hypertension Hydromorphone HCl 1 mg 10/14/20 06:51 10/16/20 21:09 Hydromorphone 1 Mg/1 Ml Inj IV 1 mg Q3H PRN Administration Pain , Severe (7-10) Hydrophilic Ointment 1 applic 10/11/20 19:50 10/15/20 02:10 Lip Therapy Vaseline TP 1 applic Q2HR PRN Administration Dry Lips Levofloxacin/Dextrose 750 mg in 150 mls @ 100 mls/hr 10/14/20 13:00 10/18/20 14:37 Levaquin 750mg/150ml IV 100 mls/hr Q24H JOSH Administration Protocol Amino Acids/Electrolytes/Dextrose 3,000 mls @ 125 mls/hr 10/18/20 20:00 10/18/20 20:53 Tpn Adult IV 10/19/20 19:59 125 mls/hr DAILY@2000 COUNT INCLUDES THE [facility] Administration Protocol Loperamide HCl 2 mg 10/18/20 16:56 10/18/20 21:33 Loperamide 2 Mg Cap PO 2 mg Q2H PRN Administration Diarrhea Melatonin 5 mg 10/17/20 22:00 10/18/20 21:33 Melatonin 5 Mg Tab PO 5 mg QHS JOSH Administration Mirtazapine 15 mg 10/18/20 22:00 10/18/20 22:19 Mirtazapine 15 Mg Tab PO 15 mg QHS JOSH Administration Multi-Ingred Cream/Lotion/Oil/Oint 1 applic 10/11/20 19:50 Mineral Oil/Petrolatum, White Ophth Oint 3.5 Gm OU Q4HR PRN Dry Eye(s) Multivitamins 1 each 10/18/20 10:00 10/18/20 09:44 Multivitamins ,Therapeutic Tab PO 1 each QDAY JOSH Administration Ondansetron HCl 4 mg 10/07/20 06:18 10/11/20 13:50 Ondansetron 4 Mg/2 Ml Inj IV 4 mg Q8H PRN Administration Nausea And Vomiting Oxycodone/Acetaminophen 2 tab 10/17/20 10:27 Oxycodone /Acetaminophen 5-325mg Tab PO Q6H PRN Pain, Moderate (4-6) Pantoprazole Sodium 40 mg 10/18/20 07:30 10/18/20 09:44 Pantoprazole 40 Mg Tab PO 40 mg QDAC JOSH Administration Phenol 1 spray 10/14/20 10:40 10/14/20 14:31 Phenol 1.4% 177 Ml Bottle MM 1 spray PRN PRN Administration Sore Throat Sodium Chloride 10 ml 10/07/20 10:00 10/18/20 21:36 Sodium Chloride 0.9% 10 Ml Flush Syringe IV 10 ml BID JOSH Administration Sodium Chloride 10 ml 10/07/20 06:18 10/08/20 18:42 Sodium Chloride 0.9% 10 Ml Flush Syringe IV 10 ml PRN PRN Administration LINE FLUSH Nutrition/Malnutrition Assess - Dietary Evaluation Nutrition/Malnutrition Findings: Nutrition Notes Start: 10/08/20 13:34 Freq: Status: Active Protocol: Document 10/18/20 09:32 LP (Rec: 10/18/20 09:39 LP [id number]) Nutrition Notes Initial or Follow up Reassessment Current Diagnosis Coronary Artery Disease, Hypertension,Hyperlipidemia Other Pertinent Diagnosis s/p exp lap wounds, SBO, hernia, hx. multiple bowel surgeries Current Diet CPN at 125ml/hr and Full Liquid Labs/Tests Reviewed Pertinent Medications Reviewed Height 6 ft 2 in Weight 102.4 kg [place] Body Weight (kg) 86.36 BMI 29.0 Weight change and time frame Wt change noted Weight Status Appropriate Subjective/Other Information CPN day 10. Pt diet advanced to full liquid. Pt tolerating diet but not eating enough to stop TPN. Percent of energy/protein needs met: Meeting less than 25% of estimated needs with meals and ONS. Burn Absent Trauma Absent GI Symptoms Other Current % PO Negligible Minimum of two criteria No physical signs of malnutrition #2 Nutrition Diagnosis Increased nutrient needs ( specify in comment below) Diagnosis Progress(for reassessment Continues documentation) #1 Nutrition Diagnosis Inadequate energy intake As Evidenced by Signs and Symptoms Pt diet advanced to full liquids and tolerating. Diagnosis Progress(for reassessment Improved documentation) Is patient on ventilator? No Is Patient Ambulatory and/or Out of Bed No REE-([facility]-confined to bed) [phone] Calculation Used for Recommendations [facility] Additional Notes Protein needs are 114-143g (1. 2-1.5g/kg) Fluid needs: 1 mL/kcal Nutrition Intervention Change Diet Order: TPN and full liquid Nutrition Support: CPN at 125 mL/hr: MVI, lipids Osmolarity: 1033 Kcal 1,867 Protein (gm) 125 Carbohydrates (gm) 255 Fat (gm) 50 Fluid (mL) 3,250 Fiber (gm) 0 Add Supplement/Snack (indicate name/kcal Ensure Enlive Vanilla TID /protein ) Provides kCal: 1,050 Provides Protein (gm) 60 Goal #1 Meet kcal and protein needs as best as possible via CPN and full liquid diet Goal #2 Wound healing Anticipated Discharge Needs: Unable to determine at this time Follow-Up By: 10/19/20 Additional Comments Labs in AM: BMP, phos Follow for intakes and possible D/C of TPN
[2020-10-19] MEDS: HEPARIN 5,000 UNIT/1 ML VIAL SUB-Q SCH ×2 (09:35→13:47)
[2020-10-19] MEDS: PANTOPRAZOLE 40 MG TAB PO SCH (13:34)
[2020-10-19] MEDS: MULTIVITAMINS ,THERAPEUTIC TAB PO SCH (13:34)
[2020-10-19] MEDS: HALOPERIDOL 1 MG TAB PO SCH ×2 (13:47→22:21)
--- NOTE | 2020-10-19 15:31 | Progress Note ---
Assessment and Plan POD#6 s/p abdominal exploration, g-tube placement, and abdominal wall closure with mesh. Afebrile and stable. post op ileus clinically resolved. will advance to soft diet, Taper TPN per dietary recs. After PT/OT evaluation and in depth discussion with Dr. Palacios, pt is a good candidate for inpatient rehabilitation. He was agreeable after some reluctance. His Manju was included in the discussion and wants to do whatever the patient desires. Delirium, off and on. Continue to follow psych recommendations. Spoke to case management about transfer to inpatient rehab. Subjective Date of service: 10/19/20 Patient Reports: Positive: feels better, still having pain, pain is less, tolerating a regular diet, flatus, bowel movement. Negative: nausea (no acute events over night. Pt was evaluated by PT and OR. they recommend inpatient rehab. He was agreeable after discussing benefits for about an hour with Dr. Palacios, and his .), vomiting Objective Vital Signs - 12hr 10/19/20 10/19/20 10/19/20 04:27 08:36 09:04 Temperature 97.7 F 98.3 F Pulse Rate 84 62 Respiratory 18 17 Rate Blood Pressure 165/90 Blood Pressure 142/84 [Left] O2 Sat by Pulse 92 94 94 Oximetry 10/19/20 11:09 Temperature 99.0 F Pulse Rate 88 Respiratory 17 Rate Blood Pressure 144/87 Blood Pressure [Left] O2 Sat by Pulse 92 Oximetry - General physical appearance well developed, no distress, no pain - Respiratory normal expansion, other (mild short of breath with exertion) - Abdomen soft, not distended, other (incision c/d/i, appropriately tender to palpation, g-tube in place) - Labs 10/17/20 04:00 10/19/20 04:20 Diabetes panel 10/19/20 Range/Units 04:20 Sodium 136 L (137-145) mmol/L Potassium 3.9 (3.6-5.0) mmol/L Chloride 101.9 (98-107) mmol/L Carbon Dioxide 22 (22-30) mmol/L BUN 31 H (9-20) mg/dL Creatinine 0.8 (0.8-1.3) mg/dL Glucose 127 H (75-100) mg/dL Calcium 8.3 L (8.4-10.2) mg/dL Calcium panel 10/19/20 Range/Units 04:20 Calcium 8.3 L (8.4-10.2) mg/dL Phosphorus 3.60 (2.5-4.5) mg/dL Pituitary panel 10/19/20 Range/Units 04:20 Sodium 136 L (137-145) mmol/L Potassium 3.9 (3.6-5.0) mmol/L Chloride 101.9 (98-107) mmol/L Carbon Dioxide 22 (22-30) mmol/L BUN 31 H (9-20) mg/dL Creatinine 0.8 (0.8-1.3) mg/dL Glucose 127 H (75-100) mg/dL Calcium 8.3 L (8.4-10.2) mg/dL Adrenal panel 10/19/20 Range/Units 04:20 Sodium 136 L (137-145) mmol/L Potassium 3.9 (3.6-5.0) mmol/L Chloride 101.9 (98-107) mmol/L Carbon Dioxide 22 (22-30) mmol/L BUN 31 H (9-20) mg/dL Creatinine 0.8 (0.8-1.3) mg/dL Glucose 127 H (75-100) mg/dL Calcium 8.3 L (8.4-10.2) mg/dL
[2020-10-19] MEDS ORDERED: TOTAL PARENTERAL NUTRITION 3,000 ML IV SCH (20:00)
[2020-10-19] MEDS: MELATONIN 5 MG TAB PO SCH (22:20)
[2020-10-19] MEDS: MIRTAZAPINE 15 MG TAB PO SCH (22:21)
[2020-10-20 06:39] LABS: Blood Urea Nitrogen 21 mg/dL (9-20); Calcium 8.2 mg/dL (8.4-10.2); Hemolysis Index 1
[2020-10-20 06:44] LABS: BUN/Creatinine Ratio 30
--- NOTE | 2020-10-20 08:04 | Progress Note ---
Subjective - Reason for Consult Consult date: 10/20/20 Reason for consult: delirium - Chief Complaint Chief complaint: Per nurse note: Patient rested most of the night , voices no complaints. During my interview with the patient today, he is awake. He says he's doing "alright, better if I could go home." The patient says "a hospital room is not conducive to good health." The patient says "I've been ready to go home for peons." He denies SI/HI. But the patient does verbalize still seeing "hanging things from lights." REVIEW OF SYSTEMS Constitutional: Negative for weight loss ENT: Negative for stridor Respiratory: Negative for cough or hemoptysis All other systems reviewed and are negative MENTAL STATUS EXAMINATION General Appearance and Behavior: Age appropriate, good hygiene, not wearing wendy ropriate clothes, good eye contact, calm and cooperative with questioning. Cooperation: Participating Mood: better Affect and affective range: congruent with stated mood Thought Process: goal directed Speech: normal tone and pace Intellectual Functioning: Average Thought content: Suicidal Ideation: Denies SI Homicidal Ideation: Denies HI Hallucinations: Denies Delusions: None elicited Impulse Control: Normal Insight and Judgment: Limited insight and judgment Memory: Normal Attention: Normal Orientation: Alert, oriented, confused at times Assessment and Plan (1) Deliruim Current Visit: Yes Status: Acute Treatment Plan Continue Remeron 15 qhs to help improve sleep disturbance Continue Haldol 0.5mg po BID to help with delirium/hallucinations Continue Melatonin 5mg po qhs to improve rest Sitter: Defer to primary Medical: Per primary Disposition: Do not recommend acute inpatient psychiatric treatment. Will continue to follow for med management Will follow. Case staffed with Dr. Goff. Mental Status Exam - Vital signs Last Vital Signs Temp 98.1 F 10/20/20 07:21 Pulse 84 10/20/20 07:21 Resp 20 10/20/20 07:21 BP 144/85 10/20/20 07:21 Pulse Ox 93 10/20/20 07:21
[2020-10-20] MEDS: HALOPERIDOL 1 MG TAB PO SCH (11:34)
[2020-10-20] MEDS: MULTIVITAMINS ,THERAPEUTIC TAB PO SCH (11:35)
[2020-10-20] MEDS: PANTOPRAZOLE 40 MG TAB PO SCH (11:35)
--- NOTE | 2020-10-20 11:56 | Progress Note ---
Assessment and Plan POD#7 s/p abdominal exploration, g-tube placement, and abdominal wall closure with mesh. Afebrile and stable. post op ileus clinically resolved. Spoke with social work to make arrangements for home health and home PT/OT. I spoke with his Manju about the change in disposition. From a surgical perspective pt can be discharged to home with home health for PT. He can advance his diet as tolerated. He is to call my office for an appointment for next week to have his rex removed. The g-tube is to remain in place as it acts like an anchor to prohibit his stomach from not going into his hiatal hernia space. It can also decompress his GI tract should he have any obstruction issues in the future. He will need his TPN safely tapered off before discharge. Subjective Date of service: 10/20/20 Patient Reports: Positive: no new complaints, feels better, still having pain, pain is less, tolerating a regular diet, flatus Narrative: No acute events overnight. Pt says he feels pretty good but he has changed his mind about in patient rehab and wants to go home for home PT. He says the reason is he cannot tolerate the bed he is in, and it was explained to him that the type of bed he is in now, will be the same bed on the rehab side. He feels he will get better faster at home with his lazy-boy chair and assistance from his family. He is tolerating a diet although he says that he does not eat much because he does not like the food here, and even at home he eats very little. Objective Vital Signs - 12hr 10/20/20 10/20/20 05:03 07:21 Temperature 98.1 F 98.1 F Pulse Rate 82 84 Respiratory 18 20 Rate Blood Pressure 145/88 144/85 O2 Sat by Pulse 94 93 Oximetry - General physical appearance well developed, no distress, no pain - Respiratory normal expansion, normal respiratory effort - Abdomen soft, not distended, other (staple line c/d/i, g-tube in place, appropriately tender to palpation) - Labs 10/17/20 04:00 10/20/20 06:10 Diabetes panel 10/20/20 Range/Units 06:10 Sodium 137 (137-145) mmol/L Potassium 3.9 (3.6-5.0) mmol/L Chloride 106.2 (98-107) mmol/L Carbon Dioxide 25 (22-30) mmol/L BUN 21 H (9-20) mg/dL Creatinine 0.7 L (0.8-1.3) mg/dL Glucose 128 H (75-100) mg/dL Calcium 8.2 L (8.4-10.2) mg/dL Calcium panel 10/20/20 Range/Units 06:10 Calcium 8.2 L (8.4-10.2) mg/dL Phosphorus 3.20 (2.5-4.5) mg/dL Pituitary panel 10/20/20 Range/Units 06:10 Sodium 137 (137-145) mmol/L Potassium 3.9 (3.6-5.0) mmol/L Chloride 106.2 (98-107) mmol/L Carbon Dioxide 25 (22-30) mmol/L BUN 21 H (9-20) mg/dL Creatinine 0.7 L (0.8-1.3) mg/dL Glucose 128 H (75-100) mg/dL Calcium 8.2 L (8.4-10.2) mg/dL Adrenal panel 10/20/20 Range/Units 06:10 Sodium 137 (137-145) mmol/L Potassium 3.9 (3.6-5.0) mmol/L Chloride 106.2 (98-107) mmol/L Carbon Dioxide 25 (22-30) mmol/L BUN 21 H (9-20) mg/dL Creatinine 0.7 L (0.8-1.3) mg/dL Glucose 128 H (75-100) mg/dL Calcium 8.2 L (8.4-10.2) mg/dL
--- NOTE | 2020-10-20 15:33 | Discharge Summary ---
Providers - Providers Date of Admission: 10/07/20 13:12 Date of discharge: 10/20/20 Attending physician: ASHLEY REYES 10/07/20 05:57 Consult to Physician [CONS] Urgent Comment: Dr. Levine spoke with Dr. Lechuga @ 0548 Consulting Provider: KEVEN LECHUGA Physician Instructions: Reason For Exam: sbo, hiatal hernia,ventral hernia 10/07/20 10:50 PICC Line Insertion [Consult to PICC Line RN] [CONS] Routine Reason For Exam: will be NPO for prolonged time and need TPN Type Line:: PICC 10/08/20 14:01 Consult to Dietitian/Nutrition [CONS] Routine Physician Instructions: Reason For Exam: PPN Reason for Consult: Write/Manage TPN/PPN 10/11/20 19:31 Consult to Physician [CONS] Routine Comment: Consulting Provider: LENARD KU Physician Instructions: Reason For Exam: ICU Admission 10/11/20 19:38 Consult to Dietitian/Nutrition [CONS] Routine Physician Instructions: Reason For Exam: Reason for Consult: Evaluate nutritional intake 10/11/20 19:50 Consult to Dietitian/Nutrition [CONS] Routine Physician Instructions: Reason For Exam: Reason for Consult: Evaluate nutritional intake 10/14/20 13:26 psychiatry consult [Consult to Mental Health] [CONS] Routine Reason For Exam: new onset depression and anger 10/15/20 10:39 Consult to Physician [CONS] Routine Comment: called doctor/ gilbert Consulting Provider: SHIRA SARABIA Physician Instructions: Reason For Exam: anger and depression after surgery 10/16/20 11:47 Physical Therapy Evaluation and Treat [CONS] Routine Comment: Reason For Exam: eval for transfers and ambulation 10/17/20 11:49 Consult to Physician [CONS] Routine Comment: Consulting Provider: HERBIE DOWNING Physician Instructions: Reason For Exam: Postop transaminitis/s/p hernia repair 10/18/20 14:12 Consult to Case Management [CONS] Routine Services Needed at Discharge: Physical Therapy Home Health Services Notified:: ? Additional Physician Instructions: pt will not need IV meds or TPN, He has a g-tube that i dont anticipate needing home tube feeds. physical therapy to see today and make assessment for home needs. Please call Manju to discuss options. She says that they have a wheelchair and a walker at home. Primary care physician: [facility] Hospitalization Reason for admission: Small bowel obstruction/ventral hernia/abdominal pain Condition: Stable Pertinent studies: CT abdomen and pelvisx2 Multiple chest x-rays Multiple abdominal x-rays Procedures: 10/11/2020 ;surgical intervention --s/p EXPLORATORY LAPAROTOMY, -EXTENSIVE LYSIS OF ADHESIONS, -ABTHERA ABDOMINAL VACUUM DRESSING 10/13/2020;second surgical procedure; 10/13/2020 -abdominal exploration, -Gastric tube placement and -abdominal wall closure with phasix mesh Hospital course: Patient was admitted with abdominal pain , small bowel obstruction , ventral hernia history of multiple abdominal surgeries and large hiatal hernia, surgery and IR evaluated, Unable to pass NG tube , patient underwent fluoroscopic guided placement of nasojejunostomy tube per IR Patient underwent exploratory laparotomy, lysis of edition, ABThera abdominal vacuum dressing on 10/11/2020, patient is intubated on vent Extubated yesterday 10/14/2020, on 4 L nasal cannula oxygen and TPN, patient is in depressed mood this morning, minimally communicative , psych following Patient feels better today tolerating clear liquids, delirious psych following --Delirium/depression; improved today, no new episodes Psych following --Hypokalemia; resolved Potassium 3.4, replenished with 40 mEq KCl p.o. Closely monitor electrolytes --Small bowel obstruction/ventral hernia/hiatal hernia 10/11/2020 ;surgical intervention --s/p EXPLORATORY LAPAROTOMY, -EXTENSIVE LYSIS OF ADHESIONS, -ABTHERA ABDOMINAL VACUUM DRESSING Patient is diet advanced to full liquids per surgery 10/13/2020;second surgical procedure; 10/13/2020 -abdominal exploration, -Gastric tube placement and -abdominal wall closure with phasix mesh Patient tolerated the procedure well Postop care per surgery Patient is tolerating clear liquids Out of bed to chair if okay with surgery --Acute hypoxic respiratory failure; Intubated, on vent 10/11/2020 Status post extubation 10/14/2020, saturating well room air --Acute transaminitis: Closely monitor, trend LFTs Consider GI evaluation if no improvement --Acute kidney injury; secondary to dehydration Vasomotor nephropathy, resolved Closely monitor renal function --History of coronary artery disease; Continue home medications once patient is able to take oral Consider cardiology evaluation if needed --Dyslipidemia; Patient is on statin, currently n.p.o. Resume when patient is stable and able to take p.o. --Severe malnutrition; hypoalbuminemia Nutrition supplements, nutrition consult Patient is already on TPN Disposition: [id number] HOME UNDER HOME [facility] Time spent for discharge: 35 min Core Measure Documentation - Palliative Care Palliative Care/ Comfort Measures: Not Applicable - Core Measures Any of the following diagnoses?: none Exam - Constitutional Vitals: Temp Pulse Resp BP Pulse Ox 97.7 F 94 H 24 158/80 97 10/20/20 10:55 10/20/20 10:55 10/20/20 10:55 10/20/20 10:55 10/20/20 10:55 General appearance: Present: no acute distress, well-nourished - EENT Eyes: Present: PERRL, EOM intact - Neck Neck: Present: supple, normal ROM - Respiratory Respiratory effort: normal Respiratory: bilateral: diminished, negative: rales, rhonchi, wheezing - Cardiovascular Rhythm: regular Heart Sounds: Present: S1 & S2 - Extremities Extremities: no ischemia, No edema - Abdominal General gastrointestinal: Present: soft, non-tender, non-distended - Integumentary Integumentary: Present: clear, warm - Musculoskeletal Musculoskeletal: generalized weakness - Psychiatric Psychiatric: appropriate mood/affect, cooperative - Neurologic Neurologic: moves all extremities Plan Activity: advance as tolerated, fall precautions Diet: other (Soft diet advance as tolerated) Additional Instructions: Advance his diet as tolerated. Call Dr. Lechuga's office for an appointment for next week , to have his rex removed. Do not remove the G-tube. The g-tube is to remain in place, it acts like an anchor to prevent his stomach from not going into his hiatal hernia space. It can also decompress his GI tract should he have any obstruction issues in the future. If you have worsening symptoms contact MD or go to emergency room. Do not lift heavy weights for 4 to 6 weeks or until surgeon clears. Please follow all the postoperative instructions given to you by the surgeon/and the discharge nurse. Advised to continue all your home medications as before;. Tylenol PM. Pantoprazole. Aspirin. Hydrochlorothiazide. Flomax. Atenolol. Iron pill. Vitamin C pills. Patient has all his medications and does not need any prescriptions. Follow up with: PRIMARY CARE, [Primary Care Provider] - 7 Days KEVEN LECHUGA MD [Staff Physician] - 7 Days
[2020-10-20 16:01] VITALS: BP 148/96
[2020-10-20] MEDS ORDERED: FAT EMULSIONS 20% 250 ML IV SCH (20:00)
[2020-10-20] MEDS ORDERED: TOTAL PARENTERAL NUTRITION 3,000 ML IV SCH (20:00)
== END 2020-10-20 20:15 | disposition home health service (06) | DRG 326 ==
LOC: ED 01:14 → 3B-SURG 05:59 → OBSVTOIN 13:12 → CC1 10-11 19:36 → 3B-SURG 10-15 17:46
PROVIDERS: ADMIT Internal Medicine Geriatric Medicine; ATTEND Internal Medicine
PROC: 0DHA7UZ Insertion of Feeding Device into Jejunum, Via Natural or Artificial Opening (ICD-10-PCS; 2020-10-07)
PROC: 0DH67UZ Insertion of Feeding Device into Stomach, Via Natural or Artificial Opening (ICD-10-PCS; 2020-10-08)
PROC: 0DJ60ZZ Inspection of Stomach, Open Approach (ICD-10-PCS; principal; 2020-10-11)
PROC: 0DN64ZZ Release Stomach, Percutaneous Endoscopic Approach (ICD-10-PCS; 2020-10-11)
PROC: 0BH17EZ Insertion of Endotracheal Airway into Trachea, Via Natural or Artificial Opening (ICD-10-PCS; 2020-10-13)
PROC: 5A1945Z Respiratory Ventilation, 24-96 Consecutive Hours (ICD-10-PCS; 2020-10-13)
PROC: 0WUF4JZ Supplement Abdominal Wall with Synthetic Substitute, Percutaneous Endoscopic Approach (ICD-10-PCS; 2020-10-13)
PROC: 4A033R1 Measurement of Arterial Saturation, Peripheral, Percutaneous Approach (ICD-10-PCS; 2020-10-13)
DX: K44.0 Diaphragmatic hernia with obstruction, without gangrene (principal); E43 Unspecified severe protein-calorie malnutrition; J96.01 Acute respiratory failure with hypoxia; N17.0 Acute kidney failure with tubular necrosis; K57.92 Diverticulitis of intestine, part unspecified, without perforation or abscess without bleeding; K56.7 Ileus, unspecified; Z20.822 Contact with and (suspected) exposure to COVID-19; I25.10 Atherosclerotic heart disease of native coronary artery without angina pectoris; I10 Essential (primary) hypertension; E78.00 Pure hypercholesterolemia, unspecified; E78.5 Hyperlipidemia, unspecified; E86.0 Dehydration; R41.0 Disorientation, unspecified; F32.9 Major depressive disorder, single episode, unspecified; E87.6 Hypokalemia; E88.09 Other disorders of plasma-protein metabolism, not elsewhere classified; Z90.49 Acquired absence of other specified parts of digestive tract; Z90.81 Acquired absence of spleen; Z79.899 Other long term (current) drug therapy; Z79.891 Long term (current) use of opiate analgesic; Z79.01 Long term (current) use of anticoagulants; Z79.82 Long term (current) use of aspirin; Z68.29 Body mass index [BMI] 29.0-29.9, adult; Z82.49 Family history of ischemic heart disease and other diseases of the circulatory system
CPT/HCPCS: 36415; 43752; 71045; 74018; 74022; 74176; 74177; 80048; 80053; 80074; 80076; 81001; 82140; 82805; 82962; 83690; 83735; 84100; 84478; 85007; 85025; 86850; 86900; 86901; 87040; 87086; 88305; 88307; 94002; 94003; 94640; 94760; 96374; 96375; G0378; A9270-GY; C1769; C1781; J0330; J0360; J0690; J1100; J1170; J1644; J1885; J1956; J2060; J2250; J2270; J2370; J2405; J2704; J2710; J2765; J2997; J3010; J3475; J7030; J7040; J7042; J7050; J7120; P9045; Q9967; U0003

== ENCOUNTER 2021-05-05 13:09 | Outpatient (CLI) | payer MEDICARE, OTHER ==
--- NOTE | 2021-05-05 15:48 | Fluoroscopy Report ---
FLUOROSCOPY G-TUBE PLACEMENT HISTORY: Abdominal pain, dis;odged PEG tube COMPARISON: No relevant comparison. FINDINGS: 3.4 minutes of fluoroscopy time was utilized. 11 fluoroscopic images were obtained. Patient has a history of unsecured PEG tube. To begin the exam approximately 60 cc of Gastrografin was infus ed through the PEG tube which outlines the stomach and proximal small bowel. It appeared the balloon of the PEG tube was no longer functional/deflated. Dr. Lechuga of bariatric surgery was present and a new 20 Micronesian PEG tube was inserted and the balloon was inflated. An additional 60 cc of Gastrografin was injected to confirm placement in the stomach. No extravasation was witnessed. IMPRESSION: Successful peg tube exchange under fluoroscopy. The peg tube is in good position on the final images. Signer Name: Eliazar Rosario Jr, MD Signed: 05/05/2021 3:40 PM Workstation Name: [id number]
== END 2021-05-05 13:10 | disposition home or self-care (01) ==
LOC: FLUORO 13:09
PROVIDERS: ATTEND Surgery
DX: R10.9 Unspecified abdominal pain (principal); I10 Essential (primary) hypertension; E78.00 Pure hypercholesterolemia, unspecified; Z79.899 Other long term (current) drug therapy; Z98.890 Other specified postprocedural states
CPT/HCPCS: 49465; Q9963; 49450

== ENCOUNTER 2022-02-02 12:42 | Inpatient (IN) | payer MEDICARE, OTHER ==
[2022-02-02 13:57] LABS: Basophils % (Auto) 0.2 % (0.0-1.8); Eosinophils % (Auto) 0.1 % (0.0-4.3); Hematocrit 58.9 % (35.5-45.6); Hemoglobin 19.3 gm/dl (11.8-15.2); Lymphocytes # (Auto) 0.7 K/mm3 (1.2-5.4); Lymphocytes % (Auto) 7.7 % (13.4-35.0); Mean Corpuscular HGB Conc 33 % (32-34); Mean Corpuscular Volume 95 fl (84-94); Monocytes # (Auto) 1.1 K/mm3 (0.0-0.8); Monocytes % (Auto) 11.7 % (0.0-7.3); Platelet Count 246 K/mm3 (140-440); Red Blood Count 6.19 M/mm3 (3.65-5.03)
--- NOTE | 2022-02-02 14:23 | Event Note ---
ED Screening Note ED Screening Note: co abd pain Dr Lechuga phoned ER- known to her work up ordered admit HMS Dr Lechuga will follow Nurse Daja and Dr Horton aware This initial assessment/diagnostic orders/clinical plan/treatment(s) is/are subject to change based on patients health status, clinical progression and re- assessment by fellow clinical providers in the ED. Further treatment and workup at subsequent clinical providers discretion. Patient/guardian urged not to elope from the ED as their condition may be serious if not clinically assessed and managed. Initial orders include: labs CT NPO gtube to decompress <BRI BEASLEY - Last Filed: 02/02/22 14:25> ED Screening Note: This initial assessment/diagnostic orders/clinical plan/treatment(s) is/are subject to change based on patients health status, clinical progression and re- assessment by fellow clinical providers in the ED. Further treatment and workup at subsequent clinical providers discretion. Patient/guardian urged not to elope from the ED as their condition may be serious if not clinically assessed and ma naged. Initial orders include: <JOHN KIM U - Last Filed: 02/07/22 09:30> Attestation Attestation: I, as the attending physician, directly supervised both care and planning. Patient acuity, any physical findings, changes in clinical status and changes in clinical management noted in this report are based on my direct assessments. Please see my note. This patient was seen and cared for by me <JOHN KIM U - Last Filed: 02/07/22 09:30>
[2022-02-02 14:37] LABS: Alanine Aminotransferase 20 units/L (7-56); Albumin 5.5 g/dL (3.9-5); BUN/Creatinine Ratio 13; Bilirubin,Direct < 0.2 mg/dL (0-0.2); Blood Urea Nitrogen 35 mg/dL (9-20); Calcium 11.2 mg/dL (8.4-10.2); Hemolysis Index 89
--- NOTE | 2022-02-02 16:07 | Event Note ---
Date: 02/02/22 Pt came to ER with nausea and vomiting with diarrhea since last night. He says he felt well prior to lunch. Pt says that he feels better since he drained his stomach through his g-tube. Has not passed gas since this morning. Patient says that he feels dehydrated and would like to go home soon since he feels better. Patient's not had CT scan yet. We will follow-up on results and see patient tomorrow and right official consult. In the meantime please keep G-tube to low intermittent suction and IV hydration.
[2022-02-02] MEDS ORDERED: SODIUM CHLORIDE 0.9% 1000 ML 1,000 ML IV ONE ×3 (16:50→19:36)
--- NOTE | 2022-02-02 17:57 | Cat Scan Report ---
CT ABDOMEN AND PELVIS WITHOUT CONTRAST HISTORY: abd pain 120 CC OF PO GASTROGRIFFIN AND WATER INJECTED THROUGH G-TUBE APPROX. 1.5 HOURS AGO H/O SBO . COMPARISON: CT abdomen/pelvis from 11/06/2021 TECHNIQUE: CT images of the abdomen and pelvis were obtained without administration of intravenous co ntrast. All CT scans at this location are performed using CT dose reduction for ALARA by means of au tomated exposure control. FINDINGS: Lungs/bones: Minimal bibasilar atelectasis is present. There are degenerative changes in the spine a nd the pelvis with no acute osseous abnormality. Bilateral L5 pars defects are present with grade 1 a nterolisthesis of L5 on S1. Abdomen/pelvis: Diluted contrast was reportedly injected to the patient's gastrostomy tube prior to this scan. The gastrostomy tube is well-positioned in the gastric body. The proximal one half of the jejunum is mildly distended and predominantly fluid-filled. There are loops which are closely adheren t against the ventral abdominal wall which may reflect adhesive change. There are also several angula hellen loops but no single transition point identified. The distal small bowel is collapsed including th e majority of the colon. Gallbladder surgically absent. Tiny hepatic cysts are noted. Liver is otherwise unremarkable. The spl een is surgically absent. The pancreas is somewhat atrophic but otherwise unremarkable. Multiple simple bilateral renal cysts are present as well as a few hyperdense cysts and nonobstructiv e calyceal stones, all of which was seen on the previous exam. Moderate atherosclerotic disease is pr esent in the abdominal aorta and branch vessels. The prostate is grossly enlarged and heterogeneous, indenting the bladder base. The bladder is partia lly collapsed but otherwise grossly unremarkable. No pelvic free fluid. IMPRESSION: 1. Gastrostomy tube well positioned within the mid gastric body. 2. Abnormal appearance of the proximal one half of the jejunum with several areas of angulation likel y representing adhesive change with partial small bowel obstruction. Signer Name: Trevin Arrgeuin MD Signed: 02/02/2022 5:53 PM Workstation Name: [id number]
--- NOTE | 2022-02-02 18:50 | Emergency Department Report ---
ED General Adult HPI - General Chief complaint: Abdominal Pain Stated complaint: DISTENDED STOMACH/VOMITING Time Seen by Provider: 02/02/22 14:29 Source: patient Mode of arrival: Ambulatory Limitations: No Limitations - History of Present Illness Initial comments: patient presents with complaints of nausea, non bloody, non bilious vomiting x 2 days. Endorses generalized abdominal pressure but denies abdominal pain per se. Patient has a hx of multiple abdominal surgeries, is s/p PEG tube and is a patient of Dr. Lechuga. Severity scale (0 -10): 3 - Related Data Home Medications Medication Instructions Recorded Confirmed Last Taken Aspirin EC [Halfprin EC] 81 mg PO QDAY 05/24/21 11/06/21 11/05/21 10:00 Nystatin/Triamcin 30 gm TP BID 05/24/21 11/06/21 11/05/21 [Nystatin-Triamcinolone Ointm] atenoloL [Tenormin] 25 mg PO DAILY 05/24/21 11/06/21 11/05/21 10:00 hydroCHLOROthiazide 12.5 mg PO DAILY 05/24/21 11/06/21 11/05/21 10:00 [Hydrochlorothiazide] Previous Rx's Medication Instructions Recorded Last Taken Type Pantoprazole [Protonix] 40 mg PO QDAY #30 tablet 11/09/21 Unknown Rx Sucralfate [Carafate] 1 gm PO Q6HR #2 bottle 11/09/21 Unknown Rx Allergies Allergy/AdvReac Type Severity Reaction Status Date / Time No Known Allergies Allergy Verified 07/25/13 22:46 ED Review of Systems ROS: Stated complaint: DISTENDED STOMACH/VOMITING Other details as noted in HPI Comment: All other systems reviewed and negative Constitutional: denies: chills, fever ED Past Medical Hx - Past Medical History Previous Medical History?: Yes Hx Hypertension: Yes Hx CVA: No Hx Heart Attack/AMI: Yes (9 yrs ago) Hx Congestive Heart Failure: No Hx Deep Vein Thrombosis: No Hx Pulmonary Embolism: No Hx GERD: No Hx Sickle Cell Disease: No Hx Arthritis: (knee pain) Hx Headaches / Migraines: No Hx Seizures: No Hx Asthma: No Hx COPD: No Hx Tuberculosis: No Hx Dementia: No Hx HIV: No Additional medical history: High cholesterol. diverticulitis - Surgical History Hx Coronary Stent: No Hx Pacemaker: No Hx Internal Defibrillator: No Hx Cholecystectomy: Yes Hx Appendectomy: Yes Additional Surgical History: Mult hernia repairs and colon resection. spleenectomy; 9 abd surgeries - Social History Smoking Status: Never Smoker Substance Use Type: None - Medications Home Medications: Home Medications Medication Instructions Recorded Confirmed Last Taken Type Aspirin EC [Halfprin EC] 81 mg PO QDAY 05/24/21 11/06/21 11/05/21 10:00 History Nystatin/Triamcin 30 gm TP BID 05/24/21 11/06/21 11/05/21 History [Nystatin-Triamcinolone Ointm] atenoloL [Tenormin] 25 mg PO DAILY 05/24/21 11/06/21 11/05/21 10:00 History hydroCHLOROthiazide 12.5 mg PO DAILY 05/24/21 11/06/21 11/05/21 10:00 History [Hydrochlorothiazide] Pantoprazole [Protonix] 40 mg PO QDAY #30 tablet 11/09/21 Unknown Rx Sucralfate [Carafate] 1 gm PO Q6HR #2 bottle 11/09/21 Unknown Rx ED Physical Exam - General Limitations: No Limitations General appearance: alert, in no apparent distress - Head Head exam: Present: atraumatic, normocephalic - Eye Eye exam: Present: PERRL, EOMI - ENT ENT exam: Present: mucous membranes moist, other (airway patent) - Neck Neck exam: Present: other (supple; no JVD) - Respiratory Respiratory exam: Present: other (good air entry, nml I:E, CTAB, no use of МАРИЯ) - Cardiovascular Cardiovascular Exam: Present: regular rate. Absent: rubs, gallop - GI/Abdominal GI/Abdominal exam: Present: other (midly distended; non tender; draniange fromPEG tube is feculent) - Extremities Exam Extremities exam: Present: full ROM. Absent: tenderness - Back Exam Back exam: Present: full ROM. Absent: tenderness - Neurological Exam Neurological exam: Present: alert, oriented X3, CN II-XII intact. Absent: motor sensory deficit - Skin Skin exam: Present: warm, normal color ED Course Vital Signs 02/02/22 02/02/22 02/02/22 13:10 14:43 14:45 Temperature 97.9 F Pulse Rate 94 H 94 H 94 H Respiratory 18 18 13 Rate Blood Pressure 108/76 97/68 Blood Pressure [Left] O2 Sat by Pulse 96 95 96 Oximetry 02/02/22 02/02/22 02/02/22 14:48 15:01 15:15 Temperature 99.1 F Pulse Rate 96 H 84 91 H Respiratory 17 15 23 Rate Blood Pressure 100/61 93/60 Blood Pressure 100/61 [Left] O2 Sat by Pulse 95 96 95 Oximetry 02/02/22 02/02/22 02/02/22 15:31 15:45 16:01 Temperature Pulse Rate 87 90 89 Respiratory 20 22 17 Rate Blood Pressure 84/57 111/83 101/66 Blood Pressure [Left] O2 Sat by Pulse 95 95 95 Oximetry 02/02/22 02/02/22 02/02/22 16:04 16:15 16:31 Temperature Pulse Rate 89 90 84 Respiratory 17 17 21 Rate Blood Pressure 89/63 85/61 Blood Pressure 101/66 [Left] O2 Sat by Pulse 95 96 96 Oximetry 02/02/22 02/02/22 02/02/22 16:45 17:01 17:15 Temperature Pulse Rate 88 89 86 Respiratory 18 25 H 26 H Rate Blood Pressure 80/57 138/83 114/73 Blood Pressure [Left] O2 Sat by Pulse 98 96 97 Oximetry 02/02/22 02/02/22 02/02/22 17:31 18:01 18:15 Temperature Pulse Rate 83 86 87 Respiratory 17 16 19 Rate Blood Pressure 119/79 106/76 Blood Pressure [Left] O2 Sat by Pulse 97 98 96 Oximetry 02/02/22 18:27 Temperature Pulse Rate 83 Respiratory 16 Rate Blood Pressure Blood Pressure 119/79 [Left] O2 Sat by Pulse 97 Oximetry ED Medical Decision Making - Lab Data Result diagrams: 02/02/22 13:28 02/02/22 13:28 Laboratory Tests 02/02/22 02/02/22 02/02/22 13:28 13:28 14:54 WBC 9.0 RBC 6.19 H Hgb 19.3 H Hct 58.9 H MCV 95 H MCH 31 MCHC 33 RDW 15.0 Plt Count 246 Lymph % (Auto) 7.7 L [place] % (Auto) 11.7 H Eos % (Auto) 0.1 Baso % (Auto) 0.2 Lymph # (Auto) 0.7 L [place] # (Auto) 1.1 H Eos # (Auto) 0.0 Baso # (Auto) 0.0 Seg Neutrophils % 80.3 H Seg Neutrophils # 7.2 Sodium 137 Potassium 4.8 Chloride 98.6 Carbon Dioxide 17 L Anion Gap 26 BUN 35 H Creatinine 2.8 H Estimated GFR 22 BUN/Creatinine Ratio 13 Glucose 189 H Lactic Acid 4.60 H* Calcium 11.2 H Total Bilirubin 1.00 Direct Bilirubin < 0.2 Indirect Bilirubin 0.8 AST 28 ALT 20 Alkaline Phosphatase 82 Total Protein 8.6 H Albumin 5.5 H Albumin/Globulin Ratio 1.8 Lipase 17 02/02/22 18:04 WBC RBC Hgb Hct MCV MCH MCHC RDW Plt Count Lymph % (Auto) [place] % (Auto) Eos % (Auto) Baso % (Auto) Lymph # (Auto) [place] # (Auto) Eos # (Auto) Baso # (Auto) Seg Neutrophils % Seg Neutrophils # Sodium Potassium Chloride Carbon Dioxide Anion Gap BUN Creatinine Estimated GFR BUN/Creatinine Ratio Glucose Lactic Acid 4.40 H* Calcium Total Bilirubin Direct Bilirubin Indirect Bilirubin AST ALT Alkaline Phosphatase Total Protein Albumin Albumin/Globulin Ratio Lipase CT abd/pelvis with oral contrast: partial SBO - Medical Decision Making Received NS 2L bolus then @ 125 ml/hr Dr. Lechuga (patient's primary surgeon) came to see patient in the ER. Recommends IVFs and hooking PEG tube to intermittent suction. Dr. Richards (covering surgeon) called after CT results available. He recommends continuing current therapy. they will continue to see patient in consultation. Critical care attestation.: If time is entered above; I have spent that time in minutes in the direct care of this critically ill patient, excluding procedure time. ED Disposition Clinical Impression: Partial small bowel obstruction Disposition: ADMITTED INPATIENT Is pt being admited?: Yes Does the pt Need Aspirin: No Condition: Stable Time of Disposition: 19:30 (Patient admitted to Dr. Castro. Sign out was called by me to the admitting physician. )
--- NOTE | 2022-02-02 22:26 | History and Physical Report ---
History of Present Illness Date of examination: 02/02/22 Date of admission: 02/03/2020 Chief complaint: Abdominal pain and nausea and vomiting for 1 day History of present illness: 76-year-old male with history of multiple abdominal surgeries-about 9 times starting with hiatal hernia followed by multiple complications comes in for nausea vomiting and abdominal distention. Patient has a PEG tube. Has difficulty swallowing. Patient follows with Dr. Lechuga. No fever or chills. In the ED--patient was diagnosed with partial small bowel and hence being admitted. Patient refuses NG tube - Past Medical History --Previous Medical History?: Yes --Hypertension: Yes --Heart Attack/AMI: Yes (9 yrs ago) --Additional medical history: High cholesterol. diverticulitis - Surgical History --Cholecystectomy: Yes --Appendectomy: Yes --Additional Surgical History: Mult hernia repairs and colon resection. spleenectomy; 9 abd surgeries - Social History --Smoking Status: Never Smoker --Substance Use Type: None -Family history Htn - Medications --Home Medications: Home Medications Medication Instructions Recorded Confirmed Last Taken Type Aspirin EC [Halfprin EC] 81 mg PO QDAY 05/24/21 11/06/21 11/05/21 10:00 History Nystatin/Triamcin 30 gm TP BID 05/24/21 11/06/21 11/05/21 History [Nystatin-Triamcinolone Ointm] atenoloL [Tenormin] 25 mg PO DAILY 05/24/21 11/06/21 11/05/21 10:00 History hydroCHLOROthiazide 12.5 mg PO DAILY 05/24/21 11/06/21 11/05/21 10:00 History [Hydrochlorothiazide] Pantoprazole [Protonix] 40 mg PO QDAY #30 tablet 11/09/21 Unknown Rx Sucralfate [Carafate] 1 gm PO Q6HR #2 bottle 11/09/21 Unknown Rx Review of Systems ROS: Stated complaint: DISTENDED STOMACH/VOMITING Other details as noted in HPI Comment: All other systems reviewed and negative Constitutional: denies: chills, fever Medications and Allergies Allergies Allergy/AdvReac Type Severity Reaction Status Date / Time No Known Allergies Allergy Verified 07/25/13 22:46 Home Medications Medication Instructions Recorded Confirmed Last Taken Type RX: Aspirin EC [Halfprin EC] 81 mg PO QDAY 05/24/21 11/06/21 11/05/21 10:00 History RX: Nystatin/Triamcin 30 gm TP BID 05/24/21 11/06/21 11/05/21 History [Nystatin-Triamcinolone Ointm] RX: atenoloL [Tenormin] 25 mg PO DAILY 05/24/21 11/06/21 11/05/21 10:00 History RX: hydroCHLOROthiazide 12.5 mg PO DAILY 05/24/21 11/06/21 11/05/21 10:00 History [Hydrochlorothiazide] Pantoprazole [Protonix] 40 mg PO QDAY #30 tablet 11/09/21 Unknown Rx Sucralfate [Carafate] 1 gm PO Q6HR #2 bottle 11/09/21 Unknown Rx Active Meds: Active Medications Sodium Chloride (Nacl 0.9% 1000 Ml) 1,000 mls @ 125 mls/hr IV ONCE ONE Stop: 02/03/22 03:35 Last Admin: 02/02/22 21:23 Dose: 125 mls/hr Exam - Constitutional Vitals: Temp Pulse Resp BP Pulse Ox 99.1 F 83 16 119/79 97 02/02/22 14:48 02/02/22 18:27 02/02/22 18:27 02/02/22 18:27 02/02/22 18:27 General appearance: Present: mild distress, well-nourished - EENT Eyes: Present: PERRL ENT: hearing intact, clear oral mucosa - Neck Neck: Present: supple, normal ROM - Respiratory Respiratory effort: normal Respiratory: bilateral: CTA - Cardiovascular Heart rate: 78 Rhythm: regular Heart Sounds: Present: S1 & S2. Absent: rub, click - Extremities Extremities: no ischemia, pulses symmetrical, No edema Peripheral Pulses: within normal limits - Abdominal General gastrointestinal: Present: soft, tender, distended, hypoactive bowel sounds Localized gastrointestinal: tender: diffuse, guarding: diffuse Male genitourinary: Present: normal - Rectal Rectal Exam: deferred - Integumentary Integumentary: Present: clear, warm, dry - Musculoskeletal Musculoskeletal: gait normal, strength equal bilaterally - Psychiatric Psychiatric: appropriate mood/affect, intact judgment & insight - Neurologic Neurologic: CNII-XII intact, moves all extremities - Allied Health Allied health notes reviewed: nursing, case management Results - Labs CBC & Chem 7: 02/02/22 13:28 02/02/22 13:28 Labs: Laboratory Last Values WBC 9.0 K/mm3 (4.5-11.0) 02/02/22 13:28 RBC 6.19 M/mm3 (3.65-5.03) H 02/02/22 13:28 Hgb 19.3 gm/dl (11.8-15.2) H 02/02/22 13:28 Hct 58.9 % (35.5-45.6) H 02/02/22 13:28 MCV 95 fl (84-94) H 02/02/22 13:28 MCH 31 pg (28-32) 02/02/22 13:28 MCHC 33 % (32-34) 02/02/22 13:28 RDW 15.0 % (13.2-15.2) 02/02/22 13:28 Plt Count 246 K/mm3 (140-440) 02/02/22 13:28 Lymph % (Auto) 7.7 % (13.4-35.0) L 02/02/22 13:28 [place] % (Auto) 11.7 % (0.0-7.3) H 02/02/22 13:28 Eos % (Auto) 0.1 % (0.0-4.3) 02/02/22 13:28 Baso % (Auto) 0.2 % (0.0-1.8) 02/02/22 13:28 Lymph # (Auto) 0.7 K/mm3 (1.2-5.4) L 02/02/22 13:28 [place] # (Auto) 1.1 K/mm3 (0.0-0.8) H 02/02/22 13:28 Eos # (Auto) 0.0 K/mm3 (0.0-0.4) 02/02/22 13:28 Baso # (Auto) 0.0 K/mm3 (0.0-0.1) 02/02/22 13:28 Seg Neutrophils % 80.3 % (40.0-70.0) H 02/02/22 13:28 Seg Neutrophils # 7.2 K/mm3 (1.8-7.7) 02/02/22 13:28 Sodium 137 mmol/L (137-145) 02/02/22 13:28 Potassium 4.8 mmol/L (3.6-5.0) 02/02/22 13:28 Chloride 98.6 mmol/L (98-107) 02/02/22 13:28 Carbon Dioxide 17 mmol/L (22-30) L 02/02/22 13:28 Anion Gap 26 mmol/L 02/02/22 13:28 BUN 35 mg/dL (9-20) H 02/02/22 13:28 Creatinine 2.8 mg/dL (0.8-1.3) H 02/02/22 13:28 Estimated GFR 22 ml/min 02/02/22 13:28 BUN/Creatinine Ratio 13 % 02/02/22 13:28 Glucose 189 mg/dL (75-100) H 02/02/22 13:28 Lactic Acid 4.40 mmol/L (0.7-2.0) H* 02/02/22 18:04 Calcium 11.2 mg/dL (8.4-10.2) H 02/02/22 13:28 Total Bilirubin 1.00 mg/dL (0.1-1.2) 02/02/22 13:28 Direct Bilirubin < 0.2 mg/dL (0-0.2) 02/02/22 13:28 Indirect Bilirubin 0.8 mg/dL 02/02/22 13:28 AST 28 units/L (5-40) 02/02/22 13:28 ALT 20 units/L (7-56) 02/02/22 13:28 Alkaline Phosphatase 82 units/L (35-129) 02/02/22 13:28 Total Protein 8.6 g/dL (6.3-8.2) H 02/02/22 13:28 Albumin 5.5 g/dL (3.9-5) H 02/02/22 13:28 Albumin/Globulin Ratio 1.8 % 02/02/22 13:28 Lipase 17 units/L (13-60) 02/02/22 13:28 Microbiology: Microbiology 02/02/22 14:54 Peripheral/Venous Blood Culture - Preliminary Culture in Progress 02/02/22 15:23 Peripheral/Venous Blood Culture - Preliminary Culture in Progress - Imaging and Cardiology Imaging and Cardiology: Abdominal Pelvis CT scanner Gastrostomy tube well-positioned with pain in the mid gastric body Abnormal appearance of the problem for 1 hour with vaginal with several areas of angulation likely representing aggressive changes of partial small bowel obstruction. Assessment and Plan Advance Directives: Yes (Full code) VTE prophylaxis?: Chemical Plan of care discussed with patient/family: Yes - Patient Problems (1) Partial small bowel obstruction Current Visit: Yes Status: Acute Plan to address problem: Secondary to additions Patient refuses NG tube Nothing by gastric tube Gastric tube to drainage Surgery consulted--- Dr. Lechuga and Dr. Richards who is on-call Conservative treatment for now Patient may have adhesions and may need surgical intervention but managed conservatively for now IV fluids for now (2) Volume depletion Current Visit: Yes Status: Acute Plan to address problem: IV fluids for now (3) Polycythemia due to fall in plasma volume Current Visit: Yes Status: Acute Plan to address problem: Polycythemia secondary to fall in volume IV fluids and recheck hemoglobin and hematocrit (4) JESUS (acute kidney injury) Current Visit: Yes Status: Acute Plan to address problem: Secondary to vasomotor nephropathy Nephrology consult if necessary (5) Hypertension Current Visit: Yes Status: Chronic Qualifiers: Hypertension type: primary hypertension Qualified Code(s): I10 - Essential (primary) hypertension Plan to address problem: Hold blood pressure medications Catapres patch if necessary (6) DVT prophylaxis Current Visit: Yes Status: Acute Plan to address problem: On heparin and GI prophylaxis (7) Advance care planning Current Visit: Yes Status: Acute Plan to address problem: Disease education conducted, care plan discussed, diagnosis discussed, prognosis discussed. Patient is full code. Patient acknowledges understanding and agreement with care plan. +30 minutes.
[2022-02-02] MEDS ORDERED: HYDROmorphone 0.5 MG/0.5 ML INJ IV PRN (22:27)
[2022-02-02] MEDS ORDERED: ONDANSETRON 4 MG/2 ML INJ IV PRN (22:27)
[2022-02-02] MEDS ORDERED: ACETAMINOPHEN 325 MG TAB PO PRN (22:27)
[2022-02-02] MEDS ORDERED: METOCLOPRAMIDE 10 MG/2 ML INJ IV PRN ×2 (22:27→22:43)
[2022-02-02] MEDS ORDERED: FAMOTIDINE 20 MG/2 ML INJ IV SCH (23:00)
[2022-02-02] MEDS ORDERED: CEFEPIME/NS 2 GM/100 ML 2 GM/100 ML BAG IV SCH ×2 (23:00)
[2022-02-02] MEDS: MORPHINE 2 MG/1 ML INJ IV PRN (23:17)
[2022-02-03] MEDS: SODIUM CHLORIDE 0.9% 1000 ML 1,000 ML IV SCH ×3 (00:40→21:57)
[2022-02-03] MEDS: HEPARIN 5,000 UNIT/1 ML VIAL SUB-Q SCH ×3 (00:41→21:33)
[2022-02-03] MEDS: FAMOTIDINE 20 MG/2 ML INJ IV SCH ×3 (00:42→21:32)
[2022-02-03] MEDS: MELATONIN 5 MG TAB PO PRN ×2 (02:30→22:01)
[2022-02-03 06:31] LABS: Basophils % (Auto) 0.3 % (0.0-1.8); Eosinophils % (Auto) 0.6 % (0.0-4.3); Hematocrit 49.7 % (35.5-45.6); Hemoglobin 16.6 gm/dl (11.8-15.2); Lymphocytes # (Auto) 1.1 K/mm3 (1.2-5.4); Lymphocytes % (Auto) 15.3 % (13.4-35.0); Mean Corpuscular HGB Conc 33 % (32-34); Mean Corpuscular Volume 95 fl (84-94); Monocytes # (Auto) 1.1 K/mm3 (0.0-0.8); Monocytes % (Auto) 15.1 % (0.0-7.3); Platelet Count 219 K/mm3 (140-440); Red Blood Count 5.25 M/mm3 (3.65-5.03); Red Cell Distribution Width 14.7 % (13.2-15.2)
[2022-02-03 07:52] LABS: Bilirubin,Urine NEG (Negative); Blood,Urine NEG (Negative); Color,Urine Amber (Yellow); Mucus,Urine FEW /HPF; Urobilinogen,Urine < 2.0 mg/dL (<2.0)
[2022-02-03] MEDS: POTASSIUM CHLORIDE 10 MEQ 10 MEQ/100 ML BAG IV SCH ×4 (08:29→14:32)
--- NOTE | 2022-02-03 11:11 | Consultation ---
History of Present Illness Consult date: 02/03/22 Reason for consult: abdominal pain - History of present illness History of present illness: 76-year-old male with complicated history of abdominal surgeries presented to the emergency room with 24 hours of nausea vomiting and diarrhea. CT scan showed partial small bowel obstruction. Patient began to feel better almost immediately after his G-tube was left to drainage. This morning patient says that he has been passing gas and there is a minimal draining from his G-tube. He denies any nausea and vomiting. Past History Past Medical History: hypertension Past Surgical History: Other (multiple complex abdominal surgeries, cardiac procedures) Social history: no significant social history, Family history: no significant family history Medications and Allergies Allergies Allergy/AdvReac Type Severity Reaction Status Date / Time No Known Allergies Allergy Verified 07/25/13 22:46 Home Medications Medication Instructions Recorded Confirmed Last Taken Type Aspirin EC [Halfprin EC] 81 mg PO QDAY 05/24/21 11/06/21 11/05/21 10:00 History Nystatin/Triamcin 30 gm TP BID 05/24/21 11/06/21 11/05/21 History [Nystatin-Triamcinolone Ointm] atenoloL [Tenormin] 25 mg PO DAILY 05/24/21 11/06/21 11/05/21 10:00 History hydroCHLOROthiazide 12.5 mg PO DAILY 05/24/21 11/06/21 11/05/21 10:00 History [Hydrochlorothiazide] Pantoprazole [Protonix] 40 mg PO QDAY #30 tablet 11/09/21 Unknown Rx Sucralfate [Carafate] 1 gm PO Q6HR #2 bottle 11/09/21 Unknown Rx Active Meds: Active Medications Acetaminophen (Acetaminophen 325 Mg Tab) 650 mg PO Q4H PRN PRN Reason: Pain MILD(1-3)/Fever >100.5/BOSS Famotidine (Famotidine 20 Mg/2 Ml Inj) 10 mg IV BID [facility] Last Admin: 02/03/22 10:21 Dose: 10 mg Heparin Sodium (Porcine) (Heparin 5,000 Unit/1 Ml Vial) 5,000 unit SUB-Q Q12HR [facility] Last Admin: 02/03/22 10:21 Dose: 5,000 unit Hydromorphone HCl (Hydromorphone 0.5 Mg/0.5 Ml Inj) 0.5 mg IV Q3H PRN PRN Reason: Pain , Severe (7-10) Sodium Chloride (Nacl 0.9% 1000 Ml) 1,000 mls @ 100 mls/hr IV DIRECT [facility] Last Admin: 02/03/22 08:39 Dose: 100 mls/hr Cefepime HCl (Cefepime/Ns 2 Gm/100 Ml) 2 gm in 100 mls @ 200 mls/hr IV Q24H [facility]; Protocol Last Admin: 02/03/22 00:41 Dose: 200 mls/hr Potassium Chloride (Kcl 10meq/100ml) 10 meq in 100 mls @ 100 mls/hr IV Q1H [facility] Stop: 02/03/22 11:59 Last Admin: 02/03/22 09:32 Dose: 100 mls/hr Melatonin (Melatonin 5 Mg Tab) 10 mg PO QHS PRN PRN Reason: Sleep Last Admin: 02/03/22 02:30 Dose: 10 mg Metoclopramide HCl (Metoclopramide 10 Mg/2 Ml Inj) 5 mg IV Q6H PRN PRN Reason: Nausea And Vomiting Morphine Sulfate (Morphine 2 Mg/1 Ml Inj) 2 mg IV Q4H PRN PRN Reason: Pain, Moderate (4-6) Last Admin: 02/02/22 23:17 Dose: 2 mg Ondansetron HCl (Ondansetron 4 Mg/2 Ml Inj) 4 mg IV Q3H PRN PRN Reason: Nausea And Vomiting Sodium Chloride (Sodium Chloride 0.9% 10 Ml Flush Syringe) 10 ml IV BID [facility] Last Admin: 02/03/22 10:21 Dose: 10 ml Sodium Chloride (Sodium Chloride 0.9% 10 Ml Flush Syringe) 10 ml IV PRN PRN PRN Reason: LINE FLUSH Review of Systems All systems: negative - Constitutional poor appetite - Gastrointestinal nausea, diarrhea Exam Vital Signs Temp Pulse Resp BP Pulse Ox 97.9 F 94 H 18 108/76 96 02/02/22 13:10 02/02/22 13:10 02/02/22 13:10 02/02/22 13:10 02/02/22 13:10 - General physical appearance Positive: well developed, no distress, no pain - Eyes Positive: PERRL - ENT Positive: no hearing loss - Respiratory Positive: normal expansion, normal respiratory effort - Cardiovascular Heart Sounds: Present: S1 & S2 - Extremities Extremities: no ischemia - Abdomen Abdomen: Present: soft, other (mild distension, g-tube to LIWS with minimal output) Results - Labs 02/03/22 05:34 02/03/22 05:34 Abnormal lab results 02/02/22 02/02/22 02/02/22 Range/Units 13:28 13:28 14:54 RBC 6.19 H (3.65-5.03) M/mm3 Hgb 19.3 H (11.8-15.2) gm/dl Hct 58.9 H (35.5-45.6) % MCV 95 H (84-94) fl Lymph % (Auto) 7.7 L (13.4-35.0) % [place] % (Auto) 11.7 H (0.0-7.3) % Lymph # (Auto) 0.7 L (1.2-5.4) K/mm3 [place] # (Auto) 1.1 H (0.0-0.8) K/mm3 Seg Neutrophils % 80.3 H (40.0-70.0) % Potassium (3.6-5.0) mmol/L Carbon Dioxide 17 L (22-30) mmol/L BUN 35 H (9-20) mg/dL Creatinine 2.8 H (0.8-1.3) mg/dL Glucose 189 H (75-100) mg/dL Lactic Acid 4.60 H* (0.7-2.0) mmol/L Calcium 11.2 H (8.4-10.2) mg/dL Total Protein 8.6 H (6.3-8.2) g/dL Albumin 5.5 H (3.9-5) g/dL 02/02/22 02/03/22 02/03/22 Range/Units 18:04 05:34 05:34 RBC 5.25 H (3.65-5.03) M/mm3 Hgb 16.6 H (11.8-15.2) gm/dl Hct 49.7 H D (35.5-45.6) % MCV 95 H (84-94) fl Lymph % (Auto) (13.4-35.0) % [place] % (Auto) 15.1 H (0.0-7.3) % Lymph # (Auto) 1.1 L (1.2-5.4) K/mm3 [place] # (Auto) 1.1 H (0.0-0.8) K/mm3 Seg Neutrophils % (40.0-70.0) % Potassium 3.3 L D (3.6-5.0) mmol/L Carbon Dioxide 18 L (22-30) mmol/L BUN 42 H (9-20) mg/dL Creatinine 1.7 H (0.8-1.3) mg/dL Glucose 116 H (75-100) mg/dL Lactic Acid 4.40 H* (0.7-2.0) mmol/L Calcium (8.4-10.2) mg/dL Total Protein (6.3-8.2) g/dL Albumin (3.9-5) g/dL Diabetes panel 02/02/22 02/03/22 Range/Units 13:28 05:34 Sodium 137 137 (137-145) mmol/L Potassium 4.8 3.3 L D (3.6-5.0) mmol/L Chloride 98.6 104.0 (98-107) mmol/L Carbon Dioxide 17 L 18 L (22-30) mmol/L BUN 35 H 42 H (9-20) mg/dL Creatinine 2.8 H 1.7 H (0.8-1.3) mg/dL Glucose 189 H 116 H (75-100) mg/dL Calcium 11.2 H 9.0 D (8.4-10.2) mg/dL AST 28 23 (5-40) units/L ALT 20 13 (7-56) units/L Alkaline Phosphatase 82 59 (35-129) units/L Total Protein 8.6 H 7.0 (6.3-8.2) g/dL Albumin 5.5 H 4.0 (3.9-5) g/dL Calcium panel 02/02/22 02/03/22 Range/Units 13:28 05:34 Calcium 11.2 H 9.0 D (8.4-10.2) mg/dL Albumin 5.5 H 4.0 (3.9-5) g/dL Pituitary panel 02/02/22 02/03/22 Range/Units 13:28 05:34 Sodium 137 137 (137-145) mmol/L Potassium 4.8 3.3 L D (3.6-5.0) mmol/L Chloride 98.6 104.0 (98-107) mmol/L Carbon Dioxide 17 L 18 L (22-30) mmol/L BUN 35 H 42 H (9-20) mg/dL Creatinine 2.8 H 1.7 H (0.8-1.3) mg/dL Glucose 189 H 116 H (75-100) mg/dL Calcium 11.2 H 9.0 D (8.4-10.2) mg/dL Adrenal panel 02/02/22 02/03/22 Range/Units 13:28 05:34 Sodium 137 137 (137-145) mmol/L Potassium 4.8 3.3 L D (3.6-5.0) mmol/L Chloride 98.6 104.0 (98-107) mmol/L Carbon Dioxide 17 L 18 L (22-30) mmol/L BUN 35 H 42 H (9-20) mg/dL Creatinine 2.8 H 1.7 H (0.8-1.3) mg/dL Glucose 189 H 116 H (75-100) mg/dL Calcium 11.2 H 9.0 D (8.4-10.2) mg/dL Total Bilirubin 1.00 0.80 (0.1-1.2) mg/dL AST 28 23 (5-40) units/L ALT 20 13 (7-56) units/L Alkaline Phosphatase 82 59 (35-129) units/L Total Protein 8.6 H 7.0 (6.3-8.2) g/dL Albumin 5.5 H 4.0 (3.9-5) g/dL - Imaging CT scan - abdomen: report reviewed, image reviewed CT scan - pelvis: report reviewed, image reviewed Assessment and Plan 76-year-old male with partial small bowel obstruction likely to adhesive disease. Patient is afebrile and stable and showing clinical signs of improvement. Patient was also extremely dehydrated presenting with acute kidney injury which has also improved after IV hydration. We will allow patient to have ice chips and sips of water today. We will repeat abdominal x-ray in a.m. If patient continues to pass gas and x-ray looks improved can advance to clear liquids tomorrow.
--- NOTE | 2022-02-03 12:03 | Progress Note ---
Assessment and Plan Assessment and plan: #Partial small bowel obstruction Visualized on CT abdomen and pelvis without contrast. May be secondary to multiple adhesions. Multiple presentations for SBO. General surgery consulted; appreciate recs Discontinuing Rocephin given low clinical suspicion for infection. Patient remains hemodynamically stable and without leukocytosis. Recommended NG tube placement; however, patient refused. We will continue with low intermittent wall suction connected to patient's G-tube. Continue n.p.o. status, but allowing ice chips and sips of water per general surgery. Pending repeat abdominal KUB tomorrow morning #Volume depletionimproving #Dehydrationimproving Secondary to extended nausea and vomiting in the setting of partial small osman l obstruction Receiving adequate IV fluid resuscitation. Continue to monitor. #JESUS secondary to vasomotor nephropathy/prerenalimproving Creatinine 2.8--> 1.7 (baseline unremarkable) Secondary to severe dehydration. Status post 3 L IV fluid resuscitation. Continue maintenance fluids. Renally dose meds and avoid nephrotoxic drugs. Holding on consulting nephrolo gy given JESUS is improving. #Polycythemia in the setting of volume depletionimproving Continue to monitor with daily CBC #Hypertension - home medications: HCTZ 12.5 mg daily and atenolol 25 mg daily - current medications: Currently holding as patient was dehydrated - SBP goal <160 and DBP goal <90 while inpatient - continue to monitor #Advanced care planning -Disease education conducted, care plan discussed, diagnoses discussed, prognosis discussed, and patient acknowledges understanding with care plan -Time: +30 min Disposition Plan: Continue medical management Total Time Spent with Patient (Minutes): 45 minutes History Interval history: No acute events overnight. Hospitalist Physical - Constitutional Vitals: Temp Pulse Resp BP Pulse Ox 97.9 F 62 18 136/86 95 02/03/22 11:41 02/03/22 11:41 02/03/22 11:41 02/03/22 11:41 02/03/22 11:41 General appearance: Present: no acute distress, well-nourished - EENT Eyes: Present: PERRL, EOM intact ENT: hearing intact, clear oral mucosa, dentition normal - Neck Neck: Present: supple, normal ROM - Respiratory Respiratory effort: normal Respiratory: bilateral: CTA - Cardiovascular Rhythm: regular Heart Sounds: Present: S1 & S2 - Extremities Extremities: no ischemia, pulses intact, pulses symmetrical, No edema, normal temperature, normal color Peripheral Pulses: within normal limits - Abdominal General gastrointestinal: soft, non-tender, non-distended, normal bowel sounds, other (G-tube connected to intermittent wall suction draining dark brown fluid) - Integumentary Integumentary: Present: clear, warm, dry - Psychiatric Psychiatric: appropriate mood/affect, intact judgment & insight, memory intact, cooperative - Neurologic Neurologic: CNII-XII intact, moves all extremities - Allied Health Allied health notes reviewed: nursing Results - Labs CBC & Chem 7: 02/03/22 05:34 02/03/22 05:34 Labs: Laboratory Last Values WBC 7.4 K/mm3 (4.5-11.0) 02/03/22 05:34 RBC 5.25 M/mm3 (3.65-5.03) H 02/03/22 05:34 Hgb 16.6 gm/dl (11.8-15.2) H 02/03/22 05:34 Hct 49.7 % (35.5-45.6) H D 02/03/22 05:34 MCV 95 fl (84-94) H 02/03/22 05:34 MCH 32 pg (28-32) 02/03/22 05:34 MCHC 33 % (32-34) 02/03/22 05:34 RDW 14.7 % (13.2-15.2) 02/03/22 05:34 Plt Count 219 K/mm3 (140-440) 02/03/22 05:34 Lymph % (Auto) 15.3 % (13.4-35.0) 02/03/22 05:34 [place] % (Auto) 15.1 % (0.0-7.3) H 02/03/22 05:34 Eos % (Auto) 0.6 % (0.0-4.3) 02/03/22 05:34 Baso % (Auto) 0.3 % (0.0-1.8) 02/03/22 05:34 Lymph # (Auto) 1.1 K/mm3 (1.2-5.4) L 02/03/22 05:34 [place] # (Auto) 1.1 K/mm3 (0.0-0.8) H 02/03/22 05:34 Eos # (Auto) 0.0 K/mm3 (0.0-0.4) 02/03/22 05:34 Baso # (Auto) 0.0 K/mm3 (0.0-0.1) 02/03/22 05:34 Seg Neutrophils % 68.7 % (40.0-70.0) 02/03/22 05:34 Seg Neutrophils # 5.1 K/mm3 (1.8-7.7) 02/03/22 05:34 Sodium 137 mmol/L (137-145) 02/03/22 05:34 Potassium 3.3 mmol/L (3.6-5.0) L D 02/03/22 05:34 Chloride 104.0 mmol/L (98-107) 02/03/22 05:34 Carbon Dioxide 18 mmol/L (22-30) L 02/03/22 05:34 Anion Gap 18 mmol/L 02/03/22 05:34 BUN 42 mg/dL (9-20) H 02/03/22 05:34 Creatinine 1.7 mg/dL (0.8-1.3) H 02/03/22 05:34 Estimated GFR 39 ml/min 02/03/22 05:34 BUN/Creatinine Ratio 25 % 02/03/22 05:34 Glucose 116 mg/dL (75-100) H 02/03/22 05:34 Lactic Acid 1.10 mmol/L (0.7-2.0) 02/03/22 07:23 Calcium 9.0 mg/dL (8.4-10.2) D 02/03/22 05:34 Total Bilirubin 0.80 mg/dL (0.1-1.2) 02/03/22 05:34 Direct Bilirubin < 0.2 mg/dL (0-0.2) 02/02/22 13:28 Indirect Bilirubin 0.8 mg/dL 02/02/22 13:28 AST 23 units/L (5-40) 02/03/22 05:34 ALT 13 units/L (7-56) 02/03/22 05:34 Alkaline Phosphatase 59 units/L (35-129) 02/03/22 05:34 Total Protein 7.0 g/dL (6.3-8.2) 02/03/22 05:34 Albumin 4.0 g/dL (3.9-5) 02/03/22 05:34 Albumin/Globulin Ratio 1.3 % 02/03/22 05:34 Lipase 17 units/L (13-60) 02/02/22 13:28 Urine Color Celine (Yellow) 02/03/22 06:50 Urine Turbidity Slightly-cloudy (Clear) 02/03/22 06:50 Urine pH 5.0 (5.0-7.0) 02/03/22 06:50 Ur Specific [place] 1.021 (1.003-1.030) 02/03/22 06:50 Urine Protein 30 mg/dl mg/dL (Negative) 02/03/22 06:50 Urine Glucose (UA) Neg mg/dL (Negative) 02/03/22 06:50 Urine Ketones Tr mg/dL (Negative) 02/03/22 06:50 Urine Blood Neg (Negative) 02/03/22 06:50 Urine Nitrite Neg (Negative) 02/03/22 06:50 Urine Bilirubin Neg (Negative) 02/03/22 06:50 Urine Urobilinogen < 2.0 mg/dL (<2.0) 02/03/22 06:50 Ur Leukocyte Esterase Neg (Negative) 02/03/22 06:50 Urine WBC (Auto) 4.0 /HPF (0.0-6.0) 02/03/22 06:50 Urine RBC (Auto) 7.0 /HPF (0.0-6.0) 02/03/22 06:50 U Epithel Cells (Auto) < 1.0 /HPF (0-13.0) 02/03/22 06:50 Urine Mucus Few /HPF 02/03/22 06:50 Microbiology: Microbiology 02/02/22 14:54 Peripheral/Venous Blood Culture - Preliminary Culture in Progress 02/02/22 15:23 Peripheral/Venous Blood Culture - Preliminary Culture in Progress Active Medications - Current Medications Current Medications: Generic Name Dose Route Start Last Admin Trade Name Freq PRN Reason Stop Dose Admin Acetaminophen 650 mg 02/02/22 22:27 Acetaminophen 325 Mg Tab PO Q4H PRN Pain MILD(1-3)/Fever >100.5/BOSS Famotidine 10 mg 02/02/22 23:00 02/03/22 10:21 Famotidine 20 Mg/2 Ml Inj IV 10 mg BID JOSH Administration Heparin Sodium (Porcine) 5,000 unit 02/02/22 22:30 02/03/22 10:21 Heparin 5,000 Unit/1 Ml Vial SUB-Q 5,000 unit Q12HR JOSH Administration Hydromorphone HCl 0.5 mg 02/02/22 22:27 Hydromorphone 0.5 Mg/0.5 Ml Inj IV Q3H PRN Pain , Severe (7-10) Sodium Chloride 1,000 mls @ 100 mls/hr 02/02/22 22:30 02/03/22 08:39 Nacl 0.9% 1000 Ml IV 100 mls/hr DIRECT JOSH Administration Potassium Chloride 10 meq in 100 mls @ 100 mls/hr 02/03/22 08:00 02/03/22 09:32 Kcl 10meq/100ml IV 02/03/22 11:59 100 mls/hr Q1H JOSH Administration Melatonin 10 mg 02/03/22 01:13 02/03/22 02:30 Melatonin 5 Mg Tab PO 10 mg QHS PRN Administration Sleep Metoclopramide HCl 5 mg 02/02/22 22:43 Metoclopramide 10 Mg/2 Ml Inj IV Q6H PRN Nausea And Vomiting Morphine Sulfate 2 mg 02/02/22 22:27 02/02/22 23:17 Morphine 2 Mg/1 Ml Inj IV 2 mg Q4H PRN Administration Pain, Moderate (4-6) Ondansetron HCl 4 mg 02/02/22 22:27 Ondansetron 4 Mg/2 Ml Inj IV Q3H PRN Nausea And Vomiting Sodium Chloride 10 ml 02/03/22 10:00 02/03/22 10:21 Sodium Chloride 0.9% 10 Ml Flush Syringe IV 10 ml BID JOSH Administration Sodium Chloride 10 ml 02/02/22 22:27 Sodium Chloride 0.9% 10 Ml Flush Syringe IV PRN PRN LINE FLUSH
[2022-02-04] MEDS ORDERED: hydrALAZINE 20 MG/1 ML INJ IV PRN (04:53)
[2022-02-04] MEDS: MORPHINE 2 MG/1 ML INJ IV PRN (05:40)
[2022-02-04 05:43] VITALS: BP 167/102
--- NOTE | 2022-02-04 06:33 | Progress Note ---
Assessment and Plan Assessment and plan: #Partial small bowel obstruction Visualized on CT abdomen and pelvis without contrast. May be secondary to multiple adhesions. Multiple presentations for SBO. General surgery consulted; appreciate recs Discontinuing Rocephin given low clinical suspicion for infection. Patient remains hemodynamically stable and without leukocytosis. Recommended NG tube placement; however, patient refused. We will continue with low intermittent wall suction connected to patient's G-tube. Continue n.p.o. status, but allowing ice chips and sips of water per general surgery. Pending repeat abdominal KUB tomorrow morning #Volume depletionimproving #Dehydrationimproving Secondary to extended nausea and vomiting in the setting of partial small bowel obstruction Receiving adequate IV fluid resuscitation. Continue to monitor. #JESUS secondary to vasomotor nephropathy/prerenalimproving Creatinine 2.8--> 1.7 (baseline unremarkable) Secondary to severe dehydration. Status post 3 L IV fluid resuscitation. Continue maintenance fluids. Renally dose meds and avoid nephrotoxic drugs. Holding on consulting nephrology given JESUS is improving. #Polycythemia in the setting of volume depletionimproving Continue to monitor with daily CBC #Hypertension - home medications: HCTZ 12.5 mg daily and atenolol 25 mg daily - current medications: Restarting home HCTZ 12.5 mg daily and atenolol 25 mg daily - SBP goal <160 and DBP goal <90 while inpatient - continue to monitor #Advanced care planning -Disease education conducted, care plan discussed, diagnoses discussed, prognosis discussed, and patient acknowledges understanding with care plan -Time: +30 min Disposition Plan: Continue medical management Total Time Spent with Patient (Minutes): 45 minutes History Interval history: No acute events overnight. Hospitalist Physical - Constitutional Vitals: Temp Pulse Resp BP Pulse Ox 98.2 F 78 17 167/102 93 02/04/22 04:45 02/04/22 05:42 02/04/22 05:40 02/04/22 05:42 02/04/22 04:45 General appearance: Present: no acute distress, well-nourished - EENT Eyes: Present: PERRL, EOM intact ENT: hearing intact, clear oral mucosa, dentition normal - Neck Neck: Present: supple, normal ROM - Respiratory Respiratory effort: normal Respiratory: bilateral: CTA - Cardiovascular Rhythm: regular Heart Sounds: Present: S1 & S2 - Extremities Extremities: no ischemia, pulses intact, pulses symmetrical, No edema, normal temperature, normal color Peripheral Pulses: within normal limits - Abdominal General gastrointestinal: soft, non-tender, non-distended, normal bowel sounds, other (G-tube in place ) - Integumentary Integumentary: Present: clear, warm, dry - Psychiatric Psychiatric: appropriate mood/affect, intact judgment & insight, memory intact, cooperative - Neurologic Neurologic: CNII-XII intact, moves all extremities - Allied Health Allied health notes reviewed: nursing Results - Labs CBC & Chem 7: 02/04/22 05:15 02/04/22 05:15 Labs: Laboratory Last Values WBC 7.4 K/mm3 (4.5-11.0) 02/03/22 05:34 RBC 5.25 M/mm3 (3.65-5.03) H 02/03/22 05:34 Hgb 16.6 gm/dl (11.8-15.2) H 02/03/22 05:34 Hct 49.7 % (35.5-45.6) H D 02/03/22 05:34 MCV 95 fl (84-94) H 02/03/22 05:34 MCH 32 pg (28-32) 02/03/22 05:34 MCHC 33 % (32-34) 02/03/22 05:34 RDW 14.7 % (13.2-15.2) 02/03/22 05:34 Plt Count 219 K/mm3 (140-440) 02/03/22 05:34 Lymph % (Auto) 15.3 % (13.4-35.0) 02/03/22 05:34 [place] % (Auto) 15.1 % (0.0-7.3) H 02/03/22 05:34 Eos % (Auto) 0.6 % (0.0-4.3) 02/03/22 05:34 Baso % (Auto) 0.3 % (0.0-1.8) 02/03/22 05:34 Lymph # (Auto) 1.1 K/mm3 (1.2-5.4) L 02/03/22 05:34 [place] # (Auto) 1.1 K/mm3 (0.0-0.8) H 02/03/22 05:34 Eos # (Auto) 0.0 K/mm3 (0.0-0.4) 02/03/22 05:34 Baso # (Auto) 0.0 K/mm3 (0.0-0.1) 02/03/22 05:34 Seg Neutrophils % 68.7 % (40.0-70.0) 02/03/22 05:34 Seg Neutrophils # 5.1 K/mm3 (1.8-7.7) 02/03/22 05:34 Sodium 137 mmol/L (137-145) 02/03/22 05:34 Potassium 3.3 mmol/L (3.6-5.0) L D 02/03/22 05:34 Chloride 104.0 mmol/L (98-107) 02/03/22 05:34 Carbon Dioxide 18 mmol/L (22-30) L 02/03/22 05:34 Anion Gap 18 mmol/L 02/03/22 05:34 BUN 42 mg/dL (9-20) H 02/03/22 05:34 Creatinine 1.7 mg/dL (0.8-1.3) H 02/03/22 05:34 Estimated GFR 39 ml/min 02/03/22 05:34 BUN/Creatinine Ratio 25 % 02/03/22 05:34 Glucose 116 mg/dL (75-100) H 02/03/22 05:34 Lactic Acid 1.10 mmol/L (0.7-2.0) 02/03/22 23:40 Calcium 9.0 mg/dL (8.4-10.2) D 02/03/22 05:34 Total Bilirubin 0.80 mg/dL (0.1-1.2) 02/03/22 05:34 Direct Bilirubin < 0.2 mg/dL (0-0.2) 02/02/22 13:28 Indirect Bilirubin 0.8 mg/dL 02/02/22 13:28 AST 23 units/L (5-40) 02/03/22 05:34 ALT 13 units/L (7-56) 02/03/22 05:34 Alkaline Phosphatase 59 units/L (35-129) 02/03/22 05:34 Total Protein 7.0 g/dL (6.3-8.2) 02/03/22 05:34 Albumin 4.0 g/dL (3.9-5) 02/03/22 05:34 Albumin/Globulin Ratio 1.3 % 02/03/22 05:34 Lipase 17 units/L (13-60) 02/02/22 13:28 Urine Color Celine (Yellow) 02/03/22 06:50 Urine Turbidity Slightly-cloudy (Clear) 02/03/22 06:50 Urine pH 5.0 (5.0-7.0) 02/03/22 06:50 Ur Specific [place] 1.021 (1.003-1.030) 02/03/22 06:50 Urine Protein 30 mg/dl mg/dL (Negative) 02/03/22 06:50 Urine Glucose (UA) Neg mg/dL (Negative) 02/03/22 06:50 Urine Ketones Tr mg/dL (Negative) 02/03/22 06:50 Urine Blood Neg (Negative) 02/03/22 06:50 Urine Nitrite Neg (Negative) 02/03/22 06:50 Urine Bilirubin Neg (Negative) 02/03/22 06:50 Urine Urobilinogen < 2.0 mg/dL (<2.0) 02/03/22 06:50 Ur Leukocyte Esterase Neg (Negative) 02/03/22 06:50 Urine WBC (Auto) 4.0 /HPF (0.0-6.0) 02/03/22 06:50 Urine RBC (Auto) 7.0 /HPF (0.0-6.0) 02/03/22 06:50 U Epithel Cells (Auto) < 1.0 /HPF (0-13.0) 02/03/22 06:50 Urine Mucus Few /HPF 02/03/22 06:50 Microbiology: Microbiology 02/02/22 14:21 Urine,Clean Catch Urine Culture - Preliminary NO GROWTH AFTER 24 HOURS 02/02/22 14:54 Peripheral/Venous Blood Culture - Preliminary NO GROWTH AFTER 24 HOURS 02/02/22 15:23 Peripheral/Venous Blood Culture - Preliminary NO GROWTH AFTER 24 HOURS Junior/IV: Voiding Method Urinal Active Medications - Current Medications Current Medications: Generic Name Dose Route Start Last Admin Trade Name Freq PRN Reason Stop Dose Admin Acetaminophen 650 mg 02/02/22 22:27 Acetaminophen 325 Mg Tab PO Q4H PRN Pain MILD(1-3)/Fever >100.5/BOSS Atenolol 25 mg 02/04/22 10:00 Atenolol 25 Mg Tab PO DAILY JOSH Famotidine 10 mg 02/02/22 23:00 02/03/22 21:32 Famotidine 20 Mg/2 Ml Inj IV 10 mg BID JOSH Administration Heparin Sodium (Porcine) 5,000 unit 02/02/22 22:30 02/03/22 21:33 Heparin 5,000 Unit/1 Ml Vial SUB-Q 5,000 unit Q12HR JOSH Administration Hydralazine HCl 10 mg 02/04/22 04:53 02/04/22 05:42 Hydralazine 20 Mg/1 Ml Inj IV 10 mg Q6HR PRN Administration Hypertension Hydrochlorothiazide 12.5 mg 02/04/22 10:00 Hydrochlorothiazide 12.5 Mg Cap PO DAILY JOSH Hydromorphone HCl 0.5 mg 02/02/22 22:27 Hydromorphone 0.5 Mg/0.5 Ml Inj IV Q3H PRN Pain , Severe (7-10) Sodium Chloride 1,000 mls @ 75 mls/hr 02/02/22 22:30 02/03/22 21:57 Nacl 0.9% 1000 Ml IV 100 mls/hr DIRECT JOSH Administration Melatonin 10 mg 02/03/22 01:13 02/03/22 22:01 Melatonin 5 Mg Tab PO 10 mg QHS PRN Administration Sleep Metoclopramide HCl 5 mg 02/02/22 22:43 Metoclopramide 10 Mg/2 Ml Inj IV Q6H PRN Nausea And Vomiting Morphine Sulfate 2 mg 02/02/22 22:27 02/04/22 05:40 Morphine 2 Mg/1 Ml Inj IV 2 mg Q4H PRN Administration Pain, Moderate (4-6) Ondansetron HCl 4 mg 02/02/22 22:27 Ondansetron 4 Mg/2 Ml Inj IV Q3H PRN Nausea And Vomiting Sodium Chloride 10 ml 02/03/22 10:00 02/04/22 02:48 Sodium Chloride 0.9% 10 Ml Flush Syringe IV 10 ml BID JOSH Administration Sodium Chloride 10 ml 02/02/22 22:27 Sodium Chloride 0.9% 10 Ml Flush Syringe IV PRN PRN LINE FLUSH
[2022-02-04 06:40] LABS: Basophils % (Auto) 0.3 % (0.0-1.8); Eosinophils # (Auto) 0.2 K/mm3 (0.0-0.4); Eosinophils % (Auto) 2.1 % (0.0-4.3); Hematocrit 48.2 % (35.5-45.6); Hemoglobin 16.2 gm/dl (11.8-15.2); Lymphocytes # (Auto) 1.2 K/mm3 (1.2-5.4); Mean Corpuscular HGB Conc 34 % (32-34); Mean Corpuscular Volume 95 fl (84-94); Monocytes % (Auto) 12.8 % (0.0-7.3); Platelet Count 201 K/mm3 (140-440); Red Blood Count 5.06 M/mm3 (3.65-5.03); Red Cell Distribution Width 14.8 % (13.2-15.2)
[2022-02-04 06:48] LABS: BUN/Creatinine Ratio 29; Blood Urea Nitrogen 26 mg/dL (9-20); Calcium 9.2 mg/dL (8.4-10.2); Hemolysis Index 34
--- NOTE | 2022-02-04 08:57 | XRay Report ---
ABDOMEN 2 VIEWS INDICATION / CLINICAL INFORMATION: Evaluate partial SBO. COMPARISON: CT abdomen/pelvis 02/02/22. FINDINGS: TUBES / LINES: The position of the gastrostomy tube has not changed. BOWEL GAS PATTERN: Gaseous distention of multiple bowel loops in the mid to upper abdomen centrally a nd on the left is again identified with mild overall improvement. No mass effect. FREE AIR / EXTRALUMINAL GAS: None seen. ADDITIONAL FINDINGS: No significant additional findings. CHEST: Mild left basilar pleuroparenchymal opacity is new. IMPRESSION: 1. Probable mild improvement in the bowel gas pattern since the prior exam. 2. Mild left basilar pleuroparenchymal disease probably represents a combination of atelectasis and m inimal pleural effusion. Signer Name: Kingsley Meraz MD Signed: 02/04/2022 8:52 AM Workstation Name: [id number]
[2022-02-04] MEDS ORDERED: FAMOTIDINE 20 MG/2 ML INJ IV SCH (10:00)
[2022-02-04] MEDS ORDERED: hydroCHLOROthiazide 12.5 MG CAP PO SCH (10:00)
[2022-02-04] MEDS ORDERED: atenoloL 25 MG TAB PO SCH (10:00)
[2022-02-04] MEDS: HEPARIN 5,000 UNIT/1 ML VIAL SUB-Q SCH (11:15)
--- NOTE | 2022-02-04 12:23 | Discharge Summary ---
Providers - Providers Date of Admission: 02/02/22 22:27 Date of discharge: 02/04/22 Attending physician: YASMIN COX MD 02/02/22 22:27 Consult to Physician [CONS] Routine Comment: Consulting Provider: KEVEN KWOK Physician Instructions: Reason For Exam: Small bowel obstruction Primary care physician: ASSET PROTECTION REPRESENTATIVE Hospitalization Reason for admission: Partial SBO, JESUS secondary to vasomotor nephropathy, dehydration Condition: Stable Pertinent studies: Reviewed. Procedures: None. Hospital course: Patient is 76-year-old male past medical history of hypertension and a complicated history of numerous abdominal surgeries complicated by G-tube placement who presented to the emergency department with 24 hours of nausea, vomiting, diarrhea. Patient was hemodynamically stable on presentation; however his labs were remarkable for creatinine 2.8 (baseline unremarkable), lactic acid 4.6, and CT abdomen and pelvis Noncon revealing partial small bowel obstruction. General surgery was consulted for further management. The patient has received aggressive IV fluid resuscitation with resolution of his JESUS. The patient had his G-tube connected to low wall intermittent suction. The patient left AMA Disposition: 07 LEFT AGAINST MEDICAL ADVICE Final Discharge Diagnosis (Prints w/discharge instructions): Partial small bowel obstruction, volume depletion, dehydration, JESUS secondary to vasomotor nephropathy/prerenal, polycythemia in the setting of volume depletion, hypertension. Time spent for discharge: 45 min Core Measure Documentation - Palliative Care Palliative Care/ Comfort Measures: Not Applicable - Core Measures Any of the following diagnoses?: none Exam - Constitutional Vitals: Temp Pulse Resp BP Pulse Ox 98.2 F 78 17 167/102 93 02/04/22 04:45 02/04/22 05:42 02/04/22 06:10 02/04/22 05:42 02/04/22 04:45 General appearance: Present: no acute distress, well-nourished - EENT Eyes: Present: PERRL, EOM intact ENT: hearing intact, clear oral mucosa, dentition normal - Neck Neck: Present: supple, normal ROM - Respiratory Respiratory effort: normal Respiratory: bilateral: CTA - Cardiovascular Rhythm: regular Heart Sounds: Present: S1 & S2 - Extremities Extremities: no ischemia, pulses intact, pulses symmetrical, No edema, normal temperature, normal color Peripheral Pulses: within normal limits - Abdominal General gastrointestinal: Present: soft, non-tender, non-distended, normal bowel sounds, hernia, other (G-tube in place) Male genitourinary: Present: deferred - Rectal Rectal Exam: deferred - Integumentary Integumentary: Present: clear, warm, dry - Musculoskeletal Musculoskeletal: strength equal bilaterally - Psychiatric Psychiatric: appropriate mood/affect, intact judgment & insight, memory intact, cooperative - Neurologic Neurologic: CNII-XII intact, moves all extremities - Allied Health Allied health notes reviewed: nursing Plan Activity: advance as tolerated Diet: low salt Additional Instructions: Patient is 76-year-old male past medical history of hypertension and a complicated history of numerous abdominal surgeries complicated by G-tube placement who presented to the emergency department with 24 hours of nausea, vomiting, diarrhea. Patient was hemodynamically stable on presentation; however his labs were remarkable for creatinine 2.8 (baseline unremarkable), lactic acid 4.6, and CT abdomen and pelvis Noncon revealing partial small bowel obstruction. General surgery was consulted for further m anagement. The patient has received aggressive IV fluid resuscitation with resolution of his JESUS. The patient had his G-tube connected to low wall intermittent suction. The patient left AMA. Assessment: Patient is 76-year-old male past medical history of hypertension and a complicated history of numerous abdominal surgeries complicated by G-tube placement who presented to the emergency department with 24 hours of nausea, vomiting, diarrhea. Patient was hemodynamically stable on presentation; however his labs were remarkable for creatinine 2.8 (baseline unremarkable), lactic acid 4.6, and CT abdomen and pelvis Noncon revealing partial small bowel obstruction. General surgery was consulted for further management. The patient has received aggressive IV fluid resuscitation with resolution of his JESUS. The patient had his G-tube connected to low wall intermittent suction. The patient left AMA. Follow up with: PRIMARY MD CHRISTIAN [Primary Care Provider] - 7 Days Forms: AMA Form
--- NOTE | 2022-02-04 15:19 | Event Note ---
Date: 02/04/22 Patient not in room when I arrived for rounds. Per RN, patient left AMA today. Per notes, patient was feeling well without n/v and refusing drainage via G tube as ordered. Abd xray today showed mild improvement in bowel dilatation. VSS and Labs improved.
== END 2022-02-04 14:30 | disposition left against medical advice (07) | DRG 388 ==
LOC: ED 12:42 → 4A 22:27
PROVIDERS: ADMIT Internal Medicine; ATTEND Student in an Organized Health Care Education/Training Program
PROC: 0D9670Z Drainage of Stomach with Drainage Device, Via Natural or Artificial Opening (ICD-10-PCS; principal; 2022-02-02)
DX: K56.600 Partial intestinal obstruction, unspecified as to cause (principal); N17.0 Acute kidney failure with tubular necrosis; I10 Essential (primary) hypertension; E78.00 Pure hypercholesterolemia, unspecified; E86.9 Volume depletion, unspecified; D75.1 Secondary polycythemia; I25.2 Old myocardial infarction; Z90.49 Acquired absence of other specified parts of digestive tract; E86.0 Dehydration
CPT/HCPCS: 36415; 74019; 74176; 80048; 80053; 80076; 81001; 82140; 83690; 85025; 87040; 87086; G0378; J3490; J0360; J0692; J1644; J2270; J3480; J7030